=== PATIENT | female | born 1950 | race Caucasian/White ===

== ENCOUNTER → 2016-10-28 | Outpatient (CLI) | payer MEDICARE, OTHER ==
[2016-10-28 07:32] LABS: CH 28.3; CHCM 31.6; HCT 34.1 % (34.0-46.0); HDW 4.01; HGB 10.8 gm/dL (11.4-16.0); Hypochromasia Marked; MCH 28.2 pg (25.0-35.0); MCHC 31.6 g/dL (31.0-37.0); Mean Platelet Volume 6.7; Poikilocytosis Moderate; RBC 3.83 m/uL (3.80-5.40); RDW 15.9 % (11.5-15.5); WBC 11.6 k/uL (3.8-10.6)
[2016-10-28 07:54] LABS: Anion Gap 9 mmol/L; Blood Urea Nitrogen 21 mg/dL (7-17); Carbon Dioxide 39 mmol/L (22-30); Non-African American GFR(MDRD) >60 (>60 ml/min/1.73 sqM); Sodium 127 mmol/L (137-145)
[2016-10-28 08:45] LABS: Chloride 79 mmol/L (98-107)
== END | disposition home or self-care (01) ==
LOC: LABPAT 06:34
PROVIDERS: ATTEND Internal Medicine Interventional Cardiology
DX: Z01.812 Encounter for preprocedural laboratory examination (principal); I73.9 Peripheral vascular disease, unspecified
CPT/HCPCS: 80051; 82565; 84520; 85027

== ENCOUNTER → 2016-11-03 | Day surgery (SDC) | payer MEDICARE, OTHER ==
[2016-10-28 09:43] VITALS: BMI 15.4
[~2016-11-03] MED LIST: ALPRAZolam 0.25 MG TAB PO PRN; ASPIRIN 325 MG TAB PO STA; SODIUM CHLORIDE 0.9% 1,000 ML in EMPTY BAG 1 BAG IV ONE; ZOLPIDEM 5 MG TAB PO PRN
[2016-11-03 06:51] VITALS: TEMP 97.8
[2016-11-03 06:58] VITALS: BP 119/64; PULSE 90; RESP 20
[2016-11-03 07:28] LABS: Anion Gap 7 mmol/L; Blood Urea Nitrogen 14 mg/dL (7-17); Calcium 8.8 mg/dL (8.4-10.2); Carbon Dioxide 35 mmol/L (22-30); Chloride 84 mmol/L (98-107); Glucose 84 mg/dL (74-99); Non-African American GFR(MDRD) >60 (>60 ml/min/1.73 sqM); Potassium 3.6 mmol/L (3.5-5.1); Sodium 126 mmol/L (137-145)
[2016-11-03 15:27] LABS: Basophils # (A) 0.1 k/uL (0-0.2); Basophils % (A) 1 %; CH 26.2; CHCM 29.7; Eosinophils # (A) 0.4 k/uL (0-0.7); Eosinophils % (A) 3 %; HCT 31.7 % (34.0-46.0); HDW 4.36; HGB 9.6 gm/dL (11.4-16.0); Hypochromasia Marked; Luc # (Auto) 0.38; Luc % (Auto) 3; Lymphocytes # (A) 1.6 k/uL (1.0-4.8); Lymphocytes % (A) 13 %; MCH 26.5 pg (25.0-35.0); MCHC 30.3 g/dL (31.0-37.0); MCV 87.5 fL (80.0-100.0); Mean Platelet Volume 7.7; Monocytes # (A) 1.1 k/uL (0-1.0); Monocytes % (A) 9 %; Neutrophils # (A) 9.3 k/uL (1.3-7.7); Neutrophils % (A) 72 %; Poikilocytosis Moderate; RBC 3.62 m/uL (3.80-5.40); RDW 15.8 % (11.5-15.5); WBC 12.8 k/uL (3.8-10.6); WBC (Perox) 12.83
== END ==
LOC: CATHCVL 06:27
PROVIDERS: ATTEND Internal Medicine Interventional Cardiology
DX: I73.9 Peripheral vascular disease, unspecified (principal)
CPT/HCPCS: 80048; 85025

== ENCOUNTER 2016-11-04 08:59 | Day surgery (SDC) | payer MEDICARE, OTHER ==
[~2016-11-04 08:59] MED LIST changes: -ALPRAZolam 0.25 MG TAB PO PRN; -ASPIRIN 325 MG TAB PO STA; -ZOLPIDEM 5 MG TAB PO PRN
[2016-11-04 09:53] VITALS: PULSE 89; RESP 20; TEMP 98
[2016-11-04] MEDS ORDERED: MIDAZOLAM 2 MG/2 ML VIAL IVP ONE (10:39)
[2016-11-04] MEDS ORDERED: LIDOCAINE 2% INJ 20 MG/ML SQ ONE (10:41)
[2016-11-04] MEDS ORDERED: IODIXANOL 320 MG/ML 100 ML INTRAARTER ONE (10:56)
--- NOTE | 2016-11-04 11:28 | IR ---
EXAMINATION TYPE: IR angio abdominal w runoff DATE OF EXAM: 11/04/2016 COMPARISON: NONE HISTORY: Peripheral vascular occlusive disease. Fluoroscopy was provided to the referring clinician. See dictated report from cardiology.
[2016-11-04] MEDS ORDERED: SODIUM CHLORIDE 0.9% 1,000 ML IV SCH (11:30)
[2016-11-04 17:55] VITALS: BP 105/72
--- NOTE | 2016-11-05 10:39 | PCN ---
DATE OF SERVICE: 11/04/2016 PERFORMING PHYSICIAN: London Martinez MD, Local Delivery Driver PROCEDURE PERFORMED: 1. Abdominal aortogram. 2. Bilateral lower extremity runoff. 3. Selective right common iliac artery angiogram. 4. Selective right external iliac artery angiogram. INDICATIONS: This is a pleasant 66-year-old female patient who is known to have PAD and prior stenting of the right and left iliac arteries. She was experience discomfort in the right leg. She underwent an arterial duplex study and that showed high velocity in the right common iliac arteries. She was brought today to undergo angiogram. APPROACH: Right common femoral artery. COMPLICATIONS: None. LEVEL OF SEDATION: Moderate with sedation length of 25 minutes. PROCEDURE DESCRIPTION: After obtaining informed consent the patient was brought to the Cardiac Counter Hop. The right common femoral vein was cannulated using micropuncture technique, the micropuncture wire passed easily. Then I placed 5- [place] sheath in the right common femoral artery. After that I did abdominal aortogram and bilateral lower extremity runoff using 5-St Lucian pigtail catheter which was initially placed at the level of the renal arteries and it was pulled into above the bifurcation of the aorta. After that I did selective right and left common iliac artery angiogram using the 5-St Lucian sheath in the right groin. The procedure was completed without any complications. SELECTIVE PERIPHERAL ANGIOGRAM: 1. The aorta is calcified with mild to moderate diffuse disease. 2. Common iliac arteries: The right and left common iliac arteries are stented and the stents are patent, but the proximal edge of the stent in the right common iliac artery appeared to have pseudoaneurysm. 3. The external iliac arteries: The right external iliac artery is stented and the stent is patent. The left external iliac artery appeared to have mild disease only. 4. Internal iliac arteries: The right and left internal iliac arteries are patent. 5. The common femoral arteries: The right and left common femoral arteries are angiographically normal. 6. Profunda: The right and left profunda are patent. 7. The SFA: The right and left SFA appear to have mild disease only. 8. The popliteal: The right and left popliteal appear to be angiographically normal. 9. Below the knee: There are three vessels runoff below the knee bilaterally. CONCLUSION: 1. Patent stents in the right and left common iliac arteries. 2. Patent stents in the right external iliac artery. 3. Pseudoaneurysm involving the proximal edge of the stent in the right common iliac artery and seems to be a good size pseudoaneurysm. 4. Mild fem-pop disease. 5. Patent three vessels below the knee bilaterally. POSTPROCEDURE MANAGEMENT: The patient will be scheduled to undergo a SHIM PLUG CUTTER of the right common iliac artery using a covered stent to exclude pseudoaneurysm. OLIVA
== END 2016-11-04 17:30 | disposition home or self-care (01) ==
LOC: CATHCVL 08:59
PROVIDERS: ATTEND Internal Medicine Interventional Cardiology
DX: I70.8 Atherosclerosis of other arteries (principal); I70.0 Atherosclerosis of aorta; I77.9 Disorder of arteries and arterioles, unspecified; I73.9 Peripheral vascular disease, unspecified; Z95.820 Peripheral vascular angioplasty status with implants and grafts; E78.5 Hyperlipidemia, unspecified; F17.210 Nicotine dependence, cigarettes, uncomplicated; Z79.02 Long term (current) use of antithrombotics/antiplatelets; Z79.82 Long term (current) use of aspirin; Z79.51 Long term (current) use of inhaled steroids; Z79.899 Other long term (current) drug therapy
CPT/HCPCS: 36200; 75625; 75716; 99152; C1769 ×5; C1894; J2001; J2250; Q9967

== ENCOUNTER 2016-11-10 10:59 | Day surgery (SDC) | payer MEDICARE, OTHER ==
[2016-11-08 15:18] VITALS: BMI 15.4
[~2016-11-10 10:59] MED LIST changes: +ASPIRIN 325 MG TAB PO STA; -SODIUM CHLORIDE 0.9% 1,000 ML in EMPTY BAG 1 BAG IV ONE
[2016-11-10] MEDS ORDERED: ASPIRIN 81 MG ONE (11:11)
[2016-11-10 11:57] LABS: Anisocytosis Slight; Basophils # (A) 0.1 k/uL (0-0.2); Basophils % (A) 1 %; CH 25.2; CHCM 30.1; Eosinophils # (A) 0.3 k/uL (0-0.7); Eosinophils % (A) 3 %; HCT 31.4 % (34.0-46.0); HDW 4.39; HGB 9.7 gm/dL (11.4-16.0); Hypochromasia Marked; Luc # (Auto) 0.33; Luc % (Auto) 3; Lymphocytes # (A) 1.6 k/uL (1.0-4.8); Lymphocytes % (A) 14 %; MCH 25.6 pg (25.0-35.0); MCHC 30.9 g/dL (31.0-37.0); Monocytes # (A) 0.7 k/uL (0-1.0); Monocytes % (A) 7 %; Neutrophils % (A) 73 %; Poikilocytosis Moderate; RBC 3.78 m/uL (3.80-5.40); RDW 16.9 % (11.5-15.5)
[2016-11-10 12:06] LABS: Anion Gap 9 mmol/L; Blood Urea Nitrogen 19 mg/dL (7-17); Calcium 9.1 mg/dL (8.4-10.2); Carbon Dioxide 29 mmol/L (22-30); Chloride 91 mmol/L (98-107); Glucose 84 mg/dL (74-99); Non-African American GFR(MDRD) >60 (>60 ml/min/1.73 sqM); Potassium 3.9 mmol/L (3.5-5.1); Sodium 129 mmol/L (137-145)
[2016-11-10] MEDS ORDERED: SODIUM CHLORIDE 0.9% 1,000 ML IV ONE (12:28)
[2016-11-10] MEDS: MIDAZOLAM 2 MG/2 ML VIAL IV ONE ×2 (12:54→12:57)
[2016-11-10] MEDS ORDERED: LIDOCAINE 2% INJ 20 MG/ML SQ ONE (12:58)
[2016-11-10] MEDS ORDERED: IODIXANOL 320 MG/ML 100 ML INTRAARTER ONE (13:26)
[2016-11-10] MEDS ORDERED: ALBUTEROL NEBULIZED 2.5 MG/3 ML INHALATION PRN (13:27)
[2016-11-10] MEDS ORDERED: IPRATROPIUM-ALBUTEROL 3 ML NEB INHALATION PRN (13:27)
--- NOTE | 2016-11-10 13:57 | IR ---
EXAMINATION TYPE: IR stent intravas non coronary DATE OF EXAM: 11/10/2016 COMPARISON: NONE HISTORY: Peripheral vascular occlusive disease. Fluoroscopy was provided to the referring clinician. See dictated report from cardiology.
[2016-11-10] MEDS ORDERED: ATROPINE SULFATE 0.1 MG/ML 10ML SYRINGE ONE (14:54)
[2016-11-10 16:20] VITALS: RESP 18
[2016-11-10] MEDS: FUROSEMIDE 20 MG TAB PO SCH (17:07)
[2016-11-10] MEDS: SYMBICORT 80-4.5 MCG INHALER INHALATION SCH (20:22)
[2016-11-10] MEDS ORDERED: ATORVASTATIN 10 MG TAB PO SCH (21:00)
[2016-11-11 04:20] VITALS: BP 145/70; PULSE 74; TEMP 98.8
[2016-11-11 06:42] LABS: Anisocytosis Slight; Basophils # (A) 0.1 k/uL (0-0.2); Basophils % (A) 1 %; CH 25.8; CHCM 30.2; Eosinophils # (A) 0.4 k/uL (0-0.7); Eosinophils % (A) 5 %; HCT 29.5 % (34.0-46.0); HDW 4.16; HGB 8.7 gm/dL (11.4-16.0); Hypochromasia Marked; Luc # (Auto) 0.26; Luc % (Auto) 4; Lymphocytes # (A) 1.6 k/uL (1.0-4.8); Lymphocytes % (A) 21 %; MCH 25.1 pg (25.0-35.0); MCHC 29.6 g/dL (31.0-37.0); MCV 84.7 fL (80.0-100.0); Mean Platelet Volume 6.5; Monocytes # (A) 0.7 k/uL (0-1.0); Monocytes % (A) 9 %; Neutrophils # (A) 4.5 k/uL (1.3-7.7); Neutrophils % (A) 60 %; Poikilocytosis Moderate; RBC 3.48 m/uL (3.80-5.40); RDW 17.7 % (11.5-15.5); WBC 7.5 k/uL (3.8-10.6); WBC (Perox) 7.69
[2016-11-11 06:54] LABS: Anion Gap 7 mmol/L; Blood Urea Nitrogen 15 mg/dL (7-17); Calcium 8.9 mg/dL (8.4-10.2); Carbon Dioxide 28 mmol/L (22-30); Chloride 96 mmol/L (98-107); Glucose 83 mg/dL (74-99); Non-African American GFR(MDRD) >60 (>60 ml/min/1.73 sqM); Potassium 4.2 mmol/L (3.5-5.1); Sodium 131 mmol/L (137-145)
[2016-11-11] MEDS: FUROSEMIDE 20 MG TAB PO SCH (08:39)
[2016-11-11] MEDS: SYMBICORT 80-4.5 MCG INHALER INHALATION SCH (08:55)
[2016-11-11] MEDS ORDERED: CLOPIDOGREL 75 MG TAB PO SCH (09:00)
[2016-11-11] MEDS ORDERED: ASPIRIN 81 MG PO SCH (09:00)
[2016-11-11] MEDS ORDERED: CHOLECALCIFEROL 1,000 UNIT TAB PO SCH (12:00)
[2016-11-11] MEDS ORDERED: VIT A,C & E-LUTEIN-MINERALS 1 EACH TAB PO SCH (12:00)
--- NOTE | 2016-11-11 14:19 | AS ---
ARTERIAL STUDY DATE OF SERVICE: 11/10/2016 PERFORMING PHYSICIAN: London Martinez MD, Nail Galvanizer. PROCEDURE PERFORMED: 1. Selective right common iliac artery angiogram. 2. Successful stenting of the right common iliac artery using a 7.0 x 22 mm iCAST covered stent with good angiographic results. 3. Selective right common femoral artery angiogram. INDICATION: This is a pleasant 66-year-old, female patient who underwent stenting of the right common iliac artery in the past. She was experiencing bilateral lower extremity discomfort and she underwent a duplex study which showed elevated peak systolic velocity in the right iliac stent. She underwent a peripheral angiogram subsequently and that showed pseudoaneurysm involving the right common iliac artery. She was brought today for intervention. APPROACH: Right common femoral artery. COMPLICATION: None. LEVEL OF SEDATION: Moderate, sedation length of 28 minutes. PROCEDURE DESCRIPTION: After obtaining an informed consent, the patient was brought to Cardiac Sql Server Developer. The right common femoral artery was cannulated using micropuncture technique. The micropuncture wire passed easily and I placed a 23 cm Brite Tip 7-Icelandic sheath in the right common femoral artery. Subsequently, I did selective right common iliac artery angiogram before I did direct stenting of the lesion using a 7.0 x 22 mm iCAST covered stent where the stent was positioned under fluoroscopic guidance and deployed under 12 atmospheres for 1 minute. The following angiogram showed no leaking and the closure of the pseudoaneurysm. The procedure was completed without any complication. Subsequently, I did exchange my 23 cm Brite Tip sheath into 11 cm sheath over the 0.35 Advantage wire. POSTPROCEDURE MANAGEMENT: 1. Dual antiplatelet therapy to be continued. 2. Risk factor modifications and follow up with the patient .. MMODL / IJN: [id number] /
--- NOTE | 2016-11-12 17:26 | DS ---
DISCHARGE SUMMARY BRIEF HISTORY: This is a pleasant 66-year-old, female patient who was admitted to the hospital and underwent successful stenting of the right common iliac artery with a good angiographic result and without any complication where the procedure was performed from the right groin. On follow up with the patient today she is doing good and she denies having any chest pain or discomfort or difficulty breathing. The right groin is soft and nontender and without any bruises. The patient is going to be discharged home on dual antiplatelet therapy and statin and I will follow up with the patient next week in the office. MMJIMBOL / OZZY: [id number] /
== END 2016-11-11 10:08 | disposition home or self-care (01) ==
LOC: CATHCVL 10:59 → 6SEL 13:23 → CATHCVL 11-11 10:08
PROVIDERS: ATTEND Internal Medicine Interventional Cardiology
DX: I70.291 Other atherosclerosis of native arteries of extremities, right leg (principal); Z95.820 Peripheral vascular angioplasty status with implants and grafts; E78.5 Hyperlipidemia, unspecified; F17.210 Nicotine dependence, cigarettes, uncomplicated; Z79.02 Long term (current) use of antithrombotics/antiplatelets; Z79.82 Long term (current) use of aspirin; Z79.51 Long term (current) use of inhaled steroids; Z79.899 Other long term (current) drug therapy
CPT/HCPCS: 94640; 37221; 85347; 80048 ×2; 85025 ×2; C1894 ×2; C1874; C1769 ×4; J2001; J2250; Q9967; J1644

== ENCOUNTER → 2017-05-11 | Outpatient (CLI) | payer MEDICARE, OTHER ==
[2017-05-11 19:04] LABS: Anisocytosis Slight; Basophils # (A) 0.1 k/uL (0-0.2); Basophils % (A) 1 %; Eosinophils # (A) 0.4 k/uL (0-0.7); Eosinophils % (A) 4 %; HCT 43.7 % (34.0-46.0); HGB 13.5 gm/dL (11.4-16.0); Hypochromasia Slight; Lymphocytes # (A) 1.8 k/uL (1.0-4.8); Lymphocytes % (A) 17 %; MCH 28.3 pg (25.0-35.0); MCHC 30.9 g/dL (31.0-37.0); MCV 91.6 fL (80.0-100.0); Mean Platelet Volume 10.1; Monocytes # (A) 0.9 k/uL (0-1.0); Monocytes % (A) 8 %; Neutrophils # (A) 7.5 k/uL (1.3-7.7); Neutrophils % (A) 69 %; Platelet Count 293 k/uL (150-450); RBC 4.77 m/uL (3.80-5.40); WBC 10.9 k/uL (3.8-10.6)
[2017-05-12 01:10] LABS: Iron Saturation 12.89 (12.00-45.00)
== END | disposition home or self-care (01) ==
LOC: MMGSC 11:09
PROVIDERS: ATTEND Family Medicine
DX: D64.9 Anemia, unspecified (principal)
CPT/HCPCS: 36415; 82728; 83540; 83550; 85025

== ENCOUNTER 2018-04-23 19:29 | Inpatient (IN) | payer MEDICARE, OTHER ==
[2018-04-23] MEDS ORDERED: IPRATROPIUM-ALBUTEROL 3 ML NEB INHALATION STA (19:33)
[2018-04-23] MEDS ORDERED: MAGNESIUM SULFATE-D5W PMX 1 GM in DEXTROSE/WATER 1 100ML.BAG IVPB STA (19:33)
[2018-04-23] MEDS ORDERED: SODIUM CHLORIDE 0.9% 1,000 ML IV STA (19:33)
--- NOTE | 2018-04-23 19:57 | XR ---
EXAMINATION TYPE: XR chest 1V portable DATE OF EXAM: 04/23/2018 COMPARISON: NONE HISTORY: Difficulty in breathing. TECHNIQUE: Single AP portable frontal upright view of the chest is obtained. FINDINGS: There is chronic parenchymal change without suspicious focal air space opacity, pleural ef fusion, or pneumothorax seen. The cardiac silhouette size is upper limits of normal with atheroscler otic thoracic aorta. The osseous structures are demineralized. Scoliosis centered in the lumbar spi ne is partially imaged. IMPRESSION: Chronic parenchymal change without acute pulmonary process.
[2018-04-23 20:07] LABS: Basophils % (A) 0 %; Eosinophils # (A) 0.3 k/uL (0-0.7); Eosinophils % (A) 2 %; HCT 44.3 % (34.0-46.0); Lymphocytes # (A) 1.2 k/uL (1.0-4.8); Lymphocytes % (A) 7 %; MCHC 33.8 g/dL (31.0-37.0); MCV 97.6 fL (80.0-100.0); Mean Platelet Volume 7.9; Monocytes # (A) 1.2 k/uL (0-1.0); Monocytes % (A) 7 %; Neutrophils # (A) 14.2 k/uL (1.3-7.7); Neutrophils % (A) 83 %; Platelet Count 300 k/uL (150-450); RBC 4.54 m/uL (3.80-5.40); RDW 13.7 % (11.5-15.5); WBC 17.1 k/uL (3.8-10.6)
[2018-04-23] MEDS ORDERED: ALBUTEROL NEBULIZED 2.5 MG/3 ML INHALATION STA (20:16)
[2018-04-23 21:01] LABS: ALT 33 U/L (9-52); AST 35 U/L (14-36); Albumin 3.9 g/dL (3.5-5.0); Alkaline Phosphatase 91 U/L (38-126); Anion Gap 8 mmol/L; Blood Urea Nitrogen 26 mg/dL (7-17); Calcium 8.7 mg/dL (8.4-10.2); Carbon Dioxide 28 mmol/L (22-30); Chloride 93 mmol/L (98-107); Glucose 142 mg/dL (74-99); Magnesium 2.3 mg/dL (1.6-2.3); Potassium 4.8 mmol/L (3.5-5.1); Sodium 129 mmol/L (137-145); Total Bilirubin 0.6 mg/dL (0.2-1.3); Total Protein 6.7 g/dL (6.3-8.2)
[2018-04-23] MEDS ORDERED: LABETALOL SYRINGE 5 MG/ML IVP STA (21:04)
--- NOTE | 2018-04-23 21:04 | ED ---
SOB HPI - General Source: patient, EMS Mode of arrival: EMS Limitations: no limitations <Roland De La O - Last Filed: 04/23/18 20:56> <Samantha Cesar - Last Filed: 04/23/18 23:12> - General Chief Complaint: Shortness of Breath Stated Complaint: Difficulty Breathing Time Seen by Provider: 04/23/18 19:33 - History of Present Illness Initial Comments: This 67-year-old white female presents with a complaint of some shortness of breath. This apparently came on yesterday. It is fairly sudden in onset. It occurred while she was bowling. She complains of some wheezing. She has a long history of COPD and still does actively abuse tobacco. She denies any fevers or chills. She probably did have some bronchitis this past month and was on some antibiotics. She does not utilize home oxygen. She does see Dr. Mike from pulmonology. She will take her breathing treatments at times. She denies any chest pain. There is no leg pain or swelling or history of DVT or PE. No other complaints or modifying factors. (Roland De La O) - Related Data Home Medications Medication Instructions Recorded Confirmed Fluticasone/Salmeterol [Advair 1 puff INHALATION RT-BID 06/01/15 04/23/18 250-50 Diskus] Ipratropium/Albuterol Sulfate 1 puff INHALATION RT-QID PRN 06/01/15 04/23/18 [Combivent Respimat Inhaler] Simvastatin [Zocor] 20 mg PO DAILY 06/01/15 04/23/18 Vit A/Vit C/Vit E/Zinc/Copper 1 tab PO DAILY 06/01/15 04/23/18 [ICAPS SOFTGEL] Aspirin [Adult Low Dose Aspirin EC] 81 mg PO DAILY 10/28/16 04/23/18 Cholecalciferol [Vitamin D3] 1,000 unit PO DAILY 10/28/16 04/23/18 Furosemide [Lasix] 20 mg PO BID PRN 10/28/16 04/23/18 Albuterol Inhaler [Ventolin Hfa 1 - 2 puff INHALATION RT-Q6H PRN 04/23/18 Inhaler] Cephalexin [Keflex] 500 mg PO TID 04/23/18 04/23/18 amLODIPine [Norvasc] 5 mg PO DAILY 04/23/18 04/23/18 methylPREDNISolone Dose Pack See Taper PO DIRECTED 04/23/18 04/23/18 [Medrol Dose Pack] Allergies Allergy/AdvReac Type Severity Reaction Status Date / Time estrogens, conjugated Allergy Rash/Hives Verified 04/23/18 20:11 [From Premarin] lisinopril Allergy Swelling Verified 04/23/18 20:11 Review of Systems ROS Other: All systems not noted in ROS Statement are negative. <Roland De La O - Last Filed: 04/23/18 20:56> ROS Other: All systems not noted in ROS Statement are negative. <Samantha Cesar - Last Filed: 04/23/18 23:12> ROS Statement: Those systems with pertinent positive or pertinent negative responses have been documented in the HPI. Past Medical History Past Medical History: Asthma, COPD, Hyperlipidemia, Osteoarthritis (OA), Pneumonia, Vascular Disorder Additional Past Medical History / Comment(s): HX OF ANEMIA, STATES HAS HAD UNSUCCSESSFUL COLONOSCOPIES IN PAST R/T "TWISTED BOWEL" PAD with lower extremity discomfort bilaterally. History of Any Multi-Drug Resistant Organisms: None Reported Past Surgical History: Adenoidectomy, Breast Surgery, Tonsillectomy Additional Past Surgical History / Comment(s): 06/03/15 Arch study, PTBA & Stenting Right Ext Iliac artery. ABDOULAYE OOPHERECTOMY. LASIK EYE SURGERY Abdoulaye. Benign Breast bx bilat. Rt Carotid Angiogram, & Endarterectomy. Rt Carotid Artery Stent 07/14/15. Stent to LT Leg 07/30/15. ABD AORTOGRAM, ANGIOGRAM 11/04. RT LEG STENT 11/10/16 Past Anesthesia/Blood Transfusion Reactions: No Reported Reaction Past Psychological History: No Psychological Hx Reported Smoking Status: Light tobacco smoker Past Alcohol Use History: Occasional Past Drug Use History: None Reported - Past Family History Father Family Medical History: Myocardial Infarction (ME) Additional Family Medical History / Comment(s): Father of a ME at age 61 yrs. Brother(s) Family Medical History: Myocardial Infarction (ME) Mother Family Medical History: No Reported History Additional Family Medical History / Comment(s): Mother had kidney failure and was on dialysis. She at age 73 yrs. <Roland De La O - Last Filed: 04/23/18 20:56> General Exam Limitations: no limitations <Roland De La O - Last Filed: 04/23/18 20:56> <Samantha Cesar - Last Filed: 04/23/18 23:12> - General Exam Comments Initial Comments: GENERAL: The patient is well nourished and well hydrated. VITAL SIGNS: Heart rate, blood pressure, respiratory rate reviewed as recorded in nurse's notes. EYES: Pupils are round and reactive. Extraocular movements are intact. No conjunctival / lid redness or swelling. ENT: No external evidence of injury, swelling, or ecchymosis. Airway is patent. Throat is clear. NECK: Nontender. No swelling or evidence of injury. No subcutaneous emphysema. Trachea is midline. No thyroid mass. HEART: Regular rate and rhythm. Good peripheral pulses. LUNGS/CHEST: Breath sounds are diminished bilaterally with slight wheezing. No ecchymosis, subcutaneous emphysema, or tenderness. ABDOMEN: Abdomen soft without tenderness. No palpable masses or organomegaly. No peritoneal signs. No abdominal wall swelling or ecchymosis. EXTREMITIES: No extremity tenderness. Normal muscle tone and function. No thoracolumbar tenderness. NEUROLOGIC: Sensation is grossly intact. Cranial nerve exam reveals face is symmetrical, tongue is midline, speech is clear. SKIN: No abrasions or ecchymosis is noted. No induration or masses noted. PSYCHIATRIC: Alert and oriented. Appropriate behavior and judgment. (Roland De La O) Vital Signs 04/23/18 04/23/18 04/23/18 19:33 19:39 19:40 Temperature 98.2 F Pulse Rate 116 H 110 H 105 H Respiratory 22 17 28 H Rate Blood Pressure 212/153 212/123 206/119 O2 Sat by Pulse 96 100 100 Oximetry 04/23/18 04/23/18 04/23/18 19:43 19:50 19:53 Temperature Pulse Rate 105 H 101 H 102 H Respiratory 24 Rate Blood Pressure 200/111 O2 Sat by Pulse 100 Oximetry 04/23/18 04/23/18 04/23/18 20:00 20:04 20:10 Temperature Pulse Rate 108 H 102 H 103 H Respiratory 26 H 32 H Rate Blood Pressure 200/111 170/106 O2 Sat by Pulse 99 100 Oximetry 04/23/18 04/23/1819 20:20 20:30 20:40 Temperature Pulse Rate 105 H 95 93 Respiratory 37 H 25 H 21 Rate Blood Pressure 176/97 176/97 187/104 O2 Sat by Pulse 99 100 100 Oximetry 04/23/18 04/23/18 04/23/18 20:43 20:50 21:00 Temperature Pulse Rate 94 92 106 H Respiratory 23 Rate Blood Pressure 187/100 O2 Sat by Pulse 98 Oximetry 04/23/18 04/23/18 04/23/18 21:10 21:20 21:24 Temperature Pulse Rate 90 100 95 Respiratory 20 23 Rate Blood Pressure 189/97 187/93 O2 Sat by Pulse 98 97 Oximetry 04/23/18 04/23/18 21:30 21:40 Temperature Pulse Rate 95 102 H Respiratory 16 20 Rate Blood Pressure 185/99 186/90 O2 Sat by Pulse 95 Oximetry Medical Decision Making - Lab Data Result diagrams: 04/23/18 19:38 <Roland De La O - Last Filed: 04/23/18 20:56> - Lab Data Result diagrams: 04/23/18 19:38 04/23/18 20:38 <Samantha Cesar - Last Filed: 04/23/18 23:12> - Medical Decision Making The patient is seen and examined. All diagnostics are reviewed. She was placed on BiPAP per EMS and was received as a priority 1 difficulty in breathing. The BiPAP was continued in the ER. She seems to tolerate this quite well and it seems to be helping. The patient received a breathing treatment and route as well as Solu-Medrol 125 mg IV. She receives a double DuoNeb breathing treatment and then later a double albuterol breathing treatment. She is in no respiratory distress on recheck with a pulse ox of 99% on the BiPAP on recheck. The chest x-ray does not show any acute processes. The EKG shows a sinus tachycardia at a rate of 113. There is no acute ST-T wave changes noted. There is some artifact noted identified. There is some left ventricular hypertrophy. The KY intervals 152, QRS duration is 78, and the QTC intervals 449. So far, CBC is back on her labs and this does show a leukocytosis. Further care will be passed off to oncoming physician. (Roland De La O) Patient care was signed out to me by Dr. De La O patient presented in respiratory distress with profound hypertension. patient was treated with triple duoneb therapy and solumedrol by EMS. Labetalol for HTN. Patient was noted to have elevated d-dimer, CTA was ordered. Patient was weaned from CPAP and transported to CT. Patient tolerated being off CPAP. Upon my re- evaluation Asians blood pressure had improved she was still mildly hypertensive with a systolic of 175, respiratory rate was improved her oxygen saturation was 95-96% on 2 L nasal cannula. Patient care was discussed with Dr Gamboa from [facility] who accepts the admission. EKG was obtained at 20-22, rate is 74 rhythm is sinus there is left atrial enlargement, left axis, normal intervals, KY 166, QRS 80, QTC is 468, there are no acute ST elevations or depressions evaluation of evidence of acute ischemia or infarction. (Samantha Cesar) - Lab Data Lab Results 04/23/18 04/23/18 04/23/18 Range/Units 19:38 19:38 20:38 WBC 17.1 H (3.8-10.6) k/uL RBC 4.54 (3.80-5.40) m/uL Hgb 15.0 (11.4-16.0) gm/dL Hct 44.3 (34.0-46.0) % MCV 97.6 (80.0-100.0) fL MCH 33.0 (25.0-35.0) pg MCHC 33.8 (31.0-37.0) g/dL RDW 13.7 (11.5-15.5) % Plt Count 300 (150-450) k/uL Neutrophils % 83 % Lymphocytes % 7 % Monocytes % 7 % Eosinophils % 2 % Basophils % 0 % Neutrophils # 14.2 H (1.3-7.7) k/uL Lymphocytes # 1.2 (1.0-4.8) k/uL Monocytes # 1.2 H (0-1.0) k/uL Eosinophils # 0.3 (0-0.7) k/uL Basophils # 0.0 (0-0.2) k/uL PT (9.0-12.0) sec INR (<1.2) APTT (22.0-30.0) sec D-Dimer (<0.60) mg/L FEU Sodium 129 L (137-145) mmol/L Potassium 4.8 (3.5-5.1) mmol/L Chloride 93 L (98-107) mmol/L Carbon Dioxide 28 (22-30) mmol/L Anion Gap 8 mmol/L BUN 26 H (7-17) mg/dL Creatinine 0.76 (0.52-1.04) mg/dL Est GFR (CKD-EPI)AfAm >90 (>60 ml/min/1.73 sqM) Est GFR (CKD-EPI)NonAf 81 (>60 ml/min/1.73 sqM) Glucose 142 H (74-99) mg/dL Calcium 8.7 (8.4-10.2) mg/dL Magnesium 2.3 (1.6-2.3) mg/dL Total Bilirubin 0.6 (0.2-1.3) mg/dL AST 35 (14-36) U/L ALT 33 (9-52) U/L Alkaline Phosphatase 91 (38-126) U/L Total Creatine Kinase (30-135) U/L CK-MB (CK-2) (0.0-2.4) ng/mL CK-MB (CK-2) Rel Index Troponin I (0.000-0.034) ng/mL NT-Pro-B Natriuret Pep 1070 pg/mL Total Protein 6.7 (6.3-8.2) g/dL Albumin 3.9 (3.5-5.0) g/dL 04/23/18 04/23/18 Range/Units 20:38 20:38 WBC (3.8-10.6) k/uL RBC (3.80-5.40) m/uL Hgb (11.4-16.0) gm/dL Hct (34.0-46.0) % MCV (80.0-100.0) fL MCH (25.0-35.0) pg MCHC (31.0-37.0) g/dL RDW (11.5-15.5) % Plt Count (150-450) k/uL Neutrophils % % Lymphocytes % % Monocytes % % Eosinophils % % Basophils % % Neutrophils # (1.3-7.7) k/uL Lymphocytes # (1.0-4.8) k/uL Monocytes # (0-1.0) k/uL Eosinophils # (0-0.7) k/uL Basophils # (0-0.2) k/uL PT 9.5 (9.0-12.0) sec INR 0.9 (<1.2) APTT 22.7 (22.0-30.0) sec D-Dimer 1.50 H (<0.60) mg/L FEU Sodium (137-145) mmol/L Potassium (3.5-5.1) mmol/L Chloride (98-107) mmol/L Carbon Dioxide (22-30) mmol/L Anion Gap mmol/L BUN (7-17) mg/dL Creatinine (0.52-1.04) mg/dL Est GFR (CKD-EPI)AfAm (>60 ml/min/1.73 sqM) Est GFR (CKD-EPI)NonAf (>60 ml/min/1.73 sqM) Glucose (74-99) mg/dL Calcium (8.4-10.2) mg/dL Magnesium (1.6-2.3) mg/dL Total Bilirubin (0.2-1.3) mg/dL AST (14-36) U/L ALT (9-52) U/L Alkaline Phosphatase (38-126) U/L Total Creatine Kinase 90 (30-135) U/L CK-MB (CK-2) 4.8 H (0.0-2.4) ng/mL CK-MB (CK-2) Rel Index 5.3 Troponin I <0.012 (0.000-0.034) ng/mL NT-Pro-B Natriuret Pep pg/mL Total Protein (6.3-8.2) g/dL Albumin (3.5-5.0) g/dL Disposition <Roland De La O - Last Filed: 04/23/18 20:56> Is patient prescribed a controlled substance at d/c from ED?: No <Samantha Cesar - Last Filed: 04/23/18 23:12> Clinical Impression: COPD with exacerbation, Dyspnea, Hypertensive crisis, Tobacco abuse Disposition: ADMITTED IP TO THIS HOSP Condition: Serious Referrals: Darline Chaudhari MD [Primary Care Provider] - 1-2 days
[2018-04-23 21:08] LABS: Creatine Kinase 90 U/L (30-135)
[2018-04-23 21:13] LABS: INR 0.9 (<1.2); Partial Thromboplastin Time 22.7 sec (22.0-30.0); Prothrombin Time 9.5 sec (9.0-12.0)
[2018-04-23 21:17] LABS: D-Dimer 1.5 mg/L FEU (<0.60)
[2018-04-23 21:19] LABS: Creatine Kinase MB 4.8 ng/mL (0.0-2.4); Troponin I <0.012 ng/mL (0.000-0.034)
--- NOTE | 2018-04-23 22:06 | CT ---
EXAMINATION TYPE: CT chest angio for PE DATE OF EXAM: 04/23/2018 COMPARISON: NONE HISTORY: GERARDO, hx copd CT DLP: 156 mGycm. Automated Exposure Control for Dose Reduction was Utilized. CONTRAST: CTA scan of the thorax is performed with IV Contrast, patient injected with 80 mL of Isovue 370, pulm onary embolism protocol. MIP Images are created on CT scanner and reviewed. FINDINGS: LUNGS: Mild to moderate underlying emphysematous changes present. There is moderate biapical pleural/ parenchymal scarring. There is additional [id number] anterior medial right midlung linear scarr ing and/or atelectasis. There is focal scarlike opacity measuring 8 x 5 mm medial aspect lingula axia l image 84 favor post inflammatory, cannot exclude spiculated nodule. There is additional patchy or l inear scarring or atelectasis inferiorly in the lingula. No pleural effusion or pneumothorax is evide nt bilaterally. MEDIASTINUM: There is satisfactory enhancement of the pulmonary artery and its branches, there is no CT evidence for pulmonary embolism. There are no greater than 1 cm hilar or mediastinal lymph nodes. No cardiomegaly or pericardial effusion is seen. Ascending aorta is dilated up to 3.7 cm axial rae ge 65. Pectus excavatum deformity has mass effect anterior aspect right ventricle. OTHER: Underlying scoliotic curvature is present. IMPRESSION: 1. No CT evidence for acute pulmonary embolism. 2. Mild to moderate underlying emphysematous change with scattered parenchymal scarring. No suspiciou s acute pulmonary process. Advise CT follow-up in 6 months time to rule out spiculated nodule, favor postinflammatory scar.
[2018-04-23] MEDS ORDERED: IPRATROPIUM-ALBUTEROL 3 ML NEB INHALATION PRN (22:51)
[2018-04-24] MEDS: NICOTINE 14MG/24HR PATCH TRANSDERM SCH (07:14)
--- NOTE | 2018-04-24 07:33 | P.HPIM ---
History of Present Illness H&P Date: 04/24/18 Patient is a 67-year-old female with a PMH of COPD, active tobacco abuse, hyperlipidemia, and osteoarthritis who presented to the ED for sudden onset of shortness of breath, along with nonproductive cough, and wheezing. Patient states that her symptoms started suddenly yesterday while evening while she was bowling, and she used her inhalers multiple times with little relief. She denied associated chest pain, fever, chills, lower extremity pain, lower extremity swelling, recent travel, or sick contacts. The patient follows with pulmonary medicine Dr. Bartlett. She is not on home oxygen. In the ED, the patient underwent a comprehensive workup, with WBC 17.1 and D- Dimer Elevated to 1.50. Subsequent CTA chest was negative for PE. BUN 26, creatinine 0.76. Patient was admitted to medicine service for acute COPD exacerbation. Review of Systems Pertinent positives and negatives as discussed in HPI, a complete review of systems was performed and all other systems are negative. Past Medical History Past Medical History: Asthma, COPD, Hyperlipidemia, Osteoarthritis (OA), Pneumonia, Vascular Disorder Additional Past Medical History / Comment(s): HX OF ANEMIA, STATES HAS HAD UNSUCCSESSFUL COLONOSCOPIES IN PAST R/T "TWISTED BOWEL" PAD with lower extremity discomfort bilaterally. History of Any Multi-Drug Resistant Organisms: None Reported Past Surgical History: Adenoidectomy, Breast Surgery, Tonsillectomy Additional Past Surgical History / Comment(s): 06/03/15 Arch study, PTBA & Stenting Right Ext Iliac artery. EARL OOPHERECTOMY. LASIK EYE SURGERY [facility]. Benign Breast bx bilat. Rt Carotid Angiogram, & Endarterectomy. Rt Carotid Artery Stent 07/14/15. Stent to LT Leg 07/30/15. ABD AORTOGRAM, ANGIOGRAM 11/04. RT LEG STENT 11/10/16 Past Anesthesia/Blood Transfusion Reactions: No Reported Reaction Past Psychological History: No Psychological Hx Reported Smoking Status: Light tobacco smoker Past Alcohol Use History: Occasional Additional Past Alcohol Use History / Comment(s): SMOKER FOR 50 YRS, LESS THAN 1 /2 PPD. CURRENTLY 2-4 CIGARETTES PER DAY. Past Drug Use History: None Reported - Past Family History Father Family Medical History: Myocardial Infarction ([place]) Additional Family Medical History / Comment(s): Father of a [place] at age 61 yrs. Brother(s) Family Medical History: Myocardial Infarction ([place]) Mother Family Medical History: No Reported History Additional Family Medical History / Comment(s): Mother had kidney failure and was on dialysis. She at age 73 yrs. Medications and Allergies Home Medications Medication Instructions Recorded Confirmed Type Fluticasone/Salmeterol [Advair 1 puff INHALATION RT-BID 06/01/15 04/23/18 History 250-50 Diskus] Ipratropium/Albuterol Sulfate 1 puff INHALATION RT-QID PRN 06/01/15 04/23/18 History [Combivent Respimat Inhaler] Simvastatin [Zocor] 20 mg PO DAILY 06/01/15 04/23/18 History Vit A/Vit C/Vit E/Zinc/Copper 1 tab PO DAILY 06/01/15 04/23/18 History [ICAPS SOFTGEL] Aspirin [Adult Low Dose Aspirin EC] 81 mg PO DAILY 10/28/16 04/23/18 History Cholecalciferol [Vitamin D3] 1,000 unit PO DAILY 10/28/16 04/23/18 History Furosemide [Lasix] 20 mg PO BID PRN 10/28/16 04/23/18 History Albuterol Inhaler [Ventolin Hfa 1 - 2 puff INHALATION RT-Q6H PRN 04/23/18 History Inhaler] Cephalexin [Keflex] 500 mg PO TID 04/23/18 04/23/18 History amLODIPine [Norvasc] 5 mg PO DAILY 04/23/18 04/23/18 History methylPREDNISolone Dose Pack See Taper PO DIRECTED 04/23/18 04/23/18 History [Medrol Dose Pack] Allergies Allergy/AdvReac Type Severity Reaction Status Date / Time estrogens, conjugated Allergy Rash/Hives Verified 04/23/18 20:11 [From Premarin] lisinopril Allergy Swelling Verified 04/23/18 20:11 Physical Exam Vitals: Vital Signs Temp Pulse Resp BP BP Pulse Ox 04/24/18 01:20 174/87 100 04/23/18 23:00 69 17 175/92 96 04/23/18 22:30 70 18 172/86 94 L 04/23/18 21:40 102 H 20 186/90 95 02/11/19 21:30 95 16 185/99 02/11/19 21:24 95 04/23/18 21:20 100 23 187/93 97 04/23/18 21:10 90 20 189/97 98 04/23/18 21:00 106 H 04/23/18 20:50 92 23 187/100 98 04/23/18 20:43 94 04/23/18 20:40 93 21 187/104 100 04/23/18 20:30 95 25 H 176/97 100 04/23/18 20:20 105 H 37 H 176/97 99 04/23/18 20:10 103 H 32 H 170/106 100 04/23/18 20:04 102 H 04/23/18 20:00 108 H 26 H 200/111 99 04/23/18 19:53 102 H 04/23/18 19:50 101 H 24 200/111 100 04/23/18 19:43 105 H 04/23/18 19:40 105 H 28 H 206/119 100 04/23/18 19:39 110 H 17 212/123 100 04/23/18 19:33 98.2 F 116 H 22 212/153 96 Intake and Output 04/23/18 04/24/18 04/24/18 22:59 06:59 14:59 Intake Total 600 Balance 600 Intake: Intake, IV Titration 600 Amount Sodium Chloride 0.9% 1, 600 000 ml @ 100 mls/hr IV . Q10H STA Rx#:[id number] Other: # Voids 1 Weight 37.195 kg General: non toxic, no distress, appears at stated age, underweight Derm: no unusual rashes/lesions no unusual ecchymoses, warm, dry Head: atraumatic, normocephalic, symmetric Eyes: EOMI, no lid lag, anicteric sclera, pupils equal round reactive to light ENT: Nose and ears atraumatic, no thrush, no pharyngeal erythema Neck: No thyromegaly, no cervical lymphadenopathy, trachea midline, supple Mouth: no lip lesion, mucus membranes moist Cardiovascular: S1S2 reg, no murmur, positive posterior tibial pulse bilateral, no edema, capillary refill less than 2 seconds Lungs: Wheezing bilaterally with some coarse breath sounds, no rales appreciated Abdominal: soft, nontender to palpation, no guarding, no appreciable organomegaly, normal bowel sounds Ext: no gross muscle atrophy, muscle strength 5 out of 5 in all 4 extremities grossly, no contractures, Neuro: CN II-XI grossly intact, light touch intact all 4 extremities, finger to nose within normal limits, Psych: Alert, oriented, appropriate affect Results CBC & Chem 7: 04/23/18 19:38 04/23/18 20:38 Labs: Abnormal Lab Results - Last 24 Hours (Table) 04/23/18 04/23/18 04/23/18 Range/Units 19:38 20:38 20:38 WBC 17.1 H (3.8-10.6) k/uL Neutrophils # 14.2 H (1.3-7.7) k/uL Monocytes # 1.2 H (0-1.0) k/uL D-Dimer (<0.60) mg/L FEU Sodium 129 L (137-145) mmol/L Chloride 93 L (98-107) mmol/L BUN 26 H (7-17) mg/dL Glucose 142 H (74-99) mg/dL CK-MB (CK-2) 4.8 H (0.0-2.4) ng/mL 04/23/18 Range/Units 20:38 WBC (3.8-10.6) k/uL Neutrophils # (1.3-7.7) k/uL Monocytes # (0-1.0) k/uL D-Dimer 1.50 H (<0.60) mg/L FEU Sodium (137-145) mmol/L Chloride (98-107) mmol/L BUN (7-17) mg/dL Glucose (74-99) mg/dL CK-MB (CK-2) (0.0-2.4) ng/mL Thrombosis Risk Factor Assmnt - Choose All That Apply Any of the Below Risk Factors Present?: Yes Each Factor Represents 1 point: Abnormal pulmonary function (COPD) Other Risk Factors: Yes Each Risk Factor Represents 2 Points: Age 61-74 years Thrombosis Risk Factor Assessment Total Risk Factor Score: 3 Thrombosis Risk Factor Assessment Level: Moderate Risk Assessment and Plan Plan: Acute COPD exacerbation -Continue with DuoNeb's -Solu-Medrol 60 mg every 6 hourly -Consult Dr Mike Hyponatremia -Likely due to poor oral intake -Dietitian consult Leukocytosis -Likely reactive -Monitor CBC Active tobacco abuse -Advised on the importance of cessation DVT//GI prophylaxis -Heparin -Protonix The patient is admitted with an anticipated greater than than 2 midnight stay for evaluation of acute COPD exacerbation. CODE STATUS: Full code Discussed with: Patient Anticipated discharge date: 04/26/[address]: Home A total of 60 minutes was spent on the care of this complex patient more than 50 % of the time was spent in counseling and care coordination.
[2018-04-24] MEDS ORDERED: FUROSEMIDE 20 MG TAB PO PRN (07:58)
[2018-04-24] MEDS ORDERED: SYMBICORT 80-4.5 MCG INHALER INHALATION SCH (08:00)
[2018-04-24 08:17] LABS: ALT 36 U/L (9-52); AST 27 U/L (14-36); Albumin 3.7 g/dL (3.5-5.0); Alkaline Phosphatase 71 U/L (38-126); Anion Gap 4 mmol/L; Blood Urea Nitrogen 22 mg/dL (7-17); Calcium 8.7 mg/dL (8.4-10.2); Carbon Dioxide 32 mmol/L (22-30); Chloride 98 mmol/L (98-107); Glucose 134 mg/dL (74-99); Sodium 134 mmol/L (137-145); Total Bilirubin 0.5 mg/dL (0.2-1.3); Total Protein 6.3 g/dL (6.3-8.2)
[2018-04-24] MEDS ORDERED: predniSONE 20 MG TAB PO SCH (09:00)
[2018-04-24] MEDS: ASPIRIN 81 MG PO SCH (09:02)
[2018-04-24] MEDS: ATORVASTATIN 10 MG TAB PO SCH (09:02)
[2018-04-24] MEDS: methylPREDNISolone SOD SUCCI 125 MG/2 ML VIAL IV SCH ×4 (09:02→23:10)
[2018-04-24] MEDS: HEPARIN SODIUM,PORCINE 5,000 UNIT/ML 1 ML VIAL SQ SCH ×3 (09:02→23:10)
[2018-04-24] MEDS: amLODIPine 5 MG TAB PO SCH (09:02)
[2018-04-24 09:24] LABS: HGB 14.5 gm/dL (11.4-16.0); MCH 31.6 pg (25.0-35.0); MCHC 31.5 g/dL (31.0-37.0); MCV 100.5 fL (80.0-100.0); Mean Platelet Volume 6.9; Platelet Count 300 k/uL (150-450); RBC 4.57 m/uL (3.80-5.40); RDW 13.6 % (11.5-15.5); WBC 6.7 k/uL (3.8-10.6)
[2018-04-24] MEDS: AZITHROMYCIN 500 MG TAB PO SCH (10:28)
[2018-04-24] MEDS: SODIUM CHLORIDE 0.9% 1,000 ML IV SCH (10:28)
[2018-04-24] MEDS: guaiFENesin 600 MG TABLET.ER PO SCH ×2 (10:28→20:19)
[2018-04-24] MEDS: IPRATROPIUM-ALBUTEROL 3 ML NEB INHALATION SCH ×3 (11:57→19:52)
[2018-04-24 12:04] LABS: Glucose,Whole Blood 116 mg/dL (75-99)
[2018-04-24] MEDS: INSULIN ASPART (NovoLOG) 100 UNIT/ML VIAL SQ SCH ×3 (12:10→20:20)
[2018-04-24 13:19] VITALS: BMI 16.5
--- NOTE | 2018-04-24 13:24 | P.CNPUL ---
History of Present Illness Consult date: 04/24/18 Requesting physician: Inna Corral Reason for consult: dyspnea, cough, COPD Chief complaint: Shortness of breath, cough, chest congestion History of present illness: This is a 67-year-old white female patient of Dr. Chaudhari, with history of COPD, and underlying FEV1 of 48% of predicted, not oxygen or prednisone dependent at baseline. Other medical history includes osteoarthritis, hyperlipidemia, previous episodes of pneumonia, peripheral vascular disease with history of right iliac artery stenting, chronic anemia, right carotid artery stenosis, with previous history of carotid endarterectomy and stent placements. Patient presented to the emergency department on 04/23/2018 with complaints of increasing shortness of breath since Monday, cough, chest congestion, chest tightness, intermittent chills. But no fevers. Patient was recently on some antibiotics, the names of which she does not recall, and she states it was for skin infection in her right antecubital fossa area. Patient was recently started on the blood pressure medication, not recall the name, but lisinopril is listed on her list of ALLERGIES, and she started developing a rash , swelling in her right arm, in the antecubital fossa area. Rash was quite itchy, localized. She was given a round of Medrol Dosepak, and the cultures the wound she was told revealed bacterial growth, and she was put on some oral antibiotics. On Monday she started becoming more short of breath, on Monday her symptoms became worse, she felt very congested, tight and wheezy. She is a current smoker. Chest x-ray showed chronic right, unchanged without acute pulmonary process. D-dimer was elevated at 1.5, and CT angios chest was obtained which showed no evidence of pulmonary embolism, and mild to moderate underlying emphysematous changes with scattered parenchymal scarring. She'll blood work showed white blood cell count of 17.1, hemoglobin of 15.0, sodium was 129, potassium is 4.8, chloride is 93, B1 is 26 creatinine was 0.76. Bone and was negative 1, proBNP was mildly elevated at 1070. Patient was in quite severe respiratory distress on admission, requiring BiPAP support, she was also quite hypertensive, did receive labetalol IV push is in the emergency department. EKG showed sinus rhythm with possible left atrial enlargement, and anterior infarct of undetermined age. She was started on nebulized bronchodilators, IV steroids, she is currently off the BiPAP support, doing better, and easier, on 3 L per nasal cannula pulse ox is 97%, blood pressures 170/75, she is afebrile. Review of Systems All systems: negative Constitutional: Denies chills, Denies fever Eyes: denies blurred vision, denies pain Ears, nose, mouth and throat: Denies headache, Denies sore throat Cardiovascular: Denies chest pain, Denies shortness of breath Respiratory: Reports congestion, Reports dyspnea, Reports wheezing, Denies cough Gastrointestinal: Denies abdominal pain, Denies diarrhea, Denies nausea, Denies vomiting Genitourinary: Denies dysuria, Denies hematuria Musculoskeletal: Denies myalgias Integumentary: Denies pruritus, Denies rash Neurological: Denies numbness, Denies weakness Psychiatric: Denies anxiety, Denies depression Endocrine: Denies fatigue, Denies weight change Past Medical History Past Medical History: Asthma, COPD, Hyperlipidemia, Osteoarthritis (OA), Pneumonia, Vascular Disorder Additional Past Medical History / Comment(s): HX OF ANEMIA, STATES HAS HAD UNSUCCSESSFUL COLONOSCOPIES IN PAST R/T "TWISTED BOWEL" PAD with lower extremity discomfort bilaterally. History of Any Multi-Drug Resistant Organisms: None Reported Past Surgical History: Adenoidectomy, Breast Surgery, Tonsillectomy Additional Past Surgical History / Comment(s): 06/03/15 Arch study, PTBA & Stenting Right Ext Iliac artery. EARL OOPHERECTOMY. LASIK EYE SURGERY [facility]. Benign Breast bx bilat. Rt Carotid Angiogram, & Endarterectomy. Rt Carotid Artery Stent 07/14/15. Stent to LT Leg 07/30/15. ABD AORTOGRAM, ANGIOGRAM 11/04. RT LEG STENT 11/10/16 Past Anesthesia/Blood Transfusion Reactions: No Reported Reaction Past Psychological History: No Psychological Hx Reported Smoking Status: Light tobacco smoker Past Alcohol Use History: Occasional Additional Past Alcohol Use History / Comment(s): SMOKER FOR 50 YRS, LESS THAN 1 /2 PPD. CURRENTLY 2-4 CIGARETTES PER DAY. Past Drug Use History: None Reported - Past Family History Father Family Medical History: Myocardial Infarction ([place]) Additional Family Medical History / Comment(s): Father of a [place] at age 61 yrs. Brother(s) Family Medical History: Myocardial Infarction ([place]) Mother Family Medical History: No Reported History Additional Family Medical History / Comment(s): Mother had kidney failure and was on dialysis. She at age 73 yrs. Medications and Allergies Home Medications Medication Instructions Recorded Confirmed Type Fluticasone/Salmeterol [Advair 1 puff INHALATION RT-BID 06/01/15 04/23/18 History 250-50 Diskus] Ipratropium/Albuterol Sulfate 1 puff INHALATION RT-QID PRN 06/01/15 04/23/18 History [Combivent Respimat Inhaler] Simvastatin [Zocor] 20 mg PO DAILY 06/01/15 04/23/18 History Vit A/Vit C/Vit E/Zinc/Copper 1 tab PO DAILY 06/01/15 04/23/18 History [ICAPS SOFTGEL] Aspirin [Adult Low Dose Aspirin EC] 81 mg PO DAILY 10/28/16 04/23/18 History Cholecalciferol [Vitamin D3] 1,000 unit PO DAILY 10/28/16 04/23/18 History Furosemide [Lasix] 20 mg PO BID PRN 10/28/16 04/23/18 History Albuterol Inhaler [Ventolin Hfa 1 - 2 puff INHALATION RT-Q6H PRN 04/23/18 History Inhaler] Cephalexin [Keflex] 500 mg PO TID 04/23/18 04/23/18 History amLODIPine [Norvasc] 5 mg PO DAILY 04/23/18 04/23/18 History methylPREDNISolone Dose Pack See Taper PO DIRECTED 04/23/18 04/23/18 History [Medrol Dose Pack] Allergies Allergy/AdvReac Type Severity Reaction Status Date / Time estrogens, conjugated Allergy Rash/Hives Verified 04/23/18 20:11 [From Premarin] lisinopril Allergy Swelling Verified 04/23/18 20:11 Physical Exam Vitals: Vital Signs Temp Pulse Pulse Resp BP BP Pulse Ox 04/24/18 12:11 95 04/24/18 11:58 94 92 L 04/24/18 10:24 79 170/75 97 04/24/18 08:20 104 H 04/24/18 08:09 104 H 04/24/18 07:59 98.1 F 81 20 204/99 90 L 04/24/18 01:20 174/87 100 04/23/18 23:00 69 17 175/92 96 04/23/18 22:30 70 18 172/86 94 L 04/23/18 21:40 102 H 20 186/90 95 04/23/18 21:30 95 16 185/99 04/23/18 21:24 95 04/23/18 21:20 100 23 187/93 97 04/23/18 21:10 90 20 189/97 98 04/23/18 21:00 106 H 04/23/18 20:50 92 23 187/100 98 04/23/18 20:43 94 04/23/18 20:40 93 21 187/104 100 04/23/18 20:30 95 25 H 176/97 100 04/23/18 20:20 105 H 37 H 176/97 99 04/23/18 20:10 103 H 32 H 170/106 100 04/23/18 20:04 102 H 04/23/18 20:00 108 H 26 H 200/111 99 04/23/18 19:53 102 H 04/23/18 19:50 101 H 24 200/111 100 04/23/18 19:43 105 H 04/23/18 19:40 105 H 28 H 206/119 100 04/23/18 19:39 110 H 17 212/123 100 04/23/18 19:33 98.2 F 116 H 22 212/153 96 Intake and Output 04/23/18 04/24/18 04/24/18 22:59 06:59 14:59 Intake Total 600 Balance 600 Intake: Intake, IV Titration 600 Amount Sodium Chloride 0.9% 1, 600 000 ml @ 100 mls/hr IV . Q10H STA Rx#:[id number] Other: Voiding Method Toilet # Voids 1 Weight 37.195 kg GENERAL EXAM: Alert, pleasant, 67-year-old white female, on 3 L per nasal cannula comfortable in no apparent distress. HEAD: Normocephalic/atraumatic. EYES: Normal reaction of pupils, equal size. Conjunctiva pink, sclera white. NOSE: Clear with pink turbinates. THROAT: No erythema or exudates. NECK: No masses, no JVD, no thyroid enlargement, no adenopathy. CHEST: No chest wall deformity. Symmetrical expansion. LUNGS: Equal air entry with diminished breath sounds, expiratory wheezing, congested cough CVS: Regular rate and rhythm, normal S1 and S2, no gallops, no murmurs, no rubs ABDOMEN: Soft, nontender. No hepatosplenomegaly, normal bowel sounds, no guarding or rigidity. EXTREMITIES: No clubbing, no edema, no cyanosis, 2+ pulses and upper and lower extremities. MUSCULOSKELETAL: Muscle strength and tone normal. SPINE: No scoliosis or deformity SKIN: No rashes CENTRAL NERVOUS SYSTEM: Alert and oriented -3. No focal deficits, tone is normal in all 4 extremities. PSYCHIATRIC: Alert and oriented -3. Appropriate affect. Intact judgment and insight. Results - Laboratory Findings CBC and BMP: 04/24/18 07:36 04/24/18 07:36 PT/INR, D-dimer PT 9.5 sec (9.0-12.0) 04/23/18 20:38 INR 0.9 (<1.2) 04/23/18 20:38 D-Dimer 1.50 mg/L FEU (<0.60) H 04/23/18 20:38 Abnormal lab findings: Abnormal Labs 04/23/18 04/23/18 04/23/18 19:38 20:38 20:38 WBC 17.1 H MCV Neutrophils # 14.2 H Monocytes # 1.2 H D-Dimer Sodium 129 L Chloride 93 L Carbon Dioxide BUN 26 H Glucose 142 H POC Glucose (mg/dL) CK-MB (CK-2) 4.8 H 04/23/18 04/24/18 04/24/18 20:38 07:36 07:36 WBC MCV 100.5 H Neutrophils # Monocytes # D-Dimer 1.50 H Sodium 134 L Chloride Carbon Dioxide 32 H BUN 22 H Glucose 134 H POC Glucose (mg/dL) CK-MB (CK-2) 04/24/18 12:03 WBC MCV Neutrophils # Monocytes # D-Dimer Sodium Chloride Carbon Dioxide BUN Glucose POC Glucose (mg/dL) 116 H CK-MB (CK-2) - Diagnostic Findings Chest x-ray: report reviewed, image reviewed Additional studies: EKG reviewed Assessment and Plan Plan: Assessment: #1. Acute exacerbation of chronic obstructive pulmonary disease, complicated by purulent tracheobronchitis, chest x-ray and CT angios chest did not show any acute pulmonary process #2. Leukocytosis #3. Elevated D-dimer, CT angios chest did not show any evidence of pulmonary embolism #4. Hyponatremia, improved with IV hydration #5. Hypertensive urgency #6. Advanced COPD, with underlying FEV1 of 40% of predicted, consistent with stage III COPD, oxygen or prednisone dependent at baseline #7. Hyperlipidemia #8. Peripheral arterial occlusive disease, status post right iliac artery stenting #9. Carotid artery stenosis, history of right carotid endarterectomy #10. Neck and ongoing nicotine dependence #11. Osteoarthritis #12. He is episodes of pneumonia Plan: Continue nebulized bronchodilators, IV steroids, will add Pulmicort and Perforomist, empiric antibiotic since form of Zithromax, Mucinex. CT angios chest, and chest x-ray were both reviewed by Dr. Bartlett, acute pulmonary process , no evidence of pulmonary embolism. Continue with BiPAP support on the as- needed basis, is quite dyspneic, bronchospastic. Serum sodium is improving with IV hydration. No fever or chills, hemodynamically stable. Smoking cessation counseling was done I performed a history & physical examination of the patient and discussed their management with my nurse practitioner, Jane Campo. I reviewed the nurse practitioner's note and agree with the documented findings and plan of care. Lung sounds are positive for diffuse wheezes throughout the lung tafoya. The findings and the impression was discussed with the patient. I attest to the documentation by the nurse practitioner. Time with Patient: Greater than 30
[2018-04-24 17:01] LABS: Hemoglobin A1C 5.4 % (4.0-6.0)
[2018-04-24 17:09] LABS: Glucose,Whole Blood 138 mg/dL (75-99)
--- NOTE | 2018-04-24 18:31 | P.PN ---
Progress Note - Text Progress Note Date: 04/24/18 Please refer to the H&P for full note. Patient was seen and examined. No acute events overnight. Patient reports great improvement in her breathing but continues to complain of shortness of breath and wheezing. Patient reports no cough, but feels that there is some mucus that is coming up. Patient is unsure what her trigger was. She does not have oxygen at home. Patient is in no acute distress Chest has diffuse wheezing bilaterally with poor air entry She is saturating 92% on 2 L nasal cannula Normal S1-S2, tachycardia COPD exacerbation Hyponatremia Continue DuoNeb [id number]. Continue IV steroids. Treatment for community-acquired pneumonia or chronic bronchitis. Resume home medications. She is pending clinical improvement. Will follow pulmonology recommendations. Sodium improving with IV fluid. Likely from dehydration. Continue normal saline at 70 mL per hour. Daily BMP.
[2018-04-24 19:33] LABS: Glucose,Whole Blood 113 mg/dL (75-99)
[2018-04-24] MEDS: BUDESONIDE 1 MG/2 ML NEBU INHALATION SCH (19:52)
[2018-04-24] MEDS: FORMOTEROL FUMARATE 20 MCG/2 ML NEBU INHALATION SCH (20:03)
[2018-04-25] MEDS: NICOTINE 14MG/24HR PATCH TRANSDERM SCH (03:26)
[2018-04-25] MEDS ORDERED: ACETAMINOPHEN TAB 325 MG TAB PO PRN (03:57)
[2018-04-25] MEDS: methylPREDNISolone SOD SUCCI 125 MG/2 ML VIAL IV SCH ×3 (05:02→18:29)
[2018-04-25] MEDS: SODIUM CHLORIDE 0.9% 1,000 ML IV SCH (05:02)
[2018-04-25 06:51] LABS: HCT 40.9 % (34.0-46.0); HGB 13.2 gm/dL (11.4-16.0); MCH 31.9 pg (25.0-35.0); MCHC 32.2 g/dL (31.0-37.0); Mean Platelet Volume 7.1; Platelet Count 317 k/uL (150-450); RBC 4.13 m/uL (3.80-5.40); RDW 13.6 % (11.5-15.5); WBC 10.7 k/uL (3.8-10.6)
[2018-04-25 06:55] LABS: Albumin 3.1 g/dL (3.5-5.0); Calcium 8.5 mg/dL (8.4-10.2); Potassium 4.3 mmol/L (3.5-5.1); Total Bilirubin 0.5 mg/dL (0.2-1.3); Total Protein 5.4 g/dL (6.3-8.2)
[2018-04-25 07:05] LABS: Glucose,Whole Blood 124 mg/dL (75-99)
[2018-04-25] MEDS: BUDESONIDE 1 MG/2 ML NEBU INHALATION SCH ×2 (07:06→20:15)
[2018-04-25] MEDS: FORMOTEROL FUMARATE 20 MCG/2 ML NEBU INHALATION SCH ×2 (07:06→20:29)
[2018-04-25] MEDS: IPRATROPIUM-ALBUTEROL 3 ML NEB INHALATION SCH ×4 (07:06→20:15)
[2018-04-25] MEDS: INSULIN ASPART (NovoLOG) 100 UNIT/ML VIAL SQ SCH ×4 (07:30→20:55)
[2018-04-25] MEDS: ATORVASTATIN 10 MG TAB PO SCH (08:41)
[2018-04-25] MEDS: AZITHROMYCIN 500 MG TAB PO SCH (08:41)
[2018-04-25] MEDS: ASPIRIN 81 MG PO SCH (08:41)
[2018-04-25] MEDS: amLODIPine 5 MG TAB PO SCH (08:41)
[2018-04-25] MEDS: HEPARIN SODIUM,PORCINE 5,000 UNIT/ML 1 ML VIAL SQ SCH ×2 (08:46→17:23)
[2018-04-25] MEDS: PANTOPRAZOLE 40 MG TABLET PO SCH (08:46)
[2018-04-25] MEDS: guaiFENesin 600 MG TABLET.ER PO SCH ×2 (08:46→20:55)
--- NOTE | 2018-04-25 11:29 | P.PN ---
Subjective Progress Note Date: 04/25/18 Principal diagnosis: Shortness of breath, cough, chest congestion This is a 67-year-old white female patient of Dr. Chaudhari, with history of COPD, and underlying FEV1 of 48% of predicted, not oxygen or prednisone dependent at baseline. Other medical history includes osteoarthritis, hyperlipidemia, previous episodes of pneumonia, peripheral vascular disease with history of right iliac artery stenting, chronic anemia, right carotid artery stenosis, with previous history of carotid endarterectomy and stent placements. Patient presented to the emergency department on 04/23/2018 with complaints of increasing shortness of breath since Monday, cough, chest congestion, chest tightness, intermittent chills. But no fevers. Patient was recently on some antibiotics, the names of which she does not recall, and she states it was for skin infection in her right antecubital fossa area. Patient was recently started on the blood pressure medication, not recall the name, but lisinopril is listed on her list of ALLERGIES, and she started developing a rash , swelling in her right arm, in the antecubital fossa area. Rash was quite itchy, localized. She was given a round of Medrol Dosepak, and the cultures the wound she was told revealed bacterial growth, and she was put on some oral antibiotics. On Monday she started becoming more short of breath, on Monday her symptoms became worse, she felt very congested, tight and wheezy. She is a current smoker. Chest x-ray showed chronic right, unchanged without acute pulmonary process. D-dimer was elevated at 1.5, and CT angios chest was obtained which showed no evidence of pulmonary embolism, and mild to moderate underlying emphysematous changes with scattered parenchymal scarring. She'll blood work showed white blood cell count of 17.1, hemoglobin of 15.0, sodium was 129, potassium is 4.8, chloride is 93, B1 is 26 creatinine was 0.76. Bone and was negative 1, proBNP was mildly elevated at 1070. Patient was in quite severe respiratory distress on admission, requiring BiPAP support, she was also quite hypertensive, did receive labetalol IV push is in the emergency department. EKG showed sinus rhythm with possible left atrial enlargement, and anterior infarct of undetermined age. She was started on nebulized bronchodilators, IV steroids, she is currently off the BiPAP support, doing better, and easier, on 3 L per nasal cannula pulse ox is 97%, blood pressures 170/75, she is afebrile. On 04/25/2018 patient seen in follow-up on medical surgical floor. Still remains quite dyspneic, bronchospastic and congested, she started to bring up some sputum. No fever or chills. Patient still dyspneic even at rest, we'll place on BiPAP intermittently through the day. Today's labs have been reviewed , white blood cell count is 10.7, hemoglobin is 13.2, serum sodium is 134, patient remains on IV 0.9 normal saline at a rate of 50 ML per hour, potassium is 4.3, chloride is 99, CO2 is 32, BUN is 29, creatinine 0.8. She is tolerating oral intake, patient continues on antibiotics in the form of Zithromax and Rocephin, Pulmicort and Perforomist, nebulized bronchodilators and IV Solu-Medrol. Blood pressure is better controlled, today is 165 with 76. No complaints of chest pain. No altered mentation. Objective - Vital Signs Vital signs: Vital Signs Temp 98.1 F 04/25/18 06:59 Pulse 86 04/25/18 11:15 Resp 14 04/25/18 06:59 BP 165/76 04/25/18 06:59 Pulse Ox 95 04/25/18 07:13 Intake & Output 04/24/18 04/25/18 04/25/18 18:59 06:59 18:59 Intake Total 236 435 440 Balance 236 435 440 Weight 37.195 kg Intake: Intake, IV Titration 175 Amount cefTRIAXone 1 gm In 175 Sodium Chloride 0.9% 50 ml @ 100 mls/hr IVPB Q24H [facility] Rx#:[id number] Oral 236 260 440 Other: Voiding Method Toilet Toilet Toilet # Voids 3 2 - Exam GENERAL EXAM: Alert, pleasant, 67-year-old white female, on 3 L per nasal cannula, conversational dyspnea is noted HEAD: Normocephalic/atraumatic. EYES: Normal reaction of pupils, equal size. Conjunctiva pink, sclera white. NOSE: Clear with pink turbinates. THROAT: No erythema or exudates. NECK: No masses, no JVD, no thyroid enlargement, no adenopathy. CHEST: No chest wall deformity. Symmetrical expansion. LUNGS: Equal air entry with diminished breath sounds, expiratory wheezing, congested cough CVS: Regular rate and rhythm, normal S1 and S2, no gallops, no murmurs, no rubs ABDOMEN: Soft, nontender. No hepatosplenomegaly, normal bowel sounds, no guarding or rigidity. EXTREMITIES: No clubbing, no edema, no cyanosis, 2+ pulses and upper and lower extremities. MUSCULOSKELETAL: Muscle strength and tone normal. SPINE: No scoliosis or deformity SKIN: No rashes CENTRAL NERVOUS SYSTEM: Alert and oriented -3. No focal deficits, tone is normal in all 4 extremities. PSYCHIATRIC: Alert and oriented -3. Appropriate affect. Intact judgment and insight. - Labs CBC & Chem 7: 04/25/18 06:01 04/25/18 06:01 Labs: Abnormal Lab Results - Last 24 Hours (Table) 04/24/18 04/24/18 04/24/18 Range/Units 12:03 17:08 19:22 WBC (3.8-10.6) k/uL Sodium (137-145) mmol/L Carbon Dioxide (22-30) mmol/L BUN (7-17) mg/dL Glucose (74-99) mg/dL POC Glucose (mg/dL) 116 H 138 H 113 H (75-99) mg/dL Total Protein (6.3-8.2) g/dL Albumin (3.5-5.0) g/dL 04/25/18 04/25/18 04/25/18 Range/Units 06:01 06:01 07:03 WBC 10.7 H (3.8-10.6) k/uL Sodium 134 L (137-145) mmol/L Carbon Dioxide 32 H (22-30) mmol/L BUN 29 H (7-17) mg/dL Glucose 123 H (74-99) mg/dL POC Glucose (mg/dL) 124 H (75-99) mg/dL Total Protein 5.4 L (6.3-8.2) g/dL Albumin 3.1 L (3.5-5.0) g/dL Microbiology - Last 24 Hours (Table) 04/23/18 19:50 Blood Culture - Preliminary Blood No Growth after 24 hours Assessment and Plan Plan: Assessment: #1. Acute exacerbation of chronic obstructive pulmonary disease, complicated by purulent tracheobronchitis, chest x-ray and CT angios chest did not show any acute pulmonary process #2. Leukocytosis, improving #3. Elevated D-dimer, CT angios chest did not show any evidence of pulmonary embolism #4. Hyponatremia, improved with IV hydration #5. Hypertensive urgency #6. Advanced COPD, with underlying FEV1 of 40% of predicted, consistent with stage III COPD, oxygen or prednisone dependent at baseline #7. Hyperlipidemia #8. Peripheral arterial occlusive disease, status post right iliac artery stenting #9. Carotid artery stenosis, history of right carotid endarterectomy #10. Neck and ongoing nicotine dependence #11. Osteoarthritis #12. He is episodes of pneumonia Plan: Continue current medical treatment, IV steroids, yesterday we added Rocephin to patient's antibiotic coverage, continue with oral Zithromax, nebulized bronchodilators. Patient was encouraged to use BiPAP intermittently through the day to improve dyspnea, and avoid fatigue. We'll continue to follow I performed a history & physical examination of the patient and discussed their management with my nurse practitioner, Jane Campo. I reviewed the nurse practitioner's note and agree with the documented findings and plan of care. Lung sounds are positive for diffuse wheezes throughout the lung tafoya. The findings and the impression was discussed with the patient. I attest to the documentation by the nurse practitioner. Time with Patient: Less than 30
[2018-04-25 11:38] LABS: Glucose,Whole Blood 102 mg/dL (75-99)
--- NOTE | 2018-04-25 13:07 | P.PN ---
Subjective Progress Note Date: 04/25/18 Principal diagnosis: COPD exacerbation Patient seen and examined. No acute events overnight. Patient continues to complain of shortness of breath and wheezing. She denies any chest pain or cough. No fever or chills. Reports that she is not back to baseline. Saturating 94% on 2 L nasal cannula. Objective - Vital Signs Vital signs: Vital Signs Temp 98.1 F 04/25/18 06:59 Pulse 86 04/25/18 11:15 Resp 14 04/25/18 06:59 BP 165/76 04/25/18 06:59 Pulse Ox 95 04/25/18 07:13 Intake & Output 04/24/18 04/25/18 04/25/18 18:59 06:59 18:59 Intake Total 236 435 440 Balance 236 435 440 Weight 37.195 kg Intake: Intake, IV Titration 175 Amount cefTRIAXone 1 gm In 175 Sodium Chloride 0.9% 50 ml @ 100 mls/hr IVPB Q24H [facility] Rx#:[id number] Oral 236 260 440 Other: Voiding Method Toilet Toilet Toilet # Voids 3 2 - Exam General: [non toxic], [no distress], [appears at stated age] Derm: [warm], [dry] Head: [atraumatic], [normocephalic], [symmetric] Eyes: [EOMI], [no lid lag], [anicteric sclera] Mouth: [no lip lesion], [mucus membranes moist] Cardiovascular: [S1S2 reg], [no murmur], [positive posterior tibial pulse bilateral], Lungs: [Diffuse wheezing bilateral], [no rhonchi, no rales] , [no accessory muscle use] Abdominal: [soft], [ nontender to palpation], [no guarding], [no appreciable organomegaly] Ext: [no gross muscle atrophy], [no edema], [no contractures] Neuro: [no focal neuro deficits] Psych: [Alert], [oriented], [appropriate affect] - Labs CBC & Chem 7: 04/25/18 06:01 04/25/18 06:01 Labs: Abnormal Lab Results - Last 24 Hours (Table) 04/24/18 04/24/18 04/25/18 Range/Units 17:08 19:22 06:01 WBC 10.7 H (3.8-10.6) k/uL Sodium (137-145) mmol/L Carbon Dioxide (22-30) mmol/L BUN (7-17) mg/dL Glucose (74-99) mg/dL POC Glucose (mg/dL) 138 H 113 H (75-99) mg/dL Total Protein (6.3-8.2) g/dL Albumin (3.5-5.0) g/dL 04/25/18 04/25/18 04/25/18 Range/Units 06:01 07:03 11:36 WBC (3.8-10.6) k/uL Sodium 134 L (137-145) mmol/L Carbon Dioxide 32 H (22-30) mmol/L BUN 29 H (7-17) mg/dL Glucose 123 H (74-99) mg/dL POC Glucose (mg/dL) 124 H 102 H (75-99) mg/dL Total Protein 5.4 L (6.3-8.2) g/dL Albumin 3.1 L (3.5-5.0) g/dL Microbiology - Last 24 Hours (Table) 04/23/18 19:50 Blood Culture - Preliminary Blood No Growth after 24 hours Assessment and Plan Assessment: Assessment and Plan 1. COPD exacerbation 2. Hyponatremia 3. Elevated bicarbonate 4. Prerenal azotemia 5. Leukocytosis 6. DVT and GI prophylaxis 1. Likely triggered from viral illness. Continue DuoNeb 4 times a day scheduled and as needed for shortness of breath and wheezing. Continue Pulmicort inhaler, formoterol inhaler. Continue Solu-Medrol 60 mg IV every 6 hours. Continue Robitussin scheduled. Oxygen per nasal cannula to maintain oxygen saturation greater than 92%. Will follow pulmonology recommendations. 2. Sodium is improved from 129-134. This is likely secondary to dehydration. Continue normal saline at 50 mL per hour. Encourage by mouth hydration. Daily BMP. 3. HCO3 32. Likely compensation for respiratory depression due to COPD. Encourage BiPAP use as needed. Daily BMP. 4. BUN is 29, creatinine is within normal limits. Continue normal saline at 50 mL per hour. Daily BMP. 5. Leukocytosis of 10.7. Unlikely infectious. Most likely due to steroid use. Daily CBC. 6. Heparin 5000 units 3 times a day. Protonix 40 mg by mouth daily. Patient treated for COPD exacerbation. She is pending clinical improvement. We 'll follow pulmonology recommendations.
[2018-04-25 17:06] LABS: Glucose,Whole Blood 134 mg/dL (75-99)
[2018-04-25 20:28] LABS: Glucose,Whole Blood 173 mg/dL (75-99)
[2018-04-26] MEDS: methylPREDNISolone SOD SUCCI 125 MG/2 ML VIAL IV SCH ×5 (00:47→23:54)
[2018-04-26] MEDS: HEPARIN SODIUM,PORCINE 5,000 UNIT/ML 1 ML VIAL SQ SCH ×3 (00:47→15:31)
[2018-04-26] MEDS: NICOTINE 14MG/24HR PATCH TRANSDERM SCH ×2 (00:47→23:54)
[2018-04-26] MEDS: SODIUM CHLORIDE 0.9% 1,000 ML IV SCH (06:45)
[2018-04-26 07:27] LABS: Glucose,Whole Blood 252 mg/dL (75-99)
[2018-04-26] MEDS: INSULIN ASPART (NovoLOG) 100 UNIT/ML VIAL SQ SCH ×4 (07:39→21:28)
[2018-04-26] MEDS: IPRATROPIUM-ALBUTEROL 3 ML NEB INHALATION SCH ×4 (07:59→20:15)
[2018-04-26] MEDS: BUDESONIDE 1 MG/2 ML NEBU INHALATION SCH ×2 (07:59→20:15)
[2018-04-26] MEDS: FORMOTEROL FUMARATE 20 MCG/2 ML NEBU INHALATION SCH ×2 (07:59→20:15)
[2018-04-26] MEDS: ASPIRIN 81 MG PO SCH (08:53)
[2018-04-26] MEDS: ATORVASTATIN 10 MG TAB PO SCH (08:53)
[2018-04-26] MEDS: PANTOPRAZOLE 40 MG TABLET PO SCH (08:54)
[2018-04-26] MEDS: amLODIPine 5 MG TAB PO SCH (08:54)
[2018-04-26] MEDS: AZITHROMYCIN 500 MG TAB PO SCH (08:54)
[2018-04-26] MEDS: guaiFENesin 600 MG TABLET.ER PO SCH ×2 (08:54→20:53)
--- NOTE | 2018-04-26 11:32 | P.PN ---
Subjective Progress Note Date: 04/26/18 Principal diagnosis: Shortness of breath, cough, chest congestion This is a 67-year-old white female patient of Dr. Chaudhari, with history of COPD, and underlying FEV1 of 48% of predicted, not oxygen or prednisone dependent at baseline. Other medical history includes osteoarthritis, hyperlipidemia, previous episodes of pneumonia, peripheral vascular disease with history of right iliac artery stenting, chronic anemia, right carotid artery stenosis, with previous history of carotid endarterectomy and stent placements. Patient presented to the emergency department on 04/23/2018 with complaints of increasing shortness of breath since Monday, cough, chest congestion, chest tightness, intermittent chills. But no fevers. Patient was recently on some antibiotics, the names of which she does not recall, and she states it was for skin infection in her right antecubital fossa area. Patient was recently started on the blood pressure medication, not recall the name, but lisinopril is listed on her list of ALLERGIES, and she started developing a rash , swelling in her right arm, in the antecubital fossa area. Rash was quite itchy, localized. She was given a round of Medrol Dosepak, and the cultures the wound she was told revealed bacterial growth, and she was put on some oral antibiotics. On Monday she started becoming more short of breath, on Monday her symptoms became worse, she felt very congested, tight and wheezy. She is a current smoker. Chest x-ray showed chronic right, unchanged without acute pulmonary process. D-dimer was elevated at 1.5, and CT angios chest was obtained which showed no evidence of pulmonary embolism, and mild to moderate underlying emphysematous changes with scattered parenchymal scarring. She'll blood work showed white blood cell count of 17.1, hemoglobin of 15.0, sodium was 129, potassium is 4.8, chloride is 93, B1 is 26 creatinine was 0.76. Bone and was negative 1, proBNP was mildly elevated at 1070. Patient was in quite severe respiratory distress on admission, requiring BiPAP support, she was also quite hypertensive, did receive labetalol IV push is in the emergency department. EKG showed sinus rhythm with possible left atrial enlargement, and anterior infarct of undetermined age. She was started on nebulized bronchodilators, IV steroids, she is currently off the BiPAP support, doing better, and easier, on 3 L per nasal cannula pulse ox is 97%, blood pressures 170/75, she is afebrile. On 04/25/2018 patient seen in follow-up on medical surgical floor. Still remains quite dyspneic, bronchospastic and congested, she started to bring up some sputum. No fever or chills. Patient still dyspneic even at rest, we'll place on BiPAP intermittently through the day. Today's labs have been reviewed , white blood cell count is 10.7, hemoglobin is 13.2, serum sodium is 134, patient remains on IV 0.9 normal saline at a rate of 50 ML per hour, potassium is 4.3, chloride is 99, CO2 is 32, BUN is 29, creatinine 0.8. She is tolerating oral intake, patient continues on antibiotics in the form of Zithromax and Rocephin, Pulmicort and Perforomist, nebulized bronchodilators and IV Solu-Medrol. Blood pressure is better controlled, today is 165 with 76. No complaints of chest pain. No altered mentation. On 04/26/2018 patient seen in follow-up. She is sleeping comfortably in bed, in no acute distress, still has some congested coughin. Did not require BiPAP support last night, currently on 3 L per nasal cannula pulse ox is 95%, afebrile. Patient's is at the bedside, and he states the patient on sounds are improvement with her breathing, lung sounds reveal better air entry bilaterally, with diffuse rhonchi and wheezing. Overall less bronchospastic. Objective - Vital Signs Vital signs: Vital Signs Temp 98.2 F 04/26/18 07:31 Pulse 96 04/26/18 08:27 Resp 18 04/26/18 07:31 BP 164/76 04/26/18 07:31 Pulse Ox 95 04/26/18 07:31 Intake & Output 04/25/18 04/26/18 04/26/18 18:59 06:59 18:59 Intake Total 1939 1679 Balance 1939 1679 Intake: Intake, IV Titration 300 800 Amount Sodium Chloride 0.9% 1, 300 800 000 ml @ 50 mls/hr IV . Q20H [facility] Rx#:[id number] Oral 1640 880 Other: Voiding Method Toilet Toilet Toilet # Voids 3 - Exam GENERAL EXAM: Alert, pleasant, 67-year-old white female, on 3 L per nasal cannula, conversational dyspnea is noted HEAD: Normocephalic/atraumatic. EYES: Normal reaction of pupils, equal size. Conjunctiva pink, sclera white. NOSE: Clear with pink turbinates. THROAT: No erythema or exudates. NECK: No masses, no JVD, no thyroid enlargement, no adenopathy. CHEST: No chest wall deformity. Symmetrical expansion. LUNGS: Equal air entry with diminished breath sounds, expiratory wheezing, congested cough CVS: Regular rate and rhythm, normal S1 and S2, no gallops, no murmurs, no rubs ABDOMEN: Soft, nontender. No hepatosplenomegaly, normal bowel sounds, no guarding or rigidity. EXTREMITIES: No clubbing, no edema, no cyanosis, 2+ pulses and upper and lower extremities. MUSCULOSKELETAL: Muscle strength and tone normal. SPINE: No scoliosis or deformity SKIN: No rashes CENTRAL NERVOUS SYSTEM: Alert and oriented -3. No focal deficits, tone is normal in all 4 extremities. PSYCHIATRIC: Alert and oriented -3. Appropriate affect. Intact judgment and insight. - Labs CBC & Chem 7: 04/25/18 06:01 04/25/18 06:01 Labs: Abnormal Lab Results - Last 24 Hours (Table) 04/25/18 04/25/18 04/25/18 Range/Units 11:36 16:54 20:27 POC Glucose (mg/dL) 102 H 134 H 173 H (75-99) mg/dL 04/26/18 Range/Units 07:24 POC Glucose (mg/dL) 252 H (75-99) mg/dL Microbiology - Last 24 Hours (Table) 04/23/18 19:50 Blood Culture - Preliminary Blood No Growth after 48 hours Assessment and Plan Plan: Assessment: #1. Acute exacerbation of chronic obstructive pulmonary disease, complicated by purulent tracheobronchitis, chest x-ray and CT angios chest did not show any acute pulmonary process #2. Leukocytosis, improving #3. Elevated D-dimer, CT angios chest did not show any evidence of pulmonary embolism #4. Hyponatremia, improved with IV hydration #5. Hypertensive urgency #6. Advanced COPD, with underlying FEV1 of 40% of predicted, consistent with stage III COPD, oxygen or prednisone dependent at baseline #7. Hyperlipidemia #8. Peripheral arterial occlusive disease, status post right iliac artery stenting #9. Carotid artery stenosis, history of right carotid endarterectomy #10. Neck and ongoing nicotine dependence #11. Osteoarthritis #12. He is episodes of pneumonia Plan: Continue current medical treatment, continue Rocephin and Zithromax, better air entry noted bilaterally on today's exam, however patient still wheezy and congested. Still dyspneic, but overall improving. No fever or chills, blood culture showed no growth. We'll continue current medical treatment. I performed a history & physical examination of the patient and discussed their management with my nurse practitioner, Jane Campo. I reviewed the nurse practitioner's note and agree with the documented findings and plan of care. Lung sounds are positive for scattered rhonchi and wheezes. The findings and the impression was discussed with the patient. I attest to the documentation by the nurse practitioner. Time with Patient: Less than 30
[2018-04-26 11:46] LABS: Glucose,Whole Blood 88 mg/dL (75-99)
[2018-04-26 16:44] LABS: Glucose,Whole Blood 145 mg/dL (75-99)
--- NOTE | 2018-04-26 17:07 | P.PN ---
Subjective Progress Note Date: 04/26/18 Principal diagnosis: COPD exacerbation Patient seen and examined. No acute events overnight. Patient reports improvement in her breathing continues to complain of shortness of breath and wheezing. She denies chest pain, palpitations. No nausea or vomiting. No fever or chills. Objective - Vital Signs Vital signs: Vital Signs Temp 98.6 F 04/26/18 15:00 Pulse 92 04/26/18 16:44 Resp 20 04/26/18 15:00 BP 150/66 04/26/18 15:00 Pulse Ox 94 L 04/26/18 16:30 Intake & Output 04/25/18 04/26/18 04/26/18 18:59 06:59 18:59 Intake Total 1939 1680 240 Balance 194 1680 240 Intake: Intake, IV Titration 300 800 Amount Sodium Chloride 0.9% 1, 300 800 000 ml @ 50 mls/hr IV . Q20H [facility] Rx#:[id number] Oral 1640 880 240 Other: Voiding Method Toilet Toilet Toilet # Voids 3 3 - Exam General: [non toxic], [no distress], [appears at stated age] Derm: [warm], [dry] Head: [atraumatic], [normocephalic], [symmetric] Eyes: [EOMI], [no lid lag], [anicteric sclera] Mouth: [no lip lesion], [mucus membranes moist] Cardiovascular: [S1S2 reg], [no murmur], [positive DP pulse bilateral] Lungs: [Diffuse wheezing bilateral], [no rhonchi, no rales] , [no accessory muscle use] Abdominal: [soft], [ nontender to palpation], [no guarding], [no appreciable organomegaly] Ext: [no gross muscle atrophy], [no edema], [no contractures] Neuro: [no focal neuro deficits] Psych: [Alert], [oriented], [appropriate affect] - Labs CBC & Chem 7: 04/25/18 06:01 04/25/18 06:01 Labs: Abnormal Lab Results - Last 24 Hours (Table) 04/25/18 04/25/18 04/26/18 Range/Units 16:54 20:27 07:24 POC Glucose (mg/dL) 134 H 173 H 252 H (75-99) mg/dL 04/26/18 Range/Units 16:43 POC Glucose (mg/dL) 145 H (75-99) mg/dL Microbiology - Last 24 Hours (Table) 04/23/18 19:50 Blood Culture - Preliminary Blood No Growth after 48 hours Assessment and Plan Assessment: Assessment and Plan 1. COPD exacerbation 2. Hyponatremia 3. Elevated bicarbonate 4. Prerenal azotemia 5. Leukocytosis 6. DVT and GI prophylaxis 1. Likely triggered from viral illness. Continue DuoNeb 4 times a day scheduled and as needed for shortness of breath and wheezing. Continue Pulmicort inhaler, formoterol inhaler. Continue Solu-Medrol 60 mg IV every 6 hours. Continue Robitussin scheduled. Oxygen per nasal cannula to maintain oxygen saturation greater than 92%. Will follow pulmonology recommendations. 2. Sodium is improved from 129-134. This is likely secondary to dehydration. Continue normal saline at 50 mL per hour. Encourage by mouth hydration. Daily BMP. 3. HCO3 32. Likely compensation for respiratory depression due to COPD. Encourage BiPAP use as needed. Daily BMP. 4. BUN is 29, creatinine is within normal limits. Continue normal saline at 50 mL per hour. Daily BMP. 5. Leukocytosis of 10.7. Unlikely infectious. Most likely due to steroid use. Daily CBC. 6. Heparin 5000 units 3 times a day. Protonix 40 mg by mouth daily. Patient treated for COPD exacerbation. She is pending clinical improvement. We 'll follow pulmonology recommendations.
[2018-04-26 21:17] LABS: Glucose,Whole Blood 168 mg/dL (75-99)
[2018-04-27] MEDS: HEPARIN SODIUM,PORCINE 5,000 UNIT/ML 1 ML VIAL SQ SCH ×2 (03:38→09:39)
[2018-04-27] MEDS: methylPREDNISolone SOD SUCCI 125 MG/2 ML VIAL IV SCH ×4 (05:44→23:41)
[2018-04-27 07:26] LABS: Glucose,Whole Blood 124 mg/dL (75-99)
[2018-04-27] MEDS: SODIUM CHLORIDE 0.9% 1,000 ML IV SCH ×2 (07:37→17:40)
[2018-04-27] MEDS: INSULIN ASPART (NovoLOG) 100 UNIT/ML VIAL SQ SCH ×4 (07:37→21:05)
[2018-04-27] MEDS: FORMOTEROL FUMARATE 20 MCG/2 ML NEBU INHALATION SCH ×2 (08:43→20:38)
[2018-04-27] MEDS: BUDESONIDE 1 MG/2 ML NEBU INHALATION SCH ×2 (08:43→20:38)
[2018-04-27] MEDS: IPRATROPIUM-ALBUTEROL 3 ML NEB INHALATION SCH ×4 (08:43→20:38)
[2018-04-27] MEDS: amLODIPine 5 MG TAB PO SCH (09:39)
[2018-04-27] MEDS: ASPIRIN 81 MG PO SCH (09:39)
[2018-04-27] MEDS: PANTOPRAZOLE 40 MG TABLET PO SCH (09:39)
[2018-04-27] MEDS: guaiFENesin 600 MG TABLET.ER PO SCH ×2 (09:39→21:04)
[2018-04-27] MEDS: AZITHROMYCIN 500 MG TAB PO SCH (09:39)
[2018-04-27] MEDS: ATORVASTATIN 10 MG TAB PO SCH (09:44)
[2018-04-27 11:58] LABS: Glucose,Whole Blood 147 mg/dL (75-99)
--- NOTE | 2018-04-27 13:01 | P.PN ---
Subjective Progress Note Date: 04/27/18 Principal diagnosis: Shortness of breath, cough, chest congestion This is a 67-year-old white female patient of Dr. Chaudhari, with history of COPD, and underlying FEV1 of 48% of predicted, not oxygen or prednisone dependent at baseline. Other medical history includes osteoarthritis, hyperlipidemia, previous episodes of pneumonia, peripheral vascular disease with history of right iliac artery stenting, chronic anemia, right carotid artery stenosis, with previous history of carotid endarterectomy and stent placements. Patient presented to the emergency department on 04/23/2018 with complaints of increasing shortness of breath since Monday, cough, chest congestion, chest tightness, intermittent chills. But no fevers. Patient was recently on some antibiotics, the names of which she does not recall, and she states it was for skin infection in her right antecubital fossa area. Patient was recently started on the blood pressure medication, not recall the name, but lisinopril is listed on her list of ALLERGIES, and she started developing a rash , swelling in her right arm, in the antecubital fossa area. Rash was quite itchy, localized. She was given a round of Medrol Dosepak, and the cultures the wound she was told revealed bacterial growth, and she was put on some oral antibiotics. On Monday she started becoming more short of breath, on Monday her symptoms became worse, she felt very congested, tight and wheezy. She is a current smoker. Chest x-ray showed chronic right, unchanged without acute pulmonary process. D-dimer was elevated at 1.5, and CT angios chest was obtained which showed no evidence of pulmonary embolism, and mild to moderate underlying emphysematous changes with scattered parenchymal scarring. She'll blood work showed white blood cell count of 17.1, hemoglobin of 15.0, sodium was 129, potassium is 4.8, chloride is 93, B1 is 26 creatinine was 0.76. Bone and was negative 1, proBNP was mildly elevated at 1070. Patient was in quite severe respiratory distress on admission, requiring BiPAP support, she was also quite hypertensive, did receive labetalol IV push is in the emergency department. EKG showed sinus rhythm with possible left atrial enlargement, and anterior infarct of undetermined age. She was started on nebulized bronchodilators, IV steroids, she is currently off the BiPAP support, doing better, and easier, on 3 L per nasal cannula pulse ox is 97%, blood pressures 170/75, she is afebrile. On 04/25/2018 patient seen in follow-up on medical surgical floor. Still remains quite dyspneic, bronchospastic and congested, she started to bring up some sputum. No fever or chills. Patient still dyspneic even at rest, we'll place on BiPAP intermittently through the day. Today's labs have been reviewed , white blood cell count is 10.7, hemoglobin is 13.2, serum sodium is 134, patient remains on IV 0.9 normal saline at a rate of 50 ML per hour, potassium is 4.3, chloride is 99, CO2 is 32, BUN is 29, creatinine 0.8. She is tolerating oral intake, patient continues on antibiotics in the form of Zithromax and Rocephin, Pulmicort and Perforomist, nebulized bronchodilators and IV Solu-Medrol. Blood pressure is better controlled, today is 165 with 76. No complaints of chest pain. No altered mentation. On 04/26/2018 patient seen in follow-up. She is sleeping comfortably in bed, in no acute distress, still has some congested coughin. Did not require BiPAP support last night, currently on 3 L per nasal cannula pulse ox is 95%, afebrile. Patient's is at the bedside, and he states the patient on sounds are improvement with her breathing, lung sounds reveal better air entry bilaterally, with diffuse rhonchi and wheezing. Overall less bronchospastic. On 04/27/2018 patient seen in follow-up. She states she is starting to improve , still wheezy, and congested. No fever or chills, still quite dyspneic with any exertion, remains on supplemental oxygen, currently at 3 L per nasal cannula with a pulse ox of 95%. Vitals signs are stable. Remains on Zithromax and Rocephin, nebulized bronchodilators, and high-dose IV steroids. Making slow improvement. Objective - Vital Signs Vital signs: Vital Signs Temp 98.3 F 04/27/18 07:00 Pulse 90 04/27/18 12:09 Resp 20 04/27/18 11:58 BP 161/81 04/27/18 07:00 Pulse Ox 95 04/27/18 08:43 Intake & Output 04/26/18 04/27/18 04/27/18 18:59 06:59 18:59 Intake Total 360 2069 Balance 360 2069 Intake: Intake, IV Titration 400 Amount Sodium Chloride 0.9% 1, 400 000 ml @ 50 mls/hr IV . Q20H [facility] Rx#:[id number] Oral 360 1670 Other: Voiding Method Toilet Toilet Toilet # Voids 3 4 - Exam GENERAL EXAM: Alert, pleasant, 67-year-old white female, on 3 L per nasal cannula, conversational dyspnea is noted HEAD: Normocephalic/atraumatic. EYES: Normal reaction of pupils, equal size. Conjunctiva pink, sclera white. NOSE: Clear with pink turbinates. THROAT: No erythema or exudates. NECK: No masses, no JVD, no thyroid enlargement, no adenopathy. CHEST: No chest wall deformity. Symmetrical expansion. LUNGS: Equal air entry with diminished breath sounds, expiratory wheezing, congested cough CVS: Regular rate and rhythm, normal S1 and S2, no gallops, no murmurs, no rubs ABDOMEN: Soft, nontender. No hepatosplenomegaly, normal bowel sounds, no guarding or rigidity. EXTREMITIES: No clubbing, no edema, no cyanosis, 2+ pulses and upper and lower extremities. MUSCULOSKELETAL: Muscle strength and tone normal. SPINE: No scoliosis or deformity SKIN: No rashes CENTRAL NERVOUS SYSTEM: Alert and oriented -3. No focal deficits, tone is normal in all 4 extremities. PSYCHIATRIC: Alert and oriented -3. Appropriate affect. Intact judgment and insight. - Labs CBC & Chem 7: 04/25/18 06:01 04/25/18 06:01 Labs: Abnormal Lab Results - Last 24 Hours (Table) 04/26/18 04/26/18 04/27/18 Range/Units 16:43 21:17 07:10 POC Glucose (mg/dL) 145 H 168 H 124 H (75-99) mg/dL 04/27/18 Range/Units 11:44 POC Glucose (mg/dL) 147 H (75-99) mg/dL Microbiology - Last 24 Hours (Table) 04/23/18 19:50 Blood Culture - Preliminary Blood No Growth after 72 hours Assessment and Plan Plan: Assessment: #1. Acute exacerbation of chronic obstructive pulmonary disease, complicated by purulent tracheobronchitis, chest x-ray and CT angios chest did not show any acute pulmonary process #2. Leukocytosis, improving #3. Elevated D-dimer, CT angios chest did not show any evidence of pulmonary embolism #4. Hyponatremia, improved with IV hydration #5. Hypertensive urgency #6. Advanced COPD, with underlying FEV1 of 40% of predicted, consistent with stage III COPD, oxygen or prednisone dependent at baseline #7. Hyperlipidemia #8. Peripheral arterial occlusive disease, status post right iliac artery stenting #9. Carotid artery stenosis, history of right carotid endarterectomy #10. Neck and ongoing nicotine dependence #11. Osteoarthritis #12. He is episodes of pneumonia Plan: Obtain current medical treatment, current antibiotic coverage, current dose of IV steroids and nebulized bronchodilators, patient is making slow improvement, still has a bronchospastic that he, and congestion, and dyspnea. Blood cultures are negative, fever or chills. Patient is dyspneic with minimal exertion. Not ready for discharge, and will likely remain hospitalized through the weekend. I performed a history & physical examination of the patient and discussed their management with my nurse practitioner, Jane Campo. I reviewed the nurse practitioner's note and agree with the documented findings and plan of care. Lung sounds are positive for scattered rhonchi and wheezes. The findings and the impression was discussed with the patient. I attest to the documentation by the nurse practitioner. Time with Patient: Less than 30
--- NOTE | 2018-04-27 13:03 | P.PN ---
Subjective Progress Note Date: 04/27/18 Principal diagnosis: COPD exacerbation Patient seen and examined. No acute events overnight. Patient reports slight improvement in her breathing today but continues to complain of cough and wheezing. She denies any chest pain or palpitations. Saturating 95% on 3 L nasal cannula. Objective - Vital Signs Vital signs: Vital Signs Temp 98.3 F 04/27/18 07:00 Pulse 90 04/27/18 12:09 Resp 20 04/27/18 11:58 BP 161/81 04/27/18 07:00 Pulse Ox 95 04/27/18 08:43 Intake & Output 04/26/18 04/27/18 04/27/18 18:59 06:59 18:59 Intake Total 360 2070 Balance 360 2070 Intake: Intake, IV Titration 400 Amount Sodium Chloride 0.9% 1, 400 000 ml @ 50 mls/hr IV . Q20H [facility] Rx#:[id number] Oral 360 1670 Other: Voiding Method Toilet Toilet Toilet # Voids 3 4 - Exam General: [non toxic], [no distress], [appears at stated age] Derm: [warm], [dry] Head: [atraumatic], [normocephalic], [symmetric] Eyes: [EOMI], [no lid lag], [anicteric sclera] Mouth: [no lip lesion], [mucus membranes moist] Cardiovascular: [S1S2 reg], [no murmur], [positive DP pulse bilateral] Lungs: [Diffuse wheezing bilateral, improved from yesterday, and expiratory], [ no rhonchi, no rales] , [no accessory muscle use] Abdominal: [soft], [ nontender to palpation], [no guarding], [no appreciable organomegaly] Ext: [no gross muscle atrophy], [no edema], [no contractures] Neuro: [no focal neuro deficits] Psych: [Alert], [oriented], [appropriate affect] - Labs CBC & Chem 7: 04/25/18 06:01 04/25/18 06:01 Labs: Abnormal Lab Results - Last 24 Hours (Table) 04/26/18 04/26/18 04/27/18 Range/Units 16:43 21:17 07:10 POC Glucose (mg/dL) 145 H 168 H 124 H (75-99) mg/dL 02/15/19 Range/Units 11:44 POC Glucose (mg/dL) 147 H (75-99) mg/dL Microbiology - Last 24 Hours (Table) 04/23/18 19:50 Blood Culture - Preliminary Blood No Growth after 72 hours Assessment and Plan Assessment: Assessment and Plan 1. COPD exacerbation 2. Hyponatremia 3. Elevated bicarbonate 4. Prerenal azotemia 5. Leukocytosis 6. DVT and GI prophylaxis 1. Likely triggered from viral illness. Continue DuoNeb 4 times a day scheduled and as needed for shortness of breath and wheezing. Continue Pulmicort inhaler, formoterol inhaler. Continue Solu-Medrol 60 mg IV every 6 hours. Continue Robitussin scheduled. Oxygen per nasal cannula to maintain oxygen saturation greater than 92%. Will follow pulmonology recommendations. 2. Sodium is improved from 129-134. This is likely secondary to dehydration. Continue normal saline at 50 mL per hour. Encourage by mouth hydration. Daily BMP. 3. HCO3 32. Likely compensation for respiratory depression due to COPD. Encourage BiPAP use as needed. Daily BMP. 4. BUN is 29, creatinine is within normal limits. Continue normal saline at 50 mL per hour. Daily BMP. 5. Leukocytosis of 10.7. Unlikely infectious. Most likely due to steroid use. Daily CBC. 6. Heparin 5000 units 3 times a day. Protonix 40 mg by mouth daily. Patient treated for COPD exacerbation. She is pending clinical improvement. We 'll follow pulmonology recommendations.
[2018-04-27 13:35] LABS: HCT 39.6 % (34.0-46.0); HGB 13.2 gm/dL (11.4-16.0); MCH 33.1 pg (25.0-35.0); MCHC 33.4 g/dL (31.0-37.0); MCV 99.3 fL (80.0-100.0); Mean Platelet Volume 7.1; Platelet Count 252 k/uL (150-450); RBC 3.99 m/uL (3.80-5.40); RDW 13.5 % (11.5-15.5); WBC 11.4 k/uL (3.8-10.6)
[2018-04-27 13:42] LABS: Anion Gap 2 mmol/L; Blood Urea Nitrogen 36 mg/dL (7-17); Calcium 8.7 mg/dL (8.4-10.2); Carbon Dioxide 37 mmol/L (22-30); Chloride 97 mmol/L (98-107); Glucose 93 mg/dL (74-99); Potassium 3.9 mmol/L (3.5-5.1); Sodium 136 mmol/L (137-145)
[2018-04-27 17:00] LABS: Glucose,Whole Blood 168 mg/dL (75-99)
[2018-04-27 20:44] LABS: Glucose,Whole Blood 165 mg/dL (75-99)
[2018-04-27] MEDS: NICOTINE 14MG/24HR PATCH TRANSDERM SCH (21:05)
[2018-04-28] MEDS: methylPREDNISolone SOD SUCCI 125 MG/2 ML VIAL IV SCH ×4 (05:16→23:11)
[2018-04-28 06:51] LABS: Glucose,Whole Blood 125 mg/dL (75-99)
[2018-04-28] MEDS: INSULIN ASPART (NovoLOG) 100 UNIT/ML VIAL SQ SCH ×4 (06:52→20:44)
[2018-04-28] MEDS: ATORVASTATIN 10 MG TAB PO SCH (08:13)
[2018-04-28] MEDS: amLODIPine 5 MG TAB PO SCH (08:13)
[2018-04-28] MEDS: ENOXAPARIN 40 MG/0.4 ML SYRINGE SQ SCH (08:13)
[2018-04-28] MEDS: guaiFENesin 600 MG TABLET.ER PO SCH ×2 (08:13→20:44)
[2018-04-28] MEDS: PANTOPRAZOLE 40 MG TABLET PO SCH (08:13)
[2018-04-28] MEDS: ASPIRIN 81 MG PO SCH (08:13)
[2018-04-28] MEDS: AZITHROMYCIN 500 MG TAB PO SCH (08:13)
[2018-04-28] MEDS: BUDESONIDE 1 MG/2 ML NEBU INHALATION SCH ×2 (08:28→21:07)
[2018-04-28] MEDS: FORMOTEROL FUMARATE 20 MCG/2 ML NEBU INHALATION SCH ×2 (08:28→21:08)
[2018-04-28] MEDS: IPRATROPIUM-ALBUTEROL 3 ML NEB INHALATION SCH ×4 (08:28→21:07)
[2018-04-28 10:56] LABS: Glucose,Whole Blood 214 mg/dL (75-99)
--- NOTE | 2018-04-28 12:20 | P.PN ---
Subjective Progress Note Date: 04/28/18 Principal diagnosis: COPD exacerbation patient was seen and examined. No acute events overnight. Patient reports a mild improvement in her breathing, but continues to complain of shortness of breath and wheezing. Saw pulmonology today, told she could possibly go home tomorrow Monday. She denies any chest pain, palpitations. No nausea or vomiting. No fever or chills. Objective - Vital Signs Vital signs: Vital Signs Temp 98.2 F 04/28/18 07:00 Pulse 86 04/28/18 12:10 Resp 16 04/28/18 08:09 BP 170/87 04/28/18 07:00 Pulse Ox 100 04/28/18 08:28 Intake & Output 04/27/18 04/28/18 04/28/18 18:59 06:59 18:59 Intake Total 750 175 237 Balance 750 175 237 Weight 37.195 kg Intake: Intake, IV Titration 350 175 Amount Sodium Chloride 0.9% 1, 350 175 000 ml @ 50 mls/hr IV . Q20H [facility] Rx#:[id number] Oral 400 237 Other: Voiding Method Toilet Toilet Toilet # Voids 3 - Exam General: [non toxic], [no distress], [appears at stated age] Derm: [warm], [dry] Head: [atraumatic], [normocephalic], [symmetric] Eyes: [EOMI], [no lid lag], [anicteric sclera] Mouth: [no lip lesion], [mucus membranes moist] Cardiovascular: [S1S2 reg], [no murmur], [positive DP pulse bilateral] Lungs: [Diffuse wheezing bilateral, worsen yesterday], [no rhonchi, no rales] , [no accessory muscle use] Abdominal: [soft], [ nontender to palpation], [no guarding], [no appreciable organomegaly] Ext: [no gross muscle atrophy], [no edema], [no contractures] Neuro: [no focal neuro deficits] Psych: [Alert], [oriented], [appropriate affect] - Labs CBC & Chem 7: 04/27/18 13:14 04/27/18 13:14 Labs: Abnormal Lab Results - Last 24 Hours (Table) 04/27/18 04/27/18 04/27/18 Range/Units 13:14 13:14 16:58 WBC 11.4 H (3.8-10.6) k/uL Sodium 136 L (137-145) mmol/L Chloride 97 L (98-107) mmol/L Carbon Dioxide 37 H (22-30) mmol/L BUN 36 H (7-17) mg/dL POC Glucose (mg/dL) 168 H (75-99) mg/dL 04/27/18 04/28/18 04/28/18 Range/Units 20:42 06:49 10:55 WBC (3.8-10.6) k/uL Sodium (137-145) mmol/L Chloride (98-107) mmol/L Carbon Dioxide (22-30) mmol/L BUN (7-17) mg/dL POC Glucose (mg/dL) 165 H 125 H 214 H (75-99) mg/dL Microbiology - Last 24 Hours (Table) 04/23/18 19:50 Blood Culture - Preliminary Blood No Growth after 96 hours Assessment and Plan Assessment: Assessment and Plan 1. COPD exacerbation 2. Hyponatremia 3. Elevated bicarbonate 4. Prerenal azotemia 5. Leukocytosis 6. DVT and GI prophylaxis 1. Likely triggered from viral illness. Continue DuoNeb 4 times a day scheduled and as needed for shortness of breath and wheezing. Continue Pulmicort inhaler, formoterol inhaler. Continue Solu-Medrol 60 mg IV every 6 hours. Continue Robitussin scheduled. Oxygen per nasal cannula to maintain oxygen saturation greater than 92%. Will follow pulmonology recommendations. 2. Sodium is improved from 129-136. This is likely secondary to dehydration. Continue normal saline at 50 mL per hour. Encourage by mouth hydration. Daily BMP. 3. HCO3 32 to 37. Likely compensation for respiratory depression due to COPD. Encourage BiPAP use as needed. Daily BMP. 4. BUN is 29 to 36, creatinine is within normal limits. Continue normal saline at 50 mL per hour. Daily BMP. 5. Leukocytosis of 10.7. Unlikely infectious. Most likely due to steroid use. Daily CBC. 6. Heparin 5000 units 3 times a day. Protonix 40 mg by mouth daily. Patient treated for COPD exacerbation. She is pending clinical improvement. We 'll follow pulmonology recommendations.
--- NOTE | 2018-04-28 13:51 | P.PN ---
Subjective Progress Note Date: 04/28/18 Principal diagnosis: Shortness of breath, cough, congestion This is a 67-year-old white female patient of Dr. Chaudhari, with history of COPD, and underlying FEV1 of 48% of predicted, not oxygen or prednisone dependent at baseline. Other medical history includes osteoarthritis, hyperlipidemia, previous episodes of pneumonia, peripheral vascular disease with history of right iliac artery stenting, chronic anemia, right carotid artery stenosis, with previous history of carotid endarterectomy and stent placements. Patient presented to the emergency department on 04/23/2018 with complaints of increasing shortness of breath since Monday, cough, chest congestion, chest tightness, intermittent chills. But no fevers. Patient was recently on some antibiotics, the names of which she does not recall, and she states it was for skin infection in her right antecubital fossa area. Patient was recently started on the blood pressure medication, not recall the name, but lisinopril is listed on her list of ALLERGIES, and she started developing a rash , swelling in her right arm, in the antecubital fossa area. Rash was quite itchy, localized. She was given a round of Medrol Dosepak, and the cultures the wound she was told revealed bacterial growth, and she was put on some oral antibiotics. On Monday she started becoming more short of breath, on Monday her symptoms became worse, she felt very congested, tight and wheezy. She is a current smoker. Chest x-ray showed chronic right, unchanged without acute pulmonary process. D-dimer was elevated at 1.5, and CT angios chest was obtained which showed no evidence of pulmonary embolism, and mild to moderate underlying emphysematous changes with scattered parenchymal scarring. She'll blood work showed white blood cell count of 17.1, hemoglobin of 15.0, sodium was 129, potassium is 4.8, chloride is 93, B1 is 26 creatinine was 0.76. Bone and was negative 1, proBNP was mildly elevated at 1070. Patient was in quite severe respiratory distress on admission, requiring BiPAP support, she was also quite hypertensive, did receive labetalol IV push is in the emergency department. EKG showed sinus rhythm with possible left atrial enlargement, and anterior infarct of undetermined age. She was started on nebulized bronchodilators, IV steroids, she is currently off the BiPAP support, doing better, and easier, on 3 L per nasal cannula pulse ox is 97%, blood pressures 170/75, she is afebrile. On 04/25/2018 patient seen in follow-up on medical surgical floor. Still remains quite dyspneic, bronchospastic and congested, she started to bring up some sputum. No fever or chills. Patient still dyspneic even at rest, we'll place on BiPAP intermittently through the day. Today's labs have been reviewed , white blood cell count is 10.7, hemoglobin is 13.2, serum sodium is 134, patient remains on IV 0.9 normal saline at a rate of 50 ML per hour, potassium is 4.3, chloride is 99, CO2 is 32, BUN is 29, creatinine 0.8. She is tolerating oral intake, patient continues on antibiotics in the form of Zithromax and Rocephin, Pulmicort and Perforomist, nebulized bronchodilators and IV Solu-Medrol. Blood pressure is better controlled, today is 165 with 76. No complaints of chest pain. No altered mentation. On 04/26/2018 patient seen in follow-up. She is sleeping comfortably in bed, in no acute distress, still has some congested coughin. Did not require BiPAP support last night, currently on 3 L per nasal cannula pulse ox is 95%, afebrile. Patient's is at the bedside, and he states the patient on sounds are improvement with her breathing, lung sounds reveal better air entry bilaterally, with diffuse rhonchi and wheezing. Overall less bronchospastic. On 04/27/2018 patient seen in follow-up. She states she is starting to improve , still wheezy, and congested. No fever or chills, still quite dyspneic with any exertion, remains on supplemental oxygen, currently at 3 L per nasal cannula with a pulse ox of 95%. Vitals signs are stable. Remains on Zithromax and Rocephin, nebulized bronchodilators, and high-dose IV steroids. Making slow improvement. The patient is seen today for very 2017 in follow-up on the regular medical floor. She is awake and alert in no acute distress. She is breathing easier today as compared to yesterday. No BiPAP last night. Maintaining good O2 saturations up to 100% on 3 L/m per nasal cannula. She's afebrile. Hemodynamically stable. Blood culture reveals no growth. He is continued on DuoNeb inhalations, Pulmicort and perform a inhalations, IV Solu-Medrol. NicoDerm patch is in place. Ceftriaxone and azithromycin. Objective - Vital Signs Vital signs: Vital Signs Temp 98.2 F 04/28/18 07:00 Pulse 86 04/28/18 12:10 Resp 16 04/28/18 08:09 BP 170/87 04/28/18 07:00 Pulse Ox 100 04/28/18 08:28 Intake & Output 04/27/18 04/28/18 04/28/18 18:59 06:59 18:59 Intake Total 750 175 473 Balance 750 175 473 Weight 37.195 kg Intake: Intake, IV Titration 350 175 Amount Sodium Chloride 0.9% 1, 350 175 000 ml @ 50 mls/hr IV . Q20H [facility] Rx#:[id number] Oral 400 473 Other: Voiding Method Toilet Toilet Toilet # Voids 3 - Exam GENERAL EXAM: Alert, pleasant, 67-year-old white female in no acute distress, on 3 L per nasal cannula HEAD: Normocephalic/atraumatic. EYES: Normal reaction of pupils, equal size. Conjunctiva pink, sclera white. NOSE: Clear with pink turbinates. THROAT: No erythema or exudates. NECK: No masses, no JVD, no thyroid enlargement, no adenopathy. CHEST: No chest wall deformity. Symmetrical expansion. LUNGS: Equal air entry with diminished breath sounds, expiratory wheezing, congested cough CVS: Regular rate and rhythm, normal S1 and S2, no gallops, no murmurs, no rubs ABDOMEN: Soft, nontender. No hepatosplenomegaly, normal bowel sounds, no guarding or rigidity. EXTREMITIES: No clubbing, no edema, no cyanosis, 2+ pulses and upper and lower extremities. MUSCULOSKELETAL: Muscle strength and tone normal. SPINE: No scoliosis or deformity SKIN: No rashes CENTRAL NERVOUS SYSTEM: Alert and oriented -3. No focal deficits, tone is normal in all 4 extremities. PSYCHIATRIC: Alert and oriented -3. Appropriate affect. Intact judgment and insight. - Labs CBC & Chem 7: 04/27/18 13:14 04/27/18 13:14 Labs: Abnormal Lab Results - Last 24 Hours (Table) 04/27/18 04/27/18 04/28/18 Range/Units 16:58 20:42 06:49 POC Glucose (mg/dL) 168 H 165 H 125 H (75-99) mg/dL 04/28/18 Range/Units 10:55 POC Glucose (mg/dL) 214 H (75-99) mg/dL Microbiology - Last 24 Hours (Table) 04/23/18 19:50 Blood Culture - Preliminary Blood No Growth after 96 hours Assessment and Plan Assessment: Assessment: #1. Acute exacerbation of chronic obstructive pulmonary disease, complicated by purulent tracheobronchitis, no acute pulmonary process #2. Leukocytosis, improving #3. Elevated D-dimer, CT angios chest did not show any evidence of pulmonary embolism #4. Hyponatremia, improved with IV hydration #5. Hypertensive urgency #6. Advanced COPD, with underlying FEV1 of 40% of predicted, consistent with stage III COPD, oxygen or prednisone dependent at baseline #7. Hyperlipidemia #8. Peripheral arterial occlusive disease, status post right iliac artery stenting #9. Carotid artery stenosis, history of right carotid endarterectomy #10. Neck and ongoing nicotine dependence #11. Osteoarthritis #12. He is episodes of pneumonia Plan: Lesion was seen and evaluated by Dr. Mike. She has been slow to progress. Better today as compared to yesterday. Continue to titrate down the FiO2 L maintain O2 saturations greater than 90%. Continue current treatment plan. Increase her activity as tolerated. We'll continue to follow. I, the cosigning physician, performed a history & physical examination of the patient. Lungs sounds with bilateral end expiratory wheeze. Maintaining good O2 saturations in the 90s on 3 L/m per nasal cannula. I discussed the assessment and plan of care with my nurse practitioner, Chelsi Gates. I attest to the above note as dictated by her.
[2018-04-28] MEDS: SODIUM CHLORIDE 0.9% 1,000 ML IV SCH (15:01)
[2018-04-28 16:37] LABS: Glucose,Whole Blood 204 mg/dL (75-99)
[2018-04-28 20:39] LABS: Glucose,Whole Blood 152 mg/dL (75-99)
[2018-04-28] MEDS: NICOTINE 14MG/24HR PATCH TRANSDERM SCH (23:11)
[2018-04-29] MEDS: methylPREDNISolone SOD SUCCI 125 MG/2 ML VIAL IV SCH ×3 (05:14→18:01)
[2018-04-29 07:31] LABS: Glucose,Whole Blood 143 mg/dL (75-99)
[2018-04-29] MEDS: INSULIN ASPART (NovoLOG) 100 UNIT/ML VIAL SQ SCH ×4 (08:01→21:00)
[2018-04-29] MEDS: ASPIRIN 81 MG PO SCH (08:02)
[2018-04-29] MEDS: ATORVASTATIN 10 MG TAB PO SCH (08:02)
[2018-04-29] MEDS: guaiFENesin 600 MG TABLET.ER PO SCH ×2 (08:02→21:00)
[2018-04-29] MEDS: amLODIPine 5 MG TAB PO SCH (08:02)
[2018-04-29] MEDS: AZITHROMYCIN 500 MG TAB PO SCH (08:02)
[2018-04-29] MEDS: ENOXAPARIN 40 MG/0.4 ML SYRINGE SQ SCH (08:02)
[2018-04-29] MEDS: PANTOPRAZOLE 40 MG TABLET PO SCH (08:02)
[2018-04-29] MEDS: BUDESONIDE 1 MG/2 ML NEBU INHALATION SCH ×2 (08:33→21:04)
[2018-04-29] MEDS: FORMOTEROL FUMARATE 20 MCG/2 ML NEBU INHALATION SCH ×2 (08:33→21:04)
[2018-04-29] MEDS: IPRATROPIUM-ALBUTEROL 3 ML NEB INHALATION SCH ×4 (08:33→21:04)
--- NOTE | 2018-04-29 10:34 | P.PN ---
Subjective Progress Note Date: 04/29/18 Principal diagnosis: COPD exacerbation Patient seen and examined. No acute events overnight. Patient reports mild improvement in her breathing. She continues to complain of cough, shortness breath and wheezing. Seen by Dr. Bartlett earlier, continue present management. She denies any chest pain or palpitations. No nausea or vomiting. No fever or chills. Objective - Vital Signs Vital signs: Vital Signs Temp 98.8 F 04/29/18 07:00 Pulse 70 04/29/18 08:52 Resp 20 04/29/18 07:00 BP 180/77 04/29/18 07:00 Pulse Ox 99 04/29/18 07:00 Intake & Output 04/28/18 04/29/18 04/29/18 18:59 06:59 18:59 Intake Total 713 980 Balance 713 980 Intake: Intake, IV Titration 500 Amount Sodium Chloride 0.9% 1, 500 000 ml @ 50 mls/hr IV . Q20H [facility] Rx#:[id number] Oral 713 480 Other: Voiding Method Toilet Toilet # Voids 2 - Exam General: [non toxic], [no distress], [appears at stated age] Derm: [warm], [dry] Head: [atraumatic], [normocephalic], [symmetric] Eyes: [EOMI], [no lid lag], [anicteric sclera] Mouth: [no lip lesion], [mucus membranes moist] Cardiovascular: [S1S2 reg], [no murmur], [positive DP pulse bilateral] Lungs: [Diffuse wheezing bilateral, unchanged from yesterday], [no rhonchi, no rales] , [no accessory muscle use] Abdominal: [soft], [ nontender to palpation], [no guarding], [no appreciable organomegaly] Ext: [no gross muscle atrophy], [no edema], [no contractures] Neuro: [no focal neuro deficits] Psych: [Alert], [oriented], [appropriate affect] - Labs CBC & Chem 7: 04/27/18 13:14 04/27/18 13:14 Labs: Abnormal Lab Results - Last 24 Hours (Table) 04/28/18 04/28/18 04/28/18 Range/Units 10:55 16:35 20:38 POC Glucose (mg/dL) 214 H 204 H 152 H (75-99) mg/dL 04/29/18 Range/Units 07:07 POC Glucose (mg/dL) 143 H (75-99) mg/dL Microbiology - Last 24 Hours (Table) 04/23/18 19:50 Blood Culture - Preliminary Blood No Growth after 120 hours Assessment and Plan Assessment: Assessment and Plan 1. COPD exacerbation 2. Hyponatremia 3. Elevated bicarbonate 4. Prerenal azotemia 5. Leukocytosis 6. DVT and GI prophylaxis 1. Likely triggered from viral illness. Continue DuoNeb 4 times a day scheduled and as needed for shortness of breath and wheezing. Continue Pulmicort inhaler, formoterol inhaler. Continue Solu-Medrol 60 mg IV every 6 hours. Continue Robitussin scheduled. Oxygen per nasal cannula to maintain oxygen saturation greater than 92%. Will follow pulmonology recommendations. 2. Sodium is improved from 129-136. This is likely secondary to dehydration. Continue normal saline at 50 mL per hour. Encourage by mouth hydration. Daily BMP. 3. HCO3 32 to 37. Likely compensation for respiratory depression due to COPD. Encourage BiPAP use as needed. Daily BMP. 4. BUN is 29 to 36, creatinine is within normal limits. Continue normal saline at 50 mL per hour. Daily BMP. 5. Leukocytosis of 11.4. Unlikely infectious. Most likely due to steroid use. Daily CBC. 6. Heparin 5000 units 3 times a day. Protonix 40 mg by mouth daily. Patient treated for COPD exacerbation. She is pending clinical improvement. We 'll follow pulmonology recommendations.
[2018-04-29 10:58] LABS: Basophils % (A) 0 %; Eosinophils # (A) 0.1 k/uL (0-0.7); Eosinophils % (A) 1 %; HCT 41.6 % (34.0-46.0); HGB 13.3 gm/dL (11.4-16.0); Lymphocytes # (A) 0.1 k/uL (1.0-4.8); Lymphocytes % (A) 1 %; MCH 31.9 pg (25.0-35.0); MCV 99.6 fL (80.0-100.0); Mean Platelet Volume 6.8; Monocytes % (A) 8 %; Neutrophils % (A) 89 %; Platelet Count 253 k/uL (150-450); RBC 4.18 m/uL (3.80-5.40); RDW 13.6 % (11.5-15.5); WBC 12.4 k/uL (3.8-10.6)
[2018-04-29 11:08] LABS: Anion Gap 2 mmol/L; Blood Urea Nitrogen 38 mg/dL (7-17); Calcium 8.2 mg/dL (8.4-10.2); Carbon Dioxide 36 mmol/L (22-30); Chloride 97 mmol/L (98-107); Glucose 128 mg/dL (74-99); Potassium 3.5 mmol/L (3.5-5.1); Sodium 135 mmol/L (137-145)
[2018-04-29] MEDS: SODIUM CHLORIDE 0.9% 1,000 ML IV SCH (11:21)
[2018-04-29 11:44] LABS: Glucose,Whole Blood 112 mg/dL (75-99)
--- NOTE | 2018-04-29 14:59 | P.PN ---
Subjective Progress Note Date: 04/29/18 Principal diagnosis: Acute exacerbation of COPD and purulent tracheobronchitis. This is a 67-year-old white female patient of Dr. Chaudhari, with history of COPD, and underlying FEV1 of 48% of predicted, not oxygen or prednisone dependent at baseline. Other medical history includes osteoarthritis, hyperlipidemia, previous episodes of pneumonia, peripheral vascular disease with history of right iliac artery stenting, chronic anemia, right carotid artery stenosis, with previous history of carotid endarterectomy and stent placements. Patient presented to the emergency department on 04/23/2018 with complaints of increasing shortness of breath since Monday, cough, chest congestion, chest tightness, intermittent chills. But no fevers. Patient was recently on some antibiotics, the names of which she does not recall, and she states it was for skin infection in her right antecubital fossa area. Patient was recently started on the blood pressure medication, not recall the name, but lisinopril is listed on her list of ALLERGIES, and she started developing a rash , swelling in her right arm, in the antecubital fossa area. Rash was quite itchy, localized. She was given a round of Medrol Dosepak, and the cultures the wound she was told revealed bacterial growth, and she was put on some oral antibiotics. On Monday she started becoming more short of breath, on Monday her symptoms became worse, she felt very congested, tight and wheezy. She is a current smoker. Chest x-ray showed chronic right, unchanged without acute pulmonary process. D-dimer was elevated at 1.5, and CT angios chest was obtained which showed no evidence of pulmonary embolism, and mild to moderate underlying emphysematous changes with scattered parenchymal scarring. She'll blood work showed white blood cell count of 17.1, hemoglobin of 15.0, sodium was 129, potassium is 4.8, chloride is 93, B1 is 26 creatinine was 0.76. Bone and was negative 1, proBNP was mildly elevated at 1070. Patient was in quite severe respiratory distress on admission, requiring BiPAP support, she was also quite hypertensive, did receive labetalol IV push is in the emergency department. EKG showed sinus rhythm with possible left atrial enlargement, and anterior infarct of undetermined age. She was started on nebulized bronchodilators, IV steroids, she is currently off the BiPAP support, doing better, and easier, on 3 L per nasal cannula pulse ox is 97%, blood pressures 170/75, she is afebrile. Reevaluated today on 04/29/2018, patient is still coughing and wheezing and shortness of breath. Intermittently has been on BiPAP, did not use it last night. She is maintaining excellent saturations, but for some reason the patient does not seem to be making a turn around the corner yet. She is maximized on bronchodilators, remains on DuoNeb, Pulmicort, Perforomist, and she is also on IV Solu-Medrol, on Rocephin and Zithromax . CBC is relatively normal and basic metabolic profile is normal. Renal profile is normal Objective - Vital Signs Vital signs: Vital Signs Temp 98.4 F 04/29/18 14:18 Pulse 93 04/29/18 14:18 Resp 20 04/29/18 14:18 BP 151/73 04/29/18 14:18 Pulse Ox 92 L 04/29/18 14:18 Intake & Output 04/28/18 04/29/18 04/29/18 18:59 06:59 18:59 Intake Total 713 980 200 Balance 713 980 200 Intake: Intake, IV Titration 500 Amount Sodium Chloride 0.9% 1, 500 000 ml @ 50 mls/hr IV . Q20H [facility] Rx#:[id number] Oral 713 480 200 Other: Voiding Method Toilet Toilet # Voids 2 3 - Exam Physical Exam: Revealed a 67-year-old female on 3 L nasal cannula, in no distress, frail looking. Head: Atraumatic, normocephalic. HEENT:[Neck is supple.] [No neck masses.] [No thyromegaly.] [No JVD.] Chest: [Expiratory rhonchi and wheezes noted bilaterally more so on forced expiratory maneuver. Cardiac Exam: [Normal S1 and S2, no S3 gallop, no murmur.] Abdomen: [Soft, nontender, no megaly, no rebound, no guarding, normal bowel sounds.] Extremities: [No clubbing, no edema, no cyanosis.] Neurological Exam: [No focal neurologic deficit.] Skin: No rashes. Psychiatric: Normal mood affect and mental status examination. Lymphatics: No lymphadenopathy. - Labs CBC & Chem 7: 04/29/18 10:38 04/29/18 10:38 Labs: Abnormal Lab Results - Last 24 Hours (Table) 04/28/18 04/28/18 04/29/18 Range/Units 16:35 20:38 07:07 WBC (3.8-10.6) k/uL Neutrophils # (1.3-7.7) k/uL Lymphocytes # (1.0-4.8) k/uL Sodium (137-145) mmol/L Chloride (98-107) mmol/L Carbon Dioxide (22-30) mmol/L BUN (7-17) mg/dL Glucose (74-99) mg/dL POC Glucose (mg/dL) 204 H 152 H 143 H (75-99) mg/dL Calcium (8.4-10.2) mg/dL 04/29/18 04/29/18 04/29/18 Range/Units 10:38 10:38 11:30 WBC 12.4 H (3.8-10.6) k/uL Neutrophils # 11.0 H (1.3-7.7) k/uL Lymphocytes # 0.1 L (1.0-4.8) k/uL Sodium 135 L (137-145) mmol/L Chloride 97 L (98-107) mmol/L Carbon Dioxide 36 H (22-30) mmol/L BUN 38 H (7-17) mg/dL Glucose 128 H (74-99) mg/dL POC Glucose (mg/dL) 112 H (75-99) mg/dL Calcium 8.2 L (8.4-10.2) mg/dL Microbiology - Last 24 Hours (Table) 04/23/18 19:50 Blood Culture - Preliminary Blood No Growth after 120 hours Assessment and Plan Assessment: Impression: 1 Acute exacerbation of COPD, improving, but not quite ready to be discharged home. 2Acute Purulent Tracheobronchitis, remains on Rocephin and Zithromax. 3 advanced COPD, FEV1 is in the range of 40%, stage III emphysema. 4 history of multiple comorbidities including degenerative joint disease, nicotine dependence syndrome, peripheral vessel occlusive disease involving the right iliac and right carotid, hyperlipidemia, and hypertension. Recommendation: Discussed and reviewed with the patient her treatment plan, her medications, and I am a bit surprised that she is not making significant improvement over the last few days. If no significant improvement noted in the next couple of days, the patient may benefit from bronchoscopy however that will be decided upon by Dr. espinosa who will be rounding on the patient tomorrow. Time with Patient: Less than 30
[2018-04-29 16:36] LABS: Glucose,Whole Blood 141 mg/dL (75-99)
[2018-04-29 20:57] LABS: Glucose,Whole Blood 170 mg/dL (75-99)
[2018-04-30] MEDS: methylPREDNISolone SOD SUCCI 125 MG/2 ML VIAL IV SCH ×3 (01:23→12:27)
[2018-04-30] MEDS: NICOTINE 14MG/24HR PATCH TRANSDERM SCH (01:23)
[2018-04-30 02:35] VITALS: RESP 18
[2018-04-30 07:29] LABS: Glucose,Whole Blood 119 mg/dL (75-99)
[2018-04-30 08:12] VITALS: BP 175/82; TEMP 98.6
[2018-04-30] MEDS: FORMOTEROL FUMARATE 20 MCG/2 ML NEBU INHALATION SCH (08:16)
[2018-04-30] MEDS: BUDESONIDE 1 MG/2 ML NEBU INHALATION SCH (08:16)
[2018-04-30] MEDS: IPRATROPIUM-ALBUTEROL 3 ML NEB INHALATION SCH ×3 (08:16→15:30)
[2018-04-30] MEDS: INSULIN ASPART (NovoLOG) 100 UNIT/ML VIAL SQ SCH ×2 (08:26→12:28)
[2018-04-30] MEDS: amLODIPine 5 MG TAB PO SCH (08:28)
[2018-04-30] MEDS: guaiFENesin 600 MG TABLET.ER PO SCH (08:28)
[2018-04-30] MEDS: ASPIRIN 81 MG PO SCH (08:28)
[2018-04-30] MEDS: PANTOPRAZOLE 40 MG TABLET PO SCH (08:28)
[2018-04-30] MEDS: ENOXAPARIN 40 MG/0.4 ML SYRINGE SQ SCH (08:29)
[2018-04-30] MEDS: ATORVASTATIN 10 MG TAB PO SCH (08:29)
[2018-04-30] MEDS: AZITHROMYCIN 500 MG TAB PO SCH (08:32)
[2018-04-30] MEDS: SODIUM CHLORIDE 0.9% 1,000 ML IV SCH (08:32)
[2018-04-30 11:26] LABS: Glucose,Whole Blood 138 mg/dL (75-99)
--- NOTE | 2018-04-30 12:04 | P.DS ---
Providers Date of admission: 04/23/18 22:51 Expected date of discharge: 04/30/18 Attending physician: Inna Corral MD Consults: 04/24/18 07:28 Consult Physician Urgent Consulting Provider: Velvet Mike Consult Reason/Comments: COPD Do you want consulting provider notified?: Yes Primary care physician: [facility] Course: 67-year-old female with a PMH of COPD, active tobacco abuse, hyperlipidemia, and osteoarthritis who presented to the ED for sudden onset of shortness of breath, along with nonproductive cough, and wheezing. Patient states that her symptoms started suddenly yesterday while evening while she was bowling, and she used her inhalers multiple times with little relief. She denied associated chest pain, fever, chills, lower extremity pain, lower extremity swelling, recent travel, or sick contacts. The patient follows with pulmonary medicine Dr. Bartlett. She is not on home oxygen. In the ED, the patient underwent a comprehensive workup, with WBC 17.1 and D- Dimer Elevated to 1.50. Subsequent CTA chest was negative for PE. BUN 26, creatinine 0.76. Patient was admitted to medicine service for acute COPD exacerbation. First her COPD exacerbation was likely secondary to viral illness. She was started on DuoNeb 4 times a day scheduled and as stated for shortness of breath and wheezing. She is continued on Pulmicort inhaler and formoterol inhaler. Patient was started on Solu-Medrol 60 mg IV every 6 hours. She was also continued on Robitussin scheduled. She was given oxygen per nasal cannula to maintain an oxygen saturation greater than 92%. Pulmonology was consulted and followed the patient throughout her hospitalization. Patient was also noted to have a low sodium at 129 on admission. This was likely secondary to dehydration. She was started on normal saline at 50 mL per hour. Patient was encouraged to hydrate herself. Her sodium improved to 135 on discharge. Patient was noted to have an elevated bicarbonate level from 32-37. This was likely compensation for respiratory depression due to COPD. She is encouraged to use BiPAP as needed. Patient was noted to have an elevated BUN as well with a normal creatinine. BUN was 29-36. She was continued on normal saline at 50 mL per hour. Patient was noted to have a leukocytosis of 11.4. This is unlikely to be infectious, possibly from steroid use. Patient was seen and examined prior to discharge. No acute events overnight. Patient reports great improvement in her breathing, quite not back to baseline as of now. She is requesting to go home. She denies any chest pain or palpitations. No nausea or vomiting. No fever or chills. General: [non toxic], [no distress], [appears at stated age] Derm: [warm], [dry] Head: [atraumatic], [normocephalic], [symmetric] Eyes: [EOMI], [no lid lag], [anicteric sclera] Mouth: [no lip lesion], [mucus membranes moist] Cardiovascular: [S1S2 reg], [no murmur], [positive DP pulse bilateral] Lungs: [End expiratory wheezing bilaterally, greatly improved from yesterday], [ no rhonchi, no rales] , [no accessory muscle use] Abdominal: [soft], [ nontender to palpation], [no guarding], [no appreciable organomegaly] Ext: [no gross muscle atrophy], [no edema], [no contractures] Neuro: [no focal neuro deficits] Psych: [Alert], [oriented], [appropriate affect] Assessment and Plan 1. COPD exacerbation 2. Hyponatremia 3. Elevated bicarbonate 4. Prerenal azotemia 5. Leukocytosis 6. DVT and GI prophylaxis 1. Likely triggered from viral illness. Continue DuoNeb 4 times a day scheduled and as needed for shortness of breath and wheezing. Continue Pulmicort inhaler, formoterol inhaler. Continue Solu-Medrol 60 mg IV every 6 hours. Continue Robitussin scheduled. Oxygen per nasal cannula to maintain oxygen saturation greater than 92%. Will follow pulmonology recommendations. 2. Sodium is improved from 129-136 to 135. This is likely secondary to dehydration. Continue normal saline at 50 mL per hour. Encourage by mouth hydration. Daily BMP. 3. HCO3 32 to 37 to 36. Likely compensation for respiratory depression due to COPD. Encourage BiPAP use as needed. Daily BMP. 4. BUN is 29 to 36 to 38, creatinine is within normal limits. Likely secondary to the use of Solu-Medrol. Continue normal saline at 50 mL per hour. Daily BMP. 5. Leukocytosis of 11.4 to 12.4. Unlikely infectious. Most likely due to steroid use. Daily CBC. 6. Heparin 5000 units 3 times a day. Protonix 40 mg by mouth daily. Patient treated for COPD exacerbation. 6 minute walk test pending. Social work to get patient a nebulizer machine. Possible discharge today pending pulmonology recommendations. Pertinent Studies: Chest CTA chest x-ray Patient Condition at Discharge: Stable Plan - Discharge Summary New Discharge Prescriptions: No Action Fluticasone/Salmeterol [Advair 250-50 Diskus] 1 puff INHALATION RT-BID Ipratropium/Albuterol Sulfate [Combivent Respimat Inhaler] 1 puff INHALATION RT-QID PRN PRN Reason: Shortness Of Breath Simvastatin [Zocor] 20 mg PO DAILY Vit A/Vit C/Vit E/Zinc/Copper [ICAPS SOFTGEL] 1 tab PO DAILY Furosemide [Lasix] 20 mg PO BID PRN PRN Reason: Edema Aspirin [Adult Low Dose Aspirin EC] 81 mg PO DAILY Cholecalciferol [Vitamin D3] 1,000 unit PO DAILY Albuterol Inhaler [Ventolin Hfa Inhaler] 1 - 2 puff INHALATION RT-Q6H PRN PRN Reason: Shortness Of Breath amLODIPine [Norvasc] 5 mg PO DAILY Cephalexin [Keflex] 500 mg PO TID methylPREDNISolone Dose Pack [Medrol Dose Pack] See Taper PO DIRECTED Discharge Medication List Fluticasone/Salmeterol [Advair 250-50 Diskus] 1 puff INHALATION RT-BID 06/01/15 [History] Ipratropium/Albuterol Sulfate [Combivent Respimat Inhaler] 1 puff INHALATION RT- QID PRN 06/01/15 [History] Simvastatin [Zocor] 20 mg PO DAILY 06/01/15 [History] Vit A/Vit C/Vit E/Zinc/Copper [ICAPS SOFTGEL] 1 tab PO DAILY 06/01/15 [History] Aspirin [Adult Low Dose Aspirin EC] 81 mg PO DAILY 10/28/16 [History] Cholecalciferol [Vitamin D3] 1,000 unit PO DAILY 10/28/16 [History] Furosemide [Lasix] 20 mg PO BID PRN 10/28/16 [History] Albuterol Inhaler [Ventolin Hfa Inhaler] 1 - 2 puff INHALATION RT-Q6H PRN [History] Cephalexin [Keflex] 500 mg PO TID 04/23/18 [History] amLODIPine [Norvasc] 5 mg PO DAILY 04/23/18 [History] methylPREDNISolone Dose Pack [Medrol Dose Pack] See Taper PO DIRECTED [History] Follow up Appointment(s)/Referral(s): Darline Chaudhari MD [Primary Care Provider] - 1-2 days
[2018-04-30 15:31] VITALS: PULSE 86
--- NOTE | 2018-04-30 17:48 | PN ---
PROGRESS NOTE This is a 67-year-old female who sees my partner Dr. Mike for her COPD. She came in with COPD exacerbation. The patient is doing much better, feeling much better, and would like to be discharged home. The patient has a history of COPD exacerbation, purulent tracheobronchitis and stage III COPD with an FEV1 in the range of 40%. In addition, she suffers from chronic nicotine dependence, degenerative joint disease, peripheral vascular occlusive disease, carotid artery disease, hyperlipidemia and hypertension. When we went to the room to see the patient, the patient was sitting up at the bedside. She was getting a breathing treatment. The first thing of her mouth is whether or not we were going to allow her to go home. I told her that we would let her go home. She would have to take it easy for the next couple of days. She would have to follow up with my partner, Dr. Mike, in the next couple days or so. She agrees. Current vital signs are reviewed. Her temperature is 98.6, heart rate 82, respiratory rate 18, blood pressure 175/82 with mean of 113. Three-liter saturation 99%. Appears in no acute distress. Sitting at the bedside. She is currently getting a breathing treatment. No use of accessory muscles. No conversational dyspnea. No audible wheezing. HEENT examination is grossly unremarkable. Nasal oxygen in place. Neck is supple. Full range of motion. No adenopathy, thyromegaly or neck vein distention. Cardiovascular examination reveals a heart rate in the mid 70s. S1, S2 normal. Heart sounds are distant. No clear-cut murmur. Lungs reveal some expiratory wheezes and rhonchi. Breath sounds are diminished. There is prolongation. Breath sounds are equal bilaterally but diminished throughout. Abdomen is soft. Bowel sounds are heard. Extremities are intact. No cyanosis, clubbing or edema. Skin without rash. Neurologic examination is brief but nonfocal. Labs are reviewed. Nothing new from today except a glucose of 138. Labs from April 29 are reviewed. The patient had a chest x-ray back on April 23 when she came into the hospital. It showed some chronic parenchymal changes without acute process. Likewise, she had a CT angiogram on the same day which again showed no evidence of pulmonary embolism. There were some emphysematous changes noted. Microbiologic studies are all negative. Medications are reviewed. ASSESSMENT: 1. Acute hypoxemic respiratory failure secondary to chronic obstructive pulmonary disease exacerbation in a patient with stage III/severe chronic obstructive pulmonary disease. 2. Advanced chronic obstructive pulmonary disease with an FEV1 that is 40% of predicted. 3. Purulent tracheobronchitis without therese pneumonia. 4. History of degenerative joint disease. 5. History of chronic nicotine dependence. 6. History of peripheral vascular occlusive disease. 7. Carotid artery disease. 8. Hyperlipidemia. 9. Hypertension. PLAN: The patient will be discharged. She will follow up with Dr. Mike in the office. No additional recommendations are made. She wants to go home. She feels like she needs to go home. No additional recommendations are made. We will agree to discharge the patient as long as the patient takes it easy. She should go home on some oral antibiotics and some steroids with a burst and taper along with her usual medications. [id number] / JANEN: [id number] /
== END 2018-04-30 15:00 | disposition home or self-care (01) | DRG 191 ==
LOC: EC 19:29 → 4SSUR 22:51
PROVIDERS: ADMIT Family Medicine; ATTEND Family Medicine
DX: J43.9 Emphysema, unspecified (principal); E87.1 Hypo-osmolality and hyponatremia; B34.9 Viral infection, unspecified; E78.5 Hyperlipidemia, unspecified; E86.0 Dehydration; F17.210 Nicotine dependence, cigarettes, uncomplicated; I11.9 Hypertensive heart disease without heart failure; I16.0 Hypertensive urgency; I73.9 Peripheral vascular disease, unspecified; M19.90 Unspecified osteoarthritis, unspecified site; R79.1 Abnormal coagulation profile; T38.0X5A Adverse effect of glucocorticoids and synthetic analogues, initial encounter; R06.03 Acute respiratory distress; D72.829 Elevated white blood cell count, unspecified; R79.89 Other specified abnormal findings of blood chemistry; J20.9 Acute bronchitis, unspecified; Z79.82 Long term (current) use of aspirin; Z79.899 Other long term (current) drug therapy; Z88.8 Allergy status to other drugs, medicaments and biological substances; Z87.01 Personal history of pneumonia (recurrent); Z82.49 Family history of ischemic heart disease and other diseases of the circulatory system
CPT/HCPCS: 36415; 71045; 71275; 80048; 80053; 82550; 82553; 83036; 83735; 83880; 84484; 85025; 85027; 85379; 85610; 85730; 87040; 93005; 94640; 94660; 94760; 96361; 96365; 96375; 99285

== ENCOUNTER → 2018-08-10 | Outpatient (CLI) | payer MEDICARE, OTHER ==
[2018-08-10 08:39] LABS: HCT 43.7 % (34.0-46.0); HGB 13.6 gm/dL (11.4-16.0); MCH 30.2 pg (25.0-35.0); MCHC 31.2 g/dL (31.0-37.0); Mean Platelet Volume 6.5; Platelet Count 318 k/uL (150-450); RBC 4.51 m/uL (3.80-5.40); RDW 13.7 % (11.5-15.5); WBC 6.2 k/uL (3.8-10.6)
[2018-08-10 09:12] LABS: Albumin 3.8 g/dL (3.5-5.0); Potassium 3.8 mmol/L (3.5-5.1); Total Bilirubin 0.5 mg/dL (0.2-1.3); Total Protein 6.3 g/dL (6.3-8.2)
--- NOTE | 2018-08-14 09:41 | MM ---
Reason for exam: screening (asymptomatic). Last mammogram was performed 2 years and 7 months ago. History: Patient is postmenopausal. Family history of breast cancer in 2 maternal aunts at age 60. Benign cyst aspiration of the left breast. Benign excisional biopsy of the left breast. 2 benign excisional biopsies of the right breast. Physical Findings: A clinical breast exam by your physician is recommended on an annual basis and results should be correlated with mammographic findings. MG 3D Screening Mammo W/Cad Bilateral CC and MLO view(s) were taken. XCCL view(s) were taken of the right breast. Prior study comparison: January 20, 2016, bilateral MG 3d screening mammo w/cad. January 25, 2011, right diagnostic mammogram w/CAD. The breast tissue is heterogeneously dense. This may lower the sensitivity of mammography. Finding #1: There is a 12 mm equal density (isodense) mass in the posterior position of the right breast. Finding #2: There are typically benign calcifications in both breasts. ASSESSMENT: Incomplete: need additional imaging evaluation, BI-RAD 0 RECOMMENDATION: Special view mammogram of the left breast. If lesion persists on supplemental views, image directed ultrasound is recommended. [facility] will attempt to contact patient to return for supplemental views and ultrasound if indicated.
== END | disposition home or self-care (01) ==
LOC: RADMAMWWP 07:47
PROVIDERS: ATTEND Family Medicine
DX: Z12.31 Encounter for screening mammogram for malignant neoplasm of breast (principal); I10 Essential (primary) hypertension; I73.9 Peripheral vascular disease, unspecified; Z86.2 Personal history of diseases of the blood and blood-forming organs and certain disorders involving the immune mechanism
CPT/HCPCS: 77063; 77067; 80053; 80061; 84443; 85027

== ENCOUNTER → 2018-08-20 | Outpatient (CLI) | payer MEDICARE, OTHER ==
--- NOTE | 2018-08-23 11:15 | MM ---
Reason for exam: additional evaluation requested from abnormal screening. Last mammogram was performed less than 1 month ago. History: Patient is postmenopausal. Family history of breast cancer in 2 maternal aunts at age 60. Benign cyst aspiration of the left breast. Benign excisional biopsy of the left breast. 2 benign excisional biopsies of the right breast. Physical Findings: Nurse did not find any significant physical abnormalities on exam. MG 3D Work Up W/Cad RT Spot compression CC, spot compression MLO, and ML view(s) were taken of the right breast. Prior study comparison: August 10, 2018, bilateral MG 3d screening mammo w/cad. January 20, 2016, bilateral MG 3d screening mammo w/cad. The breast tissue is heterogeneously dense. This may lower the sensitivity of mammography. Benign appearing calcifications in the right breast. No suspicious abnormality. Persistent far posterior depth lateral right asymmetry is unchanged from 2008. These results were verbally communicated with the patient and result sheet given to the patient on 08/20/18. ASSESSMENT: Benign, BI-RAD 2 RECOMMENDATION: Return to routine screening mammogram schedule for both breasts.
== END | disposition home or self-care (01) ==
LOC: RADMAMWWP 08:52
PROVIDERS: ATTEND Family Medicine
DX: R92.8 Other abnormal and inconclusive findings on diagnostic imaging of breast (principal)
CPT/HCPCS: 77065; G0279; 77061

== ENCOUNTER 2019-01-04 03:39 | Observation (INO) | payer MEDICARE, OTHER ==
--- NOTE | 2019-01-04 04:10 | ED ---
General Adult HPI - General Chief complaint: Upper Respiratory Infection Stated complaint: Chest pain, sore throat, cough Time Seen by Provider: 01/04/19 03:47 Source: patient, family Mode of arrival: wheelchair Limitations: no limitations - History of Present Illness Initial comments: This patient is a 68-year-old woman who presents with complaint of cough, shortness of breath, chest pain. Patient states she was in her usual state of health until approximately 3 days ago. She states that she then developed some cold-like symptoms, including nasal congestion, scratchy throat, and bit of cough. He states that starting about 24 hours ago she was feeling some chest congestion. Tonight she was having bilateral rib pains with cough and was feeli ng more short of breath such that she didn't think she was going to be able to sleep. Patient does have underlying history of COPD and intermittently uses oxygen at home. She does see Dr. Mike. Patient denies fever or chills. The chest pain is only present when she coughs and is located in bilateral ribs. No leg pain or swelling. No change in urination or bowel movements. Onset/Timin -: days(s) Location: chest Radiation: non-radiation Quality: burning, aching Consistency: constant Improves with: none Worsens with: other (Cough) Associated Symptoms: chest pain, cough, shortness of breath - Related Data Home Medications Medication Instructions Recorded Confirmed Fluticasone/Salmeterol [Advair 1 puff INHALATION RT-BID 06/01/15 01/04/19 250-50 Diskus] Ipratropium/Albuterol Sulfate 1 puff INHALATION RT-QID PRN 06/01/15 01/04/19 [Combivent Respimat Inhaler] Simvastatin [Zocor] 20 mg PO DAILY 06/01/15 01/04/19 Aspirin [Adult Low Dose Aspirin EC] 81 mg PO DAILY 10/28/16 01/04/19 Furosemide [Lasix] 20 mg PO BID PRN 10/28/16 01/04/19 Clear Nails Plus 1 tab PO DAILY 01/04/19 01/04/19 Herbal Lung Tonic 1 tab PO DAILY 01/04/19 01/04/19 hydrALAZINE HCL [Apresoline] 100 mg PO TID 01/04/19 01/04/19 Previous Rx's Medication Instructions Recorded Ipratropium-Albuterol Nebulize 3 ml INHALATION RT-Q4H PRN #90 04/30/18 [Duoneb 0.5 mg-3 mg/3 ml Soln] ampul.neb Amoxic-Pot Clav 875-125Mg 1 each PO Q12HR #10 tab 01/05/19 [Augmentin 875-125] Benzonatate [Tessalon Perles] 100 mg PO TID PRN #90 cap 01/05/19 guaiFENesin [Mucinex] 600 mg PO Q12HR #30 tablet.er 01/05/19 predniSONE 0 mg PO DIRECTED #20 tab 01/05/19 Allergies Allergy/AdvReac Type Severity Reaction Status Date / Time estrogens, conjugated Allergy Rash/Hives Verified 01/04/19 07:36 [From Premarin] lisinopril Allergy Swelling Verified 01/04/19 07:36 Review of Systems ROS Statement: Those systems with pertinent positive or pertinent negative responses have been documented in the HPI. ROS Other: All systems not noted in ROS Statement are negative. Constitutional: Denies: fever, chills ENT: Reports: throat pain, congestion Respiratory: Reports: as per HPI, cough, dyspnea, wheezes Cardiovascular: Reports: as per HPI, chest pain. Denies: palpitations, edema, syncope Gastrointestinal: Denies: abdominal pain, vomiting, diarrhea Genitourinary: Denies: dysuria, hematuria Musculoskeletal: Denies: back pain Skin: Denies: rash Neurological: Denies: headache, weakness, numbness Past Medical History Past Medical History: Asthma, COPD, Hyperlipidemia, Osteoarthritis (OA), Pneumonia, Vascular Disorder Additional Past Medical History / Comment(s): HX OF ANEMIA, STATES HAS HAD UNSUCCSESSFUL COLONOSCOPIES IN PAST R/T "TWISTED BOWEL" PAD with lower extremity discomfort bilaterally. History of Any Multi-Drug Resistant Organisms: None Reported Past Surgical History: Adenoidectomy, Breast Surgery, Tonsillectomy Additional Past Surgical History / Comment(s): 06/03/15 Arch study, PTBA & Stenting Right Ext Iliac artery. EARL OOPHERECTOMY. LASIK EYE SURGERY [place]. Benign Breast bx bilat. Rt Carotid Angiogram, & Endarterectomy. Rt Carotid Artery Stent 07/14/15. Stent to LT Leg 07/30/15. ABD AORTOGRAM, ANGIOGRAM 11/04/16. RT LEG STENT 11/10/16 Past Anesthesia/Blood Transfusion Reactions: No Reported Reaction Past Psychological History: No Psychological Hx Reported Smoking Status: Light tobacco smoker Past Alcohol Use History: Occasional Past Drug Use History: None Reported - Past Family History Father Family Medical History: Myocardial Infarction (PA) Additional Family Medical History / Comment(s): Father of a PA at age 61 yrs. Brother(s) Family Medical History: Myocardial Infarction (PA) Mother Family Medical History: No Reported History Additional Family Medical History / Comment(s): Mother had kidney failure and was on dialysis. She at age 73 yrs. General Exam Limitations: no limitations General appearance: alert, in no apparent distress Head exam: Present: atraumatic, normocephalic ENT exam: Present: mucous membranes dry Respiratory exam: Present: wheezes. Absent: respiratory distress, rales, rhonchi, stridor, accessory muscle use, decreased breath sounds, prolonged expiratory Cardiovascular Exam: Present: regular rate, normal rhythm, normal heart sounds. Absent: systolic murmur, diastolic murmur, rubs, gallop GI/Abdominal exam: Present: soft. Absent: distended, tenderness, guarding, rebound, rigid, mass Extremities exam: Present: normal inspection, normal capillary refill. Absent: pedal edema, calf tenderness Back exam: Present: normal inspection. Absent: CVA tenderness (R), CVA tenderness (L) Neurological exam: Present: alert Skin exam: Present: warm, dry, intact, normal color. Absent: rash Course Vital Signs 01/04/19 01/04/19 01/04/19 03:56 04:40 04:52 Temperature 99.1 F Pulse Rate 100 93 96 Pulse Rate [ Pulse Oximetery ] Respiratory 18 Rate Blood Pressure 175/93 Blood Pressure [Left Arm] O2 Sat by Pulse 90 L Oximetry 01/04/19 01/04/19 01/04/19 05:00 05:30 06:00 Temperature 100 F H Pulse Rate 90 91 85 Pulse Rate [ Pulse Oximetery ] Respiratory 25 H 23 25 H Rate Blood Pressure 163/96 170/85 166/86 Blood Pressure [Left Arm] O2 Sat by Pulse 96 98 97 Oximetry 01/04/19 01/04/19 01/04/19 06:30 07:00 07:01 Temperature Pulse Rate 88 84 60 Pulse Rate [ Pulse Oximetery ] Respiratory 20 21 18 Rate Blood Pressure 155/81 144/73 142/89 Blood Pressure [Left Arm] O2 Sat by Pulse 96 94 L 96 Oximetry 01/04/19 07:45 Temperature 98.3 F Pulse Rate Pulse Rate [ 83 Pulse Oximetery ] Respiratory 18 Rate Blood Pressure Blood Pressure 159/73 [Left Arm] O2 Sat by Pulse 91 L Oximetry EKG Findings - EKG Results: EKG: interpreted by ERMD, sinus rhythm (Rate 96 bpm), normal axis, normal QRS, normal ST/T, no acute changes Medical Decision Making - Lab Data Result diagrams: 01/05/19 06:34 01/05/19 06:34 Lab Results 01/04/19 01/04/19 01/04/19 Range/Units 04:10 04:10 04:10 WBC 12.1 H (3.8-10.6) k/uL RBC 4.12 (3.80-5.40) m/uL Hgb 12.7 (11.4-16.0) gm/dL Hct 38.0 (34.0-46.0) % MCV 92.2 (80.0-100.0) fL MCH 30.9 (25.0-35.0) pg MCHC 33.6 (31.0-37.0) g/dL RDW 13.1 (11.5-15.5) % Plt Count 356 (150-450) k/uL Neutrophils % 74 % Lymphocytes % 7 % Monocytes % 11 % Eosinophils % 5 % Basophils % 1 % Neutrophils # 8.9 H (1.3-7.7) k/uL Lymphocytes # 0.8 L (1.0-4.8) k/uL Monocytes # 1.3 H (0-1.0) k/uL Eosinophils # 0.5 (0-0.7) k/uL Basophils # 0.1 (0-0.2) k/uL PT 9.3 (9.0-12.0) sec INR 0.8 (<1.2) APTT 27.1 (22.0-30.0) sec Sodium 131 L (137-145) mmol/L Potassium 4.1 (3.5-5.1) mmol/L Chloride 97 L (98-107) mmol/L Carbon Dioxide 27 (22-30) mmol/L Anion Gap 7 mmol/L BUN 15 (7-17) mg/dL Creatinine 1.03 (0.52-1.04) mg/dL Est GFR (CKD-EPI)AfAm 64 (>60 ml/min/1.73 sqM) Est GFR (CKD-EPI)NonAf 55 (>60 ml/min/1.73 sqM) Glucose 107 H (74-99) mg/dL Calcium 8.8 (8.4-10.2) mg/dL Magnesium 1.7 (1.6-2.3) mg/dL Total Bilirubin 0.5 (0.2-1.3) mg/dL AST 19 (14-36) U/L ALT 16 (9-52) U/L Alkaline Phosphatase 94 (38-126) U/L Troponin I (0.000-0.034) ng/mL NT-Pro-B Natriuret Pep pg/mL Total Protein 6.2 L (6.3-8.2) g/dL Albumin 3.5 (3.5-5.0) g/dL Amylase 73 (30-110) U/L Lipase 45 (23-300) U/L 01/04/19 01/04/19 Range/Units 04:10 04:10 WBC (3.8-10.6) k/uL RBC (3.80-5.40) m/uL Hgb (11.4-16.0) gm/dL Hct (34.0-46.0) % MCV (80.0-100.0) fL MCH (25.0-35.0) pg MCHC (31.0-37.0) g/dL RDW (11.5-15.5) % Plt Count (150-450) k/uL Neutrophils % % Lymphocytes % % Monocytes % % Eosinophils % % Basophils % % Neutrophils # (1.3-7.7) k/uL Lymphocytes # (1.0-4.8) k/uL Monocytes # (0-1.0) k/uL Eosinophils # (0-0.7) k/uL Basophils # (0-0.2) k/uL PT (9.0-12.0) sec INR (<1.2) APTT (22.0-30.0) sec Sodium (137-145) mmol/L Potassium (3.5-5.1) mmol/L Chloride (98-107) mmol/L Carbon Dioxide (22-30) mmol/L Anion Gap mmol/L BUN (7-17) mg/dL Creatinine (0.52-1.04) mg/dL Est GFR (CKD-EPI)AfAm (>60 ml/min/1.73 sqM) Est GFR (CKD-EPI)NonAf (>60 ml/min/1.73 sqM) Glucose (74-99) mg/dL Calcium (8.4-10.2) mg/dL Magnesium (1.6-2.3) mg/dL Total Bilirubin (0.2-1.3) mg/dL AST (14-36) U/L ALT (9-52) U/L Alkaline Phosphatase (38-126) U/L Troponin I 0.013 (0.000-0.034) ng/mL NT-Pro-B Natriuret Pep 1630 pg/mL Total Protein (6.3-8.2) g/dL Albumin (3.5-5.0) g/dL Amylase (30-110) U/L Lipase (23-300) U/L Disposition Clinical Impression: COPD with exacerbation, Dyspnea Disposition: ADMITTED IP TO THIS HOSP Condition: Stable
[2019-01-04] MEDS ORDERED: IPRATROPIUM-ALBUTEROL 3 ML NEB INHALATION STA (04:17)
[2019-01-04] MEDS ORDERED: predniSONE 20 MG TAB PO STA ×2 (04:18→07:01)
[2019-01-04 04:29] LABS: Basophils # (A) 0.1 k/uL (0-0.2); Basophils % (A) 1 %; Eosinophils # (A) 0.5 k/uL (0-0.7); Eosinophils % (A) 5 %; HGB 12.7 gm/dL (11.4-16.0); Lymphocytes # (A) 0.8 k/uL (1.0-4.8); Lymphocytes % (A) 7 %; MCH 30.9 pg (25.0-35.0); MCHC 33.6 g/dL (31.0-37.0); MCV 92.2 fL (80.0-100.0); Mean Platelet Volume 6.1; Monocytes # (A) 1.3 k/uL (0-1.0); Monocytes % (A) 11 %; Neutrophils # (A) 8.9 k/uL (1.3-7.7); Neutrophils % (A) 74 %; Platelet Count 356 k/uL (150-450); RBC 4.12 m/uL (3.80-5.40); RDW 13.1 % (11.5-15.5); WBC 12.1 k/uL (3.8-10.6)
--- NOTE | 2019-01-04 04:30 | XR ---
EXAMINATION TYPE: XR chest 2V DATE OF EXAM: 01/04/2019 COMPARISON: 09/10/2018 HISTORY: Chest pain TECHNIQUE: Frontal and lateral views of the chest are obtained. FINDINGS: There is pulmonary interstitial edema. There is slight blunting of costophrenic angles. Th oracic aorta is atheromatous. There are chest leads. IMPRESSION: There is new pulmonary edema compared to last exam with small pleural effusions and cons istent with heart failure. There is underlying COPD. Heart increased slightly in size compared to las t exam.
[2019-01-04 04:37] LABS: INR 0.8 (<1.2); Partial Thromboplastin Time 27.1 sec (22.0-30.0); Prothrombin Time 9.3 sec (9.0-12.0)
[2019-01-04 04:41] LABS: Albumin 3.5 g/dL (3.5-5.0); Calcium 8.8 mg/dL (8.4-10.2); Magnesium 1.7 mg/dL (1.6-2.3); Potassium 4.1 mmol/L (3.5-5.1); Total Bilirubin 0.5 mg/dL (0.2-1.3); Total Protein 6.2 g/dL (6.3-8.2)
[2019-01-04] MEDS ORDERED: NITROGLYCERIN OINT 1 INCH/GM PACKET TOPICAL STA (05:44)
[2019-01-04] MEDS ORDERED: MORPHINE SULFATE 4 MG/ML SYRINGE IV STA (05:44)
[2019-01-04] MEDS ORDERED: FUROSEMIDE 10 MG/ML 2 ML VIAL IV ONE (06:16)
[2019-01-04] MEDS ORDERED: IPRATROPIUM-ALBUTEROL 3 ML NEB INHALATION PRN (07:00)
[2019-01-04] MEDS ORDERED: NON FORMULARY DRUG (Ipratropium/Albuterol Sulfate [Combivent Respimat Inhaler] 1 PUFF) INHALATION PRN (07:00)
[2019-01-04] MEDS ORDERED: FUROSEMIDE 10 MG/ML 4 ML VIAL IV SCH (07:00)
[2019-01-04] MEDS ORDERED: ALBUTEROL NEBULIZED 2.5 MG/3 ML INHALATION PRN (07:01)
[2019-01-04] MEDS: SYMBICORT 80-4.5 MCG INHALER INHALATION SCH ×2 (08:07→19:31)
[2019-01-04] MEDS: IPRATROPIUM-ALBUTEROL 3 ML NEB INHALATION SCH ×4 (08:07→19:32)
[2019-01-04] MEDS: ASPIRIN 81 MG PO SCH (10:12)
[2019-01-04] MEDS: amLODIPine 5 MG TAB PO SCH ×2 (10:12→12:27)
[2019-01-04] MEDS: ATORVASTATIN 10 MG TAB PO SCH (10:12)
[2019-01-04] MEDS: CHOLECALCIFEROL 1,000 UNIT TAB PO SCH (10:16)
[2019-01-04] MEDS ORDERED: FUROSEMIDE 20 MG TAB PO PRN (10:28)
--- NOTE | 2019-01-04 12:56 | P.CNPUL ---
History of Present Illness Consult date: 01/04/19 Requesting physician: Rodri Gamboa Reason for consult: dyspnea, cough (cough congestion), COPD, abnormal CXR/CT Chief complaint: Dyspnea, cough, congestion History of present illness: This is a 68-year-old white female patient who follows with Dr. Bartlett in the pulmonary clinic for history of severe COPD with chronic hypoxic respiratory failure, on home oxygen, chronic dyspnea on exertion, hypercholesterolemia, peripheral vessel occlusive disease with history of right iliac artery stenting, hypertension, chronic anemia, right carotid artery stenosis with previous history of carotid endarterectomy and stent placement. Patient presented to the emergency department on 01/04/2019 at 3:47 in the morning with complaints of severe shortness of breath, cough, chest discomfort, that felt like tightness and pressure from posterior chest. She states she woke up early in the morning hours being unable to breathe. She also reports are sore throat, especially on the right side, and physical exam revealed some white patches on her tonsils. Does report some chills, no hemoptysis. No lower extremity edema. Chest x-ray shows new pulmonary edema with small pleural effusions. Today's labs have been reviewed, showing white blood cell count of 12.1, hemoglobin of 12.7, platelets are profile was within normal limits, sodium was 131, potassium is 4.1, CO2 was 27, renal profile was within normal limits, proBNP was 1630, and troponin was negative. EKG showed normal sinus rhythm with possibility of left atrial enlargement and T-wave inversion in the V2, no acute ST elevation or depression. She had a low-grade fever on presentation, with a T-max of 100F. She was started on IV Lasix, and this morning she seen on selective care unit, she is feeling better, however still complaining of sore throat, and mild shortness of breath has improved since admission. She states she sees Dr. Goodson in the office and she denies history of congestive heart failure Review of Systems All systems: negative Constitutional: Denies chills, Denies fever Eyes: denies blurred vision, denies pain Ears, nose, mouth and throat: Denies headache, Denies sore throat Cardiovascular: Reports dyspnea on exertion, Reports orthopnea, Reports paroxysmal nocturnal dyspnea, Denies chest pain, Denies shortness of breath Respiratory: Reports dyspnea, Reports home oxygen, Denies cough Gastrointestinal: Denies abdominal pain, Denies diarrhea, Denies nausea, Denies vomiting Genitourinary: Denies dysuria, Denies hematuria Musculoskeletal: Denies myalgias Integumentary: Denies pruritus, Denies rash Neurological: Denies numbness, Denies weakness Psychiatric: Denies anxiety, Denies depression Endocrine: Denies fatigue, Denies weight change Past Medical History Past Medical History: Asthma, COPD, Hyperlipidemia, Osteoarthritis (OA), Pneumonia, Vascular Disorder Additional Past Medical History / Comment(s): Home oxygen at 2L/NC prn, bronchitis, PAD, bilateral lower extremitiy pain at times, small hiatal hernia, gastritis, arthritis in fingers R hand. History of Any Multi-Drug Resistant Organisms: None Reported Past Surgical History: Adenoidectomy, Breast Surgery, Tonsillectomy Additional Past Surgical History / Comment(s): 2015 PTBA/stent L leg, 2017 PTBA/stent R leg, R caratid endartectomy/stent, angiograms, pt states she has 1/10th of one ovary left-rest removed d/t cysts, EGD with unsuccessful flexible sigmoidoscopy d/t tortuous bowel, lasik eye surgery bilaterally. Past Anesthesia/Blood Transfusion Reactions: No Reported Reaction Smoking Status: Light tobacco smoker - Past Family History Father Family Medical History: Myocardial Infarction (MA) Additional Family Medical History / Comment(s): Father of a MA at age 60 yrs. Brother(s) Family Medical History: Myocardial Infarction (MA) Additional Family Medical History / Comment(s): Brother of a MA at the age of 29 yrs. Mother Family Medical History: Renal Disease Additional Family Medical History / Comment(s): Mother had kidney failure and was on dialysis. She at age 73 yrs. Medications and Allergies Home Medications Medication Instructions Recorded Confirmed Type Fluticasone/Salmeterol [Advair 1 puff INHALATION RT-BID 06/01/15 01/04/19 History 250-50 Diskus] Ipratropium/Albuterol Sulfate 1 puff INHALATION RT-QID PRN 06/01/15 01/04/19 History [Combivent Respimat Inhaler] Simvastatin [Zocor] 20 mg PO DAILY 06/01/15 01/04/19 History Aspirin [Adult Low Dose Aspirin EC] 81 mg PO DAILY 10/28/16 01/04/19 History Furosemide [Lasix] 20 mg PO BID PRN 10/28/16 01/04/19 History Ipratropium-Albuterol Nebulize 3 ml INHALATION RT-Q4H PRN #90 04/30/18 01/04/19 Rx [Duoneb 0.5 mg-3 mg/3 ml Soln] ampul.neb Clear Nails Plus 1 tab PO DAILY 01/04/19 01/04/19 History Herbal Lung Tonic 1 tab PO DAILY 01/04/19 01/04/19 History hydrALAZINE HCL [Apresoline] 100 mg PO TID 01/04/19 01/04/19 History Allergies Allergy/AdvReac Type Severity Reaction Status Date / Time estrogens, conjugated Allergy Rash/Hives Verified 01/04/19 07:36 [From Premarin] lisinopril Allergy Swelling Verified 01/04/19 07:36 Physical Exam Vitals: Vital Signs Temp Pulse Pulse Resp BP BP Pulse Ox 01/04/19 12:15 84 01/04/19 12:03 88 01/04/19 12:00 97.8 F 78 18 154/84 98 01/04/19 08:26 88 01/04/19 08:08 84 01/04/19 07:45 98.3 F 83 18 159/73 91 L 01/04/19 07:01 60 18 142/89 96 01/04/19 07:00 84 21 144/73 94 L 01/04/19 06:30 88 20 155/81 96 01/04/19 06:00 100 F H 85 25 H 166/86 97 01/04/19 05:30 91 23 170/85 98 01/04/19 05:00 90 25 H 163/96 96 01/04/19 04:52 96 01/04/19 04:40 93 01/04/19 03:56 99.1 F 100 18 175/93 90 L Intake and Output 01/03/19 01/04/19 01/04/19 22:59 06:59 14:59 Other: Weight 38.102 kg GENERAL EXAM: Alert, pleasant, 67-year-old white female, on 2 L per nasal cannula, conversational dyspnea is noted HEAD: Normocephalic/atraumatic. EYES: Normal reaction of pupils, equal size. Conjunctiva pink, sclera white. NOSE: Clear with pink turbinates. THROAT: No erythema or exudates. NECK: No masses, no JVD, no thyroid enlargement, no adenopathy. CHEST: No chest wall deformity. Symmetrical expansion. LUNGS: Equal air entry with diminished breath sounds, congested cough CVS: Regular rate and rhythm, normal S1 and S2, no gallops, no murmurs, no rubs ABDOMEN: Soft, nontender. No hepatosplenomegaly, normal bowel sounds, no guarding or rigidity. EXTREMITIES: No clubbing, no edema, no cyanosis, 2+ pulses and upper and lower extremities. MUSCULOSKELETAL: Muscle strength and tone normal. SPINE: No scoliosis or deformity SKIN: No rashes CENTRAL NERVOUS SYSTEM: Alert and oriented -3. No focal deficits, tone is normal in all 4 extremities. PSYCHIATRIC: Alert and oriented -3. Appropriate affect. Intact judgment and insight. Results - Laboratory Findings CBC and BMP: 01/04/19 04:10 01/04/19 04:10 PT/INR, D-dimer PT 9.3 sec (9.0-12.0) 01/04/19 04:10 INR 0.8 (<1.2) 01/04/19 04:10 Abnormal lab findings: Abnormal Labs 01/04/19 01/04/19 04:10 04:10 WBC 12.1 H Neutrophils # 8.9 H Lymphocytes # 0.8 L Monocytes # 1.3 H Sodium 131 L Chloride 97 L Glucose 107 H Total Protein 6.2 L - Diagnostic Findings Chest x-ray: report reviewed, image reviewed Additional studies: EKG reviewed Assessment and Plan Plan: Assessment: #1. Acute exacerbation of congestive heart failure with unknown EF. Chest x- ray revealed pulmonary edema, proBNP was 1630 #2. Sore throat, and group A strep was negative, negative influenza screen #4. Mild hyponatremia #5. Hypertension #6. Advanced COPD, with underlying FEV1 of 40% of predicted, consistent with stage III COPD, oxygen or prednisone dependent at baseline #7. Hyperlipidemia #8. Peripheral arterial occlusive disease, status post right iliac artery stenting #9. Carotid artery stenosis, history of right carotid endarterectomy #10. Chronic and ongoing nicotine dependence #11. Osteoarthritis #12. Previous episodes of pneumonia #13. Possibility of a spiculated nodule in the right lung, under surveillance on an outpatient basis Plan: Continue IV diuretics, continue oral steroids, will add empiric antibiotics for COPD exacerbation, influenza screen was negative, group A strep rapid test was negative, will await for final culture, will obtain echocardiogram. Continue with nebulized bronchodilators I performed a history & physical examination of the patient and discussed their management with my nurse practitioner, Jane Campo. I reviewed the nurse practitioner's note and agree with the documented findings and plan of care. Lung sounds are positive for diminished breath sounds and ingested cough. The findings and the impression was discussed with the patient. I attest to the documentation by the nurse practitioner. Time with Patient: Greater than 30
[2019-01-04 13:18] VITALS: BMI 16.9
[2019-01-04] MEDS: AMOXIC-POT CLAV 875-125MG 1 EACH TAB PO SCH ×2 (14:17→20:30)
[2019-01-04] MEDS ORDERED: HYDROcodone/APAP 7.5-325MG 1 EACH TAB PO PRN (14:32)
[2019-01-04] MEDS ORDERED: MORPHINE SULFATE 2 MG/ML SYRINGE IVP PRN (14:32)
[2019-01-04] MEDS: hydrALAZINE HCL 50 MG TAB PO SCH ×2 (15:08→20:26)
[2019-01-04] MEDS ORDERED: ALPRAZolam 0.25 MG TAB PO PRN (17:09)
[2019-01-04] MEDS ORDERED: NICOTINE POLACRILEX 2 MG GUM BUCCAL PRN (17:09)
[2019-01-04] MEDS ORDERED: NALOXONE 0.4 MG/ML 1 ML VIAL IV PRN (17:09)
--- NOTE | 2019-01-04 17:15 | P.HPIM ---
History of Present Illness H&P Date: 01/04/19 (delayed charting seen at 1330) Chief Complaint: cough and rib pain Patient is a 68-year-old female with a past medical history of severe COPD, arthritis, dyslipidemia, gastritis, and hiatal hernia who presented to the emergency department with complaints of severe cough and rib pain. In the ER she underwent an extensive evaluation. Her blood pressure was elevated on arrival at 175/93, and she was slightly tachypnic. Initial laboratory analysis showed a sodium of 131. Chest x-ray showed pulmonary edema with small pleural effusion. She was started on breathing treatments, Lasix, and steroids. She is admitted for further monitoring. She is seen by pulmonary who added strep and influenza which both came back negative. Patient seen and examined at bedside. She denies any current chest discomfort. She states that last night she was having severe bilateral rib pain on her back that was not getting better with changes in movements. She had a cough and was feeling very congested. It was productive of whitish sputum. She was not having any increased wheezing or shortness of breath. She reports that she has been having intermittent chills for the last 3 days. She also reports a sore throat for the last 3 days. She denies any postnasal drip, rhinorrhea. She denies any overt chest pain. She has otherwise been in her normal state of health. She typically only wears her oxygen as needed. Her oxygen levels typically stay around 90%. She does also follow with Dr. Martinez and she saw him last in September. Review of Systems Pertinent positives and negatives as discussed in HPI, a complete review of systems was performed and all other systems are negative. Past Medical History Past Medical History: Asthma, COPD, Hyperlipidemia, Osteoarthritis (OA), Pneu monia, Vascular Disorder Additional Past Medical History / Comment(s): Home oxygen at 2L/NC prn, bronchitis, PAD, small hiatal hernia, gastritis, arthritis in fingers R hand. History of Any Multi-Drug Resistant Organisms: None Reported Past Surgical History: Adenoidectomy, Breast Surgery, Tonsillectomy Additional Past Surgical History / Comment(s): 2015 PTBA/stent L leg, 2017 PTBA/stent R leg, R caratid endartectomy/stent, angiograms, pt states she has 1/10th of one ovary left-rest removed d/t cysts, EGD with unsuccessful flexible sigmoidoscopy d/t tortuous bowel, lasik eye surgery bilaterally. Past Anesthesia/Blood Transfusion Reactions: No Reported Reaction Smoking Status: Current every day smoker Additional History: Lives with her , has a nebulizer and home oxygen and as needed, no Barrientos or walker. - Past Family History Father Family Medical History: Myocardial Infarction ([place]) Additional Family Medical History / Comment(s): Father of a [place] at age 60 yrs. Brother(s) Family Medical History: Myocardial Infarction ([place]) Additional Family Medical History / Comment(s): Brother of a [place] at the age of 29 yrs. Mother Family Medical History: Renal Disease Additional Family Medical History / Comment(s): Mother had kidney failure and was on dialysis. She at age 73 yrs. Medications and Allergies Home Medications Medication Instructions Recorded Confirmed Type Fluticasone/Salmeterol [Advair 1 puff INHALATION RT-BID 06/01/15 01/04/19 History 250-50 Diskus] Ipratropium/Albuterol Sulfate 1 puff INHALATION RT-QID PRN 06/01/15 01/04/19 History [Combivent Respimat Inhaler] Simvastatin [Zocor] 20 mg PO DAILY 06/01/15 01/04/19 History Aspirin [Adult Low Dose Aspirin EC] 81 mg PO DAILY 10/28/16 01/04/19 History Furosemide [Lasix] 20 mg PO BID PRN 10/28/16 01/04/19 History Ipratropium-Albuterol Nebulize 3 ml INHALATION RT-Q4H PRN #90 04/30/18 01/04/19 Rx [Duoneb 0.5 mg-3 mg/3 ml Soln] ampul.neb Clear Nails Plus 1 tab PO DAILY 01/04/19 01/04/19 History Herbal Lung Tonic 1 tab PO DAILY 01/04/19 01/04/19 History hydrALAZINE HCL [Apresoline] 100 mg PO TID 01/04/19 01/04/19 History Allergies Allergy/AdvReac Type Severity Reaction Status Date / Time estrogens, conjugated Allergy Rash/Hives Verified 01/04/19 07:36 [From Premarin] lisinopril Allergy Swelling Verified 01/04/19 07:36 Physical Exam Osteopathic Statement: *. No significant issues noted on an osteopathic structural exam other than those noted in the History and Physical/Consult. Vitals: Vital Signs Temp Pulse Pulse Resp BP BP Pulse Ox 01/04/19 15:45 85 01/04/19 15:37 83 96 01/04/19 15:10 98.4 F 82 16 131/70 96 01/04/19 12:15 84 01/04/19 12:03 88 01/04/19 12:00 97.8 F 78 18 154/84 98 01/04/19 08:26 88 01/04/19 08:08 84 01/04/19 07:45 98.3 F 83 18 159/73 91 L 01/04/19 07:01 60 18 142/89 96 01/04/19 07:00 84 21 144/73 94 L 01/04/19 06:30 88 20 155/81 96 01/04/19 06:00 100 F H 85 25 H 166/86 97 01/04/19 05:30 91 23 170/85 98 01/04/19 05:00 90 25 H 163/96 96 01/04/19 04:52 96 01/04/19 04:40 93 01/04/19 03:56 99.1 F 100 18 175/93 90 L Intake and Output 01/04/19 01/04/19 01/04/19 06:59 14:59 22:59 Intake Total 120 Balance 120 Intake: Oral 120 Other: # Voids 1 # Bowel Movements 0 Weight 38.102 kg 38.102 kg General: non toxic, no distress, appears older than stated age, cachectic, temporal wasting, normal weight Derm: no unusual rashes/lesions no unusual ecchymoses, warm, dry Head: atraumatic, normocephalic, symmetric Eyes: EOMI, no lid lag, anicteric sclera, pupils equal round reactive to light ENT: Nose and ears atraumatic, no thrush, no pharyngeal erythema Neck: No thyromegaly, no cervical lymphadenopathy, trachea midline, supple Mouth: no lip lesion, mucus membranes moist Cardiovascular: S1S2 reg, no murmur, positive posterior tibial pulse bilateral, no edema, capillary refill less than 2 seconds Lungs: Coarse breath sounds bilateral, no rhonchi, no rales , no accessory muscle use Abdominal: soft, nontender to palpation, no guarding, no appreciable or ganomegaly, normal bowel sounds Ext: no gross muscle atrophy, muscle strength 5 out of 5 in all 4 extremities grossly, no contractures, Neuro: CN II-XI grossly intact, light touch intact all 4 extremities, finger to nose within normal limits, Psych: Alert, oriented, appropriate affect Results CBC & Chem 7: 01/04/19 04:10 01/04/19 04:10 Labs: Abnormal Lab Results - Last 24 Hours (Table) 01/04/19 01/04/19 Range/Units 04:10 04:10 WBC 12.1 H (3.8-10.6) k/uL Neutrophils # 8.9 H (1.3-7.7) k/uL Lymphocytes # 0.8 L (1.0-4.8) k/uL Monocytes # 1.3 H (0-1.0) k/uL Sodium 131 L (137-145) mmol/L Chloride 97 L (98-107) mmol/L Glucose 107 H (74-99) mg/dL Total Protein 6.2 L (6.3-8.2) g/dL Chest x-ray: report reviewed Thrombosis Risk Factor Assmnt - DVT/VTE Prophylaxis DVT/VTE Prophylaxis: Low risk, early ambulation encouraged - Choose All That Apply Any of the Below Risk Factors Present?: Yes Each Factor Represents 1 point: Abnormal pulmonary function (COPD), Heart failure (<1month) Other Risk Factors: Yes Each Risk Factor Represents 2 Points: Age 61-74 years Other congenital or acquired thrombophilia - If yes, enter type in comment: No Thrombosis Risk Factor Assessment Total Risk Factor Score: 4 Thrombosis Risk Factor Assessment Level: Moderate Risk Assessment and Plan Assessment: Acute exacerbation of COPD -Continue with Symbicort, DuoNeb, oral steroids, and Augmentin -Pulmonary hygiene -Add Mucinex, Tessalon Perles -Pulmonary recommendations appreciated Elevated BNP - suspect pulm HTN -Does not clinically appear to have congestive heart failure -Await echocardiogram -Further recommendations to follow - s/p IV lasix X 1 Dyslipidemia -Statin Peripheral arterial disease -Aspirin Hypertension -Resume home hydralazine -Follow blood pressures The patient is admitted with an anticipated greater than 2 midnight stay for evaluation of COPD. Surrogate decision-maker: - Wilder CODE STATUS: Full, no prolonged mechanical ventilation- states family and aware DVT prophylaxis: SCDs Discussed with: patient, nursing Anticipated discharge date: in AM Anticipated discharge place: home A total of 65 minutes was spent on the care of this complex patient more than 50% of the time was spent in counseling and care coordination.
--- NOTE | 2019-01-04 19:01 | ECHOF ---
Referral Reason:pulmonary edema MEASUREMENTS -------- HEIGHT: 149.9 cm WEIGHT: 38.1 kg BP: 159/73 RVIDd: 3.2 cm (< 3.3) IVSd: 1.4 cm (0.6 - 1.1) LVIDd: 3.1 cm (3.9 - 5.3) LVPWd: 1.4 cm (0.6 - 1.1) IVSs: 1.7 cm LVIDs: 2.2 cm LVPWs: 1.8 cm LAESV Index (A-L): 29.15 ml/m Ao Diam: 2.4 cm (2.0 - 3.7) AV Cusp: 1.7 cm (1.5 - 2.6) LA Diam: 4.1 cm (2.7 - 3.8) MV E Antwan: 0.73 m/s MV DecT: 229 ms MV A Antwan: 1.04 m/s MV E/A Ratio: 0.70 RAP: 5.00 mmHg RVSP: 23.05 mmHg FINDINGS -------- Sinus rhythm. This was a technically good study. The left ventricular size is normal. There is moderate concentric left ventricular hypertrophy. O verall left ventricular systolic function is normal with, an EF between 55 - 60 %. The diastolic fi lling pattern is normal for the age of the patient 12.39. The right ventricle is normal in size. LA is midly dilated 29-33ml/m2. RA appears enlarged. Interatrial and interventricular septum intact. There is mild aortic valve sclerosis. There is no evidence of aortic regurgitation. Mild mitral annular calcification present. No mitral regurgitation. Mild tricuspid regurgitation present. There is no evidence of pulmonary hypertension. The right v entricular systolic pressure, as measured by Doppler, is 23.05mmHg. There is no pulmonic regurgitation present. Non complex (< 4mm), atherosclerotic plaque(s) located in the ascending aorta. Normal inferior vena cava with normal inspiratory collapse consistent with estimated right atrial pre ssure of 5 mmHg. There is no pericardial effusion. CONCLUSIONS -------- 1. Sinus rhythm. 2. This was a technically good study. 3. The left ventricular size is normal. 4. There is moderate concentric left ventricular hypertrophy. 5. Overall left ventricular systolic function is normal with, an EF between 55 - 60 %. 6. The diastolic filling pattern is normal for the age of the patient 12.39 7. The right ventricle is normal in size. 8. LA is midly dilated 29-33ml/m2. 9. RA appears enlarged. 10. Interatrial and interventricular septum intact. 11. There is mild aortic valve sclerosis. 12. There is no evidence of aortic regurgitation. 13. Mild mitral annular calcification present. 14. No mitral regurgitation. 15. Mild tricuspid regurgitation present. 16. There is no evidence of pulmonary hypertension. 17. The right ventricular systolic pressure, as measured by Doppler, is 23.05mmHg. 18. There is no pulmonic regurgitation present. 19. Non complex (< 4mm), atherosclerotic plaque(s) located in the ascending aorta. 20. Normal inferior vena cava with normal inspiratory collapse consistent with estimated right atrial pressure of 5 mmHg. 21. There is no pericardial effusion. MANAGER WEB: Shama Judge RDCS
[2019-01-04] MEDS: guaiFENesin 600 MG TABLET.ER PO SCH (20:26)
[2019-01-04] MEDS: BENZONATATE 100 MG CAP PO SCH (20:26)
[2019-01-04 23:52] VITALS: TEMP 98.2
[2019-01-05 06:52] LABS: HCT 34.8 % (34.0-46.0); HGB 11.3 gm/dL (11.4-16.0); MCH 30.4 pg (25.0-35.0); MCHC 32.5 g/dL (31.0-37.0); MCV 93.3 fL (80.0-100.0); Mean Platelet Volume 5.9; Platelet Count 352 k/uL (150-450); RBC 3.72 m/uL (3.80-5.40); WBC 10.6 k/uL (3.8-10.6)
[2019-01-05] MEDS ORDERED: ASPIRIN 325 MG TAB PO SCH (06:59)
[2019-01-05 07:04] LABS: Calcium 8.7 mg/dL (8.4-10.2); Potassium 4.3 mmol/L (3.5-5.1)
[2019-01-05] MEDS: IPRATROPIUM-ALBUTEROL 3 ML NEB INHALATION SCH ×2 (08:41→11:55)
[2019-01-05] MEDS: SYMBICORT 80-4.5 MCG INHALER INHALATION SCH (08:41)
[2019-01-05] MEDS ORDERED: [UNRECOGNIZED DRUG - OTHER] PO SCH (09:00)
[2019-01-05] MEDS ORDERED: predniSONE 20 MG TAB PO SCH (09:00)
[2019-01-05] MEDS ORDERED: [UNRECOGNIZED DRUG - OTHER] PO SCH (09:00)
[2019-01-05 09:49] VITALS: BP 124/59; RESP 16
[2019-01-05] MEDS: ASPIRIN 81 MG PO SCH (09:49)
[2019-01-05] MEDS: AMOXIC-POT CLAV 875-125MG 1 EACH TAB PO SCH (09:49)
[2019-01-05] MEDS: guaiFENesin 600 MG TABLET.ER PO SCH (09:49)
[2019-01-05] MEDS: CHOLECALCIFEROL 1,000 UNIT TAB PO SCH (09:49)
[2019-01-05] MEDS: hydrALAZINE HCL 50 MG TAB PO SCH (09:49)
[2019-01-05] MEDS: ATORVASTATIN 10 MG TAB PO SCH (09:49)
[2019-01-05] MEDS: BENZONATATE 100 MG CAP PO SCH (09:49)
--- NOTE | 2019-01-05 11:16 | P.DS ---
Providers Date of admission: 01/04/19 07:20 Expected date of discharge: 01/05/19 Attending physician: Rodri Gamboa MD Consults: 01/04/19 06:56 Consult Physician Routine Consulting Provider: Velvet Mike Consult Reason/Comments: Your patient. Multi-factorial dyspnea Do you want consulting provider notified?: Yes Primary care physician: Darline Chaudhari Hospital Course: Discharge Diagnosis: acute exacerbation of COPD Acute bronchitis Acute hypoxic respiratory failure Costochondritis Elevated BNP, no evidence of CHF HLD PAD HTN Cachexia without evidence of protein calorie malnutrition Hospital Course: Patient is a 68-year-old female with a past medical history of severe COPD, arthritis, dyslipidemia, gastritis, and hiatal hernia who presented to the emergency department with complaints of severe cough and rib pain. In the ER she underwent an extensive evaluation. Her blood pressure was elevated on arrival at 175/93, and she was slightly tachypnic. Initial laboratory analysis showed a sodium of 131. Chest x-ray showed pulmonary edema with small pleural effusion. She was started on breathing treatments, Lasix, and steroids. She is admitted for further monitoring. She is seen by pulmonary who added strep and influenza which both came back negative. She was maintained on oral steroids and oral antibiotics added. She underwent an echocardiogram with an ejection fraction of 55-60% and moderate concentric LVH. Resume 01/05 she felt that her breathing was back to baseline. She does have some wheezing which she states is normal for her. 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 She was subsequently discharged in stable condition 1. Will complete steroid taper 2 given a course of Augmentin 3. Has an appointment with Dr. Bartlett in [address] Chaudhari on 01/08. Patient seen and examined at bedside. The pain is resolved. Breathing is much better, cough is improving and is now productive, wheezing is much improved. Feels well and wants to be discharged home. Vital signs reviewed and stable. General: non toxic, no distress, appears older than stated age, cachectic Derm: warm, dry Head: atraumatic, normocephalic, symmetric Eyes: EOMI, no lid lag, anicteric sclera Mouth: no lip lesion, mucus membranes moist Cardiovascular: S1S2 reg, no murmur, positive posterior tibial pulse bilateral, Lungs: Coarse breath sounds bilaterally with rhonchi bilateral bases , no accessory muscle use Abdominal: soft, nontender to palpation, no guarding, no appreciable organomegaly Ext: no gross muscle atrophy, no edema, no contractures Neuro: CN II-XI grossly intact, no focal neuro deficits Psych: Alert, oriented, appropriate affect A total of 25 minutes of time were spent preparing this complex discharge summary . Patient Condition at Discharge: Stable Plan - Discharge Summary Discharge Rx Participant: No New Discharge Prescriptions: New Amoxic-Pot Clav 875-125Mg [Augmentin 875-125] 1 each PO Q12HR #10 tab guaiFENesin [Mucinex] 600 mg PO Q12HR #30 tablet.er predniSONE 0 mg PO DIRECTED #20 tab Benzonatate [Tessalon Perles] 100 mg PO TID PRN #90 cap PRN Reason: Cough Continue Fluticasone/Salmeterol [Advair 250-50 Diskus] 1 puff INHALATION RT-BID Ipratropium/Albuterol Sulfate [Combivent Respimat Inhaler] 1 puff INHALATION RT-QID PRN PRN Reason: Shortness Of Breath Simvastatin [Zocor] 20 mg PO DAILY Furosemide [Lasix] 20 mg PO BID PRN PRN Reason: Edema Aspirin [Adult Low Dose Aspirin EC] 81 mg PO DAILY Ipratropium-Albuterol Nebulize [Duoneb 0.5 mg-3 mg/3 ml Soln] 3 ml INHALATION RT-Q4H PRN #90 ampul.neb PRN Reason: Shortness Of Breath Or Wheezing Clear Nails Plus 1 tab PO DAILY Herbal Lung Tonic 1 tab PO DAILY hydrALAZINE HCL [Apresoline] 100 mg PO TID Discharge Medication List Fluticasone/Salmeterol [Advair 250-50 Diskus] 1 puff INHALATION RT-BID 06/01/15 [History] Ipratropium/Albuterol Sulfate [Combivent Respimat Inhaler] 1 puff INHALATION RT- QID PRN 06/01/15 [History] Simvastatin [Zocor] 20 mg PO DAILY 06/01/15 [History] Aspirin [Adult Low Dose Aspirin EC] 81 mg PO DAILY 10/28/16 [History] Furosemide [Lasix] 20 mg PO BID PRN 10/28/16 [History] Ipratropium-Albuterol Nebulize [Duoneb 0.5 mg-3 mg/3 ml Soln] 3 ml INHALATION RT-Q4H PRN #90 ampul.neb 04/30/18 [Rx] Clear Nails Plus 1 tab PO DAILY 01/04/19 [History] Herbal Lung Tonic 1 tab PO DAILY 01/04/19 [History] hydrALAZINE HCL [Apresoline] 100 mg PO TID 01/04/19 [History] Amoxic-Pot Clav 875-125Mg [Augmentin 875-125] 1 each PO Q12HR #10 tab 01/05/19 [Rx] Benzonatate [Tessalon Perles] 100 mg PO TID PRN #90 cap 01/05/19 [Rx] guaiFENesin [Mucinex] 600 mg PO Q12HR #30 tablet.er 01/05/19 [Rx] predniSONE 0 mg PO DIRECTED #20 tab 01/05/19 [Rx] Follow up Appointment(s)/Referral(s): Velvet Mike MD [STAFF PHYSICIAN] - 1 Week Darline Chaudhari MD [Primary Care Provider] - 1-2 days Patient Instructions/Handouts: How to Stop Smoking (DC), COPD (Chronic Obstructive Pulmonary Disease) (DC) Activity/Diet/Wound Care/Special Instructions: Activity: as tolerated Diet: heart healthy Special Instructions: stop smoking
[2019-01-05 12:08] VITALS: PULSE 80
--- NOTE | 2019-01-05 13:39 | P.PN ---
Subjective Progress Note Date: 01/05/19 Principal diagnosis: COPD exacerbation This is a 68-year-old white female patient who follows with Dr. Bartlett in the pulmonary clinic for history of severe COPD with chronic hypoxic respiratory failure, on home oxygen, chronic dyspnea on exertion, hypercholesterolemia, peripheral vessel occlusive disease with history of right iliac artery stenting, hypertension, chronic anemia, right carotid artery stenosis with previous history of carotid endarterectomy and stent placement. Patient presented to the emergency department on 01/04/2019 at 3:47 in the morning with complaints of severe shortness of breath, cough, chest discomfort, that felt like tightness and pressure from posterior chest. She states she woke up early in the morning hours being unable to breathe. She also reports are sore throat, especially on the right side, and physical exam revealed some white patches on her tonsils. Does report some chills, no hemoptysis. No lower extremity edema. Chest x-ray shows new pulmonary edema with small pleural effusions. Today's labs have been reviewed, showing white blood cell count of 12.1, hemoglobin of 12.7, platelets are profile was within normal limits, sodium was 131, potassium is 4.1, CO2 was 27, renal profile was within normal limits, proBNP was 1630, and troponin was negative. EKG showed normal sinus rhythm with possibility of left atrial enlarg ement and T-wave inversion in the V2, no acute ST elevation or depression. She had a low-grade fever on presentation, with a T-max of 100F. She was started on IV Lasix, and this morning she seen on selective care unit, she is feeling better, however still complaining of sore throat, and mild shortness of breath has improved since admission. She states she sees Dr. Goodson in the office and she denies history of congestive heart failure The patient is seen today 01/05/2019 in follow-up in the selective care unit. She is currently sitting up in a chair at the bedside. Awake and alert in no acute distress. Feeling quite a bit better today. No worsening shortness of breath, cough or congestion. No fever, chills or night sweats. She's been afebrile. Maintaining good O2 saturations in the upper 90s on 2 L/m per nasal cannula. Hemodynamically stable. White count 10.6. Hemoglobin 11.3. Creatinine 1.09. Influenza screen negative. Rapid group A strep negative. Objective - Vital Signs Vital signs: Vital Signs Temp 98.2 F 01/05/19 08:30 Pulse 80 01/05/19 12:06 Resp 16 01/05/19 08:30 BP 124/59 01/05/19 08:30 Pulse Ox 98 01/05/19 08:30 Intake & Output 01/04/19 01/05/19 01/05/19 18:59 06:59 18:59 Intake Total 480 358 Balance 480 358 Weight 38.102 kg 38.2 kg Intake: Oral 480 358 Other: # Voids 1 1 1 # Bowel Movements 0 - Exam GENERAL EXAM: Alert, pleasant, 68-year-old female patient, on 2 L per nasal cannula, in no acute distress HEAD: Normocephalic/atraumatic. EYES: Normal reaction of pupils, equal size. Conjunctiva pink, sclera white. NOSE: Clear with pink turbinates. THROAT: No erythema or exudates. NECK: No masses, no JVD, no thyroid enlargement, no adenopathy. CHEST: No chest wall deformity. Symmetrical expansion. LUNGS: Equal air entry with diminished breath sounds CVS: Regular rate and rhythm, normal S1 and S2, no gallops, no murmurs, no rubs ABDOMEN: Soft, nontender. No hepatosplenomegaly, normal bowel sounds, no guarding or rigidity. EXTREMITIES: No clubbing, no edema, no cyanosis, 2+ pulses and upper and lower extremities. MUSCULOSKELETAL: Muscle strength and tone normal. SPINE: No scoliosis or deformity SKIN: No rashes CENTRAL NERVOUS SYSTEM: No focal deficits, tone is normal in all 4 extremities. PSYCHIATRIC: Alert and oriented -3. Appropriate affect. Intact judgment and insight. - Labs CBC & Chem 7: 01/05/19 06:34 01/05/19 06:34 Labs: Abnormal Lab Results - Last 24 Hours (Table) 01/05/19 01/05/19 Range/Units 06:34 06:34 RBC 3.72 L (3.80-5.40) m/uL Hgb 11.3 L (11.4-16.0) gm/dL Sodium 135 L (137-145) mmol/L BUN 27 H (7-17) mg/dL Creatinine 1.09 H (0.52-1.04) mg/dL Glucose 100 H (74-99) mg/dL Microbiology - Last 24 Hours (Table) 01/04/19 12:10 Group A Strep Throat Culture - Preliminary Throat Assessment and Plan Assessment: Assessment: #1. Acute exacerbation of congestive heart failure with unknown EF. Chest x- ray revealed pulmonary edema, proBNP was 1630 #2. Sore throat, and group A strep was negative, negative influenza screen #4. Mild hyponatremia #5. Hypertension #6. Advanced COPD, with underlying FEV1 of 40% of predicted, consistent with stage III COPD, oxygen or prednisone dependent at baseline #7. Hyperlipidemia #8. Peripheral arterial occlusive disease, status post right iliac artery stenting #9. Carotid artery stenosis, history of right carotid endarterectomy #10. Chronic and ongoing nicotine dependence #11. Osteoarthritis #12. Previous episodes of pneumonia #13. Possibility of a spiculated nodule in the right lung, under surveillance on an outpatient basis Plan: The patient was seen and evaluated by Dr. Mike. She is cleared for discharge from the pulmonary standpoint. Continue prednisone burst and taper. Complete course of antibiotics. Continue her home pulmonary medications. Keep her scheduled appointment. Call sooner with any recurrence of symptoms or other questions or concerns. I, the cosigning physician, performed a history & physical examination of the patient. Lungs sounds are clear, diminished. Maintaining good O2 saturations in the 90s on 2 L/m per nasal cannula. I discussed the assessment and plan of care with my nurse practitioner, Chelsi Gates. I attest to the above note as dictated by her.
== END 2019-01-05 13:14 | disposition home or self-care (01) ==
LOC: EC 03:39 → 3SCARD 07:20
PROVIDERS: ADMIT Internal Medicine; ATTEND Internal Medicine
DX: J44.1 Chronic obstructive pulmonary disease with (acute) exacerbation (principal); J44.0 Chronic obstructive pulmonary disease with (acute) lower respiratory infection; J20.9 Acute bronchitis, unspecified; J96.21 Acute and chronic respiratory failure with hypoxia; K44.9 Diaphragmatic hernia without obstruction or gangrene; E87.1 Hypo-osmolality and hyponatremia; M94.0 Chondrocostal junction syndrome [Tietze]; I73.9 Peripheral vascular disease, unspecified; I10 Essential (primary) hypertension; E78.5 Hyperlipidemia, unspecified; D64.9 Anemia, unspecified; J81.1 Chronic pulmonary edema; R79.89 Other specified abnormal findings of blood chemistry; J90 Pleural effusion, not elsewhere classified; R64 Cachexia; Z68.1 Body mass index [BMI] 19.9 or less, adult; F17.200 Nicotine dependence, unspecified, uncomplicated; E78.00 Pure hypercholesterolemia, unspecified; M19.041 Primary osteoarthritis, right hand; Z99.81 Dependence on supplemental oxygen; Z79.52 Long term (current) use of systemic steroids; Z79.82 Long term (current) use of aspirin; Z79.51 Long term (current) use of inhaled steroids; Z79.899 Other long term (current) drug therapy; Z88.8 Allergy status to other drugs, medicaments and biological substances; Z87.01 Personal history of pneumonia (recurrent); Z87.19 Personal history of other diseases of the digestive system; Z95.820 Peripheral vascular angioplasty status with implants and grafts; Z82.49 Family history of ischemic heart disease and other diseases of the circulatory system; Z84.1 Family history of disorders of kidney and ureter
CPT/HCPCS: 96374; 96375; 99284; 36415; 94640 ×4; 94760; 93005; 93306; 83880; 80053; 80048; 82150; 83690; 83735; 84484; 85025; 85027; 85610; 85730; 87081; 87430; 87502; 71046; G0378 ×2; J2270; J1940; J7512 ×2

== ENCOUNTER → 2019-01-30 | Outpatient (CLI) | payer MEDICARE, OTHER ==
[2019-01-30 15:02] LABS: HCT 35.2 % (34.0-46.0); HGB 11.6 gm/dL (11.4-16.0); Hypochromasia Slight; MCH 30.1 pg (25.0-35.0); MCHC 32.9 g/dL (31.0-37.0); MCV 91.4 fL (80.0-100.0); Mean Platelet Volume 6.1; Platelet Count 480 k/uL (150-450); RBC 3.85 m/uL (3.80-5.40); RDW 14.1 % (11.5-15.5); WBC 11.6 k/uL (3.8-10.6)
[2019-01-30 20:24] LABS: African American GFR (CKD) 75.1 (60.0-200.0); Albumin 3.6 g/dL (3.80-4.90); Albumin/Globulin Ratio 1.8 (1.60-3.17); Anion Gap 8.6 mmol/L (4.00-12.00); BUN/Creat Ratio 18.89 Ratio (12.00-20.00); Calcium 8.5 mg/dL (8.7-10.3); Carbon Dioxide 30.4 mmol/L (21.6-31.8); Non-African American GFR(CKD) 64.8 (60.0-200.0); Potassium 4.4 mmol/L (3.5-5.5); Total Bilirubin 0.3 mg/dL (0.2-1.2); Total Protein 5.6 g/dL (6.2-8.2)
[2019-01-30 20:31] LABS: T4, Free (Free Thyroxine) 1.5 ng/dL (0.80-1.80)
== END | disposition home or self-care (01) ==
LOC: LABWHC1 14:21
PROVIDERS: ATTEND Family Medicine
DX: R53.83 Other fatigue (principal)
CPT/HCPCS: 36415; 80053; 84439; 84443; 85027

== ENCOUNTER 2019-04-12 14:53 | Emergency (ER) | payer MEDICARE, OTHER ==
[2019-04-12] MEDS ORDERED: SODIUM CHLORIDE 0.9% 500 ML 500 ML IV STA (16:05)
[2019-04-12] MEDS ORDERED: methylPREDNISolone SOD SUCCI 125 MG/2 ML VIAL IV STA (16:05)
[2019-04-12] MEDS ORDERED: FAMOTIDINE 20 MG TAB PO STA (16:21)
[2019-04-12] MEDS ORDERED: predniSONE 50 MG TAB PO STA (16:21)
--- NOTE | 2019-04-12 17:09 | ED ---
General Adult HPI - General Chief complaint: Allergic Reaction Stated complaint: Allergic reaction Time Seen by Provider: 04/12/19 15:45 Source: patient, RN notes reviewed, old records reviewed Mode of arrival: ambulatory Limitations: no limitations - History of Present Illness Initial comments: 68-year-old female patient presents fever chief complaint of rash. Patient reports that she was started on metoprolol approximately 3 weeks ago. Patient reports that she began develop rash on her face and her neck. Reports it got progressively worse. Patient reports that she discontinued the metoprolol 1 week ago. Has been taking to have redness, dry skin on her face and her neck. Her breathing reports a baseline. Denies any facial swelling. Patient has been attempting to use Benadryl, topical steroid creams which have not improved. Denies any other complaints. Systemic: Pt denies fatigue, fever/chills. Pt denies weakness, night sweats, weight loss. Neuro: Pt denies headache, visual disturbances, syncope or pre-syncope. HEENT: Pt denies ocular discharge or irritation, otalgia, rhinorrhea, pharyngitis or notable lymphadenopathy. Cardiopulmonary: Pt denies chest pain, SOB, heart palpitations, dyspnea on exertion. Abdominal/GI: Pt denies abdominal pain, n/v/d. : Pt denies dysuria, burning w/ urination, frequency/urgency. Denies new onset urinary or bowel incontinence. MSK: Pt denies myalgia, loss of strength or function in extremities. Neuro: Pt denies new onset weakness, paresthesias. - Related Data Home Medications Medication Instructions Recorded Confirmed Fluticasone/Salmeterol [Advair 1 puff INHALATION RT-BID 06/01/15 01/04/19 250-50 Diskus] Ipratropium/Albuterol Sulfate 1 puff INHALATION RT-QID PRN 06/01/15 01/04/19 [Combivent Respimat Inhaler] Simvastatin [Zocor] 20 mg PO DAILY 06/01/15 01/04/19 Aspirin [Adult Low Dose Aspirin EC] 81 mg PO DAILY 10/28/16 01/04/19 Furosemide [Lasix] 20 mg PO BID PRN 10/28/16 01/04/19 Clear Nails Plus 1 tab PO DAILY 01/04/19 01/04/19 Herbal Lung Tonic 1 tab PO DAILY 01/04/19 01/04/19 hydrALAZINE HCL [Apresoline] 100 mg PO TID 01/04/19 01/04/19 Previous Rx's Medication Instructions Recorded Ipratropium-Albuterol Nebulize 3 ml INHALATION RT-Q4H PRN #90 04/30/18 [Duoneb 0.5 mg-3 mg/3 ml Soln] ampul.neb Amoxic-Pot Clav 875-125Mg 1 each PO Q12HR #10 tab 01/05/19 [Augmentin 875-125] Benzonatate [Tessalon Perles] 100 mg PO TID PRN #90 cap 01/05/19 guaiFENesin [Mucinex] 600 mg PO Q12HR #30 tablet.er 01/05/19 predniSONE [Deltasone] 0 mg PO DIRECTED #20 tab 01/05/19 EPINEPHrine (Auto Inject) [Epipen] 0.3 mg IM ONCE PRN #2 pen 04/12/19 Famotidine [Pepcid] 20 mg PO BID 7 Days #14 tablet 04/12/19 diphenhydrAMINE [Benadryl] 50 mg PO Q6HR PRN 10 Days #30 04/12/19 capsule predniSONE 50 mg PO DAILY 4 Days #4 tab 04/12/19 Allergies Allergy/AdvReac Type Severity Reaction Status Date / Time estrogens, conjugated Allergy Rash/Hives Verified 04/12/19 15:10 [From Premarin] lisinopril Allergy Swelling Verified 04/12/19 15:10 metoprolol Allergy Rash/Hives Verified 04/12/19 15:12 nystatin Allergy Rash/Hives Verified 04/12/19 15:12 Review of Systems ROS Statement: Those systems with pertinent positive or pertinent negative responses have been documented in the HPI. ROS Other: All systems not noted in ROS Statement are negative. Past Medical History Past Medical History: Asthma, COPD, Hyperlipidemia, Hypertension, Osteoarthritis (OA), Pneumonia, Vascular Disorder Additional Past Medical History / Comment(s): HX OF ANEMIA, STATES HAS HAD UNSUCCSESSFUL COLONOSCOPIES IN PAST R/T "TWISTED BOWEL" PAD with lower extremity discomfort bilaterally. History of Any Multi-Drug Resistant Organisms: None Reported Past Surgical History: Adenoidectomy, Breast Surgery, Tonsillectomy Additional Past Surgical History / Comment(s): 06/03/15 Arch study, PTBA & Stenting Right Ext Iliac artery. ABDOULAYE OOPHERECTOMY. LASIK EYE SURGERY [facility]. Benign Breast bx bilat. Rt Carotid Angiogram, & Endarterectomy. Rt Carotid Artery Stent 07/14/15. Stent to LT Leg 07/30/15. ABD AORTOGRAM, ANGIOGRAM 11/04/16. RT LEG STENT 11/10/16 Past Anesthesia/Blood Transfusion Reactions: No Reported Reaction Past Psychological History: No Psychological Hx Reported Smoking Status: Light tobacco smoker Past Alcohol Use History: Occasional Past Drug Use History: None Reported - Past Family History Father Family Medical History: Myocardial Infarction (SC) Additional Family Medical History / Comment(s): Father of a SC at age 61 yrs. Brother(s) Family Medical History: Myocardial Infarction (SC) Additional Family Medical History / Comment(s): Brother of a SC at the age of 29 yrs. Mother Family Medical History: No Reported History Additional Family Medical History / Comment(s): Mother had kidney failure and was on dialysis. She at age 73 yrs. General Exam - General Exam Comments Initial Comments: Constitutional: NAD, AOX3, Pt has pleasant affect. HEENT: NC/AT, trachea midline, neck supple, no lymphadenopathy. Posterior pharynx non erythematous, without exudates. External ears appear normal, without discharge. Mucous membranes moist. Eyes PERRLA, EOM intact. There is no scleral icterus. No pallor noted. Cardiopulmonary: RRR, no murmurs, rubs or gallops, no JVD noted. Lungs CTAB in anterior and posterior tafoya. No peripheral edema. Abdominal exam: Abdomen soft and non-distended. Abdomen non-tender to palpation in all 4 quadrants. Bowel sounds active in LLQ. No hepatosplenomegaly. No ecchymosis Neuro: CN II-XII grossly intact. No nuchal rigidity. No raccon eyes, no meneses sign, no hemotympanum. No cervical spinal tenderness. MSK: No posterior calf tenderness bilaterally, homans sign negative bilaterally. Posterior tibialis and radial pulse +2 bilaterally. Sensation intact in upper and lower extremities. Full active ROM in upper and lower extremities, 5/5 stregnth. Derm: Erythematous rash face, back of neck, behind ears. Small amount of involvement behind knees. Dry. Spares palms and soles. No mucosal involvement. Limitations: no limitations Course Vital Signs 04/12/19 15:05 Temperature 98.2 F Pulse Rate 105 H Respiratory 20 Rate Blood Pressure 162/85 O2 Sat by Pulse 99 Oximetry Medical Decision Making - Medical Decision Making 68-year-old female patient presents fever chief complaint of rash. Patient reports that she was started on metoprolol approximately 3 weeks ago. Patient reports that she began develop rash on her face and her neck. Reports it got progressively worse. Patient reports that she discontinued the metoprolol 1 week ago. Has been taking to have redness, dry skin on her face and her neck. Her breathing reports a baseline. Denies any facial swelling. Patient has been attempting to use Benadryl, topical steroid creams which have not improved. Denies any other complaints. Pt VSS, afebrile. Physical exam displayed: Erythematous rash face, back of neck, behind ears. Small amount of involvement behind knees. Dry. Spares palms and soles. No mucosal involvement. The complications reviewed with patient. Patient is not taking any herbal supplements currently. Advised patient to discontinue the topical creams. Advised patient to continue with Benadryl Pepcid steroids. Patient with close outpatient follow-up with primary care provider. Also be given a dermatology referral if symptoms do not improve. Strict return precautions were discussed. Case discussed with Dr. Lang. Disposition Clinical Impression: Rash and nonspecific skin eruption Disposition: HOME SELF-CARE Condition: Stable Instructions (If sedation given, give patient instructions): Acute Rash (ED) Additional Instructions: Take medications as directed. Follow-up with primary care provider tomorrow. Follow-up with dermatology if symptoms do not improve. Use EpiPen only for emergency anaphylaxis. Symptoms of this are facial swelling, sensation of throat closing, difficulty breathing diffuse rash nausea and vomiting. Prescriptions: diphenhydrAMINE [Benadryl] 50 mg PO Q6HR PRN 10 Days #30 capsule PRN Reason: rash EPINEPHrine (Auto Inject) [Epipen] 0.3 mg IM ONCE PRN #2 pen PRN Reason: Anaphylaxis Famotidine [Pepcid] 20 mg PO BID 7 Days #14 tablet predniSONE 50 mg PO DAILY 4 Days #4 tab Is patient prescribed a controlled substance at d/c from ED?: No Referrals: Darline Chaudhari MD [Primary Care Provider] - 1-2 days Raquel Raphael MD [REFERRING] - 1-2 days Cuco Eng MD [REFERRING] - 1-2 days Nisha Ayon MD [STAFF PHYSICIAN] - 1-2 days
[2019-04-12 17:33] VITALS: BP 158/84; PULSE 98; RESP 18; TEMP 98
== END 2019-04-12 17:33 | disposition home or self-care (01) ==
LOC: EC 14:53
DX: R21 Rash and other nonspecific skin eruption (principal); J44.9 Chronic obstructive pulmonary disease, unspecified; E78.5 Hyperlipidemia, unspecified; I10 Essential (primary) hypertension; M19.90 Unspecified osteoarthritis, unspecified site; F17.200 Nicotine dependence, unspecified, uncomplicated; Z88.8 Allergy status to other drugs, medicaments and biological substances; Z79.51 Long term (current) use of inhaled steroids; Z79.82 Long term (current) use of aspirin; Z79.899 Other long term (current) drug therapy; Z53.8 Procedure and treatment not carried out for other reasons
CPT/HCPCS: 99283; J7512

== ENCOUNTER 2019-06-02 22:35 | Inpatient (IN) | payer MEDICARE, OTHER ==
--- NOTE | 2019-06-02 22:47 | ED ---
General Adult HPI - General Chief complaint: Shortness of Breath Stated complaint: GERARDO Time Seen by Provider: 06/02/19 22:44 Source: patient Mode of arrival: ambulatory Limitations: no limitations - History of Present Illness Initial comments: Patient presents the ED complaining of having dyspnea and diffuse chest and upper back pain since this afternoon. Patient also admits to having a dry cough, and she states that her pain is worse when coughing. She states that she has a history of COPD, and she states that she is on 2 L of home O2. Patient d enies trauma or injury, fever or chills, headache, focal neuro deficit, sore throat, neck/arm/jaw pain, hemoptysis, palpitations, dizziness, nausea/vomiting/diaphoresis, abdominal pain, dysuria or urinary symptoms, decreased urine output, leg or calf swelling or pain, or any other symptoms or complaints. She states that she has been using her home nebulizer machine without much relief. - Related Data Home Medications Medication Instructions Recorded Confirmed Fluticasone/Salmeterol [Advair 1 puff INHALATION RT-BID 06/01/15 01/04/19 250-50 Diskus] Ipratropium/Albuterol Sulfate 1 puff INHALATION RT-QID PRN 06/01/15 01/04/19 [Combivent Respimat Inhaler] Simvastatin [Zocor] 20 mg PO DAILY 06/01/15 01/04/19 Aspirin [Adult Low Dose Aspirin EC] 81 mg PO DAILY 10/28/16 01/04/19 Furosemide [Lasix] 20 mg PO BID PRN 10/28/16 01/04/19 Clear Nails Plus 1 tab PO DAILY 01/04/19 01/04/19 Herbal Lung Tonic 1 tab PO DAILY 01/04/19 01/04/19 hydrALAZINE HCL [Apresoline] 100 mg PO TID 01/04/19 01/04/19 Previous Rx's Medication Instructions Recorded Ipratropium-Albuterol Nebulize 3 ml INHALATION RT-Q4H PRN #90 04/30/18 [Duoneb 0.5 mg-3 mg/3 ml Soln] ampul.neb Amoxic-Pot Clav 875-125Mg 1 each PO Q12HR #10 tab 01/05/19 [Augmentin 875-125] Benzonatate [Tessalon Perles] 100 mg PO TID PRN #90 cap 01/05/19 guaiFENesin [Mucinex] 600 mg PO Q12HR #30 tablet.er 01/05/19 predniSONE [Deltasone] 0 mg PO DIRECTED #20 tab 01/05/19 EPINEPHrine (Auto Inject) [Epipen] 0.3 mg IM ONCE PRN #2 pen 04/12/19 Famotidine [Pepcid] 20 mg PO BID 7 Days #14 tablet 04/12/19 diphenhydrAMINE [Benadryl] 50 mg PO Q6HR PRN 10 Days #30 04/12/19 capsule predniSONE 50 mg PO DAILY 4 Days #4 tab 04/12/19 Allergies Allergy/AdvReac Type Severity Reaction Status Date / Time estrogens, conjugated Allergy Rash/Hives Verified 04/12/19 15:10 [From Premarin] lisinopril Allergy Swelling Verified 04/12/19 15:10 metoprolol Allergy Rash/Hives Verified 04/12/19 15:12 nystatin Allergy Rash/Hives Verified 04/12/19 15:12 Review of Systems ROS Statement: Those systems with pertinent positive or pertinent negative responses have been documented in the HPI. ROS Other: All systems not noted in ROS Statement are negative. Past Medical History Past Medical History: Asthma, COPD, Hyperlipidemia, Hypertension, Osteoarthritis (OA), Pneumonia, Vascular Disorder Additional Past Medical History / Comment(s): HX OF ANEMIA, STATES HAS HAD UN SUCCSESSFUL COLONOSCOPIES IN PAST R/T "TWISTED BOWEL" PAD with lower extremity discomfort bilaterally. History of Any Multi-Drug Resistant Organisms: None Reported Past Surgical History: Adenoidectomy, Breast Surgery, Tonsillectomy Additional Past Surgical History / Comment(s): 06/03/15 Arch study, PTBA & Stenting Right Ext Iliac artery. EARL OOPHERECTOMY. LASIK EYE SURGERY [place]. Benign Breast bx bilat. Rt Carotid Angiogram, & Endarterectomy. Rt Carotid Artery Stent 07/14/15. Stent to LT Leg 07/30/15. ABD AORTOGRAM, ANGIOGRAM 11/04/16. RT LEG STENT 11/10/16 Past Anesthesia/Blood Transfusion Reactions: No Reported Reaction Past Psychological History: No Psychological Hx Reported Smoking Status: Light tobacco smoker Past Alcohol Use History: Occasional Past Drug Use History: None Reported - Past Family History Father Family Medical History: Myocardial Infarction ([place]) Additional Family Medical History / Comment(s): Father of a DE at age 61 yrs. Brother(s) Family Medical History: Myocardial Infarction ([place]) Additional Family Medical History / Comment(s): Brother of a DE at the age of 29 yrs. Mother Family Medical History: No Reported History Additional Family Medical History / Comment(s): Mother had kidney failure and was on dialysis. She at age 73 yrs. General Exam Limitations: no limitations General appearance: alert Head exam: Present: atraumatic, normocephalic Eye exam: Present: normal appearance, EOMI ENT exam: Present: normal oropharynx, mucous membranes moist Neck exam: Present: other (Trachea is in midline). Absent: tenderness Respiratory exam: Present: normal lung sounds bilaterally, decreased breath sounds, prolonged expiratory, other (Mild respiratory distress). Absent: wheezes, rales, rhonchi, stridor Cardiovascular Exam: Present: regular rate, normal rhythm, normal heart sounds, other (Normal radial pulses bilaterally) GI/Abdominal exam: Present: soft. Absent: distended, tenderness, guarding Extremities exam: Present: other (Negative Homans sign bilaterally). Absent: tenderness, pedal edema, calf tenderness Back exam: Present: normal inspection. Absent: tenderness Neurological exam: Present: alert, oriented X3. Absent: motor sensory deficit Psychiatric exam: Present: normal affect, normal mood Skin exam: Present: warm, dry, intact, normal color Course Vital Signs 06/02/19 06/02/19 06/02/19 22:36 23:20 23:27 Temperature 98.3 F Pulse Rate 88 87 88 Respiratory 20 Rate Blood Pressure 164/86 O2 Sat by Pulse 94 L Oximetry - Reevaluation(s) Reevaluation #1: 06/03/19 00:31 Case, H&P, test results and ED management were discussed with Dr. Gamboa ([facility] list). He accepts hospital admission. He has no further recommendations at this time. 06/03/19 00:40 Patient states her dyspnea has improved with the DuoNeb treatment that she was given in the ED. Patient denies development of any new symptoms while in the ED. Patient is aware of her test results, and she agrees with hospital admission at this time. EKG Findings - EKG Comments: EKG Findings:: Normal sinus rhythm, ventricular rate of 89 bpm, no ectopy, normal [place] and QRS intervals, normal QT interval, normal axis, LVH, lateral limb lead T-wave abnormality, no significant change from 01/04/2019 EKG Medical Decision Making - Medical Decision Making I suspect that the patient's symptoms are likely secondary to pneumonia and COPD exacerbation. Given the patient's symptoms, imaging findings and lymphopenia, and given the current Covid19 pandemic, Covid19 testing was done. Patient was treated with IV fluids, IV steroids and IV antibiotics in the ED. Dr. Gamboa has accepted hospital admission. Patient agrees with this plan. - Lab Data Result diagrams: 06/02/19 22:57 06/02/19 22:57 Lab Results 06/02/19 06/02/19 06/02/19 Range/Units 22:57 22:57 22:57 WBC 15.6 H (3.8-10.6) k/uL RBC 4.49 (3.80-5.40) m/uL Hgb 13.1 (11.4-16.0) gm/dL Hct 41.2 (34.0-46.0) % MCV 91.9 (80.0-100.0) fL MCH 29.1 (25.0-35.0) pg MCHC 31.7 (31.0-37.0) g/dL RDW 14.0 (11.5-15.5) % Plt Count 284 (150-450) k/uL Neutrophils % 83 % Lymphocytes % 6 % Monocytes % 6 % Eosinophils % 2 % Basophils % 0 % Neutrophils # 12.9 H (1.3-7.7) k/uL Lymphocytes # 0.9 L (1.0-4.8) k/uL Monocytes # 1.0 (0-1.0) k/uL Eosinophils # 0.3 (0-0.7) k/uL Basophils # 0.1 (0-0.2) k/uL PT 9.3 (9.0-12.0) sec INR 0.9 (<1.2) APTT 24.7 (22.0-30.0) sec D-Dimer 1.39 H (<0.60) mg/L FEU Sodium 130 L (137-145) mmol/L Potassium 3.5 (3.5-5.1) mmol/L Chloride 89 L (98-107) mmol/L Carbon Dioxide 37 H (22-30) mmol/L Anion Gap 4 mmol/L BUN 30 H (7-17) mg/dL Creatinine 1.09 H (0.52-1.04) mg/dL Est GFR (CKD-EPI)AfAm 60 (>60 ml/min/1.73 sqM) Est GFR (CKD-EPI)NonAf 52 (>60 ml/min/1.73 sqM) Glucose 105 H (74-99) mg/dL Plasma Lactic Acid Zac (0.7-2.0) mmol/L Calcium 8.5 (8.4-10.2) mg/dL Magnesium 1.8 (1.6-2.3) mg/dL Total Bilirubin 0.4 (0.2-1.3) mg/dL AST 32 (14-36) U/L ALT 20 (4-34) U/L Alkaline Phosphatase 114 (38-126) U/L Troponin I (0.000-0.034) ng/mL NT-Pro-B Natriuret Pep pg/mL Total Protein 6.1 L (6.3-8.2) g/dL Albumin 3.6 (3.5-5.0) g/dL Influenza Type A RNA (Not Detectd) Influenza Type B (PCR) (Not Detectd) 06/02/19 06/02/19 06/02/19 Range/Units 22:57 22:57 22:57 WBC (3.8-10.6) k/uL RBC (3.80-5.40) m/uL Hgb (11.4-16.0) gm/dL Hct (34.0-46.0) % MCV (80.0-100.0) fL MCH (25.0-35.0) pg MCHC (31.0-37.0) g/dL RDW (11.5-15.5) % Plt Count (150-450) k/uL Neutrophils % % Lymphocytes % % Monocytes % % Eosinophils % % Basophils % % Neutrophils # (1.3-7.7) k/uL Lymphocytes # (1.0-4.8) k/uL Monocytes # (0-1.0) k/uL Eosinophils # (0-0.7) k/uL Basophils # (0-0.2) k/uL PT (9.0-12.0) sec INR (<1.2) APTT (22.0-30.0) sec D-Dimer (<0.60) mg/L FEU Sodium (137-145) mmol/L Potassium (3.5-5.1) mmol/L Chloride (98-107) mmol/L Carbon Dioxide (22-30) mmol/L Anion Gap mmol/L BUN (7-17) mg/dL Creatinine (0.52-1.04) mg/dL Est GFR (CKD-EPI)AfAm (>60 ml/min/1.73 sqM) Est GFR (CKD-EPI)NonAf (>60 ml/min/1.73 sqM) Glucose (74-99) mg/dL Plasma Lactic Acid Zac 1.0 (0.7-2.0) mmol/L Calcium (8.4-10.2) mg/dL Magnesium (1.6-2.3) mg/dL Total Bilirubin (0.2-1.3) mg/dL AST (14-36) U/L ALT (4-34) U/L Alkaline Phosphatase (38-126) U/L Troponin I 0.013 (0.000-0.034) ng/mL NT-Pro-B Natriuret Pep 655 pg/mL Total Protein (6.3-8.2) g/dL Albumin (3.5-5.0) g/dL Influenza Type A RNA (Not Detectd) Influenza Type B (PCR) (Not Detectd) 06/02/19 Range/Units 23:59 WBC (3.8-10.6) k/uL RBC (3.80-5.40) m/uL Hgb (11.4-16.0) gm/dL Hct (34.0-46.0) % MCV (80.0-100.0) fL MCH (25.0-35.0) pg MCHC (31.0-37.0) g/dL RDW (11.5-15.5) % Plt Count (150-450) k/uL Neutrophils % % Lymphocytes % % Monocytes % % Eosinophils % % Basophils % % Neutrophils # (1.3-7.7) k/uL Lymphocytes # (1.0-4.8) k/uL Monocytes # (0-1.0) k/uL Eosinophils # (0-0.7) k/uL Basophils # (0-0.2) k/uL PT (9.0-12.0) sec INR (<1.2) APTT (22.0-30.0) sec D-Dimer (<0.60) mg/L FEU Sodium (137-145) mmol/L Potassium (3.5-5.1) mmol/L Chloride (98-107) mmol/L Carbon Dioxide (22-30) mmol/L Anion Gap mmol/L BUN (7-17) mg/dL Creatinine (0.52-1.04) mg/dL Est GFR (CKD-EPI)AfAm (>60 ml/min/1.73 sqM) Est GFR (CKD-EPI)NonAf (>60 ml/min/1.73 sqM) Glucose (74-99) mg/dL Plasma Lactic Acid Zac (0.7-2.0) mmol/L Calcium (8.4-10.2) mg/dL Magnesium (1.6-2.3) mg/dL Total Bilirubin (0.2-1.3) mg/dL AST (14-36) U/L ALT (4-34) U/L Alkaline Phosphatase (38-126) U/L Troponin I (0.000-0.034) ng/mL NT-Pro-B Natriuret Pep pg/mL Total Protein (6.3-8.2) g/dL Albumin (3.5-5.0) g/dL Influenza Type A RNA Not Detected (Not Detectd) Influenza Type B (PCR) Not Detected (Not Detectd) - Radiology Data Radiology results: report reviewed (CT angiogram chest with IV contrast shows left-sided interstitial infiltrates and left lower lobe atelectasis; mass or adenopathy in left pulmonary hilum; masslike rounded density in the lingula left upper lobe; no pulmonary embolus; patchy pleural and pulmonary scarring in the right lung ), image reviewed (Chest x-ray shows a left interstitial infiltrate) Disposition Clinical Impression: COPD exacerbation, Community acquired pneumonia Disposition: ADMITTED IP TO THIS HOSP Condition: Stable Is patient prescribed a controlled substance at d/c from ED?: No Time of Disposition: 00:32
[2019-06-02] MEDS ORDERED: IPRATROPIUM-ALBUTEROL 3 ML NEB INHALATION STA (22:58)
[2019-06-02] MEDS ORDERED: methylPREDNISolone SOD SUCCI 125 MG/2 ML VIAL IV STA (22:58)
[2019-06-02] MEDS ORDERED: HYDROmorphone 0.5 MG/0.5 ML SYRINGE IVP STA (22:59)
[2019-06-02 23:17] LABS: Basophils # (A) 0.1 k/uL (0-0.2); Basophils % (A) 0 %; Eosinophils # (A) 0.3 k/uL (0-0.7); Eosinophils % (A) 2 %; HCT 41.2 % (34.0-46.0); HGB 13.1 gm/dL (11.4-16.0); Lymphocytes # (A) 0.9 k/uL (1.0-4.8); Lymphocytes % (A) 6 %; MCH 29.1 pg (25.0-35.0); MCHC 31.7 g/dL (31.0-37.0); MCV 91.9 fL (80.0-100.0); Mean Platelet Volume 8.3; Monocytes % (A) 6 %; Neutrophils # (A) 12.9 k/uL (1.3-7.7); Neutrophils % (A) 83 %; Platelet Count 284 k/uL (150-450); RBC 4.49 m/uL (3.80-5.40); WBC 15.6 k/uL (3.8-10.6)
--- NOTE | 2019-06-02 23:29 | XR ---
EXAMINATION TYPE: XR chest 2V DATE OF EXAM: 06/02/2019 COMPARISON: 05/16/2019 HISTORY: Difficulty breathing TECHNIQUE: FINDINGS: There is heart and mediastinum shifted to the left side. There is interstitial extensive in filtrate in the left lung with atelectasis. Right lung is clear. Thoracic aorta is atheromatous. Ther e are chest leads. There is mild thoracolumbar dextroscoliosis. There is osteopenia. IMPRESSION: Interstitial infiltrate and atelectasis and volume loss in the left hemithorax is a romero e compared to recent exam. This could relate to endobronchial obstruction. Follow-up recommended. No heart failure seen.
[2019-06-02 23:30] LABS: INR 0.9 (<1.2); Partial Thromboplastin Time 24.7 sec (22.0-30.0); Prothrombin Time 9.3 sec (9.0-12.0)
[2019-06-02 23:35] LABS: Albumin 3.6 g/dL (3.5-5.0); Calcium 8.5 mg/dL (8.4-10.2); Magnesium 1.8 mg/dL (1.6-2.3); Potassium 3.5 mmol/L (3.5-5.1); Total Bilirubin 0.4 mg/dL (0.2-1.3); Total Protein 6.1 g/dL (6.3-8.2)
[2019-06-02 23:41] LABS: D-Dimer 1.39 mg/L FEU (<0.60)
[2019-06-02] MEDS ORDERED: SODIUM CHLORIDE 0.9% 500 ML 500 ML IV ONE (23:43)
[2019-06-02] MEDS ORDERED: AZITHROMYCIN 500 MG in SODIUM CHLORIDE 0.9% 250 ML IVPB ONE (23:45)
--- NOTE | 2019-06-03 00:25 | CT ---
EXAMINATION TYPE: CT chest angio for PE DATE OF EXAM: 06/03/2019 COMPARISON: HISTORY: R/O PE, Pneumonia CT DLP: 171.50 mGycm Automated exposure control for dose reduction was used. CONTRAST: Performed with IV Contrast, patient injected with 50 mL of Isovue 370. Multiple axial sections were obtained from the thoracic inlet to the diaphragm with intravenous contr ast. There are 3-D post processed images. There is mild pulmonary emphysema. There is no pneumothorax. There is coarse interstitial infiltrate and atelectasis in the lingula left upper lobe and left lower lobe. There is small left pleural effus ion. Heart is shifted to the left side. There is no pericardial effusion. Heart is slightly enlarged. There is some enlarged left bronchial lymph nodes. There is occlusion of the left lower lobe bronchus at the hilum. This is at the site of mass or enlarged bronchial lymph nodes. There is 2.2 cm rounded noncalcified mass at the left cardiophrenic angle in the lingula left upper l obe. I see no filling defects in the pulmonary arteries. There is no mediastinal adenopathy. Thoracic aort a is atheromatous. Ascending aorta measures 3.8 cm. There is no evidence of dissection. Thoracic vertebra show fairly normal alignment. There is no compression fracture in the thoracic spin e. There is 20% depression of the superior endplate of L1 vertebra. There is relatively small right kidney with no hydronephrosis. There is some apparent compensatory hy pertrophy of the left kidney. IMPRESSION: Volume loss in the left hemithorax with some interstitial infiltrates and atelectasis left lower lobe . There is essentially complete occlusion left lower lobe bronchus. There is mass or adenopathy at th e left pulmonary hilum. Tumor is possible. Follow-up recommended. Masslike rounded density in the lingula left upper lobe at the cardiophrenic angle. There is mild narrowing of the left upper lobe bronchus. No evidence of pulmonary embolism. There is small left upper lobe bronchus. Patchy pleural and pulmonary scarring in the right lung.
[2019-06-03] MEDS ORDERED: PNEUMONIA PROTOCOL UTILIZED 1 EACH MISC PO PRN (00:32)
[2019-06-03] MEDS: SODIUM CHLORIDE 0.9% 1,000 ML IV SCH ×2 (01:21→16:40)
--- NOTE | 2019-06-03 05:36 | P.HPIM ---
History of Present Illness H&P Date: 06/03/19 Patient is a 68-year-old female with a PMH of COPD, chronic hypoxic respiratory failure (on 2 L home oxygen continuously), hyperlipidemia, and GERD who presented to the ED with complaints of shortness of breath along with a nonproductive cough. The patient notes that her symptoms started yesterday, though worsened today, with associated chest and back pain brought on with coughing. The patient notes that she has a long-standing history of chronic cough due to her COPD and her excessive smoking history. Patient denied any chest or back discomfort at rest. She further denied fever, chills, nausea, or vomiting. She also denied weight loss, recent travel, sick contacts, leg swelling, sore throat, headaches, or visual disturbances. The patient reports using her nebulizer machine at home with multiple treatments with little relief. The patient underwent an extensive evaluation in the emergency room with chest x-ray showing interstitial infiltrate and volume loss in the left hemithorax with suspected endobronchial obstruction. Chest CTA revealed an essentially complete occlusion of the left lower lobe bronchus with a mass or adenopathy at the left pulmonary hilum, with possibility of tumor. Also a masslike rounded density in the lingula in the left upper lobe at the cardiophrenic angle with mild narrowing of the left upper lobe bronchus. No PE was noted. EKG revealed normal sinus rhythm at [address]/T-wave ischemic changes noted. Laboratory evaluation revealed influenza negative, WBC count of 15.6 with lymphopenia, sodium 130, potassium 3.5, BUN 30, creatinine 1.09, and glucose 105. The patient was given azithromycin and ceftriaxone along with Solu-Medrol for suspected COPD exacerbation along with community acquired pneumonia. Covid- 19 testing was also performed and sent. Review of Systems Pertinent positives and negatives as discussed in HPI, a complete review of systems was performed and all other systems are negative. Past Medical History Past Medical History: Asthma, COPD, Hyperlipidemia, Hypertension, Osteoarthritis (OA), Pneumonia, Vascular Disorder Additional Past Medical History / Comment(s): HX OF ANEMIA, STATES HAS HAD UNSUCCSESSFUL COLONOSCOPIES IN PAST R/T "TWISTED BOWEL" PAD with lower extremity discomfort bilaterally. History of Any Multi-Drug Resistant Organisms: None Reported Past Surgical History: Adenoidectomy, Breast Surgery, Tonsillectomy Additional Past Surgical History / Comment(s): 06/03/15 Arch study, PTBA & Stenting Right Ext Iliac artery. EARL OOPHERECTOMY. LASIK EYE SURGERY [place]. Benign Breast bx bilat. Rt Carotid Angiogram, & Endarterectomy. Rt Carotid Artery Stent 07/14/15. Stent to LT Leg 07/30/15. ABD AORTOGRAM, ANGIOGRAM 11/04/16. RT LEG STENT 11/10/16 Past Anesthesia/Blood Transfusion Reactions: No Reported Reaction Past Psychological History: No Psychological Hx Reported Additional Psychological History / Comment(s): Pt resides with her spouse. She has a nebulizer and oxygen which she uses prn. She uses no assistive device. She drives. Smoking Status: Light tobacco smoker Past Alcohol Use History: Occasional Additional Past Alcohol Use History / Comment(s): Pt started smoking approximately 1968 and states she smokes about 10 cigarettes a day. Past Drug Use History: None Reported - Past Family History Father Family Medical History: Myocardial Infarction ([place]) Additional Family Medical History / Comment(s): Father of a [place] at age 61 yrs. Brother(s) Family Medical History: Myocardial Infarction ([place]) Additional Family Medical History / Comment(s): Brother of a [place] at the age of 29 yrs. Mother Family Medical History: No Reported History Additional Family Medical History / Comment(s): Mother had kidney failure and was on dialysis. She at age 73 yrs. Medications and Allergies Home Medications Medication Instructions Recorded Confirmed Type Fluticasone/Salmeterol [Advair 1 puff INHALATION RT-BID 06/01/15 01/04/19 History 250-50 Diskus] Ipratropium/Albuterol Sulfate 1 puff INHALATION RT-QID PRN 06/01/15 01/04/19 History [Combivent Respimat Inhaler] Simvastatin [Zocor] 20 mg PO DAILY 06/01/15 01/04/19 History Aspirin [Adult Low Dose Aspirin EC] 81 mg PO DAILY 10/28/16 01/04/19 History Furosemide [Lasix] 20 mg PO BID PRN 10/28/16 01/04/19 History Ipratropium-Albuterol Nebulize 3 ml INHALATION RT-Q4H PRN #90 04/30/18 01/04/19 Rx [Duoneb 0.5 mg-3 mg/3 ml Soln] ampul.neb Clear Nails Plus 1 tab PO DAILY 01/04/19 01/04/19 History Herbal Lung Tonic 1 tab PO DAILY 01/04/19 01/04/19 History hydrALAZINE HCL [Apresoline] 100 mg PO TID 01/04/19 01/04/19 History Amoxic-Pot Clav 875-125Mg 1 each PO Q12HR #10 tab 01/05/19 Rx [Augmentin 875-125] Benzonatate [Tessalon Perles] 100 mg PO TID PRN #90 cap 01/05/19 Rx guaiFENesin [Mucinex] 600 mg PO Q12HR #30 tablet.er 01/05/19 Rx predniSONE [Deltasone] 0 mg PO DIRECTED #20 tab 01/05/19 Rx EPINEPHrine (Auto Inject) [Epipen] 0.3 mg IM ONCE PRN #2 pen 04/12/19 Rx Famotidine [Pepcid] 20 mg PO BID 7 Days #14 tablet 04/12/19 Rx diphenhydrAMINE [Benadryl] 50 mg PO Q6HR PRN 10 Days #30 04/12/19 Rx capsule predniSONE 50 mg PO DAILY 4 Days #4 tab 04/12/19 Rx Allergies Allergy/AdvReac Type Severity Reaction Status Date / Time estrogens, conjugated Allergy Rash/Hives Verified 04/12/19 15:10 [From Premarin] lisinopril Allergy Swelling Verified 04/12/19 15:10 metoprolol Allergy Rash/Hives Verified 04/12/19 15:12 nystatin Allergy Rash/Hives Verified 04/12/19 15:12 Physical Exam Vitals: Vital Signs Temp Pulse Pulse Resp BP BP Pulse Ox 06/03/19 01:47 97.9 F 94 20 178/80 95 06/03/19 01:00 97.6 F 82 18 132/60 95 06/02/19 23:27 88 06/02/19 23:20 87 06/02/19 22:36 98.3 F 88 20 164/86 94 L Intake and Output 06/02/19 06/02/19 06/03/19 14:59 22:59 06:59 Other: Voiding Method Toilet Weight 39.009 kg 39.009 kg General: Frail elderly female, non toxic, no distress, appears at stated age, Derm: no unusual rashes/lesions no unusual ecchymoses, warm, dry Head: atraumatic, normocephalic, symmetric Eyes: EOMI, no lid lag, anicteric sclera, pupils equal round reactive to light ENT: Nose and ears atraumatic, no thrush, no pharyngeal erythema Neck: No thyromegaly, no cervical lymphadenopathy, trachea midline, supple Mouth: no lip lesion, mucus membranes moist Cardiovascular: S1S2 reg, no murmur, positive posterior tibial pulse bilateral, no edema, capillary refill less than 2 seconds Lungs: CTA bilateral, no rhonchi, no rales , no accessory muscle use Abdominal: soft, nontender to palpation, no guarding, no appreciable organomegaly, normal bowel sounds Ext: no gross muscle atrophy, muscle strength 4 out of 5 in all 4 extremities grossly, no contractures, Neuro: CN II-XI grossly intact, light touch intact all 4 extremities, finger to nose within normal limits, Psych: Alert, oriented, appropriate affect Results CBC & Chem 7: 06/02/19 22:57 06/02/19 22:57 Labs: Abnormal Lab Results - Last 24 Hours (Table) 06/02/19 06/02/19 06/02/19 Range/Units 22:57 22:57 22:57 WBC 15.6 H (3.8-10.6) k/uL Neutrophils # 12.9 H (1.3-7.7) k/uL Lymphocytes # 0.9 L (1.0-4.8) k/uL D-Dimer 1.39 H (<0.60) mg/L FEU Sodium 130 L (137-145) mmol/L Chloride 89 L (98-107) mmol/L Carbon Dioxide 37 H (22-30) mmol/L BUN 30 H (7-17) mg/dL Creatinine 1.09 H (0.52-1.04) mg/dL Glucose 105 H (74-99) mg/dL Total Protein 6.1 L (6.3-8.2) g/dL Thrombosis Risk Factor Assmnt - Choose All That Apply Any of the Below Risk Factors Present?: Yes Each Factor Represents 1 point: Abnormal pulmonary function (COPD), Serious lung disease incl. pneumonia (< 1month) Other Risk Factors: Yes Each Risk Factor Represents 2 Points: Age 61-74 years Other congenital or acquired thrombophilia - If yes, enter type in comment: No Thrombosis Risk Factor Assessment Total Risk Factor Score: 4 Thrombosis Risk Factor Assessment Level: Moderate Risk Assessment and Plan Plan: Shortness of breath with pleuritic chest and back discomfort -Likely combination of postobstructive pneumonia with acute COPD exacerbation with r/o Covid-19 -Continue azithromycin and ceftriaxone for now -Consult pulmonary for possible endobronchial biopsy -Continue with supplemental oxygen -Continue with IV fluids -Continue with DuoNeb's and start patient on 40 mg daily prednisone Prerenal TAMEKA -Likely due to dehydration -Continue with IV fluids -Monitor BMP Chronic conditions: Hypertension, hyperlipidemia -Continue with home meds DVT prophylaxis -Heparin The patient is admitted with an anticipated more than 2 midnight stay for evaluation of shortness of breath CODE STATUS: Full Code Discussed with: Patient Anticipated discharge date: 3-[address]: Home A total of 40 minutes was spent on the care of this complex patient more than 50% of the time was spent in counseling and care coordination.
[2019-06-03] MEDS ORDERED: IPRATROPIUM-ALBUTEROL 3 ML NEB INHALATION PRN (06:00)
[2019-06-03] MEDS: ASPIRIN 81 MG PO SCH (07:53)
[2019-06-03] MEDS: ATORVASTATIN 10 MG TAB PO SCH (07:53)
[2019-06-03] MEDS: predniSONE 20 MG TAB PO SCH (07:53)
[2019-06-03] MEDS: AZITHROMYCIN 250 MG TAB PO SCH (07:53)
[2019-06-03] MEDS: hydrALAZINE HCL 50 MG TAB PO SCH ×3 (07:53→21:02)
[2019-06-03] MEDS: HEPARIN SODIUM,PORCINE 5,000 UNIT/ML 1 ML VIAL SQ SCH ×2 (07:53→16:39)
[2019-06-03] MEDS: IPRATROPIUM-ALBUTEROL 3 ML NEB INHALATION SCH ×2 (08:03→11:35)
[2019-06-03] MEDS ORDERED: ALBUTEROL NEBULIZED 2.5 MG/3 ML INHALATION PRN (11:42)
[2019-06-03] MEDS: ALBUTEROL NEBULIZED 2.5 MG/3 ML INHALATION SCH ×3 (11:54→20:35)
--- NOTE | 2019-06-03 12:43 | CONS ---
CONSULTATION PULMONARY/CRITICAL CARE CONSULTATION: DATE OF CONSULTATION: June 03, 2019. REASON FOR CONSULTATION: Shortness of breath. This is a 68-year-old female who presents to the emergency department with complaints of shortness of breath. She also has diffuse chest and upper back pain since the day prior to admission. She also admits to a dry nonproductive cough. Her pain is worse when she does cough. She does have a history of underlying COPD for which she sees my partner, Dr. Mike. She just recently saw him in the office in early May. Apparently at that time she had a chest x-ray which showed changes only of COPD. She does have chronic hypoxemic respiratory failure and does use oxygen at 2 L/minute 03/10. She denies any trauma or injury. She denies any fever or chills. She denies any headache. She denies any nausea, vomiting, diarrhea. She denies abdominal pain or any genitourinary complaints. She states that she is feeling much better today than she did yesterday when she was admitted to the hospital with presumed COPD exacerbation. Currently, she is resting comfortably. MEDICATIONS: Her current home medications include Advair, Combivent, Zocor, aspirin, Lasix, Clear Nails Plus, herbal lung tonic, Apresoline, DuoNeb, Augmentin, Tessalon Perles, guaifenesin, prednisone, EpiPen, Pepcid, and Benadryl. ALLERGIES: Allergies include ESTROGEN in the form of PREMARIN, LISINOPRIL, METOPROLOL and NYSTATIN. MEDICAL HISTORY: Positive for COPD, hyperlipidemia, hypertension, DJD, pneumonia, and peripheral artery disease. She apparently also has an issue with various of bowel problems preventing her from having a colonoscopy. SURGICAL HISTORY: Surgical history includes adenoidectomy, breast surgery, tonsillectomy, arch study, PTBA and stenting of the right external iliac artery, bilateral oophorectomy, LASIK eye surgery, right carotid angiogram and endarterectomy, right carotid artery stent, stent to the left leg, as well as other minor procedures. SOCIAL HISTORY: Positive for ongoing tobacco use. She has cut back. She does admit to occasional alcohol use, but denies any illicit drug use. FAMILY HISTORY: Positive for a father with myocardial infarction, a brother with [place], and a mother with a history of kidney failure who required dialysis. REVIEW OF SYSTEMS: CONSTITUTIONAL: Negative. NEUROLOGIC: Negative. HEENT: Negative. CARDIOVASCULAR: Chest pain, particularly when the patient coughs. PULMONARY: Shortness of breath, nonproductive cough, wheezing. GI: Negative. : Negative. RHEUMATOLOGIC: Negative. IMMUNOLOGIC: Negative. ENDOCRINOLOGIC: Negative. DERMATOLOGIC: Negative. PHYSICAL EXAMINATION: VITAL SIGNS: Current vital signs are reviewed. Temperature is 98.9, heart rate 80, respiratory rate 20, blood pressure 124/67, mean 86, 2 L saturations 95%. GENERAL: Appears in no acute distress. No respiratory distress. No audible wheezing. No use of accessory muscles, no conversational dyspnea. HEENT: Examination is grossly unremarkable. Mucous membranes are moist. No oral lesions. NECK: Supple. Full range of motion. No adenopathy. CARDIOVASCULAR: Examination reveals regular rhythm rate. S1, S2 normal. No S3, S4, or murmur. LUNGS: Reveal diminished breath sounds throughout. There are a few scattered rhonchi. No wheezes. There is prolongation on forced maneuver. No crackles. All-in-all she does not sound too badly. ABDOMEN: Soft. Bowel sounds are heard. EXTREMITIES: Are intact. No cyanosis, clubbing, or edema. SKIN: Without rash. NEUROLOGIC: Examination is brief but nonfocal. LABS: Labs are reviewed. White count 15.6, hemoglobin 13.1, hematocrit 41.2, platelet count 284,000. PT/INR normal. PTT normal. D-dimer is 1.39. Sodium 130, potassium 3.5, chloride 89, CO2 of 37. Anion gap is 4. BUN and creatinine were 30 and 1.09. Glucose 105. N terminal proBNP 655. Influenza studies were negative. Microbiologic studies were negative. MEDICATIONS: Medications are reviewed. Chest x-ray shows volume loss to the left hemithorax as well as mediastinal shift to the left side. In addition, the CT scan of the chest suggests a volume loss in the left hemithorax with some interstitial infiltrates and atelectasis to the left lower lobe as well as complete occlusion of the left lower lobe bronchus. Mass is suspected. ASSESSMENT: 1. Rule out malignancy, left chest. 2. Chronic obstructive pulmonary disease exacerbation. 3. Ongoing tobacco use with nicotine addiction. 4. History of hyperlipidemia. 5. History of hypertension. 6. Degenerative joint disease. 7. History of peripheral vascular occlusive disease/PAD with multiple previous lower extremity procedures. PLAN: The patient will be treated for COPD exacerbation. She will eventually need a PET scan and bronchoscopy. Given the current pandemic, it would not be pillai to do any procedure at this time. We will continue to follow. Prognosis is guarded. Additional recommendations and suggestions are forthcoming. MMJIMBOL / IJN: [id number] /
--- NOTE | 2019-06-03 16:47 | P.PN ---
Progress Note - Text Progress Note Date: 06/03/19 Patient is a 68-year-old female with a PMH of COPD, chronic hypoxic respiratory failure (on 2 L home oxygen continuously), hyperlipidemia, and GERD who presented to the ED with complaints of shortness of breath along with a nonproductive cough. The patient underwent an extensive evaluation in the emergency room with chest x-ray showing interstitial infiltrate and volume loss in the left hemithorax with suspected endobronchial obstruction. Chest CTA revealed an essentially complete occlusion of the left lower lobe bronchus with a mass or adenopathy at the left pulmonary hilum, with possibility of tumor. Also a masslike rounded density in the lingula in the left upper lobe at the cardiophrenic angle with mild narrowing of the left upper lobe bronchus. No PE was noted. EKG revealed normal sinus rhythm at [address]/T-wave ischemic changes noted. Laboratory evaluation revealed influenza negative, WBC count of 15.6 with lymphopenia, sodium 130, potassium 3.5, BUN 30, creatinine 1.09, and glucose 105. The patient was given azithromycin and ceftriaxone along with Solu-Medrol for suspected COPD exacerbation along with community acquired pneumonia. Covid-19 testing was also performed and sent. Patient was seen. Patient reports improvement in her breathing since admission. Still not back to baseline. Continues to complain a cough that is dry, unable to bring up sputum. She is in no acute distress speaking in full sentences on the phone. She was seen by pulmonology and recommended continuation of treatment for COPD and community acquired pneumonia. She will require endobronchial biopsy but will likely be deferred for later date. She is pending clinical improvement. Likely DC in 2-3 days.
[2019-06-03] MEDS ORDERED: ACETAMINOPHEN TAB 325 MG TAB PO PRN (18:08)
[2019-06-03] MEDS: SYMBICORT 160-4.5 MCG INHALER INHALATION SCH (20:35)
[2019-06-03] MEDS: cloNIDine HCL 0.1 MG TAB PO SCH (21:02)
[2019-06-04] MEDS: HEPARIN SODIUM,PORCINE 5,000 UNIT/ML 1 ML VIAL SQ SCH ×3 (00:15→16:47)
[2019-06-04] MEDS: SODIUM CHLORIDE 0.9% 1,000 ML IV SCH ×2 (01:49→16:49)
[2019-06-04] MEDS: ALBUTEROL NEBULIZED 2.5 MG/3 ML INHALATION SCH ×4 (07:46→19:45)
[2019-06-04] MEDS: SYMBICORT 160-4.5 MCG INHALER INHALATION SCH ×2 (07:46→19:45)
[2019-06-04] MEDS: ATORVASTATIN 10 MG TAB PO SCH (08:01)
[2019-06-04] MEDS: cloNIDine HCL 0.1 MG TAB PO SCH ×3 (08:02→21:13)
[2019-06-04] MEDS: ASPIRIN 81 MG PO SCH (08:02)
[2019-06-04] MEDS: hydrALAZINE HCL 50 MG TAB PO SCH ×3 (08:02→21:12)
[2019-06-04] MEDS: AZITHROMYCIN 250 MG TAB PO SCH (08:02)
[2019-06-04] MEDS: predniSONE 20 MG TAB PO SCH (08:02)
[2019-06-04 09:44] LABS: Basophils % (A) 0 %; Eosinophils % (A) 0 %; HCT 36.5 % (34.0-46.0); HGB 11.4 gm/dL (11.4-16.0); Lymphocytes # (A) 0.5 k/uL (1.0-4.8); Lymphocytes % (A) 3 %; MCH 29.4 pg (25.0-35.0); MCHC 31.3 g/dL (31.0-37.0); Mean Platelet Volume 8.1; Monocytes % (A) 5 %; Neutrophils # (A) 17.7 k/uL (1.3-7.7); Neutrophils % (A) 91 %; Platelet Count 233 k/uL (150-450); RBC 3.89 m/uL (3.80-5.40); RDW 14.2 % (11.5-15.5); WBC 19.5 k/uL (3.8-10.6)
[2019-06-04 09:52] LABS: Calcium 8.2 mg/dL (8.4-10.2); Magnesium 1.8 mg/dL (1.6-2.3); Potassium 3.8 mmol/L (3.5-5.1)
--- NOTE | 2019-06-04 09:54 | P.PN ---
Subjective Progress Note Date: 06/04/19 Principal diagnosis: Acute exacerbation of chronic obstructive pulmonary disease This is a very pleasant 68-year-old female patient who presented to the emergency room with complaints of increasing shortness of breath and diffuse chest and upper back pain, dry nonproductive cough. She follows with Dr. Mike in our office for underlying chronic obstructive pulmonary disease. She is oxygen dependent. The chest x-ray showed changes of COPD with volume loss in the left hemithorax as well as a mediastinal shift to the left. Computed tomography scan revealed interstitial infiltrates and atelectasis of the left lower lobe as well as a complete occlusion of left lower lobe bronchus. Mass is suspected. She is seen again today in follow-up. She is awake and alert in no acute distress. She is maintaining O2 saturations in the mid 90s on 2 L/m per nasal cannula. She's been afebrile. Hemodynamically stable. Blood culture reveals no growth. COVID 19 test results are still pending. White count 19.5. Hemoglobin 11.4. Lymphocytes 0.5. She is continued on Symbicort, albuterol, prednisone. Antibiotics in the form of ceftriaxone and azithromycin. Objective - Vital Signs Vital signs: Vital Signs Temp 98.3 F 06/04/19 05:00 Pulse 84 06/04/19 07:58 Resp 20 06/04/19 08:00 BP 156/69 06/04/19 05:00 Pulse Ox 95 06/04/19 05:00 Intake & Output 06/03/19 06/04/19 06/04/19 18:59 06:59 18:59 Intake Total 1380 650 Balance 1380 650 Weight 39.009 kg Intake: Oral 1380 650 Other: Voiding Method Toilet Toilet Toilet # Voids 1 2 # Bowel Movements 1 - Exam GENERAL EXAM: Alert, pleasant 68-year-old female patient, on 2 L nasal cannula, comfortable in no apparent distress. HEAD: Normocephalic. EYES: Normal reaction of pupils, equal size. NOSE: Clear with pink turbinates. THROAT: No erythema or exudates. NECK: No masses, no JVD. CHEST: No chest wall deformity. LUNGS: Equal air entry with crackles in the left base, end expiratory wheeze, diminished. CVS: S1 and S2 normal with no audible murmur, regular rhythm. ABDOMEN: No hepatosplenomegaly, normal bowel sounds, no guarding or rigidity. SPINE: No scoliosis or deformity SKIN: No rashes CENTRAL NERVOUS SYSTEM: No focal deficits, tone is normal in all 4 extremities. EXTREMITIES: There is no peripheral edema. No clubbing, no cyanosis. Peripheral pulses are intact. - Labs CBC & Chem 7: 06/02/19 22:57 03 22:57 Labs: Microbiology - Last 24 Hours (Table) 06/02/19 22:08 Blood Culture - Preliminary Blood No Growth after 24 hours Assessment and Plan Assessment: 1 Acute exacerbation of chronic obstructive pulmonary disease 2 Left lower lobe infiltrate, suspect postobstructive pneumonia with suspected left lower lobe lung mass 3 Chronic and ongoing tobacco dependence 4 Hyperlipidemia 5 Hypertension 6 Degenerative joint disease. 7 Peripheral vascular occlusive disease/PAD with multiple previous lower extremity procedures Plan: The patient was seen and evaluated by Dr. Arce She is aware of her CAT scan findings We'll plan for PET scan and bronchoscopy with biopsy in the outpatient setting Continue COPD treatment Await COVID 19 results Continue isolation precaution We'll continue to follow I, the cosigning physician, performed a history & physical examination of the patient. Lungs sounds with crackles in the left lung base, bilateral end expiratory wheeze, diminished. Maintaining good O2 saturations in the 90s on 2 L/m per nasal cannula. I discussed the assessment and plan of care with my nurse practitioner, Chelsi Gates. I attest to the above note as dictated by her.
--- NOTE | 2019-06-04 14:31 | P.PN ---
Subjective Progress Note Date: 06/04/19 (delayed charting seen at 1030) Principal diagnosis: Shortness of breath Patient is a 68-year-old female past medical history of COPD, chronic hypoxic respiratory failure (intermittent use of home oxygen started using 2 L approximately one week ago), dyslipidemia, and GERD who presented to the emergency department with complaints of shortness of breath and nonproductive cough. In the ER she was found have elevated blood pressure arrival 164/86. Initial laboratory analysis was consistent with dehydration with an elevated BUN and creatinine and low sodium. Chest x-ray showed interstitial infiltrate and atelectasis with volume loss in the left hemithorax. Influenza A and B were negative. COVID-19 testing was sent. D-dimer was elevated. CT of the chest was done which showed volume loss in the left hemithorax with some interstitial infiltrates with complete occlusion of the left lower lobe bronchus, adenopathy at the left pulmonary hilum with possible tumor. There was also a masslike rounded density in the left lingula at the costophrenic angle with mild narrowing of the left upper lobe bronchus. No pulmonary embolism noted. She was started on Zithromax, Rocephin, and Solu-Medrol for COPD and community- acquired pneumonia. She was admitted for further monitoring. Pulmonary was consulted. She was seen by pulmonary who recommended treating for pneumonia and then outpatient bronchoscopy and possible CT PET. Patient seen and examined at bedside. She reports that she is feeling extremely fatigued. Her breathing is somewhat better but she is still severely labored when up and moving. She has had no nausea or vomiting. She reports her rosa etite is still decreased. She reports one loose stool today but no overt diarrhea. All questions answered to the best of my ability. Objective - Vital Signs Vital signs: Vital Signs Temp 98.3 F 06/04/19 05:00 Pulse 88 06/04/19 12:01 Resp 20 06/04/19 08:00 BP 156/69 06/04/19 05:00 Pulse Ox 95 06/04/19 05:00 Intake & Output 06/03/19 06/04/19 06/04/19 18:59 06:59 18:59 Intake Total 1380 650 Balance 1380 650 Weight 39.009 kg Intake: Oral 1380 650 Other: Voiding Method Toilet Toilet Toilet # Voids 1 2 # Bowel Movements 1 1 - Exam General: ill appearing, no distress, appears older than stated age Derm: warm, dry Head: atraumatic, normocephalic, symmetric Eyes: EOMI, no lid lag, anicteric sclera Mouth: no lip lesion, mucus membranes moist Cardiovascular: S1S2 reg, no murmur, positive posterior tibial pulse bilateral, Lungs: Velcro crackled and ronchi bilateral , no accessory muscle use Abdominal: soft, nontender to palpation, no guarding, no appreciable organomegaly Ext: no gross muscle atrophy, no edema, no contractures Neuro: CN II-XI grossly intact, no focal neuro deficits Psych: Alert, oriented, appropriate affect - Labs CBC & Chem 7: 06/04/19 09:09 06/04/19 09:09 Labs: Abnormal Lab Results - Last 24 Hours (Table) 06/04/19 06/04/19 Range/Units 09:09 09:09 WBC 19.5 H (3.8-10.6) k/uL Neutrophils # 17.7 H (1.3-7.7) k/uL Lymphocytes # 0.5 L (1.0-4.8) k/uL Sodium 135 L (137-145) mmol/L BUN 26 H (7-17) mg/dL Glucose 119 H (74-99) mg/dL Calcium 8.2 L (8.4-10.2) mg/dL Microbiology - Last 24 Hours (Table) 06/02/19 22:08 Blood Culture - Preliminary Blood No Growth after 24 hours Assessment and Plan Assessment: Multilobar pneumonia with possible mass possible post obstructive , possible gram-negative no signs of sepsis on arrival -Continue with rocephin will not transition to orals with increasing white blood cell count, Zithromax -Sputum and blood cultures -Pulmonary hygiene -Pulmonary recommendations Acute exacerbation of COPD with acute on chronic hypoxic respiratory failure -Prednisone -Bronchodilators -Pulmonary recommendations Hyponatremia and dehydration -IV fluids will be decreased as this is improving -Follow BMP Hypertension, controlled - continue with catapres and hydralazine Dyslipidemia - statin - outpatient follow-up Tobacco abuse -Cessation -Nicotine replacement DVT prophylaxis: Heparin Discussed with: Patient, nursing Anticipated discharge: 2-[address]: home A total of 35 minutes was spent on the care of this complex patient more than 50% of the time was spent in counseling and care coordination.
[2019-06-04] MEDS ORDERED: methylPREDNISolone SOD SUCCI 125 MG/2 ML VIAL IV STA (17:59)
[2019-06-04 18:08] LABS: ABG Base Excess 4.3 mmol/L; ABG HCO3 30 mmol/L (21-25); ABG Oxygen Saturation 96.2 % (94-97); ABG PCO2 55 mmHg (35-45); ABG PH 7.35 (7.35-7.45); ABG PO2 85 mmHg (83-108); ABG TCO2 32 mmol/L (19-24); Allen Test Performed? Yes
[2019-06-04] MEDS ORDERED: ALPRAZolam 0.25 MG TAB PO PRN (18:13)
--- NOTE | 2019-06-04 18:30 | P.PN ---
Progress Note - Text Progress Note Date: 06/04/19 Hospitalist Interval Note Called to see patient: Increased work of breath Patient seen and examined at bedside. Feeling very short of breath, very fatigued, like she could pass out, feels like O2 is low. O2 sat decreased from 97% to 91% on 2L O2 Vital signs reviewed General: ill appearing, moderate distress, appears at stated age Derm: warm, + diaphoretic Head: atraumatic, normocephalic, symmetric Eyes: EOMI, no lid lag, anicteric sclera Mouth: no lip lesion, mucus membranes moist Cardiovascular: S1S2 reg, no murmur, positive posterior tibial pulse bilateral, Lungs: tight and wheezy bilateral, decrease bs bilateral , + accessory muscle use,+ 2 word coversational dyspnea, + resp rate Psych: Alert, oriented, appropriate affect Assessment/Plan: 1. Acute respiratory failure with increased work of breathing- ABG ordered: Ph 7.345/pCO2 55/ O2 85.1/ HCO3 30 on 28% FiO2 Additional albuterol X 1 Solumedrol X 1 now. 2. Possible mass with post obstructive pneumonia D/W ICU team will transfer to ICU
[2019-06-05] MEDS: HEPARIN SODIUM,PORCINE 5,000 UNIT/ML 1 ML VIAL SQ SCH ×3 (00:37→16:16)
[2019-06-05] MEDS: methylPREDNISolone SOD SUCCI 40 MG/ML 1 ML VIAL IV SCH ×3 (00:37→16:16)
[2019-06-05 04:37] LABS: HCT 37.1 % (34.0-46.0); HGB 11.5 gm/dL (11.4-16.0); Hypochromasia Slight; MCH 29.5 pg (25.0-35.0); MCV 95.1 fL (80.0-100.0); Mean Platelet Volume 8.4; Platelet Count 307 k/uL (150-450)
[2019-06-05] MEDS: ALBUTEROL NEBULIZED 2.5 MG/3 ML INHALATION SCH ×2 (04:43→08:20)
[2019-06-05 04:53] LABS: Calcium 8.6 mg/dL (8.4-10.2); Potassium 4.6 mmol/L (3.5-5.1)
[2019-06-05 06:15] LABS: Glucose,Whole Blood 139 mg/dL (75-99)
[2019-06-05] MEDS: INSULIN ASPART (NovoLOG) 100 UNIT/ML VIAL SQ SCH ×4 (06:29→22:05)
--- NOTE | 2019-06-05 08:09 | XR ---
EXAMINATION TYPE: XR chest 1V portable DATE OF EXAM: 06/05/2019 Comparison: 06/02/2019 Clinical History: 68-year-old female difficulty breathing, shortness of breath Findings: Heart borderline enlarged. Hyperinflation. Mild interstitial density. Improving aeration at the left base. Residual small left effusion and left basilar opacity. Impression: 1. COPD. 2. Improved aeration and volume within the left lung. Residual small left effusion with adjacent atel ectasis and/or consolidation. 3. Similar mild diffuse interstitial density.
[2019-06-05] MEDS: SYMBICORT 160-4.5 MCG INHALER INHALATION SCH ×2 (08:20→18:58)
[2019-06-05] MEDS ORDERED: CEFDINIR 300 MG CAP PO SCH (09:00)
[2019-06-05] MEDS: ASPIRIN 81 MG PO SCH (09:35)
[2019-06-05] MEDS: hydrALAZINE HCL 50 MG TAB PO SCH ×3 (09:36→22:07)
[2019-06-05] MEDS: cloNIDine HCL 0.1 MG TAB PO SCH ×3 (09:36→22:07)
[2019-06-05] MEDS: ATORVASTATIN 10 MG TAB PO SCH (09:36)
--- NOTE | 2019-06-05 10:33 | PN ---
PROGRESS NOTE PULMONARY/CRITICAL CARE PROGRESS NOTE: DATE OF SERVICE: 06/05/2019 A 68-year-old female who was admitted with a diagnosis of COPD exacerbation and left lower lobe infiltrates and possible post-obstructive pneumonia with left perihilar/hilar mass. The patient had ongoing and chronic tobacco use, hyperlipidemia, hypertension, DJD, and peripheral vascular occlusive disease with PAD and multiple previous lower extremity procedures. Anyway, the patient was doing reasonably well yesterday, but last night became much more short of breath. An A TEAM was called. She was transferred to the ICU. Today, she is still very short of breath. On a positive note, her chest x-ray is improved. She was tested for a COVID 19 virus but that those results are pending. Again, she is quite short of breath, quite tachypneic and complaining of significant conversational dyspnea. Current vital signs are reviewed. Temperature is 97.6, heart rate is 87, respiratory rate 18, blood pressure 168/87. mean 114, 2 L saturation 93%-94%. Appears in no acute distress. HEENT: Examination is grossly unremarkable. Mucous membranes are moist. Nasal O2 noted. NECK: Supple, full range of motion. No adenopathy, thyromegaly or neck vein distention. CARDIOVASCULAR: Examination reveals regular rhythm and rate. Heart rate 87 beats per minute. S1, S2 normal. No S3, S4, or murmur. LUNGS: Reveal coarse inspiratory and expiratory wheezes and rhonchi. Breath sounds are diminished throughout. There is prolongation on forced maneuver. ABDOMEN: Soft, bowel sounds are heard. EXTREMITIES: Intact. No cyanosis, clubbing, or edema. SKIN: Without rash. NEUROLOGIC: Examination is brief but nonfocal. LABS: Reviewed. White count 19, hemoglobin 11.5, hematocrit 37.1, platelet count 307,000. Blood gases last night on the floor showed a pO2 of 85, pCO2 of 55 and a pH of 7.35. This is acute on chronic hypercapnic respiratory failure. Sodium 135, potassium 4.6, chloride is 102, CO2 is 28, anion gap is 5. BUN and creatinine were 34 and 1.04. Influenza studies were negative. COVID 19 testing is pending. Her chest x-ray today does show improvement. There still is some volume loss and either infiltrate or effusion at the left lower lobe area. Microbiology is currently pending or negative. Medications were adjusted yesterday. ASSESSMENT: 1. Acute exacerbation of chronic obstructive pulmonary disease complicated by left lower lobe infiltrates. 2. Possible mass left hilum, left parahilar region with postobstructive pneumonic changes. 3. Chronic and ongoing tobacco dependence. 4. Chronic hypoxemic and hypercapnic respiratory failure. 5. Hyperlipidemia. 6. Hypertension. 7. Degenerative joint disease. 8. Peripheral vascular occlusive disease/PAD. PLAN: The patient will have outpatient workup for her left perihilar mass. In the meantime, she was moved to the ICU. We will review her medications. Additional recommendations and suggestions are forthcoming. Prognosis is guarded. I did speak to her today about code status. Currently, the patient is on O2 at 2 L and saline at 50 mL an hour. She would agree to short-term intubation, mechanical ventilation but would not want to be on life support machine for a long period of time. MMJIMBOL / JANEN: [id number] /
[2019-06-05] MEDS: AZITHROMYCIN 250 MG TAB PO SCH (10:57)
[2019-06-05] MEDS: NICOTINE 21MG/24HR PATCH TRANSDERM SCH (10:57)
[2019-06-05] MEDS: SODIUM CHLORIDE 0.9% 1,000 ML IV SCH (10:58)
--- NOTE | 2019-06-05 11:02 | P.PN ---
Subjective Progress Note Date: 06/05/19 (delayed charting seen at 0930) Principal diagnosis: Shortness of breath Patient is a 68-year-old female past medical history of COPD, chronic hypoxic respiratory failure (intermittent use of home oxygen started using 2 L approximately one week ago), dyslipidemia, and GERD who presented to the emergency department with complaints of shortness of breath and nonproductive cough. In the ER she was found have elevated blood pressure arrival 164/86. Initial laboratory analysis was consistent with dehydration with an elevated BUN and creatinine and low sodium. Chest x-ray showed interstitial infiltrate and atelectasis with volume loss in the left hemithorax. Influenza A and B were negative. COVID-19 testing was sent. D-dimer was elevated. CT of the chest was done which showed volume loss in the left hemithorax with some interstitial infiltrates with complete occlusion of the left lower lobe bronchus, adenopathy at the left pulmonary hilum with possible tumor. There was also a masslike rounded density in the left lingula at the costophrenic angle with mild narrowing of the left upper lobe bronchus. No pulmonary embolism noted. She was started on Zithromax, Rocephin, and Solu-Medrol for COPD and community- acquired pneumonia. She was admitted for further monitoring. Pulmonary was consulted. She was seen by pulmonary who recommended treating for pneumonia and then outpatient bronchoscopy and possible CT PET. On the afternoon of 06/03 she developed some respiratory distress. Her O2 sats had been dropping from 97% on 2 L to 91% on 2 L. She had increased work of breathing with sternal retractions and a respiratory rate of 40. She was subsequently transferred to the ICU for closer monitoring. She was started on IV steroids and bronchodilators were increased. Her chest x-ray improved by the morning of 06/04. Patient seen and examined at bedside. She reports feeling extremely fatigued. She does report some loose stools that are becoming more frequent. She denies any nausea or vomiting. Still has a good appetite. She is feeling very short of breath worse with movement and better with rest she states it is slightly better than yesterday evening but still nowhere near baseline. She is feeling very tired. She is having some body aches. Objective - Vital Signs Vital signs: Vital Signs Temp 98.0 F 06/05/19 08:00 Pulse 101 H 06/05/19 10:30 Resp 20 06/05/19 10:30 BP 187/95 06/05/19 10:30 Pulse Ox 94 L 06/05/19 10:00 Intake & Output 06/04/19 06/05/19 06/05/19 18:59 06:59 18:59 Intake Total 540 650 50 Output Total 550 200 Balance 540 100 -150 Weight 45.1 kg Intake: IV 450 50 Sodium Chloride 0.9% 1, 450 50 000 ml @ 50 mls/hr IV . Q20H [facility] Rx#:[id number] Oral 540 200 Output: Urine 550 200 Other: Voiding Method Toilet Bedpan # Voids 3 1 # Bowel Movements 1 1 - Exam General: ill appearing, no distress, appears older than stated age Derm: warm, dry Head: atraumatic, normocephalic, symmetric Eyes: EOMI, no lid lag, anicteric sclera Mouth: no lip lesion, mucus membranes dry Cardiovascular: S1S2 reg, no murmur, positive posterior tibial pulse bilateral, Lungs: Velcro crackled and ronchi adn wheeze bilateral , no accessory muscle use Abdominal: soft, nontender to palpation, no guarding, no appreciable organomeg amarilis Ext: no gross muscle atrophy, no edema, no contractures Neuro: CN II-XI grossly intact, no focal neuro deficits Psych: Alert, oriented, appropriate affect - Labs CBC & Chem 7: 06/05/19 04:09 06/05/19 04:09 Labs: Abnormal Lab Results - Last 24 Hours (Table) 06/04/19 06/04/19 06/05/19 Range/Units 09:09 18:04 04:09 WBC 19.0 H (3.8-10.6) k/uL ABG pCO2 55 H (35-45) mmHg ABG HCO3 30 H (21-25) mmol/L ABG Total CO2 32 H (19-24) mmol/L Sodium (137-145) mmol/L BUN (7-17) mg/dL Glucose (74-99) mg/dL POC Glucose (mg/dL) (75-99) mg/dL Procalcitonin 0.10 H (0.02-0.09) ng/mL 06/05/19 06/05/19 Range/Units 04:09 06:12 WBC (3.8-10.6) k/uL ABG pCO2 (35-45) mmHg ABG HCO3 (21-25) mmol/L ABG Total CO2 (19-24) mmol/L Sodium 135 L (137-145) mmol/L BUN 34 H (7-17) mg/dL Glucose 143 H (74-99) mg/dL POC Glucose (mg/dL) 139 H (75-99) mg/dL Procalcitonin (0.02-0.09) ng/mL Microbiology - Last 24 Hours (Table) 06/02/19 22:08 Blood Culture - Preliminary Blood No Growth after 48 hours Assessment and Plan Assessment: Multilobar pneumonia with possible left lower lobe mass possible post obstructive , possible gram-negative no signs of sepsis on arrival -Continue with rocephin, Zithromax -Sputum unable to be collected -blood cultures negative to date -Pulmonary hygiene -Pulmonary recommendations Acute exacerbation of COPD with acute on chronic hypoxic respiratory failure -Solumedrol -Bronchodilators -Pulmonary recommendations Hypertension, accelerated - continue with catapres and hydralazine - norvasc added - follow BP Dyslipidemia - statin - outpatient follow-up Tobacco abuse -Cessation -Nicotine replacement PVD, PAD Hyponatremia and dehydration, resolved DVT prophylaxis: Heparin Discussed with: Patient, nursing Anticipated discharge: 3-[address]: home A total of 35 minutes was spent on the care of this complex patient more than 50% of the time was spent in counseling and care coordination.
[2019-06-05] MEDS ORDERED: amLODIPine 2.5 MG TAB PO SCH (11:15)
[2019-06-05 11:19] LABS: Glucose,Whole Blood 162 mg/dL (75-99)
[2019-06-05] MEDS: ALBUTEROL INHALER 60 PUFF/8 GM INHALER (BULK) INHALATION SCH ×3 (11:59→18:57)
[2019-06-05 16:37] LABS: Glucose,Whole Blood 168 mg/dL (75-99)
[2019-06-05 21:51] LABS: Glucose,Whole Blood 136 mg/dL (75-99)
[2019-06-05] MEDS: LACTOBACILLUS ACIDOPH & BULGAR 1 EACH PACKET PO SCH (22:22)
[2019-06-06] MEDS: methylPREDNISolone SOD SUCCI 40 MG/ML 1 ML VIAL IV SCH (00:25)
[2019-06-06] MEDS: HEPARIN SODIUM,PORCINE 5,000 UNIT/ML 1 ML VIAL SQ SCH ×4 (00:26→22:55)
[2019-06-06 06:08] LABS: Basophils % (A) 0 %; Eosinophils # (A) 0.1 k/uL (0-0.7); Eosinophils % (A) 1 %; HCT 37.7 % (34.0-46.0); HGB 11.4 gm/dL (11.4-16.0); Hypochromasia Slight; Lymphocytes # (A) 0.2 k/uL (1.0-4.8); Lymphocytes % (A) 1 %; MCH 28.9 pg (25.0-35.0); MCHC 30.4 g/dL (31.0-37.0); MCV 95.3 fL (80.0-100.0); Mean Platelet Volume 8.8; Monocytes # (A) 0.4 k/uL (0-1.0); Monocytes % (A) 4 %; Neutrophils # (A) 11.9 k/uL (1.3-7.7); Neutrophils % (A) 94 %; Platelet Count 242 k/uL (150-450); RBC 3.95 m/uL (3.80-5.40); RDW 14.1 % (11.5-15.5); WBC 12.7 k/uL (3.8-10.6)
[2019-06-06 06:18] LABS: Albumin 2.9 g/dL (3.5-5.0); Calcium 8.5 mg/dL (8.4-10.2); Potassium 4.2 mmol/L (3.5-5.1); Total Bilirubin 0.3 mg/dL (0.2-1.3); Total Protein 5.4 g/dL (6.3-8.2)
[2019-06-06 06:52] LABS: Glucose,Whole Blood 126 mg/dL (75-99)
[2019-06-06] MEDS: INSULIN ASPART (NovoLOG) 100 UNIT/ML VIAL SQ SCH ×4 (07:15→21:12)
[2019-06-06] MEDS: SODIUM CHLORIDE 0.9% 1,000 ML IV SCH ×2 (07:17→23:18)
[2019-06-06] MEDS ORDERED: IPRATROPIUM-ALBUTEROL 3 ML NEB INHALATION PRN (07:39)
--- NOTE | 2019-06-06 08:18 | XR ---
EXAMINATION TYPE: XR chest 1V portable DATE OF EXAM: 06/06/2019 COMPARISON: Prior chest x-ray 06/05/2019, chest CT 06/03/2019 HISTORY: COPD and shortness of breath TECHNIQUE: Single frontal view of the chest is obtained. FINDINGS: The heart is enlarged. Increased density left lung base obscures the hemidiaphragm, there is blunting of the left costophrenic angle. Interstitium is increased. No pneumothorax. Prominent leonora g volume may be indicative of underlying COPD, patient with underlying emphysema. Pulmonary vasculari ty and aron not significantly changed, prominence of the left hilar region again noted. Aorta is dens e and ectatic IMPRESSION: There may be increasing left pleural effusion and associated atelectasis versus edema, p neumonia not excluded. Follow-up recommended.
[2019-06-06] MEDS: IPRATROPIUM-ALBUTEROL 3 ML NEB INHALATION SCH ×4 (08:29→19:01)
[2019-06-06] MEDS: FORMOTEROL FUMARATE 20 MCG/2 ML NEBU INHALATION SCH ×2 (08:29→19:01)
[2019-06-06] MEDS: BUDESONIDE 1 MG/2 ML NEBU INHALATION SCH ×2 (08:29→19:01)
[2019-06-06] MEDS: methylPREDNISolone SOD SUCCI 125 MG/2 ML VIAL IV SCH ×4 (09:17→22:55)
[2019-06-06] MEDS: AZITHROMYCIN 250 MG TAB PO SCH (09:44)
[2019-06-06] MEDS: hydrALAZINE HCL 50 MG TAB PO SCH ×3 (09:44→22:55)
[2019-06-06] MEDS: ASPIRIN 81 MG PO SCH (09:44)
[2019-06-06] MEDS: ATORVASTATIN 10 MG TAB PO SCH (09:44)
[2019-06-06] MEDS: NICOTINE 21MG/24HR PATCH TRANSDERM SCH (09:44)
[2019-06-06] MEDS: cloNIDine HCL 0.1 MG TAB PO SCH ×3 (09:44→22:55)
[2019-06-06] MEDS: LACTOBACILLUS ACIDOPH & BULGAR 1 EACH PACKET PO SCH ×2 (09:49→22:51)
[2019-06-06 11:45] LABS: Glucose,Whole Blood 145 mg/dL (75-99)
[2019-06-06] MEDS ORDERED: methylPREDNISolone SOD SUCCI 40 MG/ML 1 ML VIAL IV SCH (12:00)
--- NOTE | 2019-06-06 12:55 | PN ---
PROGRESS NOTE PULMONARY/CRITICAL CARE PROGRESS NOTE: DATE OF SERVICE: 06/06/2019 A 68-year-old female who was admitted with a diagnosis of COPD exacerbation and left lower lobe infiltrates and possible post-obstructive pneumonia with left perihilar/hilar mass. The patient was transferred over to the ICU a couple days ago because of worsening respiratory issues. She is doing a bit better today. She has a history of chronic and ongoing tobacco use. Despite counseling, hyperlipidemia, hypertension, DJD, peripheral vascular disease with CAD, and previous multiple lower extremity procedures. Anyway, the patient is doing a bit better from the respiratory status. I did tell her about the left hilar mass and the fact that we would probably do an outpatient PET scan. Currently, she is on 4 L by nasal cannula. She is getting saline at 50 mL an hour. We switched her from Ventolin and Symbicort to DuoNeb q.i.d. and p.r.n. and Pulmicort 1 mg mixed with Perforomist 20 mcg twice a day once we found out that her COVID-19 serology was negative. Again, hopefully this along with the steroids will improve. Current vital signs are reviewed, her temperature is 97.7, heart rate 108, respiratory rate 17, blood pressure 154/74 mean 100. saturations on 4 L are 97%. Appears in no acute distress. HEENT: Examination is unremarkable. Mucous membranes are dry. Nasal O2 noted. NECK: Supple, full range of motion. No adenopathy or thyromegaly. Neck veins are flat. CARDIOVASCULAR: Examination reveals regular rhythm and rate. Mild tachycardia with a rate of 105. S1, S2 normal. Heart sounds are distant. LUNGS: Revel some inspiratory and expiratory wheezes and rhonchi. Breath sounds are improved from yesterday. No crackles. Breath sounds are diminished throughout. ABDOMEN: Soft, bowel sounds are heard. EXTREMITIES: Intact. No cyanosis, clubbing, or edema. SKIN: Without rash. NEUROLOGIC: Examination is brief but nonfocal. LAB DATA: Reviewed. White count 12.7, hemoglobin 10.4, hematocrit 37.7, platelet count 242,000, sodium 133, potassium 4.2, chloride is 102, CO2 is 29, anion gap is 2. BUN and creatinine were 33 and 0.8. The rest of the labs look pretty good. Microbiology is thus far negative. COVID-19 serology was negative. CHEST X-RAY: Today shows a left-sided pleural effusion with some left basilar atelectasis. MEDICATIONS: Reviewed. Everything seems to be appropriate. I did talk about the DuoNeb as well as a Pulmicort and formoterol. ASSESSMENT: 1. Acute exacerbation of chronic obstructive pulmonary disease, complicated by left lower lobe infiltrates. 2. Possible mass left hilum/left parahilar region, with postobstructive pneumonia. 3. Chronic and ongoing tobacco dependence, despite counseling. 4. Chronic hypoxemic and hypercapnic respiratory failure. 5. Hyperlipidemia. 6. Hypertension. 7. Degenerative joint disease. 8. Peripheral vascular occlusive disease/PAD. PLAN: The patient's COVID-19 serology is negative. The patient's Ventolin and Symbicort were discontinued in favor of DuoNeb q.i.d. and p.r.n. as well as Pulmicort 1 mg mixed with Perforomist 20 mcg twice a day. She remains off steroids. Clinically, she is doing better today. Will continue to follow. The left parahilar mass will be evaluated by outpatient PET scan. Additional recommendations and suggestions are forthcoming. Prognosis is very guarded. MMODL / IJN: [id number] /
--- NOTE | 2019-06-06 15:15 | P.PN ---
Subjective Progress Note Date: 06/06/19 Principal diagnosis: Shortness of breath Patient is a 68-year-old female past medical history of COPD, chronic hypoxic respiratory failure (intermittent use of home oxygen started using 2 L approximately one week ago), dyslipidemia, and GERD who presented to the emergency department with complaints of shortness of breath and nonproductive cough. In the ER she was found have elevated blood pressure arrival 164/86. Initial laboratory analysis was consistent with dehydration with an elevated BUN and creatinine and low sodium. Chest x-ray showed interstitial infiltrate and atelectasis with volume loss in the left hemithorax. Influenza A and B were negative. COVID-19 testing was sent. D-dimer was elevated. CT of the chest was done which showed volume loss in the left hemithorax with some interstitial infiltrates with complete occlusion of the left lower lobe bronchus, adenopathy at the left pulmonary hilum with possible tumor. There was also a masslike ro unded density in the left lingula at the costophrenic angle with mild narrowing of the left upper lobe bronchus. No pulmonary embolism noted. She was started on Zithromax, Rocephin, and Solu-Medrol for COPD and community-acquired pneumonia. She was admitted for further monitoring. Pulmonary was consulted. She was seen by pulmonary who recommended treating for pneumonia and then outpatient bronchoscopy and possible CT PET. On the afternoon of 06/03 she developed some respiratory distress. Her O2 sats had been dropping from 97% on 2 L to 91% on 2 L. She had increased work of breathing with sternal retractions and a respiratory rate of 40. She was subsequently transferred to the ICU for closer monitoring. She was started on IV steroids and bronchodilators were increased. Her chest x-ray improved by the morning of 06/04. 06/06/2019 feels better , still on 4 L of oxygen , no cp no abd pain , no dizziness Objective - Vital Signs Vital signs: Vital Signs Temp 98.0 F 06/06/19 12:00 Pulse 103 H 06/06/19 12:00 Resp 27 H 06/06/19 12:00 BP 155/80 06/06/19 12:00 Pulse Ox 91 L 06/06/19 12:00 Intake & Output 06/05/19 06/06/19 06/06/19 18:59 06:59 18:59 Intake Total 1440 600 300 Output Total 525 325 300 Balance 915 275 0 Weight 45.1 kg 44.5 kg Intake: IV 600 600 250 Sodium Chloride 0.9% 1, 500 600 250 000 ml @ 50 mls/hr IV . Q20H [facility] Rx#:[id number] cefTRIAXone 1 gm In 100 Sodium Chloride 0.9% 50 ml @ 100 mls/hr IVPB Q24H [facility] Rx#:[id number] Intake, IV Titration 50 Amount cefTRIAXone 1 gm In 50 Sodium Chloride 0.9% 50 ml @ 100 mls/hr IVPB Q24HR [facility] Rx#:[id number] Oral 840 Output: Urine 525 325 300 Other: Voiding Method Bedpan Bedpan Bedpan # Bowel Movements 1 1 1 - Exam General: no distress Derm: warm, dry Head: atraumatic, normocephalic, symmetric Eyes: EOMI Cardiovascular: S1S2 reg, no murmur, positive posterior tibial pulse bilateral, Lungs: decreased bs Abdominal: soft, nontender to palpation, no guarding, no appreciable Ext: no gross muscle atrophy, no edema, no contractures Neuro: CN II-XI grossly intact, no focal neuro deficits Psych: Alert, oriented, appropriate affect - Labs CBC & Chem 7: 06/06/19 05:23 06/06/19 05:23 Labs: Abnormal Lab Results - Last 24 Hours (Table) 06/05/19 06/05/19 06/06/19 Range/Units 16:35 21:49 05:23 WBC 12.7 H (3.8-10.6) k/uL MCHC 30.4 L (31.0-37.0) g/dL Neutrophils # 11.9 H (1.3-7.7) k/uL Lymphocytes # 0.2 L (1.0-4.8) k/uL Sodium (137-145) mmol/L BUN (7-17) mg/dL Glucose (74-99) mg/dL POC Glucose (mg/dL) 168 H 136 H (75-99) mg/dL Total Protein (6.3-8.2) g/dL Albumin (3.5-5.0) g/dL 06/06/19 06/06/19 06/06/19 Range/Units 05:23 06:51 11:43 WBC (3.8-10.6) k/uL MCHC (31.0-37.0) g/dL Neutrophils # (1.3-7.7) k/uL Lymphocytes # (1.0-4.8) k/uL Sodium 133 L (137-145) mmol/L BUN 33 H (7-17) mg/dL Glucose 130 H (74-99) mg/dL POC Glucose (mg/dL) 126 H 145 H (75-99) mg/dL Total Protein 5.4 L (6.3-8.2) g/dL Albumin 2.9 L (3.5-5.0) g/dL Microbiology - Last 24 Hours (Table) 06/02/19 22:08 Blood Culture - Preliminary Blood No Growth after 72 hours Assessment and Plan Plan: Multilobar pneumonia with possible left lower lobe mass possible post obs tructive , possible gram-negative no signs of sepsis on arrival -Continue with rocephin, Zithromax -blood cultures negative -Pulmonary hygiene -Pulmonary recommendations Acute exacerbation of COPD with acute on chronic hypoxic respiratory failure -Solumedrol -Bronchodilators -Pulmonary recommendations appreciated Hypertension, accelerated - continue with catapres and hydralazine - norvasc added , monitor - follow BP Dyslipidemia - statin - outpatient follow-up Tobacco abuse -Cessation -Nicotine replacement PVD, PAD Hyponatremia and dehydration, resolved DVT prophylaxis: Heparin Discussed with: Patient, nursing Anticipated discharge: 3-[address]: home once better
[2019-06-06 16:42] LABS: Glucose,Whole Blood 142 mg/dL (75-99)
[2019-06-06 21:00] LABS: Glucose,Whole Blood 193 mg/dL (75-99)
[2019-06-07 05:43] LABS: Albumin 2.7 g/dL (3.5-5.0); Calcium 8.4 mg/dL (8.4-10.2); Potassium 4.2 mmol/L (3.5-5.1); Total Bilirubin 0.2 mg/dL (0.2-1.3); Total Protein 5.1 g/dL (6.3-8.2)
[2019-06-07] MEDS: methylPREDNISolone SOD SUCCI 125 MG/2 ML VIAL IV SCH ×3 (05:57→17:26)
[2019-06-07] MEDS ORDERED: ACETAMINOPHEN TAB 325 MG TAB PO PRN (06:34)
[2019-06-07 06:51] LABS: Glucose,Whole Blood 159 mg/dL (75-99)
[2019-06-07] MEDS: INSULIN ASPART (NovoLOG) 100 UNIT/ML VIAL SQ SCH ×4 (07:13→21:42)
[2019-06-07] MEDS: FORMOTEROL FUMARATE 20 MCG/2 ML NEBU INHALATION SCH ×2 (07:33→19:56)
[2019-06-07] MEDS: IPRATROPIUM-ALBUTEROL 3 ML NEB INHALATION SCH ×4 (07:33→19:56)
[2019-06-07] MEDS: BUDESONIDE 1 MG/2 ML NEBU INHALATION SCH ×2 (07:33→19:56)
[2019-06-07] MEDS: LACTOBACILLUS ACIDOPH & BULGAR 1 EACH PACKET PO SCH ×2 (09:01→21:41)
[2019-06-07] MEDS: HEPARIN SODIUM,PORCINE 5,000 UNIT/ML 1 ML VIAL SQ SCH ×2 (09:06→16:44)
[2019-06-07] MEDS: cloNIDine HCL 0.1 MG TAB PO SCH ×3 (09:07→21:42)
[2019-06-07] MEDS: AZITHROMYCIN 250 MG TAB PO SCH (09:07)
[2019-06-07] MEDS: NICOTINE 21MG/24HR PATCH TRANSDERM SCH (09:07)
[2019-06-07] MEDS: ASPIRIN 81 MG PO SCH (09:08)
[2019-06-07] MEDS: hydrALAZINE HCL 50 MG TAB PO SCH ×3 (09:08→21:42)
[2019-06-07] MEDS: ATORVASTATIN 10 MG TAB PO SCH (09:08)
[2019-06-07 09:24] LABS: Basophils % (A) 0 %; Eosinophils % (A) 0 %; HCT 34.8 % (34.0-46.0); HGB 10.8 gm/dL (11.4-16.0); Hypochromasia Moderate; Lymphocytes # (A) 0.2 k/uL (1.0-4.8); Lymphocytes % (A) 2 %; MCH 29.5 pg (25.0-35.0); MCV 95.4 fL (80.0-100.0); Mean Platelet Volume 9.6; Monocytes # (A) 0.3 k/uL (0-1.0); Monocytes % (A) 3 %; Neutrophils # (A) 9.3 k/uL (1.3-7.7); Neutrophils % (A) 94 %; Platelet Count 259 k/uL (150-450); RBC 3.65 m/uL (3.80-5.40); WBC 9.9 k/uL (3.8-10.6)
--- NOTE | 2019-06-07 10:54 | P.PN ---
Subjective Progress Note Date: 06/07/19 Principal diagnosis: Shortness of Breath Patient is a 68-year-old female past medical history of COPD, chronic hypoxic respiratory failure (intermittent use of home oxygen started using 2 L approximately one week ago), dyslipidemia, and GERD who presented to the emerge ncy department with complaints of shortness of breath and nonproductive cough. CT of the chest was done which showed volume loss in the left hemithorax with some interstitial infiltrates with complete occlusion of the left lower lobe bronchus, adenopathy at the left pulmonary hilum with possible tumor. There was also a masslike rounded density in the left lingula at the costophrenic angle with mild narrowing of the left upper lobe bronchus. No pulmonary embolism noted. She was started on Zithromax, Rocephin, and Solu-Medrol for COPD and community-acquired pneumonia. She was seen by pulmonary who recommended treating for pneumonia and then outpatient bronchoscopy and possible CT PET. On the afternoon of 06/03 she developed some respiratory distress. Her O2 sats had been dropping from 97% on 2 L to 91% on 2 L. She had increased work of breathing with sternal retractions and a respiratory rate of 40. She was subsequently transferred to the ICU for closer monitoring. She was started on IV steroids and bronchodilators were increased. Her chest x-ray improved by the morning of 06/04. Today Patient is doing better. Patient states she is breathing better despite her expiratory wheezing. Patient denies chest pain, fever, chills, nausea, or vomiting. Patient states she just feels tired because she has been up since 3am. Objective - Vital Signs Vital signs: Vital Signs Temp 97.5 F L 06/07/19 08:00 Pulse 92 06/07/19 09:00 Resp 18 06/07/19 09:00 BP 161/82 06/07/19 09:00 Pulse Ox 96 06/07/19 09:00 Intake & Output 06/06/19 06/07/19 06/07/19 18:59 06:59 18:59 Intake Total 650 950 50 Output Total 500 350 Balance 150 600 50 Weight 48.353 kg Intake: IV 600 550 50 Sodium Chloride 0.9% 1, 600 550 50 000 ml @ 50 mls/hr IV . Q20H [facility] Rx#:[id number] Intake, IV Titration 50 Amount cefTRIAXone 1 gm In 50 Sodium Chloride 0.9% 50 ml @ 100 mls/hr IVPB Q24HR [facility] Rx#:[id number] Oral 400 Output: Urine 500 350 Other: Voiding Method Bedpan Bedpan # Voids 1 # Bowel Movements 1 - Exam General: [non toxic], [no distress], [appears at stated age] Derm: [warm], [dry] Head: [atraumatic], [normocephalic], [symmetric] Eyes: [EOMI], [no lid lag], [anicteric sclera] Mouth: [no lip lesion], [mucus membranes moist] Cardiovascular: [S1S2 reg], [no murmur], [positive posterior tibial pulse bilateral], Lungs: [B/L expiratory wheezing], [no accessory muscle use] Abdominal: [soft], [ nontender to palpation], [no guarding], [no appreciable organomegaly] Ext: [no gross muscle atrophy], [no edema], [no contractures] Neuro: [ CN II-XI grossly intact], [no focal neuro deficits] Psych: [Alert], [oriented], [appropriate affect] - Labs CBC & Chem 7: 06/07/19 04:58 06/07/19 04:58 Labs: Abnormal Lab Results - Last 24 Hours (Table) 06/06/19 06/06/19 06/06/19 Range/Units 11:43 16:41 20:58 RBC (3.80-5.40) m/uL Hgb (11.4-16.0) gm/dL Neutrophils # (1.3-7.7) k/uL Lymphocytes # (1.0-4.8) k/uL Sodium (137-145) mmol/L BUN (7-17) mg/dL Glucose (74-99) mg/dL POC Glucose (mg/dL) 145 H 142 H 193 H (75-99) mg/dL Total Protein (6.3-8.2) g/dL Albumin (3.5-5.0) g/dL 06/07/19 06/07/19 06/07/19 Range/Units 04:58 04:58 06:49 RBC 3.65 L (3.80-5.40) m/uL Hgb 10.8 L (11.4-16.0) gm/dL Neutrophils # 9.3 H (1.3-7.7) k/uL Lymphocytes # 0.2 L (1.0-4.8) k/uL Sodium 135 L (137-145) mmol/L BUN 40 H (7-17) mg/dL Glucose 137 H (74-99) mg/dL POC Glucose (mg/dL) 159 H (75-99) mg/dL Total Protein 5.1 L (6.3-8.2) g/dL Albumin 2.7 L (3.5-5.0) g/dL Microbiology - Last 24 Hours (Table) 06/02/19 22:08 Blood Culture - Preliminary Blood No Growth after 96 hours Assessment and Plan Assessment: Multilobar pneumonia with possible left lower lobe mass possible post obstructive , possible gram-negative no signs of sepsis on arrival -Continue with rocephin, Zithromax -blood cultures negative -Pulmonary hygiene -Pulmonary recommendations -Patient will be transferred to telemetry Acute exacerbation of COPD with acute on chronic hypoxic respiratory failure -Solumedrol -Bronchodilators -Pulmonary recommendations appreciated Hypertension, accelerated - continue with catapres and hydralazine - norvasc added , monitor - follow BP Normocytic anemia likely dilutional and inflammatory - Monitor CBC - check iron studies Dyslipidemia - statin - outpatient follow-up Tobacco abuse -Cessation -Nicotine replacement PVD, PAD Hyponatremia and dehydration, resolved DVT prophylaxis: Heparin Discussed with: Patient, nursing Anticipated discharge: 3-[address]: home once better
--- NOTE | 2019-06-07 11:29 | PN ---
PROGRESS NOTE PULMONARY/CRITICAL CARE PROGRESS NOTE: DATE OF SERVICE: June 07, 2019 This is a 68-year-old female who was admitted back on June 02. She came in with a COPD exacerbation and left lower lobe pneumonia. The pneumonia was possibly postobstructive because CT scan suggested a mass in the left hilum/left perihilar region. I told the patient that would be worked up as an outpatient with an outpatient PET scan and possible bronchoscopy. She did test negative for COVID-19 infection. She is feeling a bit better. She does have a history of underlying hyperlipidemia, hypertension, DJD, peripheral vascular disease, CAD, and ongoing tobacco use with nicotine addiction. She has been counseled about the importance of smoking cessation. Currently, she is doing better. She is currently on DuoNeb q.i.d. and p.r.n. as well as Pulmicort 1 mg mixed with Perforomist. Currently, she is on 4 L nasal cannula and saline at 50 mL an hour. PHYSICAL EXAMINATION: VITAL SIGNS: Current vital signs are reviewed. Temperature 97.5, heart rate 90, respiratory rate 18, blood pressure 161/82, mean 108 and 4 L saturations 98%. GENERAL: Appears in no acute distress. HEENT: Examination is grossly unremarkable. Mucous membranes are moist. No oral lesions. NECK: Supple. Full range of motion. No adenopathy. Neck veins are flat. CARDIOVASCULAR: Examination reveals regular rhythm and rate. Heart rate in the high 80s, low 90s. It is regular. S1, S2 normal. Heart sounds are somewhat distant. LUNGS: Still reveals some evidence of both inspiratory and expiratory wheezes. No rhonchi or crackles. Breath sounds are improved. There is prolongation on forced maneuver. Adventitious lung sounds are more prominent on forced maneuver. ABDOMEN: Soft bowel sounds are heard. EXTREMITIES: Are intact. No cyanosis, clubbing, or edema. SKIN: Without rash. NEUROLOGIC: Examination is brief but nonfocal. LABS: Labs are reviewed. White count 9.9, hemoglobin 10.8, hematocrit 34.8, and platelet count 259,000. Sodium 135, potassium 4.2, chloride 103, CO2 of 29. Anion gap is 3. BUN and creatinine were 40 and 0.96. Albumin 2.7. Microbiologic studies are thus far negative. COVID-19 testing was negative. Most recent chest x-ray was done on the 05 of June and shows left-sided pleural effusion and left basilar atelectasis or infiltrate. MEDICATIONS: Medications are reviewed. ASSESSMENT: 1. Acute exacerbation of chronic obstructive pulmonary disease complicated by left lower lobe pneumonia. 2. Possible mass, left hilum, with possible postobstructive pneumonia, to be worked up as an outpatient. 3. Chronic and ongoing tobacco dependence, despite counseling. 4. Chronic hypoxemic hypercapnic respiratory failure. 5. Hyperlipidemia. 6. Hypertension. 7. Degenerative joint disease. 8. Peripheral vascular occlusive disease/PAD. PLAN: The patient is counseled about smoking cessation. The patient will have her potential lung lesion worked up as an outpatient with possible bronchoscopy following a PET scan. Currently, we are focusing on her COPD which is much improved. Additional recommendations and suggestions are forthcoming. Medications are reviewed. She is on appropriate medications. The patient could be transferred out of the intensive care unit. HAILEY / OZZY: [id number] /
[2019-06-07 12:25] LABS: Glucose,Whole Blood 157 mg/dL (75-99)
[2019-06-07 17:19] LABS: Glucose,Whole Blood 139 mg/dL (75-99)
[2019-06-07 20:45] LABS: Glucose,Whole Blood 184 mg/dL (75-99)
[2019-06-08] MEDS: HEPARIN SODIUM,PORCINE 5,000 UNIT/ML 1 ML VIAL SQ SCH ×3 (00:30→17:03)
[2019-06-08] MEDS: methylPREDNISolone SOD SUCCI 125 MG/2 ML VIAL IV SCH ×4 (00:30→17:34)
[2019-06-08 07:00] LABS: Glucose,Whole Blood 132 mg/dL (75-99)
[2019-06-08 07:09] LABS: Basophils % (A) 0 %; Eosinophils # (A) 0.1 k/uL (0-0.7); Eosinophils % (A) 1 %; HCT 35.2 % (34.0-46.0); HGB 10.9 gm/dL (11.4-16.0); Hypochromasia Slight; Lymphocytes # (A) 0.2 k/uL (1.0-4.8); Lymphocytes % (A) 2 %; MCH 29.2 pg (25.0-35.0); MCHC 30.8 g/dL (31.0-37.0); MCV 94.8 fL (80.0-100.0); Mean Platelet Volume 7.8; Monocytes # (A) 0.4 k/uL (0-1.0); Monocytes % (A) 4 %; Neutrophils % (A) 94 %; Platelet Count 266 k/uL (150-450); RBC 3.72 m/uL (3.80-5.40); RDW 13.9 % (11.5-15.5); WBC 9.6 k/uL (3.8-10.6)
[2019-06-08 07:29] LABS: Albumin 2.6 g/dL (3.5-5.0); Calcium 8.3 mg/dL (8.4-10.2); Total Bilirubin 0.2 mg/dL (0.2-1.3); Total Protein 4.8 g/dL (6.3-8.2)
[2019-06-08] MEDS: ASPIRIN 81 MG PO SCH (08:01)
[2019-06-08] MEDS: NICOTINE 21MG/24HR PATCH TRANSDERM SCH (08:01)
[2019-06-08] MEDS: hydrALAZINE HCL 50 MG TAB PO SCH ×3 (08:01→22:33)
[2019-06-08] MEDS: ATORVASTATIN 10 MG TAB PO SCH (08:01)
[2019-06-08] MEDS: cloNIDine HCL 0.1 MG TAB PO SCH ×3 (08:02→22:33)
[2019-06-08] MEDS: INSULIN ASPART (NovoLOG) 100 UNIT/ML VIAL SQ SCH ×4 (08:02→22:33)
[2019-06-08] MEDS: AZITHROMYCIN 250 MG TAB PO SCH (08:02)
[2019-06-08] MEDS: LACTOBACILLUS ACIDOPH & BULGAR 1 EACH PACKET PO SCH ×2 (08:05→22:33)
[2019-06-08] MEDS: BUDESONIDE 1 MG/2 ML NEBU INHALATION SCH ×2 (08:53→19:05)
[2019-06-08] MEDS: IPRATROPIUM-ALBUTEROL 3 ML NEB INHALATION SCH ×4 (08:53→19:05)
[2019-06-08] MEDS: FORMOTEROL FUMARATE 20 MCG/2 ML NEBU INHALATION SCH ×2 (08:53→19:05)
[2019-06-08 10:28] LABS: % Iron Saturation 40.08 (12.00-45.00)
[2019-06-08 11:51] LABS: Glucose,Whole Blood 183 mg/dL (75-99)
--- NOTE | 2019-06-08 12:39 | P.PN ---
Subjective Progress Note Date: 06/08/19 Principal diagnosis: sob Patient states she is breathing 100% better and is asking to go home. Patient denies chest pain, fever, chills, nausea, or vomiting. Objective - Vital Signs Vital signs: Vital Signs Temp 97.9 F 06/08/19 05:02 Pulse 92 06/08/19 12:02 Resp 19 06/08/19 05:02 BP 161/70 06/08/19 05:02 Pulse Ox 96 06/08/19 05:02 Intake & Output 06/07/19 06/08/19 06/08/19 18:59 06:59 18:59 Intake Total 140 Output Total 0 Balance 140 Intake: IV 140 Sodium Chloride 0.9% 1, 140 000 ml @ 50 mls/hr IV . Q20H [facility] Rx#:[id number] Output: Urine 0 Other: Voiding Method Bedpan Bedpan - Exam Constitutional: No acute distress, conversant, pleasant Eyes:Anicteric sclerae, moist conjunctiva, no lid-lag, PERRLA, ENMT: Oropharynx clear, no erythema, exudates Neck: Supple, FROM, no masses, or JVD, No carotid bruits, No thyromegaly Lungs: Limited breath sounds bilaterally, diffuse wheezing, Clear to percussion, Normal respiratory effort, no accessory muscle use Cardiovascular: Heart regular in rate and rhythm, No murmurs, gallops, or rubs, No peripheral edema Abdominal: Soft, Nontender, no guarding, rebound or rigidity, Normoactive bowel sounds, No hepatomegaly, No splenomegaly, No palpable mass Skin: Normal temperature, tone, texture, turgor, no induration, No subcutaneous nodules, No rash, lesions, No ulcers Extremities: No digital cyanosis, No clubbing, Pedal pulses intact and symmetrical, Radial pulses intact and symmetrical, No calf tenderness Psychiatric: Alert and oriented to person, place and time, appropriate affect, intact judgement Neuro: Muscles Strength 5/5 in all 4 extremities, Sensation to light touch grossly present throughout, Cranial nerves II-XII grossly intact, no focal sensory deficits - Labs CBC & Chem 7: 06/08/19 06:46 06/08/19 06:46 Labs: Abnormal Lab Results - Last 24 Hours (Table) 06/07/19 06/07/19 06/08/19 Range/Units 17:18 20:44 06:46 RBC 3.72 L (3.80-5.40) m/uL Hgb 10.9 L (11.4-16.0) gm/dL MCHC 30.8 L (31.0-37.0) g/dL Neutrophils # 9.0 H (1.3-7.7) k/uL Lymphocytes # 0.2 L (1.0-4.8) k/uL BUN (7-17) mg/dL Glucose (74-99) mg/dL POC Glucose (mg/dL) 139 H 184 H (75-99) mg/dL Calcium (8.4-10.2) mg/dL Total Protein (6.3-8.2) g/dL Albumin (3.5-5.0) g/dL 06/08/19 06/08/19 06/08/19 Range/Units 06:46 06:58 11:50 RBC (3.80-5.40) m/uL Hgb (11.4-16.0) gm/dL MCHC (31.0-37.0) g/dL Neutrophils # (1.3-7.7) k/uL Lymphocytes # (1.0-4.8) k/uL BUN 41 H (7-17) mg/dL Glucose 130 H (74-99) mg/dL POC Glucose (mg/dL) 132 H 183 H (75-99) mg/dL Calcium 8.3 L (8.4-10.2) mg/dL Total Protein 4.8 L (6.3-8.2) g/dL Albumin 2.6 L (3.5-5.0) g/dL Microbiology - Last 24 Hours (Table) 06/02/19 22:08 Blood Culture - Preliminary Blood No Growth after 120 hours Assessment and Plan Plan: Multilobar pneumonia with possible left lower lobe mass possible post obstructive , possible gram-negative no signs of sepsis on arrival -Continue with rocephin, finished 6 day course of zithromax -Currently on 4L, baseline 2L -Pulmonary hygiene -Pulmonary service following Acute exacerbation of COPD with acute on chronic hypoxic respiratory failure -Solumedrol -Bronchodilators Hypertension, accelerated - Improved, - Continue with catapres and hydralazine - norvasc added , monitor - follow BP Normocytic anemia likely dilutional and inflammatory - Monitor CBC Dyslipidemia - statin - outpatient follow-up Tobacco abuse -Cessation -Nicotine replacement PVD, PAD Hyponatremia and dehydration, resolved DVT prophylaxis: Heparin Discussed with: Patient, nursing Anticipated discharge: [address]: home once better
--- NOTE | 2019-06-08 13:52 | P.PN ---
Subjective Progress Note Date: 06/08/19 Principal diagnosis: Acute exacerbation of chronic obstructive pulmonary disease This is a very pleasant 68-year-old female patient who presented to the emergency room with complaints of increasing shortness of breath and diffuse chest and upper back pain, dry nonproductive cough. She follows with Dr. Mike in our office for underlying chronic obstructive pulmonary disease. She is oxygen dependent. The chest x-ray showed changes of COPD with volume loss in the left hemithorax as well as a mediastinal shift to the left. Computed tomography scan revealed interstitial infiltrates and atelectasis of the left lower lobe as well as a complete occlusion of left lower lobe bronchus. Mass is suspected. She is seen again today in follow-up. She is awake and alert in no acute distress. She is maintaining O2 saturations in the mid 90s on 2 L/m per nasal cannula. She's been afebrile. Hemodynamically stable. Blood culture reveals no growth. COVID 19 test results are still pending. White count 19.5. Hemoglobin 11.4. Lymphocytes 0.5. She is continued on Symbicort, albuterol, prednisone. Antibiotics in the form of ceftriaxone and azithromycin. The patient is seen today 06/08/2019 in follow-up on the regular medical floor. She is awake and alert in no acute distress. She is sitting up in a chair at the bedside. Currently maintaining O2 saturation in the mid 90s on 4 L/m per nasal cannula. She's afebrile. Hemodynamically stable. Blood culture reveals no growth. White count 9.6. Hemoglobin 10.9. Creatinine 0.96. She is continued on bronchodilators, ceftriaxone, IV Solu-Medrol. NicoDerm patch in place. Objective - Vital Signs Vital signs: Vital Signs Temp 98.4 F 06/08/19 12:40 Pulse 108 H 06/08/19 12:40 Resp 21 06/08/19 12:40 BP 142/62 06/08/19 12:40 Pulse Ox 95 06/08/19 12:40 Intake & Output 06/07/19 06/08/19 06/08/19 18:59 06:59 18:59 Intake Total 140 Output Total 0 Balance 140 Intake: IV 140 Sodium Chloride 0.9% 1, 140 000 ml @ 50 mls/hr IV . Q20H [facility] Rx#:[id number] Output: Urine 0 Other: Voiding Method Bedpan Bedpan # Voids 3 - Exam GENERAL EXAM: Alert, pleasant 68-year-old female patient, on 4 L nasal cannula, comfortable in no apparent distress. HEAD: Normocephalic. EYES: Normal reaction of pupils, equal size. NOSE: Clear with pink turbinates. THROAT: No erythema or exudates. NECK: No masses, no JVD. CHEST: No chest wall deformity. LUNGS: Equal air entry with crackles in the left base, end expiratory wheeze, diminished. CVS: S1 and S2 normal with no audible murmur, regular rhythm. ABDOMEN: No hepatosplenomegaly, normal bowel sounds, no guarding or rigidity. SPINE: No scoliosis or deformity SKIN: No rashes CENTRAL NERVOUS SYSTEM: No focal deficits, tone is normal in all 4 extremities. EXTREMITIES: There is no peripheral edema. No clubbing, no cyanosis. Peripheral pulses are intact. - Labs CBC & Chem 7: 06/08/19 06:46 06/08/19 06:46 Labs: Abnormal Lab Results - Last 24 Hours (Table) 06/07/19 06/07/19 06/08/19 Range/Units 17:18 20:44 06:46 RBC 3.72 L (3.80-5.40) m/uL Hgb 10.9 L (11.4-16.0) gm/dL MCHC 30.8 L (31.0-37.0) g/dL Neutrophils # 9.0 H (1.3-7.7) k/uL Lymphocytes # 0.2 L (1.0-4.8) k/uL BUN (7-17) mg/dL Glucose (74-99) mg/dL POC Glucose (mg/dL) 139 H 184 H (75-99) mg/dL Calcium (8.4-10.2) mg/dL Total Protein (6.3-8.2) g/dL Albumin (3.5-5.0) g/dL 06/08/19 06/08/19 06/08/19 Range/Units 06:46 06:58 11:50 RBC (3.80-5.40) m/uL Hgb (11.4-16.0) gm/dL MCHC (31.0-37.0) g/dL Neutrophils # (1.3-7.7) k/uL Lymphocytes # (1.0-4.8) k/uL BUN 41 H (7-17) mg/dL Glucose 130 H (74-99) mg/dL POC Glucose (mg/dL) 132 H 183 H (75-99) mg/dL Calcium 8.3 L (8.4-10.2) mg/dL Total Protein 4.8 L (6.3-8.2) g/dL Albumin 2.6 L (3.5-5.0) g/dL Microbiology - Last 24 Hours (Table) 06/02/19 22:08 Blood Culture - Preliminary Blood No Growth after 120 hours Assessment and Plan Assessment: 1 Acute exacerbation of chronic obstructive pulmonary disease 2 Left lower lobe infiltrate, suspect postobstructive pneumonia with suspected left lower lobe lung mass 3 Chronic and ongoing tobacco dependence 4 Hyperlipidemia 5 Hypertension 6 Degenerative joint disease. 7 Peripheral vascular occlusive disease/PAD with multiple previous lower extremity procedures Plan: The patient was seen and evaluated by Dr. Arce She is aware of her CAT scan findings We'll plan for PET scan and bronchoscopy with biopsy in the outpatient setting Continue COPD treatment COVID 19 results negative We'll continue to follow I, the cosigning physician, performed a history & physical examination of the patient. Lungs sounds with crackles in the left lung base, bilateral end expiratory wheeze, diminished. Maintaining good O2 saturations in the 90s on 4 L/m per nasal cannula. I discussed the assessment and plan of care with my nurse practitioner, Chelsi Gates. I attest to the above note as dictated by her.
[2019-06-08 17:13] LABS: Glucose,Whole Blood 176 mg/dL (75-99)
[2019-06-08 20:59] LABS: Glucose,Whole Blood 153 mg/dL (75-99)
[2019-06-09] MEDS: HEPARIN SODIUM,PORCINE 5,000 UNIT/ML 1 ML VIAL SQ SCH ×3 (00:50→17:10)
[2019-06-09] MEDS: methylPREDNISolone SOD SUCCI 125 MG/2 ML VIAL IV SCH ×3 (00:50→13:05)
[2019-06-09 07:14] LABS: Glucose,Whole Blood 131 mg/dL (75-99)
[2019-06-09] MEDS: NICOTINE 21MG/24HR PATCH TRANSDERM SCH (08:22)
[2019-06-09] MEDS: INSULIN ASPART (NovoLOG) 100 UNIT/ML VIAL SQ SCH ×4 (08:23→22:16)
[2019-06-09] MEDS: hydrALAZINE HCL 50 MG TAB PO SCH ×3 (08:23→22:17)
[2019-06-09] MEDS: ASPIRIN 81 MG PO SCH (08:24)
[2019-06-09] MEDS: LACTOBACILLUS ACIDOPH & BULGAR 1 EACH PACKET PO SCH ×2 (08:25→20:30)
[2019-06-09] MEDS: ATORVASTATIN 10 MG TAB PO SCH (08:25)
[2019-06-09] MEDS: cloNIDine HCL 0.1 MG TAB PO SCH ×3 (08:25→22:17)
[2019-06-09] MEDS: IPRATROPIUM-ALBUTEROL 3 ML NEB INHALATION SCH ×4 (08:32→19:32)
[2019-06-09] MEDS: BUDESONIDE 1 MG/2 ML NEBU INHALATION SCH ×2 (08:32→19:32)
[2019-06-09] MEDS: FORMOTEROL FUMARATE 20 MCG/2 ML NEBU INHALATION SCH ×2 (08:32→19:32)
[2019-06-09 11:35] LABS: Glucose,Whole Blood 155 mg/dL (75-99)
--- NOTE | 2019-06-09 14:16 | P.PN ---
Subjective Progress Note Date: 06/09/19 Principal diagnosis: sob Patient reports feeling great, keeps asking to go home. However her O2 sats dropped into the 80s with minimal movements on 4L. Objective - Vital Signs Vital signs: Vital Signs Temp 97.8 F 06/09/19 05:08 Pulse 104 H 06/09/19 12:17 Resp 19 06/09/19 05:08 BP 143/68 06/09/19 05:08 Pulse Ox 98 06/09/19 05:08 Intake & Output 06/08/19 06/09/19 06/09/19 18:59 06:59 18:59 Other: Voiding Method Toilet Toilet # Voids 1 3 - Exam Constitutional: No acute distress, conversant, pleasant Eyes:Anicteric sclerae, moist conjunctiva, no lid-lag, PERRLA, ENMT: Oropharynx clear, no erythema, exudates Neck: Supple, FROM, no masses, or JVD, No carotid bruits, No thyromegaly Lungs: Limited breath sounds bilaterally, diffuse wheezing, Clear to percussion, Normal respiratory effort, no accessory muscle use Cardiovascular: Heart regular in rate and rhythm, No murmurs, gallops, or rubs, No peripheral edema Abdominal: Soft, Nontender, no guarding, rebound or rigidity, Normoactive bowel sounds, No hepatomegaly, No splenomegaly, No palpable mass Skin: Normal temperature, tone, texture, turgor, no induration, No subcutaneous nodules, No rash, lesions, No ulcers Extremities: No digital cyanosis, No clubbing, Pedal pulses intact and symmetrical, Radial pulses intact and symmetrical, No calf tenderness Psychiatric: Alert and oriented to person, place and time, appropriate affect, intact judgement Neuro: Muscles Strength 5/5 in all 4 extremities, Sensation to light touch grossly present throughout, Cranial nerves II-XII grossly intact, no focal sensory deficits - Labs CBC & Chem 7: 06/08/19 06:46 06/08/19 06:46 Labs: Abnormal Lab Results - Last 24 Hours (Table) 06/08/19 06/08/19 06/09/19 Range/Units 16:59 20:49 07:11 POC Glucose (mg/dL) 176 H 153 H 131 H (75-99) mg/dL 06/09/19 Range/Units 11:33 POC Glucose (mg/dL) 155 H (75-99) mg/dL Microbiology - Last 24 Hours (Table) 06/02/19 22:08 Blood Culture - Final Blood No Growth after 144 hours Assessment and Plan Plan: Multilobar pneumonia with possible left lower lobe mass possible post obstructive , possible gram-negative no signs of sepsis on arrival -Continue with rocephin, finished 6 day course of zithromax -Currently on 4L, baseline 2L -Pulmonary hygiene -Pulmonary service following Acute exacerbation of COPD with acute on chronic hypoxic respiratory failure -Wean down solumedrol to 40mg q6hrs. -Bronchodilators Hypertension, accelerated - Improved, - Continue with catapres and hydralazine - norvasc added , monitor - follow BP Normocytic anemia likely dilutional and inflammatory - Monitor CBC Dyslipidemia - statin - outpatient follow-up Tobacco abuse -Cessation -Nicotine replacement PVD, PAD Hyponatremia and dehydration, resolved DVT prophylaxis: Heparin Discussed with: Patient, nursing Anticipated discharge: [address]: home once better
--- NOTE | 2019-06-09 15:55 | P.PN ---
Subjective Progress Note Date: 06/09/19 Principal diagnosis: Acute exacerbation of chronic obstructive pulmonary disease This is a very pleasant 68-year-old female patient who presented to the emergency room with complaints of increasing shortness of breath and diffuse chest and upper back pain, dry nonproductive cough. She follows with Dr. Mike in our office for underlying chronic obstructive pulmonary disease. She is oxygen dependent. The chest x-ray showed changes of COPD with volume loss in the left hemithorax as well as a mediastinal shift to the left. Computed tomography scan revealed interstitial infiltrates and atelectasis of the left lower lobe as well as a complete occlusion of left lower lobe bronchus. Mass is suspected. She is seen again today in follow-up. She is awake and alert in no acute distress. She is maintaining O2 saturations in the mid 90s on 2 L/m per nasal cannula. She's been afebrile. Hemodynamically stable. Blood culture reveals no growth. COVID 19 test results are still pending. White count 19.5. Hemoglobin 11.4. Lymphocytes 0.5. She is continued on Symbicort, albuterol, prednisone. Antibiotics in the form of ceftriaxone and azithromycin. The patient is seen today 06/08/2019 in follow-up on the regular medical floor. She is awake and alert in no acute distress. She is sitting up in a chair at the bedside. Currently maintaining O2 saturation in the mid 90s on 4 L/m per nasal cannula. She's afebrile. Hemodynamically stable. Blood culture reveals no growth. White count 9.6. Hemoglobin 10.9. Creatinine 0.96. She is continued on bronchodilators, ceftriaxone, IV Solu-Medrol. NicoDerm patch in place. The patient is seen today 06/09/2019 in follow-up on the regular medical floor. She is currently resting comfortably in bed. Awake and alert in no acute distress. She denies any worsening shortness of breath, cough or congestion. She does have significant desaturations into the 80s and even 70s during activity. She is currently on 4 L/m per nasal cannula she's afebrile. She is continued on DuoNeb inhalations, Pulmicort and Perforomist inhalations, IV Solu- Medrol, antibiotics in the form of ceftriaxone. NicoDerm patch is in place. Objective - Vital Signs Vital signs: Vital Signs Temp 98.2 F 06/09/19 12:47 Pulse 99 06/09/19 13:15 Resp 20 06/09/19 12:47 BP 149/72 06/09/19 12:47 Pulse Ox 89 L 06/09/19 13:15 Intake & Output 06/08/19 06/09/19 06/09/19 18:59 06:59 18:59 Other: Voiding Method Toilet Toilet # Voids 1 3 - Exam GENERAL EXAM: Alert, pleasant 68-year-old female patient, on 4 L nasal cannula, comfortable in no apparent distress. HEAD: Normocephalic. EYES: Normal reaction of pupils, equal size. NOSE: Clear with pink turbinates. THROAT: No erythema or exudates. NECK: No masses, no JVD. CHEST: No chest wall deformity. LUNGS: Equal air entry with crackles in the left base, end expiratory wheeze, diminished. CVS: S1 and S2 normal with no audible murmur, regular rhythm. ABDOMEN: No hepatosplenomegaly, normal bowel sounds, no guarding or rigidity. SPINE: No scoliosis or deformity SKIN: No rashes CENTRAL NERVOUS SYSTEM: No focal deficits, tone is normal in all 4 extremities. EXTREMITIES: There is no peripheral edema. No clubbing, no cyanosis. Peripheral pulses are intact. - Labs CBC & Chem 7: 06/08/19 06:46 06/08/19 06:46 Labs: Abnormal Lab Results - Last 24 Hours (Table) 06/08/19 06/08/19 06/09/19 Range/Units 16:59 20:49 07:11 POC Glucose (mg/dL) 176 H 153 H 131 H (75-99) mg/dL 06/09/19 Range/Units 11:33 POC Glucose (mg/dL) 155 H (75-99) mg/dL Microbiology - Last 24 Hours (Table) 06/02/19 22:08 Blood Culture - Final Blood No Growth after 144 hours Assessment and Plan Assessment: 1 Acute exacerbation of chronic obstructive pulmonary disease 2 Left lower lobe infiltrate, suspect postobstructive pneumonia with suspected left lower lobe lung mass 3 Chronic and ongoing tobacco dependence 4 Hyperlipidemia 5 Hypertension 6 Degenerative joint disease. 7 Peripheral vascular occlusive disease/PAD with multiple previous lower extremity procedures Plan: The patient was seen and evaluated by Dr. Arce Will probably need home oxygen We'll plan for PET scan and bronchoscopy with biopsy in the outpatient setting Continue COPD treatment COVID 19 results negative We'll continue to follow I, the cosigning physician, performed a history & physical examination of the patient. Lungs sounds with crackles in the left lung base, bilateral end expiratory wheeze, diminished. Maintaining good O2 saturations in the 90s on 4 L/m per nasal cannula. I discussed the assessment and plan of care with my nurse practitioner, Chelsi Gates. I attest to the above note as dictated by her.
[2019-06-09 17:07] LABS: Glucose,Whole Blood 187 mg/dL (75-99)
[2019-06-09] MEDS: methylPREDNISolone SOD SUCCI 40 MG/ML 1 ML VIAL IV SCH (17:51)
[2019-06-09 21:06] LABS: Glucose,Whole Blood 158 mg/dL (75-99)
[2019-06-10] MEDS: HEPARIN SODIUM,PORCINE 5,000 UNIT/ML 1 ML VIAL SQ SCH ×2 (00:09→09:43)
[2019-06-10] MEDS: methylPREDNISolone SOD SUCCI 40 MG/ML 1 ML VIAL IV SCH ×2 (00:09→05:37)
[2019-06-10 06:06] VITALS: RESP 20
[2019-06-10] MEDS: IPRATROPIUM-ALBUTEROL 3 ML NEB INHALATION SCH ×2 (07:11→10:48)
[2019-06-10] MEDS: FORMOTEROL FUMARATE 20 MCG/2 ML NEBU INHALATION SCH (07:11)
[2019-06-10] MEDS: BUDESONIDE 1 MG/2 ML NEBU INHALATION SCH (07:11)
[2019-06-10 07:19] LABS: Glucose,Whole Blood 133 mg/dL (75-99)
[2019-06-10] MEDS: INSULIN ASPART (NovoLOG) 100 UNIT/ML VIAL SQ SCH (09:32)
[2019-06-10] MEDS: NICOTINE 21MG/24HR PATCH TRANSDERM SCH (09:42)
[2019-06-10] MEDS: ATORVASTATIN 10 MG TAB PO SCH (09:43)
[2019-06-10] MEDS: LACTOBACILLUS ACIDOPH & BULGAR 1 EACH PACKET PO SCH ×2 (09:43→09:55)
[2019-06-10] MEDS: cloNIDine HCL 0.1 MG TAB PO SCH (09:43)
[2019-06-10] MEDS: hydrALAZINE HCL 50 MG TAB PO SCH (09:43)
[2019-06-10] MEDS: ASPIRIN 81 MG PO SCH (09:43)
[2019-06-10 10:59] VITALS: BMI 20.8
--- NOTE | 2019-06-10 11:34 | P.DS ---
Providers Date of admission: 06/03/19 00:32 Expected date of discharge: 06/10/19 Attending physician: Rodri Gamboa MD Consults: 06/03/19 06:24 Consult Physician Urgent Consulting Provider: Alexa Cortes Consult Reason/Comments: COPD exacerbation, multiple bronchial lesions Do you want consulting provider notified?: Yes Primary care physician: [facility] Course: 68-year-old female with a PMH of COPD, chronic hypoxic respiratory failure (on 2 L home oxygen continuously), continues to smoke, hyperlipidemia, and GERD who presented to the ED with complaints of shortness of breath along with a nonproductive cough and chest and back pain brought on with coughing. She has a long-standing history of chronic cough due to her COPD and her excessive smoking history. She denied fever, chills, nausea, or vomiting. She also denied weight loss, recent travel, sick contacts, leg swelling, sore throat, headaches, or visual disturbances. The patient reported using her nebulizer machine at home with multiple treatments with little relief. Evaluation in the emergency room revealed significant wheezing and rhonchi throughout the lung tafoya on lung exam. Chest x-ray showed interstitial infiltrate and volume loss in the left hemithorax with suspected endobronchial obstruction. Chest CTA revealed an essentially complete occlusion of the left lower lobe bronchus with a mass or adenopathy at the left pulmonary hilum, with possibility of tumor. Also a masslike rounded density in the lingula in the left upper lobe at the cardiophrenic angle with mild narrowing of the left upper lobe bronchus. No PE was noted. EKG revealed normal sinus rhythm at [address]/T-wave ischemic changes noted. Laboratory evaluation revealed influenza negative, WBC count of 15.6 with lymphopenia, sodium 130, potassium 3.5, BUN 30, creatinine 1.09, and glucose 105. The patient was given azithromycin and ceftriaxone along with Solu-Medrol for suspected COPD exa cerbation along with community acquired pneumonia. Covid-19 testing was also performed and sent. Patient was admitted to the hospital for treatment of acute on chronic respiratory failure with hypoxemia. She was seen by pulmonary who recommended outpatient follow-up for that lung mass. She was treated with IV steroids, inhalers and antibiotics as well. Patient slowly improved but continues to have low oxygen saturations throughout the hospitalization. Towards the end of the hospitalization she was on 4 L of nasal cannula she was able to wean down to 2 L daily with activity. Patient is aware that she needs to follow-up with pulmonary to investigate that lung mass. She was also told to follow with her primary care physician as well. She was very encouraged to quit smoking. Time for discharge 35 min. Patient Condition at Discharge: Stable Plan - Discharge Summary Discharge Rx Participant: No New Discharge Prescriptions: New methylPREDNISolone Dose Pack [Medrol Dose Pack] 4 mg PO DIRECTED #21 package Continue Ipratropium/Albuterol Sulfate [Combivent Respimat Inhaler] 1 puff INHALATION RT-QID PRN PRN Reason: Shortness Of Breath Simvastatin [Zocor] 20 mg PO DAILY Furosemide [Lasix] 20 mg PO BID PRN PRN Reason: Edema Aspirin [Adult Low Dose Aspirin EC] 81 mg PO DAILY hydrALAZINE HCL [Apresoline] 100 mg PO TID Fluticasone Propion/Salmeterol [Wixela 250-50 Inhub] 1 puff INHALATION RT-BID cloNIDine HCL [Catapres] 0.1 mg PO TID Vit A/Vit C/Vit E/Zinc/Copper [ICAPS SOFTGEL] 1 cap PO DAILY Discharge Medication List Ipratropium/Albuterol Sulfate [Combivent Respimat Inhaler] 1 puff INHALATION RT-QID PRN 06/01/15 [History] Simvastatin [Zocor] 20 mg PO DAILY 06/01/15 [History] Aspirin [Adult Low Dose Aspirin EC] 81 mg PO DAILY 10/28/16 [History] Furosemide [Lasix] 20 mg PO BID PRN 10/28/16 [History] hydrALAZINE HCL [Apresoline] 100 mg PO TID 01/04/19 [History] Fluticasone Propion/Salmeterol [Wixela 250-50 Inhub] 1 puff INHALATION RT-BID 06/03/19 [History] Vit A/Vit C/Vit E/Zinc/Copper [ICAPS SOFTGEL] 1 cap PO DAILY 06/03/19 [History] cloNIDine HCL [Catapres] 0.1 mg PO TID 06/03/19 [History] methylPREDNISolone Dose Pack [Medrol Dose Pack] 4 mg PO DIRECTED #21 package 06/10/19 [Rx] Follow up Appointment(s)/Referral(s): Velvet Mike MD [STAFF PHYSICIAN] - 1 Week Darline Chaudhari MD [Primary Care Provider] - 1 Week Patient Instructions/Handouts: COPD (Chronic Obstructive Pulmonary Disease) (DC) Activity/Diet/Wound Care/Special Instructions: NO smoking, cessation information given. Cardiac diet Activity limited until follow up.
[2019-06-10 11:51] LABS: Glucose,Whole Blood 167 mg/dL (75-99)
[2019-06-10 12:14] VITALS: BP 165/76; PULSE 89; TEMP 98.3
--- NOTE | 2019-06-10 13:50 | P.PN ---
Subjective Progress Note Date: 06/10/19 Principal diagnosis: Acute exacerbation of chronic obstructive pulmonary disease This is a very pleasant 68-year-old female patient who presented to the emergency room with complaints of increasing shortness of breath and diffuse chest and upper back pain, dry nonproductive cough. She follows with Dr. Mike in our office for underlying chronic obstructive pulmonary disease. She is oxygen dependent. The chest x-ray showed changes of COPD with volume loss in the left hemithorax as well as a mediastinal shift to the left. Computed tomography scan revealed interstitial infiltrates and atelectasis of the left lower lobe as well as a complete occlusion of left lower lobe bronchus. Mass is suspected. She is seen again today in follow-up. She is awake and alert in no acute distress. She is maintaining O2 saturations in the mid 90s on 2 L/m per nasal cannula. She's been afebrile. Hemodynamically stable. Blood culture reveals no growth. COVID 19 test results are still pending. White count 19.5. Hemoglobin 11.4. Lymphocytes 0.5. She is continued on Symbicort, albuterol, prednisone. Antibiotics in the form of ceftriaxone and azithromycin. The patient is seen today 06/08/2019 in follow-up on the regular medical floor. She is awake and alert in no acute distress. She is sitting up in a chair at the bedside. Currently maintaining O2 saturation in the mid 90s on 4 L/m per nasal cannula. She's afebrile. Hemodynamically stable. Blood culture reveals no growth. White count 9.6. Hemoglobin 10.9. Creatinine 0.96. She is continued on bronchodilators, ceftriaxone, IV Solu-Medrol. NicoDerm patch in place. The patient is seen today 06/09/2019 in follow-up on the regular medical floor. She is currently resting comfortably in bed. Awake and alert in no acute distress. She denies any worsening shortness of breath, cough or congestion. She does have significant desaturations into the 80s and even 70s during activity. She is currently on 4 L/m per nasal cannula she's afebrile. She is continued on DuoNeb inhalations, Pulmicort and Perforomist inhalations, IV Solu- Medrol, antibiotics in the form of ceftriaxone. NicoDerm patch is in place. The patient is seen today 06/10/2019 in follow-up on the regular medical floor. She is awake and alert in no acute distress. She states her breathing is back to her baseline. No worsening shortness of breath cough or congestion. She is anxious to go home. She does have home oxygen in place. She has a nebulizer and her pulmonary medications available. She is again educated regarding the im portance of complete smoking cessation. NicoDerm patches in place. Objective - Vital Signs Vital signs: Vital Signs Temp 98.3 F 06/10/19 12:00 Pulse 89 06/10/19 12:00 Resp 20 06/10/19 12:00 BP 165/76 06/10/19 12:00 Pulse Ox 94 L 06/10/19 12:00 Intake & Output 06/09/19 06/10/19 06/10/19 18:59 06:59 18:59 Weight 48.353 kg Other: Voiding Method Toilet # Voids 1 2 - Exam GENERAL EXAM: Alert, pleasant 68-year-old female patient, on 4 L nasal cannula, comfortable in no apparent distress. HEAD: Normocephalic. EYES: Normal reaction of pupils, equal size. NOSE: Clear with pink turbinates. THROAT: No erythema or exudates. NECK: No masses, no JVD. CHEST: No chest wall deformity. LUNGS: Equal air entry with crackles in the left base, end expiratory wheeze, diminished. CVS: S1 and S2 normal with no audible murmur, regular rhythm. ABDOMEN: No hepatosplenomegaly, normal bowel sounds, no guarding or rigidity. SPINE: No scoliosis or deformity SKIN: No rashes CENTRAL NERVOUS SYSTEM: No focal deficits, tone is normal in all 4 extremities. EXTREMITIES: There is no peripheral edema. No clubbing, no cyanosis. Peripheral pulses are intact. - Labs CBC & Chem 7: 06/08/19 06:46 06/08/19 06:46 Labs: Abnormal Lab Results - Last 24 Hours (Table) 06/09/19 06/09/19 06/10/19 Range/Units 16:47 20:56 07:14 POC Glucose (mg/dL) 187 H 158 H 133 H (75-99) mg/dL 06/10/19 Range/Units 11:45 POC Glucose (mg/dL) 167 H (75-99) mg/dL Assessment and Plan Assessment: 1 Acute exacerbation of chronic obstructive pulmonary disease 2 Left lower lobe infiltrate, suspect postobstructive pneumonia with suspected left lower lobe lung mass 3 Chronic and ongoing tobacco dependence 4 Hyperlipidemia 5 Hypertension 6 Degenerative joint disease. 7 Peripheral vascular occlusive disease/PAD with multiple previous lower extre mity procedures Plan: The patient was seen and evaluated by Dr. Cortes Cleared for discharge from the pulmonary standpoint She has home oxygen and nebulizer medications at home. Follow up with Dr. Mike in our office We'll plan for PET scan and bronchoscopy with biopsy in the outpatient setting I, the cosigning physician, performed a history & physical examination of the pa tient. Lungs sounds with crackles in the left lung base, bilateral end expiratory wheeze, diminished. Maintaining good O2 saturations in the 90s on 4 L/m per nasal cannula. I discussed the assessment and plan of care with my nurse practitioner, Chelsi Gates. I attest to the above note as dictated by her.
== END 2019-06-10 13:20 | disposition home or self-care (01) | DRG 193 ==
LOC: EC 22:35 → 6NMEDSUR 06-03 00:32 → 2SICU 06-04 18:35 → 6NMEDSUR 06-07 12:02
PROVIDERS: ADMIT Internal Medicine; ATTEND Internal Medicine
DX: J18.1 Lobar pneumonia, unspecified organism (principal); J96.21 Acute and chronic respiratory failure with hypoxia; J96.22 Acute and chronic respiratory failure with hypercapnia; J44.0 Chronic obstructive pulmonary disease with (acute) lower respiratory infection; J44.1 Chronic obstructive pulmonary disease with (acute) exacerbation; E87.1 Hypo-osmolality and hyponatremia; J98.11 Atelectasis; N17.9 Acute kidney failure, unspecified; I73.9 Peripheral vascular disease, unspecified; D64.9 Anemia, unspecified; D72.810 Lymphocytopenia; E78.5 Hyperlipidemia, unspecified; E86.0 Dehydration; F17.210 Nicotine dependence, cigarettes, uncomplicated; I10 Essential (primary) hypertension; I25.10 Atherosclerotic heart disease of native coronary artery without angina pectoris; M19.90 Unspecified osteoarthritis, unspecified site; R93.89 Abnormal findings on diagnostic imaging of other specified body structures; Z03.89 Encounter for observation for other suspected diseases and conditions ruled out; Z99.81 Dependence on supplemental oxygen; Z79.82 Long term (current) use of aspirin; Z79.899 Other long term (current) drug therapy; Z82.49 Family history of ischemic heart disease and other diseases of the circulatory system; Z90.722 Acquired absence of ovaries, bilateral; Z71.6 Tobacco abuse counseling; Z87.01 Personal history of pneumonia (recurrent); J45.909 Unspecified asthma, uncomplicated; Z88.8 Allergy status to other drugs, medicaments and biological substances; Z95.828 Presence of other vascular implants and grafts; Z84.1 Family history of disorders of kidney and ureter
CPT/HCPCS: 36415; 71045; 71046; 71275; 80048; 80053; 82805; 83540; 83550; 83605; 83735; 83880; 84145; 84484; 85025; 85027; 85379; 85610; 85730; 87040; 87502; 93005; 94640; 94760; 96365; 96375; 99285

== ENCOUNTER → 2019-07-23 | Outpatient (CLI) | payer MEDICARE, OTHER ==
--- NOTE | 2019-07-23 13:13 | CT ---
EXAMINATION TYPE: CT chest w con DATE OF EXAM: 07/23/2019 COMPARISON: 05/31/2019 HISTORY: follow up abnormal lung field CT DLP: 104.2 mGycm Automated exposure control for dose reduction was used. CONTRAST: CT scan of the chest is performed with IV Contrast, patient injected with 80 mL of Isovue 300. FINDINGS: LUNGS: Findings suggest underlying COPD. There is persistent consolidation is somewhat masslike morph ology in the anterior segment of the left upper lobe measuring 1.9 cm. Biapical pleural thickening pe rsists and there is areas of scarring scattered groundglass opacification. Within the medial aspect o f the left upper lobe on image 15 there is a 6 mm pulmonary nodule. No pleural effusion or pneumothor ax. Appearance of the left lower lobe bronchus is improved relative to the prior exam. There is no ov ert failure. MEDIASTINUM: Heart is enlarged. There is enlargement of the ascending aorta measuring 3.8 cm compatib le with mild aneurysmal dilation. There is coronary artery calcification. There is a persistently enl arged pretracheal lymph node measuring short axis of 12 mm. OTHER: Hypertrophic and degenerative changes spine with a chronic appearing superior endplate endpla te compression deformity near the thoracolumbar junction. Atrophic changes of the right kidney with s uspected small cortical-based cyst. IMPRESSION: 1. Area of consolidation has a masslike morphology in the anterior segment of the left upper lobe trinity suring 1.9 cm. Neoplastic process in the differential diagnosis. Recommend PET scan. 2. COPD with scattered areas of groundglass opacification most likely in the basis of atelectasis rat her than pneumonitis correlate clinically. 3. There is an additional left upper lobe 6 mm pulmonary nodule on image 15. 4. there is improvement in aeration in the left lower lobe relative to the prior exam as well as the appearance of the bronchus which appears to be patent.
== END | disposition home or self-care (01) ==
LOC: RADCTMAIN 11:03
PROVIDERS: ATTEND Internal Medicine
DX: R91.1 Solitary pulmonary nodule (principal); J44.9 Chronic obstructive pulmonary disease, unspecified; J98.4 Other disorders of lung
CPT/HCPCS: 82565; 84520; 71260; 36415; Q9967

== ENCOUNTER → 2019-08-02 | Outpatient (CLI) | payer MEDICARE, OTHER ==
--- NOTE | 2019-08-06 07:57 | PE ---
Nuclear medicine PET/CT HISTORY: Solitary pulmonary nodule, initial Patient received 12.5 mCi F-18 FDG intravenously in delayed scanning was performed skull base to the mid thighs. Localization and attenuation correction CT scan was performed. Correlation to chest CT dated 07/23/2019 There is no evident cervical or supraclavicular adenopathy. Parenchymal bands within the right lung a re again noted. The abnormal density within the lingula medially is again noted, there is hypermetabo lic uptake associated with this soft tissue, SUV 2.3. No pleural or pericardial effusion. Coronary ar veronica calcifications are extensive. Prominence of pulmonary artery may be indicative of pulmonary pamela ry hypertension. No mediastinal, axillary, or hilar adenopathy. ABDOMEN: The right adrenal gland shows some mild prominence, there is associated hypermetabolic uptak e, SUV 2.4 There is no liver mass. No retroperitoneal adenopathy. The liver is enlarged. Right kidney somewhat atrophic, there are some associated calcifications. There is no hydronephrosis bilaterally. No suspicious hypermetabolic uptake. Extensive diverticular change associated with the sigmoid colon . Osseous structures are within normal limits, no suspicious uptake. Degenerative disc changes, facet a rthropathy noted in the lower lumbar spine. At the level of the proximal right lower extremity sewing pattern layout technician iorly within the subcutaneous fat there is a small focus of uptake just deep to the skin, SUV 1.8 IMPRESSION: Mild FDG avid focus noted corresponding to finding within the chest on patient's prior CT . There is some hypermetabolic uptake associated with the right adrenal gland, metastatic disease not excluded. Indeterminate possible skin lesion posterior aspect of the proximal right lower extremity, correlate clinically. Coronary artery disease, correlate for possible pulmonary artery hypertension.
== END | disposition home or self-care (01) ==
LOC: RADPETMAIN 10:16
PROVIDERS: ATTEND Internal Medicine
DX: R91.1 Solitary pulmonary nodule (principal)
CPT/HCPCS: 78815; A9552

== ENCOUNTER 2019-08-23 08:53 | Day surgery (SDC) | payer MEDICARE, OTHER ==
[2019-08-23] MEDS ORDERED: ALPRAZolam 0.25 MG TAB PO STA (09:25)
[2019-08-23 09:31] LABS: Mean Platelet Volume 7.1; Platelet Count 240 k/uL (150-450)
[2019-08-23 09:39] LABS: INR 0.9 (<1.2); Prothrombin Time 9.3 sec (9.0-12.0)
--- NOTE | 2019-08-23 10:57 | XR ---
EXAMINATION TYPE: XR chest 1V portable DATE OF EXAM: 08/23/2019 COMPARISON: Prior chest x-ray 06/06/2019 HISTORY: Status post lung biopsy TECHNIQUE: Single frontal view of the chest is obtained. FINDINGS: There is interval improved aeration at the left lung base. Cardiac mediastinal silhouette, pulmonary vascularity and aron are stable. There is no evident pneumothorax. Aorta is dense. There a re likely dense carotid artery calcifications. IMPRESSION: No evident complication status post left lung biopsy.
--- NOTE | 2019-08-23 11:33 | CT ---
EXAMINATION TYPE: CT biopsy lung LT DATE OF EXAM: 08/23/2019 HISTORY: Left lung mass, R 91.1 COMPARISON: CT chest 07/23/2019, 06/02/2019, PET/CT 08/02/2019 Maximal barrier technique was utilized, hand hygiene obtained with soap and water. The skin overlyin g a suitable path to the left lung mass was localized using CT and the overlying skin was prepped and draped. Lidocaine used for local anesthesia. A skin carole made with a scalpel. Using CT guidance, access was gained to the lesion with a 19-gauge guide, 20-gauge core needle. Core specimen submitted to cytology. 2 pass(es) performed in all. Following the procedure no immediate complications. Th e patient is discharged in stable condition. Hemostasis achieved. IMPRESSION: SUCCESSFUL CT GUIDED BIOPSY. PATHOLOGY PENDING. THIS PROCEDURE WAS PERFORMED BY THE UNDERSIGNED.
[2019-08-23 12:19] VITALS: RESP 16
--- NOTE | 2019-08-23 13:05 | XR ---
EXAMINATION TYPE: XR chest 1V portable DATE OF EXAM: 08/23/2019 COMPARISON: Prior chest x-ray same dated earlier time HISTORY: Post left lung biopsy TECHNIQUE: Single frontal view of the chest is obtained. FINDINGS: There is no interval change. IMPRESSION: No evident complication status post lung biopsy.
[2019-08-23 13:08] VITALS: BP 165/74; PULSE 65
== END 2019-08-23 13:30 | disposition home or self-care (01) ==
LOC: RADPROMAIN 08:53
PROVIDERS: ATTEND Internal Medicine
DX: R91.1 Solitary pulmonary nodule (principal)
CPT/HCPCS: 36415; 71045; 77012; 85049; 85610; 88305; 88313; 88341; 88342

== ENCOUNTER → 2019-09-04 | Outpatient (CLI) | payer MEDICARE, OTHER | END | disposition home or self-care (01) | LOC: CPPFTMAIN 10:26 | PROVIDERS: ATTEND Internal Medicine | DX: J44.9 Chronic obstructive pulmonary disease, unspecified (principal); R94.2 Abnormal results of pulmonary function studies | CPT/HCPCS: 94060; 94726; 94729 ==

== ENCOUNTER → 2019-09-06 | Outpatient (CLI) | payer MEDICARE, OTHER ==
--- NOTE | 2019-09-06 16:34 | MR ---
EXAMINATION TYPE: MR brain wo/w con DATE OF EXAM: 09/06/2019 COMPARISON: None HISTORY: Hx lung ca, evaluate for metastatic disease, no symptoms CONTRAST: Performed utilizing 4 mL intravenous Gadavist gadolinium contrast. TECHNIQUE: Multiplanar, multiecho imaging on a 3.0 Susanna magnet is performed through the brain. Stud y is performed within 24 hours of arrival to the hospital. The craniovertebral junction is normal. The pituitary is normal. Diffusion-weighted imaging is performed. No abnormal hyperintensity is present to suggest an acute i ntracranial infarct or acute ischemic change. There are multiple patchy periventricular white matter hyperintensities on T2 and inversion recovery weighted sequences compatible with chronic appearing white matter ischemic change. Some additional ch asher may be within the brainstem. Ventricles and sulci are mildly prominent for the patient age. Following contrast administration no suspicious enhancement is evident. No masses or mass effect is e vident. There is some somewhat prominent vascular structures in the left parietal-occipital region, s eries 602 image 11, series 601 image 39. Short-term follow-up is recommended. IMPRESSIONS: 1. Suspicious changes suggest metastatic disease is not evident. 2. Patchy periventricular chronic appearing white matter ischemic type changes. 3. Tortuous vascular structures in the left parietal-occipital region. Leptomeningeal metastasis is c onsidered less likely, however short-term follow-up MRI with contrast is recommended.
== END | disposition home or self-care (01) ==
LOC: RADMRIMAIN 10:34
PROVIDERS: ATTEND Internal Medicine Hematology & Oncology
DX: R90.82 White matter disease, unspecified (principal); I99.8 Other disorder of circulatory system; C34.12 Malignant neoplasm of upper lobe, left bronchus or lung
CPT/HCPCS: 70553; A9585

== ENCOUNTER → 2019-09-18 | Outpatient (CLI) | payer MEDICARE, OTHER | END | disposition home or self-care (01) | LOC: LABWHC1 08:57 | PROVIDERS: ATTEND Surgery Trauma Surgery | DX: Z01.818 Encounter for other preprocedural examination (principal) ==

== ENCOUNTER 2019-12-07 14:27 | Inpatient (IN) | payer MEDICARE, OTHER ==
[2019-12-07] MEDS ORDERED: methylPREDNISolone SOD SUCCI 125 MG/2 ML VIAL IV STA (14:44)
[2019-12-07] MEDS ORDERED: ALBUTEROL NEBULIZED 2.5 MG/3 ML INHALATION STA (14:44)
[2019-12-07] MEDS ORDERED: IPRATROPIUM 0.5 MG/2.5 ML NEBU INHALATION STA (14:44)
--- NOTE | 2019-12-07 14:47 | ED ---
SOB HPI - General Chief Complaint: Shortness of Breath Stated Complaint: GERARDO Time Seen by Provider: 12/07/19 14:44 Source: family, RN notes reviewed, old records reviewed Mode of arrival: ambulatory Limitations: no limitations - History of Present Illness Initial Comments: This is a 69-year-old female DF for evaluation patient is lung cancer coming in for severe shortness of breath. No history of severe COPD coming in with difficulty breathing tachypnea and inability to catch her breath, took her oxygen at home and was significantly low. No pain MD Complaint: shortness of breath, cough, "asthma attack", anxiety -: days(s) Severity: severe Severity scale (1-10): 10 Quality: aching Consistency: constant Improves With: nothing Worsens With: exertion, movement, coughing Known History Of: COPD Context: recent URI Associated Symptoms: chest pain, pain with inspiration, cough, sputum production Treatments Prior to Arrival: none - Related Data Home Medications Medication Instructions Recorded Confirmed Ipratropium/Albuterol Sulfate 1 puff INHALATION RT-QID PRN 06/01/15 08/23/19 [Combivent Respimat Inhaler] Simvastatin [Zocor] 20 mg PO DAILY 06/01/15 08/23/19 Aspirin [Adult Low Dose Aspirin EC] 81 mg PO DAILY 10/28/16 08/23/19 Furosemide [Lasix] 20 mg PO BID PRN 10/28/16 08/23/19 hydrALAZINE HCL [Apresoline] 100 mg PO TID 01/04/19 08/23/19 Fluticasone Propion/Salmeterol 1 puff INHALATION RT-BID 06/03/19 08/23/19 [Wixela 250-50 Inhub] Vit A/Vit C/Vit E/Zinc/Copper 1 cap PO DAILY 06/03/19 08/23/19 [ICAPS SOFTGEL] cloNIDine HCL [Catapres] 0.1 mg PO TID 06/03/19 08/23/19 Allergies Allergy/AdvReac Type Severity Reaction Status Date / Time amlodipine [From Norvasc] Allergy Rash/Hives Verified 12/07/19 17:15 estrogens, conjugated Allergy Rash/Hives Verified 12/07/19 17:15 [From Premarin] lisinopril Allergy Swelling Verified 12/07/19 17:15 metoprolol Allergy Rash/Hives Verified 12/07/19 17:15 nystatin Allergy Rash/Hives Verified 12/07/19 17:15 Review of Systems ROS Statement: Those systems with pertinent positive or pertinent negative responses have been documented in the HPI. ROS Other: All systems not noted in ROS Statement are negative. Past Medical History Past Medical History: Asthma, Cancer, COPD, Hyperlipidemia, Hypertension, Osteoarthritis (OA), Pneumonia, Vascular Disorder Additional Past Medical History / Comment(s): HX OF ANEMIA, STATES HAS HAD UNSUCCSESSFUL COLONOSCOPIES IN PAST R/T "TWISTED BOWEL" PAD with lower extremity discomfort bilaterally. lung nodule , chemotherapy for lungs ca History of Any Multi-Drug Resistant Organisms: None Reported Past Surgical History: Adenoidectomy, Breast Surgery, Tonsillectomy Additional Past Surgical History / Comment(s): 06/03/15 Arch study, PTBA & Stenting Right Ext Iliac artery. EARL OOPHERECTOMY. LASIK EYE SURGERY [place]. Benign Breast bx bilat. Rt Carotid Angiogram, & Endarterectomy. Rt Carotid Artery Stent 07/14/15. Stent to LT Leg 07/30/15. ABD AORTOGRAM, ANGIOGRAM 11/04/16. RT LEG STENT 11/10/16 Past Anesthesia/Blood Transfusion Reactions: No Reported Reaction Past Psychological History: No Psychological Hx Reported Smoking Status: Current every day smoker Past Alcohol Use History: Occasional Past Drug Use History: None Reported - Past Family History Father Family Medical History: Myocardial Infarction ([place]) Additional Family Medical History / Comment(s): Father of a NV at age 61 yrs. Brother(s) Family Medical History: Myocardial Infarction (NV) Additional Family Medical History / Comment(s): Brother of a NV at the age of 29 yrs. Mother Family Medical History: No Reported History Additional Family Medical History / Comment(s): Mother had kidney failure and was on dialysis. She at age 73 yrs. General Exam Limitations: no limitations General appearance: alert, anxious, in distress, cachectic Head exam: Present: atraumatic, normocephalic, normal inspection Eye exam: Present: normal appearance, PERRL, EOMI. Absent: scleral icterus, conjunctival injection, periorbital swelling ENT exam: Present: normal exam, mucous membranes moist Neck exam: Present: normal inspection. Absent: tenderness, meningismus, lymphadenopathy Respiratory exam: Present: respiratory distress, wheezes, accessory muscle use, decreased breath sounds, prolonged expiratory. Absent: rales, rhonchi, stridor Cardiovascular Exam: Present: normal rhythm, tachycardia, normal heart sounds. Absent: systolic murmur, diastolic murmur, rubs, gallop, clicks GI/Abdominal exam: Present: soft, normal bowel sounds. Absent: distended, tenderness, guarding, rebound, rigid Extremities exam: Present: normal inspection, full ROM, normal capillary refill. Absent: tenderness, pedal edema, joint swelling, calf tenderness Back exam: Present: normal inspection Neurological exam: Present: alert, oriented X3, CN II-XII intact Psychiatric exam: Present: normal affect, normal mood Skin exam: Present: warm, dry, intact, normal color. Absent: rash Course Vital Signs 12/07/19 12/07/19 12/07/19 14:30 15:26 15:37 Temperature 98.4 F Pulse Rate 105 H 90 91 Respiratory 18 18 18 Rate Blood Pressure 191/88 O2 Sat by Pulse 89 L Oximetry 12/07/19 16:06 Temperature Pulse Rate 94 Respiratory 17 Rate Blood Pressure 159/77 O2 Sat by Pulse 98 Oximetry - Reevaluation(s) Reevaluation #1: 12/07/19 17:22 Medical record is reviewed Reevaluation #2: 12/07/19 17:22 No real improvement in symptoms here in the ER Reevaluation #3: 12/07/19 17:22 Patient informed of results questions answered - Consultations Consultation #1: Spoke with sound agrees to admission Medical Decision Making - Medical Decision Making 69 female DF for evaluation cough and congestion severe COPD hypoxia will admit for symptom management - Lab Data Result diagrams: 12/07/19 15:16 12/07/19 15:16 Lab Results 12/07/19 12/07/19 12/07/19 Range/Units 15:16 15:16 15:16 WBC 3.6 L (3.8-10.6) k/uL RBC 3.22 L (3.80-5.40) m/uL Hgb 9.5 L (11.4-16.0) gm/dL Hct 29.9 L (34.0-46.0) % MCV 92.8 (80.0-100.0) fL MCH 29.4 (25.0-35.0) pg MCHC 31.7 (31.0-37.0) g/dL RDW 15.2 (11.5-15.5) % Plt Count 298 (150-450) k/uL Neutrophils % 61 % Lymphocytes % 25 % Monocytes % 7 % Eosinophils % 2 % Basophils % 1 % Neutrophils # 2.2 (1.3-7.7) k/uL Lymphocytes # 0.9 L (1.0-4.8) k/uL Monocytes # 0.3 (0-1.0) k/uL Eosinophils # 0.1 (0-0.7) k/uL Basophils # 0.0 (0-0.2) k/uL PT 9.3 (9.0-12.0) sec INR 0.9 (<1.2) APTT 25.0 (22.0-30.0) sec Sodium 133 L (137-145) mmol/L Potassium 4.6 (3.5-5.1) mmol/L Chloride 99 (98-107) mmol/L Carbon Dioxide 28 (22-30) mmol/L Anion Gap 6 mmol/L BUN 25 H (7-17) mg/dL Creatinine 0.96 (0.52-1.04) mg/dL Est GFR (CKD-EPI)AfAm 69 (>60 ml/min/1.73 sqM) Est GFR (CKD-EPI)NonAf 60 (>60 ml/min/1.73 sqM) Glucose 101 H (74-99) mg/dL Plasma Lactic Acid Zac (0.7-2.0) mmol/L Calcium 8.6 (8.4-10.2) mg/dL Magnesium 1.9 (1.6-2.3) mg/dL Total Bilirubin 0.4 (0.2-1.3) mg/dL AST 46 H (14-36) U/L ALT 31 (4-34) U/L Alkaline Phosphatase 106 (38-126) U/L Troponin I (0.000-0.034) ng/mL Total Protein 6.2 L (6.3-8.2) g/dL Albumin 3.6 (3.5-5.0) g/dL 12/07/19 12/07/19 Range/Units 15:16 15:16 WBC (3.8-10.6) k/uL RBC (3.80-5.40) m/uL Hgb (11.4-16.0) gm/dL Hct (34.0-46.0) % MCV (80.0-100.0) fL MCH (25.0-35.0) pg MCHC (31.0-37.0) g/dL RDW (11.5-15.5) % Plt Count (150-450) k/uL Neutrophils % % Lymphocytes % % Monocytes % % Eosinophils % % Basophils % % Neutrophils # (1.3-7.7) k/uL Lymphocytes # (1.0-4.8) k/uL Monocytes # (0-1.0) k/uL Eosinophils # (0-0.7) k/uL Basophils # (0-0.2) k/uL PT (9.0-12.0) sec INR (<1.2) APTT (22.0-30.0) sec Sodium (137-145) mmol/L Potassium (3.5-5.1) mmol/L Chloride (98-107) mmol/L Carbon Dioxide (22-30) mmol/L Anion Gap mmol/L BUN (7-17) mg/dL Creatinine (0.52-1.04) mg/dL Est GFR (CKD-EPI)AfAm (>60 ml/min/1.73 sqM) Est GFR (CKD-EPI)NonAf (>60 ml/min/1.73 sqM) Glucose (74-99) mg/dL Plasma Lactic Acid Zac 0.7 (0.7-2.0) mmol/L Calcium (8.4-10.2) mg/dL Magnesium (1.6-2.3) mg/dL Total Bilirubin (0.2-1.3) mg/dL AST (14-36) U/L ALT (4-34) U/L Alkaline Phosphatase (38-126) U/L Troponin I 0.032 (0.000-0.034) ng/mL Total Protein (6.3-8.2) g/dL Albumin (3.5-5.0) g/dL - EKG Data -: EKG Interpreted by Me (EKG shows sinus rhythm rate of 98. 164 QRS 80 QTC 457) - Radiology Data Radiology results: report reviewed (Chest x-rays worsening CHF worsening effusion worsening pneumonia), image reviewed Critical Care Time Critical Care Time: Yes Total Critical Care Time: 31 Disposition Clinical Impression: COPD with exacerbation, Dyspnea, Community acquired pneumonia, COPD exace rbation, Acute respiratory distress syndrome in adult Disposition: ADMITTED IP TO THIS HOSP Condition: Fair Is patient prescribed a controlled substance at d/c from ED?: No Referrals: None,Stated [REFERRING] - 1-2 days
[2019-12-07] MEDS: SODIUM CHLORIDE 0.9% 1,000 ML IV STA ×2 (15:25→22:19)
[2019-12-07 15:26] LABS: Basophils % (A) 1 %; Eosinophils # (A) 0.1 k/uL (0-0.7); Eosinophils % (A) 2 %; HCT 29.9 % (34.0-46.0); HGB 9.5 gm/dL (11.4-16.0); Lymphocytes # (A) 0.9 k/uL (1.0-4.8); Lymphocytes % (A) 25 %; MCH 29.4 pg (25.0-35.0); MCHC 31.7 g/dL (31.0-37.0); MCV 92.8 fL (80.0-100.0); Mean Platelet Volume 6.9; Monocytes # (A) 0.3 k/uL (0-1.0); Monocytes % (A) 7 %; Neutrophils # (A) 2.2 k/uL (1.3-7.7); Neutrophils % (A) 61 %; Platelet Count 298 k/uL (150-450); RBC 3.22 m/uL (3.80-5.40); RDW 15.2 % (11.5-15.5); WBC 3.6 k/uL (3.8-10.6)
[2019-12-07 15:44] LABS: INR 0.9 (<1.2); Prothrombin Time 9.3 sec (9.0-12.0)
[2019-12-07 15:54] LABS: Albumin 3.6 g/dL (3.5-5.0); Potassium 4.6 mmol/L (3.5-5.1); Total Protein 6.2 g/dL (6.3-8.2)
[2019-12-07 15:57] LABS: Calcium 8.6 mg/dL (8.4-10.2); Magnesium 1.9 mg/dL (1.6-2.3); Total Bilirubin 0.4 mg/dL (0.2-1.3)
--- NOTE | 2019-12-07 16:23 | XR ---
EXAMINATION TYPE: XR chest 1V portable DATE OF EXAM: 12/07/2019 COMPARISON: 08/23/2019 HISTORY: Short of breath TECHNIQUE: FINDINGS: There is blunting left costophrenic angle. There is some patchy infiltrate left lower lobe. Right lung is relatively clear. There is no gross heart failure. There are chest leads. Bony thorax is intact. IMPRESSION: Left lower lobe pneumonia and left pleural effusion is increased compared to old exam.
[2019-12-07] MEDS ORDERED: PNEUMONIA PROTOCOL UTILIZED 1 EACH MISC PO PRN (17:18)
[2019-12-07] MEDS ORDERED: IPRATROPIUM-ALBUTEROL 3 ML NEB INHALATION PRN (17:18)
[2019-12-07] MEDS ORDERED: IPRATROPIUM-ALBUTEROL 3 ML NEB INHALATION STA (17:18)
[2019-12-07] MEDS ORDERED: AZITHROMYCIN 500 MG in SODIUM CHLORIDE 0.9% 250 ML IVPB STA (17:18)
[2019-12-07] MEDS ORDERED: methylPREDNISolone SOD SUCCI 125 MG/2 ML VIAL IV SCH (18:00)
[2019-12-07] MEDS: SODIUM CHLORIDE 0.9% 1,000 ML IV SCH (18:34)
[2019-12-07] MEDS: ALBUTEROL NEBULIZED 2.5 MG/3 ML INHALATION SCH (18:34)
[2019-12-07] MEDS ORDERED: ALPRAZolam 0.25 MG TAB PO PRN (22:08)
[2019-12-07] MEDS ORDERED: HYDROcodone/APAP 5-325MG 1 EACH TAB PO PRN (22:08)
--- NOTE | 2019-12-07 22:08 | P.HPIM ---
History of Present Illness H&P Date: 12/07/19 The patient is a 69-year-old female with a PMH of lung CA (diagnosed July 2019) currently undergoing chemotherapy and immunotherapy with Dr. Benavidez with last session on November 07, COPD, chronic hypoxic respiratory failure on 2 L nasal cannula oxygen at home, hyperlipidemia, and GERD who presented to the ED with complaints of shortness of breath and hypoxia. Patient reports that she normally checks her SpO2 at home which is above 96%, though over the past 24 hours had been as low as 83%. She also reports feeling short of breath during this time along with some wheezing. She denied any changes in her chronic nonproductive cough. Denied chest discomfort, fever, or chills. Denied headaches, nausea, vomiting, abdominal pain, or diarrhea. In the emergency room, a chest x-ray revealed a left lower lobe pneumonia with a pleural effusion increased from prior. EKG revealed a sinus rhythm with PVCs at 98 bpm. Laboratory evaluation revealed a WBC count of 3.6, normal liver 9.5, sodium 133, BUN 25, creatinine 0.96, glucose 101, troponin 0.032, BNP 5610, AST 46. Review of Systems Pertinent positives and negatives as discussed in HPI, a complete review of syst ems was performed and all other systems are negative. Past Medical History Past Medical History: Asthma, Cancer, COPD, Hyperlipidemia, Hypertension, Osteoarthritis (OA), Pneumonia, Vascular Disorder Additional Past Medical History / Comment(s): HX OF ANEMIA, STATES HAS HAD UNSUCCSESSFUL COLONOSCOPIES IN PAST R/T "TWISTED BOWEL" PAD with lower extremity discomfort bilaterally. lung nodule , chemotherapy for lungs ca History of Any Multi-Drug Resistant Organisms: None Reported Past Surgical History: Adenoidectomy, Breast Surgery, Tonsillectomy Additional Past Surgical History / Comment(s): 06/03/15 Arch study, PTBA & Stenting Right Ext Iliac artery. EARL OOPHERECTOMY. LASIK EYE SURGERY [facility]. Benign Breast bx bilat. Rt Carotid Angiogram, & Endarterectomy. Rt Carotid Artery Stent 07/14/15. Stent to LT Leg 07/30/15. ABD AORTOGRAM, ANGIOGRAM 11/04/16. RT LEG STENT 11/10/16 Past Anesthesia/Blood Transfusion Reactions: No Reported Reaction Past Psychological History: No Psychological Hx Reported Additional Psychological History / Comment(s): Pt resides with her spouse. She has a nebulizer and oxygen which she uses prn. She uses no assistive device. She drives. Smoking Status: Current every day smoker Past Alcohol Use History: Occasional Additional Past Alcohol Use History / Comment(s): Pt started smoking approximately 1968 and states she smokes about 10 cigarettes a day. Past Drug Use History: None Reported - Past Family History Father Family Medical History: Myocardial Infarction ([place]) Additional Family Medical History / Comment(s): Father of a PA at age 61 yrs. Brother(s) Family Medical History: Myocardial Infarction ([place]) Additional Family Medical History / Comment(s): Brother of a PA at the age of 29 yrs. Mother Family Medical History: No Reported History Additional Family Medical History / Comment(s): Mother had kidney failure and was on dialysis. She at age 73 yrs. Medications and Allergies Home Medications Medication Instructions Recorded Confirmed Type Ipratropium/Albuterol Sulfate 1 puff INHALATION RT-QID PRN 06/01/15 12/07/19 History [Combivent Respimat Inhaler] Simvastatin [Zocor] 20 mg PO HS 06/01/15 12/07/19 History Aspirin [Adult Low Dose Aspirin EC] 81 mg PO DAILY 10/28/16 12/07/19 History hydrALAZINE HCL [Apresoline] 100 mg PO TID 01/04/19 12/07/19 History Fluticasone Propion/Salmeterol 1 puff INHALATION RT-BID 06/03/19 12/07/19 History [Wixela 250-50 Inhub] Vit A/Vit C/Vit E/Zinc/Copper 1 cap PO DAILY 06/03/19 12/07/19 History [ICAPS SOFTGEL] cloNIDine HCL [Catapres] 0.1 mg PO TID 06/03/19 12/07/19 History ALPRAZolam [Xanax] 0.25 mg PO DAILY PRN 12/07/19 12/07/19 History Folic Acid 1 mg PO DAILY 12/07/19 12/07/19 History Furosemide [Lasix] 20 mg PO DAILY PRN 12/07/19 12/07/19 History HYDROcodone/APAP 5-325MG [[place] 0.5 tab PO DAILY PRN 12/07/19 12/07/19 History 5-325] Ipratropium-Albuterol Nebulize 3 ml INHALATION RT-DAILY PRN 12/07/19 12/07/19 History [Duoneb 0.5 mg-3 mg/3 ml Soln] OLANZapine [ZyPREXA] 2.5 mg PO DAILY 12/07/19 12/07/19 History Ondansetron Odt [Zofran Odt] 4 mg PO Q6H PRN 12/07/19 12/07/19 History Vitamin B Complex 1 cap PO DAILY 12/07/19 12/07/19 History traMADol HCL 50 mg PO Q6H PRN 12/07/19 12/07/19 History Allergies Allergy/AdvReac Type Severity Reaction Status Date / Time amlodipine [From Norvasc] Allergy Rash/Hives Verified 12/07/19 17:15 estrogens, conjugated Allergy Rash/Hives Verified 12/07/19 17:15 [From Premarin] lisinopril Allergy Swelling Verified 12/07/19 17:15 metoprolol Allergy Rash/Hives Verified 12/07/19 17:15 nystatin Allergy Rash/Hives Verified 12/07/19 17:15 Physical Exam Vitals: Vital Signs Temp Pulse Pulse Resp BP BP Pulse Ox 12/07/19 20:49 98.1 F 103 H 16 187/91 96 12/07/19 18:42 95 20 12/07/19 18:32 93 20 12/07/19 16:06 94 17 159/77 98 12/07/19 15:37 91 18 12/07/19 15:26 90 18 12/07/19 14:30 98.4 F 105 H 18 191/88 89 L Intake and Output 12/07/19 12/07/19 12/07/19 06:59 14:59 22:59 Intake Total 222 Balance 222 Intake: Oral 222 Other: Weight 37.195 kg 37.195 kg General: non toxic, no distress, appears at stated age, frail female Derm: no unusual rashes/lesions no unusual ecchymoses, warm, dry Head: atraumatic, normocephalic, symmetric Eyes: EOMI, no lid lag, anicteric sclera, pupils equal round reactive to light ENT: Nose and ears atraumatic, no thrush, no pharyngeal erythema Neck: No thyromegaly, no cervical lymphadenopathy, trachea midline, supple Mouth: no lip lesion, mucus membranes moist Cardiovascular: S1S2 reg, no murmur, positive posterior tibial pulse bilateral, no edema, capillary refill less than 2 seconds Lungs: Bilateral expiratory wheezing with left basilar rhonchi appreciated, mild bibasilar rales, no accessory muscle use Abdominal: soft, nontender to palpation, no guarding, no appreciable organomegaly, normal bowel sounds Ext: no gross muscle atrophy, muscle strength 4 out of 5 in all 4 extremities grossly, no contractures, Neuro: CN II-XI grossly intact, light touch intact all 4 extremities, finger to nose within normal limits, Psych: Alert, oriented, appropriate affect Results CBC & Chem 7: 12/07/19 15:16 12/07/19 15:16 Labs: Abnormal Lab Results - Last 24 Hours (Table) 12/07/19 12/07/19 Range/Units 15:16 15:16 WBC 3.6 L (3.8-10.6) k/uL RBC 3.22 L (3.80-5.40) m/uL Hgb 9.5 L (11.4-16.0) gm/dL Hct 29.9 L (34.0-46.0) % Lymphocytes # 0.9 L (1.0-4.8) k/uL Sodium 133 L (137-145) mmol/L BUN 25 H (7-17) mg/dL Glucose 101 H (74-99) mg/dL AST 46 H (14-36) U/L Total Protein 6.2 L (6.3-8.2) g/dL Thrombosis Risk Factor Assmnt - Choose All That Apply Any of the Below Risk Factors Present?: Yes Each Factor Represents 1 point: Medical pt on bed rest Other Risk Factors: Yes Each Risk Factor Represents 2 Points: Age 61-74 years Thrombosis Risk Factor Assessment Total Risk Factor Score: 3 Thrombosis Risk Factor Assessment Level: Moderate Risk Assessment and Plan Plan: Shortness of breath, likely multifactorial with COPD exacerbation and community acquired pneumonia -Obtain Procalcitonin levels -Continue with azithromycin and ceftriaxone -Start prednisone 40 mg twice a day -DuoNeb's [id number] and when necessary -Pulmonary consult -Follow up blood and sputum cultures -Supplemental oxygen Elevated Pro-BNP -Check echocardiogram Bicytopenia -Likely secondary to ongoing chemotherapy -Monitor CBC for now DVT prophylaxis -Lovenox Discussed with: Patient Anticipated discharge date: 2-[address]: Home A total of 40 minutes was spent on the care of this complex patient more than 50% of the time was spent in counseling and care coordination.
[2019-12-07] MEDS: traMADol 50 MG TAB PO PRN (22:18)
[2019-12-08] MEDS: ALBUTEROL NEBULIZED 2.5 MG/3 ML INHALATION SCH (07:31)
[2019-12-08] MEDS ORDERED: FLUTICASONE PROPION INHALATION SCH (08:00)
[2019-12-08] MEDS ORDERED: SALMETEROL INHALATION SCH (08:00)
[2019-12-08] MEDS ORDERED: ALBUTEROL NEBULIZED 2.5 MG/3 ML INHALATION PRN (08:03)
--- NOTE | 2019-12-08 08:54 | XR ---
EXAMINATION TYPE: XR chest 2V DATE OF EXAM: 12/08/2019 COMPARISON: 12/07/2019 INDICATION: Pneumonia TECHNIQUE: Frontal and lateral views of the chest are obtained. FINDINGS: The heart size is normal. The pulmonary vasculature is somewhat prominent. There is a small to moderate left pleural effusion which is increasing. IMPRESSION: 1. Small to moderate developing left pleural effusion
[2019-12-08] MEDS ORDERED: predniSONE 20 MG TAB PO SCH (09:00)
[2019-12-08] MEDS: ENOXAPARIN 40 MG/0.4 ML SYRINGE SQ SCH (09:56)
[2019-12-08] MEDS: ASPIRIN 81 MG PO SCH (09:56)
[2019-12-08] MEDS: FOLIC ACID 1 MG TAB PO SCH (09:56)
[2019-12-08] MEDS: hydrALAZINE HCL 50 MG TAB PO SCH ×3 (09:56→20:12)
[2019-12-08] MEDS: SODIUM CHLORIDE 0.9% 1,000 ML IV SCH (09:56)
[2019-12-08] MEDS: cloNIDine HCL 0.1 MG TAB PO SCH ×3 (09:56→20:12)
[2019-12-08] MEDS: OLANZapine 2.5 MG TAB PO SCH (10:09)
--- NOTE | 2019-12-08 10:51 | P.PN ---
Subjective Progress Note Date: 12/08/19 Principal diagnosis: Left lung pneumonia Patient is still having a lot of cough today. Shortness of breath is better compared to yesterday but not back to normal baseline. She is still on oxygen. Objective - Vital Signs Vital signs: Vital Signs Temp 98.1 F 12/08/19 07:00 Pulse 95 12/08/19 07:44 Resp 19 12/08/19 07:00 BP 189/98 12/08/19 07:00 Pulse Ox 95 12/08/19 07:34 Intake & Output 12/07/19 12/08/19 12/08/19 18:59 06:59 18:59 Intake Total 1022 320 Balance 1022 320 Weight 37.195 kg Intake: Intake, IV Titration 800 Amount Sodium Chloride 0.9% 1, 800 000 ml @ 100 mls/hr IV . Q10H [facility] Rx#:[id number] Oral 222 320 Other: Voiding Method Bedside Commode # Voids 1 - Exam General: The patient is awake and alert, in no distress Eye: there is normal conjunctiva bilaterally. Neck: The neck is supple, there is no JVD. Cardiovascular: Normal S1-S2, no S3-S4, no murmurs. Respiratory: Lungs are diminished with scattered wheezing all over the chest Gastrointestinal: Abdomen is soft, nontender Musculoskeletal: There is no pedal edema. Neurological:. Speech is normal. Skin: Skin is warm and dry - Labs CBC & Chem 7: 12/07/19 15:16 12/07/19 15:16 Labs: Abnormal Lab Results - Last 24 Hours (Table) 12/07/19 12/07/19 Range/Units 15:16 15:16 WBC 3.6 L (3.8-10.6) k/uL RBC 3.22 L (3.80-5.40) m/uL Hgb 9.5 L (11.4-16.0) gm/dL Hct 29.9 L (34.0-46.0) % Lymphocytes # 0.9 L (1.0-4.8) k/uL Sodium 133 L (137-145) mmol/L BUN 25 H (7-17) mg/dL Glucose 101 H (74-99) mg/dL AST 46 H (14-36) U/L Total Protein 6.2 L (6.3-8.2) g/dL Assessment and Plan Assessment: This is a 69-year-old female with complex past medical history noted below significant for underlying lung cancer who presented to the hospital with worsening shortness of breath and cough. Patient was evaluated in the ER and admitted to the hospital for further management of her medical problems noted below. 1. Acute COPD exacerbation, received 125 mg IV Solu-Medrol in the ER. Currently on prednisone 40 mg twice daily. Continue duo nebs scheduled and albuterol nebulizer as needed. Start inhaled steroids twice daily with budesonide. 2. Left lung pneumonia, started on IV ceftriaxone and azithromycin. Sputum culture ordered and pending. Pro-calcitonin pending. 3. Recently diagnosed lung cancer on chemotherapy and immunotherapy. Follow up as directed with Dr. Benavidez 4. Tobacco abuse: Counseled extensively to quit. Patient declined nicotine patch at this time 5. Essential hypertension: Blood pressure not well controlled. Continue home regimen with hydralazine and clonidine. I would continue to monitor closely and adjust as needed. 6. Acute on chronic hypoxic respiratory failure, requiring oxygen via nasal cannula. I would clarify with patient if she still has oxygen at home 7. Elevated BNP, no clinical evidence of CHF. Echocardiogram ordered by tello jose. 8. DVT prophylaxis with subcu Lovenox
[2019-12-08] MEDS: IPRATROPIUM-ALBUTEROL 3 ML NEB INHALATION SCH ×4 (11:23→23:46)
[2019-12-08] MEDS ORDERED: FUROSEMIDE 10 MG/ML 4 ML VIAL IV STA (13:49)
--- NOTE | 2019-12-08 13:50 | P.CNPUL ---
History of Present Illness Consult date: 12/08/19 Requesting physician: Inna Corral Reason for consult: dyspnea, abnormal CXR/CT Chief complaint: Shortness of breath History of present illness: This a very pleasant 69-year-old female patient with known history of peripheral vascular occlusive disease, hypertension, hyperlipidemia, chronic tobacco dependence, severe chronic obstructive pulmonary disease with chronic hypoxemic respiratory failure. Her FEV1 value is 45% of predicted. The patient also is known to have advanced adenocarcinoma stage IV. This was diagnosed 08/23/2019. Status post thoracotomy however lobectomy could not be done as there was pleural involvement. She follows with Dr. Mike in our office. She has undergone 2 rounds of chemotherapy and is following with Dr. Benavidez. She presented to the emergency room yesterday with increasing shortness of breath dry nonproductive cough and significant dyspnea on minimal exertion. Chest x-ray revealed small to moderate left-sided pleural effusion. White count 3.6. Hemoglobin 9.5. INR 0.9. Sodium 133. Potassium 4.6. Creatinine 0.96. ProBNP 5610. She is seen today in consultation on the regular medical floor. She is currently sitting up in bed. Awake and alert in no acute distress. She is maintaining O2 saturations in the mid 90s on 2 L/m per nasal cannula. She's been initiated on DuoNeb inhalations, Pulmicort and Perforomist inhalations, oral prednisone. Antibiotics in the form of ceftriaxone and azithromycin. Review of Systems REVIEW OF SYSTEMS: CONSTITUTIONAL: Denies any recent significant weight loss or weight gain. EYES: Denies change in vision. EARS, NOSE, MOUTH, THROAT: Denies headaches, denies sore throat. CARDIOVASCULAR: Denies chest pain, palpitations or syncopal episodes. RESPIRATORY: Positive for shortness of breath, cough, congestion no hemoptysis. GASTROINTESTINAL: Denies change in appetite, denies abdominal pain GENITOURINARY: Denies hematuria, denies infections. MUSKULOSKELETAL: Denies pain, denies swelling. INTEGUMENTARY: Denies rash, denies eczema. NEUROLOGICAL: Denies recent memory loss, no recent seizure activity. PSYCHIATRIC: Denies anxiety, denies depression. HEMATOLOGIC/LYMPHATIC: Denies anemia, denies enlarged lymph nodes. Past Medical History Past Medical History: Asthma, Cancer, COPD, Hyperlipidemia, Hypertension, Osteoarthritis (OA), Pneumonia, Vascular Disorder Additional Past Medical History / Comment(s): HX OF ANEMIA, STATES HAS HAD UNSUCCSESSFUL COLONOSCOPIES IN PAST R/T "TWISTED BOWEL" PAD with lower extremity discomfort bilaterally. lung nodule , chemotherapy for lungs ca History of Any Multi-Drug Resistant Organisms: None Reported Past Surgical History: Adenoidectomy, Breast Surgery, Tonsillectomy Additional Past Surgical History / Comment(s): 06/03/15 Arch study, PTBA & Stenting Right Ext Iliac artery. EARL OOPHERECTOMY. LASIK EYE SURGERY [place]. Benign Breast bx bilat. Rt Carotid Angiogram, & Endarterectomy. Rt Carotid Artery Stent 07/14/15. Stent to LT Leg 07/30/15. ABD AORTOGRAM, ANGIOGRAM 11/04/16. RT LEG STENT 11/10/16 Past Anesthesia/Blood Transfusion Reactions: No Reported Reaction Past Psychological History: No Psychological Hx Reported Additional Psychological History / Comment(s): Pt resides with her spouse. She has a nebulizer and oxygen which she uses prn. She uses no assistive device. She drives. Smoking Status: Current every day smoker Past Alcohol Use History: Occasional Additional Past Alcohol Use History / Comment(s): Pt started smoking approximately 1968 and states she smokes about 10 cigarettes a day. Past Drug Use History: None Reported - Past Family History Father Family Medical History: Myocardial Infarction ([place]) Additional Family Medical History / Comment(s): Father of a [place] at age 61 yrs. Brother(s) Family Medical History: Myocardial Infarction ([place]) Additional Family Medical History / Comment(s): Brother of a [place] at the age of 29 yrs. Mother Family Medical History: No Reported History Additional Family Medical History / Comment(s): Mother had kidney failure and was on dialysis. She at age 73 yrs. Medications and Allergies Home Medications Medication Instructions Recorded Confirmed Type Ipratropium/Albuterol Sulfate 1 puff INHALATION RT-QID PRN 06/01/15 12/07/19 History [Combivent Respimat Inhaler] Simvastatin [Zocor] 20 mg PO HS 06/01/15 12/07/19 History Aspirin [Adult Low Dose Aspirin EC] 81 mg PO DAILY 10/28/16 12/07/19 History hydrALAZINE HCL [Apresoline] 100 mg PO TID 01/04/19 12/07/19 History Fluticasone Propion/Salmeterol 1 puff INHALATION RT-BID 06/03/19 12/07/19 History [[place] 250-50 Inhub] Vit A/Vit C/Vit E/Zinc/Copper 1 cap PO DAILY 06/03/19 12/07/19 History [ICAPS SOFTGEL] cloNIDine HCL [Catapres] 0.1 mg PO TID 06/03/19 12/07/19 History ALPRAZolam [Xanax] 0.25 mg PO DAILY PRN 12/07/19 12/07/19 History Folic Acid 1 mg PO DAILY 12/07/19 12/07/19 History Furosemide [Lasix] 20 mg PO DAILY PRN 12/07/19 12/07/19 History HYDROcodone/APAP 5-325MG [[place] 0.5 tab PO DAILY PRN 12/07/19 12/07/19 History 5-325] Ipratropium-Albuterol Nebulize 3 ml INHALATION RT-DAILY PRN 12/07/19 12/07/19 History [Duoneb 0.5 mg-3 mg/3 ml Soln] OLANZapine [ZyPREXA] 2.5 mg PO DAILY 12/07/19 12/07/19 History Ondansetron Odt [Zofran Odt] 4 mg PO Q6H PRN 12/07/19 12/07/19 History Vitamin B Complex 1 cap PO DAILY 12/07/19 12/07/19 History traMADol HCL 50 mg PO Q6H PRN 12/07/19 12/07/19 History Allergies Allergy/AdvReac Type Severity Reaction Status Date / Time amlodipine [From Norvasc] Allergy Rash/Hives Verified 12/07/19 17:15 estrogens, conjugated Allergy Rash/Hives Verified 12/07/19 17:15 [From Premarin] lisinopril Allergy Swelling Verified 12/07/19 17:15 metoprolol Allergy Rash/Hives Verified 12/07/19 17:15 nystatin Allergy Rash/Hives Verified 12/07/19 17:15 Physical Exam Vitals: Vital Signs Temp Pulse Pulse Resp BP BP Pulse Ox 12/08/19 11:35 97 12/08/19 11:25 101 H 12/08/19 07:44 95 12/08/19 07:34 98 95 12/08/19 07:00 98.1 F 110 H 19 189/98 94 L 12/08/19 00:54 98.0 F 91 15 156/75 97 12/08/19 00:00 16 12/07/19 20:49 98.1 F 103 H 16 187/91 96 12/07/19 20:00 103 H 16 12/07/19 18:42 95 20 12/07/19 18:32 93 20 12/07/19 16:06 94 17 159/77 98 12/07/19 15:37 91 18 12/07/19 15:26 90 18 12/07/19 14:30 98.4 F 105 H 18 191/88 89 L Intake and Output 12/07/19 12/08/19 12/08/19 22:59 06:59 14:59 Intake Total 222 800 320 Balance 222 800 320 Intake: Intake, IV Titration 800 Amount Sodium Chloride 0.9% 1, 800 000 ml @ 100 mls/hr IV . Q10H [facility] Rx#:[id number] Oral 222 320 Other: Voiding Method Bedside Commode Bedside Commode # Voids 1 Weight 37.195 kg GENERAL EXAM: Alert, pleasant, frail 69-year-old female patient, on 2 L nasal cannula comfortable in no apparent distress. HEAD: Normocephalic. EYES: Normal reaction of pupils, equal size. NOSE: Clear with pink turbinates. THROAT: No erythema or exudates. NECK: No masses, no JVD. CHEST: No chest wall deformity. LUNGS: Equal air entry with crackles in the left base, diminished. CVS: S1 and S2 normal with no audible murmur, regular rhythm. ABDOMEN: No hepatosplenomegaly, normal bowel sounds, no guarding or rigidity. SPINE: No scoliosis or deformity SKIN: No rashes CENTRAL NERVOUS SYSTEM: No focal deficits, tone is normal in all 4 extremities. EXTREMITIES: There is no peripheral edema. No clubbing, no cyanosis. Peripheral pulses are intact. Results - Laboratory Findings CBC and BMP: 12/07/19 15:16 12/07/19 15:16 PT/INR, D-dimer PT 9.3 sec (9.0-12.0) 12/07/19 15:16 INR 0.9 (<1.2) 12/07/19 15:16 Abnormal lab findings: Abnormal Labs 12/07/19 12/07/19 15:16 15:16 WBC 3.6 L RBC 3.22 L Hgb 9.5 L Hct 29.9 L Lymphocytes # 0.9 L Sodium 133 L BUN 25 H Glucose 101 H AST 46 H Total Protein 6.2 L - Diagnostic Findings Chest x-ray: image reviewed Assessment and Plan Assessment: 1 Acute on chronic hypoxemic respiratory failure secondary to an acute left lower lobe pleural effusion 2 Adenocarcinoma of the lung, stage IV, diagnosed August 2019, currently receiving chemotherapy. Had undergone thoracotomy however lobectomy not performed due to pleural involvement. PET scan had revealed hypermetabolic uptake associated with the right adrenal gland. 3 Advanced oxygen-dependent chronic obstructive pulmonary disease with an FEV1 value of 45% of predicted 4 Chronic tobacco dependence 5 Peripheral vascular disease with previous stent placements 6 Hypertension 7 Hyperlipidemia 8 Osteoarthritis Plan: The patient was seen and evaluated by Dr. Mike Chest x-ray and labs reviewed Plan is for ultrasound of the left chest for possible thoracentesis Continue antibiotics and bronchodilators Give Lasix 40 mg IVP 1 today Echocardiogram pending We will continue to follow and make further recommendations based on her clinical status I, the cosigning physician, performed a history & physical examination of the patient. Lungs sounds with crackles in the left base, diminished. Maintaining good O2 saturations in the 90s on 2 L/m per nasal cannula. I discussed the assessment and plan of care with my nurse practitioner, Chelsi Gates. I attest to the above note as dictated by her. Time with Patient: Greater than 30
[2019-12-08] MEDS: guaiFENesin 600 MG TABLET.ER PO SCH ×2 (14:05→20:12)
--- NOTE | 2019-12-08 14:09 | US ---
EXAMINATION TYPE: US chest DATE OF EXAM: 12/08/2019 COMPARISON: NONE CLINICAL HISTORY: Markings for thoracentesis by pulmonary staff. TECHNIQUE: Targeted ultrasound of the posterior lower bilateral hemithoraces EXAM MEASUREMENTS: Left Pleural Effusion pocket size: 7.6 cm Left skin surface to fluid distance: 1.9 cm Left side marked for possible thoracentesis outside the dept. Pulmonologists are able to review the images in the patient?s EMR. IMPRESSIONS: 1. Left pleural effusion
[2019-12-08 14:15] VITALS: BMI 16.5
[2019-12-08] MEDS: AZITHROMYCIN 500 MG TAB PO SCH (17:18)
[2019-12-08] MEDS: BUDESONIDE 0.5 MG/2 ML NEBU INHALATION SCH (19:37)
[2019-12-08] MEDS: FORMOTEROL FUMARATE 20 MCG/2 ML NEBU INHALATION SCH (19:37)
[2019-12-08] MEDS: ATORVASTATIN 10 MG TAB PO SCH (20:12)
[2019-12-08] MEDS: traMADol 50 MG TAB PO PRN (20:12)
[2019-12-08 20:28] LABS: Glucose,Whole Blood 173 mg/dL (75-99)
[2019-12-09] MEDS: IPRATROPIUM-ALBUTEROL 3 ML NEB INHALATION SCH ×6 (04:15→23:07)
[2019-12-09 06:40] LABS: Basophils % (A) 0 %; Eosinophils % (A) 1 %; HGB 8.2 gm/dL (11.4-16.0); Lymphocytes # (A) 0.5 k/uL (1.0-4.8); Lymphocytes % (A) 7 %; MCH 30.9 pg (25.0-35.0); MCHC 32.9 g/dL (31.0-37.0); MCV 94.1 fL (80.0-100.0); Monocytes # (A) 0.6 k/uL (0-1.0); Monocytes % (A) 9 %; Neutrophils # (A) 5.6 k/uL (1.3-7.7); Neutrophils % (A) 81 %; Platelet Count 186 k/uL (150-450); RBC 2.65 m/uL (3.80-5.40); RDW 15.5 % (11.5-15.5); WBC 6.9 k/uL (3.8-10.6)
[2019-12-09 07:11] LABS: Glucose,Whole Blood 166 mg/dL (75-99)
[2019-12-09] MEDS: BUDESONIDE 0.5 MG/2 ML NEBU INHALATION SCH ×2 (08:09→19:22)
[2019-12-09] MEDS: FORMOTEROL FUMARATE 20 MCG/2 ML NEBU INHALATION SCH ×2 (08:09→19:22)
[2019-12-09 09:16] LABS: African American GFR (CKD) 65.6 (60.0-200.0); Anion Gap 6.9 mmol/L (4.00-12.00); Calcium 8.4 mg/dL (8.7-10.3); Carbon Dioxide 28.1 mmol/L (21.6-31.8); Non-African American GFR(CKD) 56.6 (60.0-200.0); Potassium 4.2 mmol/L (3.5-5.5)
[2019-12-09] MEDS: ENOXAPARIN 40 MG/0.4 ML SYRINGE SQ SCH (09:38)
[2019-12-09] MEDS: hydrALAZINE HCL 50 MG TAB PO SCH ×3 (09:38→20:23)
[2019-12-09] MEDS: guaiFENesin 600 MG TABLET.ER PO SCH ×2 (09:38→20:22)
[2019-12-09] MEDS: cloNIDine HCL 0.1 MG TAB PO SCH ×3 (09:38→20:23)
[2019-12-09] MEDS: ASPIRIN 81 MG PO SCH (09:38)
[2019-12-09] MEDS: predniSONE 20 MG TAB PO SCH (09:38)
[2019-12-09] MEDS: FOLIC ACID 1 MG TAB PO SCH (09:39)
[2019-12-09] MEDS: OLANZapine 2.5 MG TAB PO SCH (09:39)
--- NOTE | 2019-12-09 10:48 | P.PN ---
Subjective Progress Note Date: 12/09/19 Principal diagnosis: Left lung pneumonia Patient is having a lot of wheezing today. Shortness of breath is slightly better compared to yesterday. Objective - Vital Signs Vital signs: Vital Signs Temp 98.1 F 12/09/19 07:00 Pulse 104 H 12/09/19 08:31 Resp 17 12/09/19 07:00 BP 113/56 12/09/19 07:00 Pulse Ox 98 12/09/19 07:00 Intake & Output 12/08/19 12/09/19 12/09/19 18:59 06:59 18:59 Intake Total 320 Balance 320 Weight 37.195 kg Intake: Oral 320 Other: Voiding Method Bedside Commode Bedside Commode Toilet Bedside Commode # Voids 2 1 - Exam General: The patient is awake and alert, in no distress Eye: there is normal conjunctiva bilaterally. Neck: The neck is supple, there is no JVD. Cardiovascular: Normal S1-S2, no S3-S4, no murmurs. Respiratory: Lungs are diminished with scattered wheezing all over the chest Gastrointestinal: Abdomen is soft, nontender Musculoskeletal: There is no pedal edema. Neurological:. Speech is normal. Skin: Skin is warm and dry - Labs CBC & Chem 7: 12/09/19 06:12 12/09/19 06:12 Labs: Abnormal Lab Results - Last 24 Hours (Table) 12/08/19 12/09/19 12/09/19 Range/Units 20:26 06:12 06:12 RBC 2.65 L (3.80-5.40) m/uL Hgb 8.2 L (11.4-16.0) gm/dL Hct 25.0 L (34.0-46.0) % Lymphocytes # 0.5 L (1.0-4.8) k/uL BUN 36.0 H (9.0-27.0) mg/dL Est GFR (CKD-EPI)NonAf 56.6 L (60.0-200.0) BUN/Creatinine Ratio 36.00 H (12.00-20.00) Ratio Glucose 115 H (70-110) mg/dL POC Glucose (mg/dL) 173 H (75-99) mg/dL Calcium 8.4 L (8.7-10.3) mg/dL 12/09/19 Range/Units 07:09 RBC (3.80-5.40) m/uL Hgb (11.4-16.0) gm/dL Hct (34.0-46.0) % Lymphocytes # (1.0-4.8) k/uL BUN (9.0-27.0) mg/dL Est GFR (CKD-EPI)NonAf (60.0-200.0) BUN/Creatinine Ratio (12.00-20.00) Ratio Glucose (70-110) mg/dL POC Glucose (mg/dL) 166 H (75-99) mg/dL Calcium (8.7-10.3) mg/dL Microbiology - Last 24 Hours (Table) 12/07/19 18:25 Blood Culture - Preliminary Blood No Growth after 24 hours Assessment and Plan Assessment: This is a 69-year-old female with complex past medical history noted below significant for underlying lung cancer who presented to the hospital with worsening shortness of breath and cough. Patient was evaluated in the ER and admitted to the hospital for further management of her medical problems noted below. 1. Acute COPD exacerbation, received 125 mg IV Solu-Medrol in the ER. Currently on prednisone 40 mg daily. Continue duo nebs scheduled and albuterol nebulizer as needed. Start inhaled steroids twice daily with budesonide. 2. Left lung pneumonia, started on IV ceftriaxone and azithromycin. Sputum culture ordered and pending. Blood culture negative to date. Left pleural effusion and marked by radiology for possible thoracentesis awaiting pulmonology recommendation 3. Recently diagnosed lung cancer on chemotherapy and immunotherapy. Follow up as directed with Dr. Benavidez 4. Tobacco abuse: Counseled extensively to quit. Patient declined nicotine patch at this time 5. Essential hypertension: Blood pressure better well controlled. Continue home regimen with hydralazine and clonidine. I would continue to monitor closely and adjust as needed. 6. Acute on chronic hypoxic respiratory failure, requiring oxygen via nasal c annula. I would clarify with patient if she still has oxygen at home 7. Elevated BNP, no clinical evidence of CHF. Echocardiogram ordered by nitrogen. 8. DVT prophylaxis with subcu Lovenox Continue current regimen otherwise. Anticipate discharge home in the next couple of days.
--- NOTE | 2019-12-09 11:01 | ECHOF ---
Referral Reason:SOB MEASUREMENTS -------- HEIGHT: 149.9 cm WEIGHT: 37.2 kg BP: 122/60 RVIDd: 2.4 cm (< 3.3) IVSd: 1.1 cm (0.6 - 1.1) LVIDd: 3.6 cm (3.9 - 5.3) LVPWd: 1.1 cm (0.6 - 1.1) IVSs: 1.5 cm LVIDs: 2.7 cm LVPWs: 1.5 cm LA Diam: 3.3 cm (2.7 - 3.8) LAESV Index (A-L): 24.78 ml/m Ao Diam: 3.0 cm (2.0 - 3.7) AV Cusp: 1.4 cm (1.5 - 2.6) MV EXCURSION: 15.488 mm (> 18.000) MV EF SLOPE: 71 mm/s (70 - 150) EPSS: 0.4 cm MV E Antwan: 1.23 m/s MV DecT: 136 ms MV A Antwan: 1.49 m/s MV E/A Ratio: 0.83 RAP: 5.00 mmHg RVSP: 35.44 mmHg FINDINGS -------- Resting tachycardia (HR>100bpm). This was a technically good study. The left ventricular size is normal. There is borderline concentric left ventricular hypertrophy. Overall left ventricular systolic function is normal with, an EF between 60 - 65 %. The right ventricle is normal in size. Normal LA size by volume 22+/-6 ml/m2. The right atrium is normal in size. Interatrial and interventricular septum intact. There is mild aortic valve sclerosis. The mitral valve leaflets are mildly thickened. Mild tricuspid regurgitation present. There is mild pulmonary hypertension. The right ventricular systolic pressure, as measured by Doppler, is 35.44mmHg. There is no pulmonic regurgitation present. The aortic root size is normal. Normal inferior vena cava with normal inspiratory collapse consistent with estimated right atrial pre ssure of 5 mmHg. There is no pericardial effusion. CONCLUSIONS -------- 1. Resting tachycardia (HR>100bpm). 2. The left ventricular size is normal. 3. There is borderline concentric left ventricular hypertrophy. 4. Overall left ventricular systolic function is normal with, an EF between 60 - 65 %. 5. The mitral valve leaflets are mildly thickened. 6. Mild tricuspid regurgitation present. 7. There is mild pulmonary hypertension. 8. The right ventricular systolic pressure, as measured by Doppler, is 35.44mmHg. 9. There is no pericardial effusion. DAIRY MACHINE OPERATOR FARMWORKER: Radha Chery RDCS
[2019-12-09 11:17] LABS: Glucose,Whole Blood 132 mg/dL (75-99)
[2019-12-09 16:25] LABS: Glucose,Whole Blood 166 mg/dL (75-99)
--- NOTE | 2019-12-09 16:28 | P.PN ---
Subjective Progress Note Date: 12/09/19 Principal diagnosis: Dyspnea, abnormal chest x-ray This a very pleasant 69-year-old female patient with known history of peripheral vascular occlusive disease, hypertension, hyperlipidemia, chronic tobacco dependence, severe chronic obstructive pulmonary disease with chronic hypoxemic respiratory failure. Her FEV1 value is 45% of predicted. The patient also is known to have advanced adenocarcinoma stage IV. This was diagnosed 08/23/2019. Status post thoracotomy however lobectomy could not be done as there was pleural involvement. She follows with Dr. Mike in our office. She has undergone 2 rounds of chemotherapy and is following with Dr. Benavidez. She presented to the emergency room yesterday with increasing shortness of breath dry nonproductive cough and significant dyspnea on minimal exertion. Chest x-ray revealed small to moderate left-sided pleural effusion. White count 3.6. Hemoglobin 9.5. INR 0.9. Sodium 133. Potassium 4.6. Creatinine 0.96. ProBNP 5610. She is seen today in consultation on the regular medical floor. She is currently sitting up in bed. Awake and alert in no acute distress. She is maintaining O2 saturations in the mid 90s on 2 L/m per nasal cannula. She's been initiated on DuoNeb inhalations, Pulmicort and Perforomist inhalations, oral prednisone. Antibiotics in the form of ceftriaxone and azithromycin. On 12/09/2019 patient seen in follow-up general medical surgical floor. She still bronchospastic, but breathing easier overall, she is currently on 2 L of oxygen, with pulse ox of 90%, hemodynamically stable, no fever or chills, blood culture showed no growth, ration continues on azithromycin and Rocephin for em piric Timentin coverage, nebulized bronchodilators, she is on oral steroids. Denies any chest pain, denies any hemoptysis. Echocardiogram revealed EF of 60- 65%, mild tricuspid regurg, mild pulmonary hypertension, with right-sided pressures of 35.4 mmHg. Today's labs have been reviewed, showing white blood cell, 6.9, hemoglobin of 8.2, electrolytes were within normal limits, BUN of 36 and creatinine 1.0 Objective - Vital Signs Vital signs: Vital Signs Temp 97.8 F 12/09/19 14:44 Pulse 66 12/09/19 15:47 Resp 17 12/09/19 14:44 BP 117/56 12/09/19 15:47 Pulse Ox 97 12/09/19 14:44 Intake & Output 12/08/19 12/09/19 12/09/19 18:59 06:59 18:59 Intake Total 320 Balance 320 Weight 37.195 kg Intake: Oral 320 Other: Voiding Method Bedside Commode Bedside Commode Toilet Bedside Commode # Voids 2 1 3 - Exam GENERAL EXAM: Alert, very pleasant, 69-year-old white female, 2 L of oxygen a pulse ox 98% comfortable in no apparent distress. HEAD: Normocephalic/atraumatic. EYES: Normal reaction of pupils, equal size. Conjunctiva pink, sclera white. NOSE: Clear with pink turbinates. THROAT: No erythema or exudates. NECK: No masses, no JVD, no thyroid enlargement, no adenopathy. CHEST: No chest wall deformity. Symmetrical expansion. LUNGS: Equal air entry with diffuse wheezes CVS: Regular rate and rhythm, normal S1 and S2, no gallops, no murmurs, no rubs ABDOMEN: Soft, nontender. No hepatosplenomegaly, normal bowel sounds, no guarding or rigidity. EXTREMITIES: No clubbing, no edema, no cyanosis, 2+ pulses and upper and lower extremities. MUSCULOSKELETAL: Muscle strength and tone normal. SPINE: No scoliosis or deformity SKIN: No rashes CENTRAL NERVOUS SYSTEM: Alert and oriented -3. No focal deficits, tone is normal in all 4 extremities. PSYCHIATRIC: Alert and oriented -3. Appropriate affect. Intact judgment and insight. - Labs CBC & Chem 7: 12/09/19 06:12 12/09/19 06:12 Labs: Abnormal Lab Results - Last 24 Hours (Table) 12/08/19 12/09/19 12/09/19 Range/Units 20:26 06:12 06:12 RBC 2.65 L (3.80-5.40) m/uL Hgb 8.2 L (11.4-16.0) gm/dL Hct 25.0 L (34.0-46.0) % Lymphocytes # 0.5 L (1.0-4.8) k/uL BUN 36.0 H (9.0-27.0) mg/dL Est GFR (CKD-EPI)NonAf 56.6 L (60.0-200.0) BUN/Creatinine Ratio 36.00 H (12.00-20.00) Ratio Glucose 115 H (70-110) mg/dL POC Glucose (mg/dL) 173 H (75-99) mg/dL Calcium 8.4 L (8.7-10.3) mg/dL 12/09/19 12/09/19 Range/Units 07:09 11:15 RBC (3.80-5.40) m/uL Hgb (11.4-16.0) gm/dL Hct (34.0-46.0) % Lymphocytes # (1.0-4.8) k/uL BUN (9.0-27.0) mg/dL Est GFR (CKD-EPI)NonAf (60.0-200.0) BUN/Creatinine Ratio (12.00-20.00) Ratio Glucose (70-110) mg/dL POC Glucose (mg/dL) 166 H 132 H (75-99) mg/dL Calcium (8.7-10.3) mg/dL Microbiology - Last 24 Hours (Table) 12/07/19 18:25 Blood Culture - Preliminary Blood No Growth after 24 hours Assessment and Plan Plan: Assessment: 1 Acute on chronic hypoxemic respiratory failure secondary to an acute left lower lobe pleural effusion 2 Adenocarcinoma of the lung, stage IV, diagnosed August 2019, currently receiving chemotherapy. Had undergone thoracotomy however lobectomy not performed due to pleural involvement. PET scan had revealed hypermetabolic uptake associated with the right adrenal gland. 3 Advanced oxygen-dependent chronic obstructive pulmonary disease with an FEV1 value of 45% of predicted 4 Chronic tobacco dependence 5 Peripheral vascular disease with previous stent placements 6 Hypertension 7 Hyperlipidemia 8 Osteoarthritis Plan: Continue current medical treatment, continue current antibiotics, bronchodilators, oral steroids. Yesterday's chest ultrasound was reviewed showing left pleural effusion pocket of 7.6 cm, aspirin will placed on hold, we'll schedule a left-sided thoracentesis tomorrow at the bedside by Dr. Arce. I performed a history & physical examination of the patient and discussed their management with my nurse practitioner, Jane Campo. I reviewed the nurse practitioner's note and agree with the documented findings and plan of care. Lung sounds are positive for diffuse wheezes The findings and the impression was discussed with the patient. I attest to the documentation by the nurse practitioner. Time with Patient: Less than 30
[2019-12-09] MEDS: FAMOTIDINE 20 MG TAB PO SCH (17:19)
[2019-12-09] MEDS: AZITHROMYCIN 500 MG TAB PO SCH (17:19)
[2019-12-09] MEDS: ATORVASTATIN 10 MG TAB PO SCH (20:22)
[2019-12-09] MEDS: traMADol 50 MG TAB PO PRN (20:23)
[2019-12-09 20:54] LABS: Glucose,Whole Blood 163 mg/dL (75-99)
[2019-12-10] MEDS: IPRATROPIUM-ALBUTEROL 3 ML NEB INHALATION SCH ×4 (03:32→15:11)
[2019-12-10 06:49] LABS: Glucose,Whole Blood 112 mg/dL (75-99)
[2019-12-10 07:24] VITALS: RESP 18
[2019-12-10 07:33] LABS: Basophils % (A) 0 %; Eosinophils # (A) 0.1 k/uL (0-0.7); Eosinophils % (A) 1 %; HCT 25.3 % (34.0-46.0); Lymphocytes # (A) 0.6 k/uL (1.0-4.8); Lymphocytes % (A) 9 %; MCH 30.3 pg (25.0-35.0); MCHC 31.7 g/dL (31.0-37.0); MCV 95.8 fL (80.0-100.0); Macrocytosis Slight; Mean Platelet Volume 7.1; Monocytes # (A) 0.9 k/uL (0-1.0); Monocytes % (A) 13 %; Neutrophils # (A) 4.9 k/uL (1.3-7.7); Neutrophils % (A) 73 %; Platelet Count 146 k/uL (150-450); RBC 2.64 m/uL (3.80-5.40); WBC 6.7 k/uL (3.8-10.6)
[2019-12-10] MEDS: FORMOTEROL FUMARATE 20 MCG/2 ML NEBU INHALATION SCH (08:17)
[2019-12-10] MEDS: BUDESONIDE 0.5 MG/2 ML NEBU INHALATION SCH (08:17)
[2019-12-10] MEDS: predniSONE 20 MG TAB PO SCH (09:18)
[2019-12-10] MEDS: FAMOTIDINE 20 MG TAB PO SCH (09:18)
[2019-12-10] MEDS: FOLIC ACID 1 MG TAB PO SCH (09:18)
[2019-12-10] MEDS: hydrALAZINE HCL 50 MG TAB PO SCH (09:18)
[2019-12-10] MEDS: cloNIDine HCL 0.1 MG TAB PO SCH (09:18)
[2019-12-10] MEDS: guaiFENesin 600 MG TABLET.ER PO SCH (09:18)
[2019-12-10] MEDS: ENOXAPARIN 40 MG/0.4 ML SYRINGE SQ SCH (09:19)
[2019-12-10] MEDS: OLANZapine 2.5 MG TAB PO SCH (09:22)
[2019-12-10 11:34] LABS: Glucose,Whole Blood 119 mg/dL (75-99)
[2019-12-10 11:36] LABS: African American GFR (CKD) 65.6 (60.0-200.0); Anion Gap 7.9 mmol/L (4.00-12.00); Calcium 8.2 mg/dL (8.7-10.3); Carbon Dioxide 27.1 mmol/L (21.6-31.8); Non-African American GFR(CKD) 56.6 (60.0-200.0); Potassium 4.7 mmol/L (3.5-5.5)
--- NOTE | 2019-12-10 12:07 | XR ---
EXAMINATION TYPE: XR chest 1V portable DATE OF EXAM: 12/10/2019 COMPARISON: Prior chest x-ray 12/08/2019 HISTORY: Status post thoracentesis TECHNIQUE: Single frontal view of the chest is obtained. FINDINGS: There is improved aeration at the left lung base. No pneumothorax or other significant int erval change. Left lung mass is present. IMPRESSION: No evident complication status post thoracentesis.
--- NOTE | 2019-12-10 14:42 | OP ---
OPERATIVE REPORT PULMONARY/CRITICAL CARE PROCEDURE NOTE PROCEDURE: Left thoracentesis. Indication Left pleural effusion. A time-out was completed verifying correct patient, procedure, site, positioning , and implant (s) or special equipment if applicable. Ultrasound guidance was used and appropriate fluid pocket was identified and marked. Patient was positioned, prepped and draped in usual sterile fashion. Lidocaine was used to anesthetize the area. A Thoracentesis catheter was introduced into the pleural space and fluid was removed. Blood loss was none. A chest x-ray was ordered to evaluate for pneumothorax. Total Fluid Removed 310 cc Color of Fluid yellow The fluid will be sent for analysis. Patient tolerated the procedure well and there were no complications. A chest x-ray was ordered to rule out pneumothorax. Again, the patient tolerated the procedure well without any complications whatsoever. The procedure was performed by Dr. Arce and David Campo. [id number] / IJN: [id number] /
--- NOTE | 2019-12-10 14:43 | P.DS ---
Providers Date of admission: 12/07/19 17:21 Expected date of discharge: 12/10/19 Attending physician: Inna Corral MD Consults: 12/07/19 17:18 Consult Physician Routine Consulting Provider: Velvet Mike Consult Reason/Comments: known Do you want consulting provider notified?: Yes Primary care physician: [facility] Course: Discharge Diagnosis: 1. Acute COPD exacerbation 2. Left lung pneumonia 3. Recently diagnosed lung cancer on chemotherapy and immunotherapy 4. Tobacco abuse 5. Essential hypertension: 6. Acute on chronic hypoxic respiratory failure, 7. Elevated BNP, no clinical evidence of CHF. Hospital Course: This is a 69-year-old female with significant past medical history of underlying lung cancer who presented to the hospital with worsening shortness of breath and cough. Patient was evaluated in the ER and admitted for COPD exacerbation and left lung pneumonia as well as left lung pleural effusion. Patient was given IV steroids in the ER. She was then transitioned to oral steroids. Patient was started on IV ceftriaxone and azithromycin for her pneumonia. The following day patient had a thoracentesis of her left pleural effusion. Patient was seen by pulmonology who deemed her stable for discharge after the thoracentesis. Patient instructed to follow up with her oncologist as well as her student counsellor. Patient will be discharged on Augmentin to complete a 7 day course of antibiotics. Patient will be also be discharged on prednisone to complete a 5 day course. Patient will require oxygen on discharge. She was 88% on room air. Patient needs oxygen for COPD as well as lung cancer. dba manager will arrange for home oxygen. At the time of discharge patient was looking forward to going home. She reported that her breathing had improved since admission. General examination - Alert and Oriented 3 in NAD, patient appears chronically debilitated, cachectic appearing Heart - + S1S2 no murmurs Lungs -mild diffuse wheezing throughout Abdomen soft NT ND +ve BS Extremities - No edema RESEARCH SUBJECT - Moving all 4 extremities spontaneously Psych - Calm and cooperative A total of 37 minutes of time were spent preparing this complex discharge summary . Patient Condition at Discharge: Fair Plan - Discharge Summary Discharge Rx Participant: Yes New Discharge Prescriptions: New Amoxic-Pot Clav 875-125Mg [Augmentin 875-125] 1 tab PO Q12HR 4 Days #8 tab predniSONE [Deltasone] 40 mg PO DAILY #3 tab Continue Ipratropium/Albuterol Sulfate [Combivent Respimat Inhaler] 1 puff INHALATION RT-QID PRN PRN Reason: Shortness Of Breath Simvastatin [Zocor] 20 mg PO HS Aspirin [Adult Low Dose Aspirin EC] 81 mg PO DAILY hydrALAZINE HCL [Apresoline] 100 mg PO TID Fluticasone Propion/Salmeterol [[place] 250-50 Inhub] 1 puff INHALATION RT-BID cloNIDine HCL [Catapres] 0.1 mg PO TID Vit A/Vit C/Vit E/Zinc/Copper [ICAPS SOFTGEL] 1 cap PO DAILY Vitamin B Complex 1 cap PO DAILY HYDROcodone/APAP 5-325MG [[place] 5-325] 0.5 tab PO DAILY PRN PRN Reason: Pain traMADol HCL 50 mg PO Q6H PRN PRN Reason: Pain Ondansetron Odt [Zofran ODT] 4 mg PO Q6H PRN PRN Reason: Nausea OLANZapine [ZyPREXA] 2.5 mg PO DAILY Folic Acid 1 mg PO DAILY ALPRAZolam [Xanax] 0.25 mg PO DAILY PRN PRN Reason: Anxiety Furosemide [Lasix] 20 mg PO DAILY PRN PRN Reason: Edema Ipratropium-Albuterol Nebulize [Duoneb 0.5 mg-3 mg/3 ml Soln] 3 ml INHALATION RT-DAILY PRN PRN Reason: Shortness Of Breath Discharge Medication List Ipratropium/Albuterol Sulfate [Combivent Respimat Inhaler] 1 puff INHALATION RT- QID PRN 06/01/15 [History] Simvastatin [Zocor] 20 mg PO HS 06/01/15 [History] Aspirin [Adult Low Dose Aspirin EC] 81 mg PO DAILY 10/28/16 [History] hydrALAZINE HCL [Apresoline] 100 mg PO TID 01/04/19 [History] Fluticasone Propion/Salmeterol [[place] 250-50 Inhub] 1 puff INHALATION RT-BID 06/03/19 [History] Vit A/Vit C/Vit E/Zinc/Copper [ICAPS SOFTGEL] 1 cap PO DAILY 06/03/19 [History] cloNIDine HCL [Catapres] 0.1 mg PO TID 06/03/19 [History] ALPRAZolam [Xanax] 0.25 mg PO DAILY PRN 12/07/19 [History] Folic Acid 1 mg PO DAILY 12/07/19 [History] Furosemide [Lasix] 20 mg PO DAILY PRN 12/07/19 [History] HYDROcodone/APAP 5-325MG [[place] 5-325] 0.5 tab PO DAILY PRN 12/07/19 [History] Ipratropium-Albuterol Nebulize [Duoneb 0.5 mg-3 mg/3 ml Soln] 3 ml INHALATION RT-DAILY PRN 12/07/19 [History] OLANZapine [ZyPREXA] 2.5 mg PO DAILY 12/07/19 [History] Ondansetron Odt [Zofran ODT] 4 mg PO Q6H PRN 12/07/19 [History] Vitamin B Complex 1 cap PO DAILY 12/07/19 [History] traMADol HCL 50 mg PO Q6H PRN 12/07/19 [History] Amoxic-Pot Clav 875-125Mg [Augmentin 875-125] 1 tab PO Q12HR 4 Days #8 tab 12/10/19 [Rx] predniSONE [Deltasone] 40 mg PO DAILY #3 tab 12/10/19 [Rx] Follow up Appointment(s)/Referral(s): None,Stated [REFERRING] - 1-2 days Discharge Disposition: HOME SELF-CARE
[2019-12-10 14:53] LABS: Appearance,BF Clear; Color,BF Yellow; Nucleated Cells, Body Fluid 111 /uL; RBC, Body Fluid 146 /uL
--- NOTE | 2019-12-10 14:54 | P.PN ---
Subjective Progress Note Date: 12/10/19 Principal diagnosis: Dyspnea, abnormal chest x-ray This a very pleasant 69-year-old female patient with known history of peripheral vascular occlusive disease, hypertension, hyperlipidemia, chronic tobacco dependence, severe chronic obstructive pulmonary disease with chronic hypoxemic respiratory failure. Her FEV1 value is 45% of predicted. The patient also is known to have advanced adenocarcinoma stage IV. This was diagnosed 08/23/2019. Status post thoracotomy however lobectomy could not be done as there was pleural involvement. She follows with Dr. Mike in our office. She has undergone 2 rounds of chemotherapy and is following with Dr. Benavidez. She presented to the emergency room yesterday with increasing shortness of breath dry nonproductive cough and significant dyspnea on minimal exertion. Chest x-ray revealed small to moderate left-sided pleural effusion. White count 3.6. Hemoglobin 9.5. INR 0.9. Sodium 133. Potassium 4.6. Creatinine 0.96. ProBNP 5610. She is seen today in consultation on the regular medical floor. She is currently sitting up in bed. Awake and alert in no acute distress. She is maintaining O2 saturations in the mid 90s on 2 L/m per nasal cannula. She's been initiated on DuoNeb inhalations, Pulmicort and Perforomist inhalations, oral prednisone. Antibiotics in the form of ceftriaxone and azithromycin. On 12/09/2019 patient seen in follow-up general medical surgical floor. She still bronchospastic, but breathing easier overall, she is currently on 2 L of oxygen, with pulse ox of 90%, hemodynamically stable, no fever or chills, blood culture showed no growth, ration continues on azithromycin and Rocephin for em piric Timentin coverage, nebulized bronchodilators, she is on oral steroids. Denies any chest pain, denies any hemoptysis. Echocardiogram revealed EF of 60- 65%, mild tricuspid regurg, mild pulmonary hypertension, with right-sided pressures of 35.4 mmHg. Today's labs have been reviewed, showing white blood cell, 6.9, hemoglobin of 8.2, electrolytes were within normal limits, BUN of 36 and creatinine 1.0 On 12/10/2019 patient seen in follow-up on the general medical surgical floor. She is doing well, breathing comfortably, does get exertional dyspnea, appears weak, but no acute distress, no significant cough or congestion, lung sounds reveal diminished breath sounds at the bases, patient presented liters of oxygen with a pulse ox 91%, room air pulse ox was 80%, patient does qualify for home oxygen, she's been afebrile, she's had no acute events overnight, no altered mentation. Yesterday we place patient's aspirin on hold, for left-sided thoracentesis today, she did sign consent for left-sided thoracentesis, and a 310 mL of clear light opal-colored fluid was sent for analysis, cytology and fluid cultures. Tolerated procedure very well, postoperative chest x-ray showed no evident complications status post thoracentesis. Today's labs have been reviewed, showing white blood cell count of 6.7, hemoglobin of 8.0, electrolyte are within normal limits, BUN of 34 creatinine is 1. She has been treated with the empiric antibiotics, will prednisone, nebulized bronchodilators, she is improved, from pulmonary perspective can be considered for discharge home today Objective - Vital Signs Vital signs: Vital Signs Temp 98.0 F 12/10/19 07:00 Pulse 100 12/10/19 11:54 Resp 18 12/10/19 07:00 BP 145/71 12/10/19 07:00 Pulse Ox 88 L 12/10/19 13:29 Intake & Output 12/09/19 12/10/19 12/10/19 18:59 06:59 18:59 Intake Total 200 Balance 200 Intake: Oral 200 Other: Voiding Method Toilet Toilet Toilet Bedside Commode Bedside Commode Bedside Commode # Voids 3 2 - Exam GENERAL EXAM: Alert, very pleasant, 69-year-old white female, 2 L of oxygen a pulse ox 91% comfortable in no apparent distress. HEAD: Normocephalic/atraumatic. EYES: Normal reaction of pupils, equal size. Conjunctiva pink, sclera white. NOSE: Clear with pink turbinates. THROAT: No erythema or exudates. NECK: No masses, no JVD, no thyroid enlargement, no adenopathy. CHEST: No chest wall deformity. Symmetrical expansion. LUNGS: Equal air entry with diminished breath sounds, minimal wheezing CVS: Regular rate and rhythm, normal S1 and S2, no gallops, no murmurs, no rubs ABDOMEN: Soft, nontender. No hepatosplenomegaly, normal bowel sounds, no g uarding or rigidity. EXTREMITIES: No clubbing, no edema, no cyanosis, 2+ pulses and upper and lower extremities. MUSCULOSKELETAL: Muscle strength and tone normal. SPINE: No scoliosis or deformity SKIN: No rashes CENTRAL NERVOUS SYSTEM: Alert and oriented -3. No focal deficits, tone is normal in all 4 extremities. PSYCHIATRIC: Alert and oriented -3. Appropriate affect. Intact judgment and insight. - Labs CBC & Chem 7: 12/10/19 06:49 12/10/19 06:49 Labs: Abnormal Lab Results - Last 24 Hours (Table) 12/09/19 12/09/19 12/10/19 Range/Units 16:23 20:49 06:47 RBC (3.80-5.40) m/uL Hgb (11.4-16.0) gm/dL Hct (34.0-46.0) % RDW (11.5-15.5) % Plt Count (150-450) k/uL Lymphocytes # (1.0-4.8) k/uL BUN (9.0-27.0) mg/dL Est GFR (CKD-EPI)NonAf (60.0-200.0) BUN/Creatinine Ratio (12.00-20.00) Ratio POC Glucose (mg/dL) 166 H 163 H 112 H (75-99) mg/dL Calcium (8.7-10.3) mg/dL 12/10/19 12/10/19 12/10/19 Range/Units 06:49 06:49 11:32 RBC 2.64 L (3.80-5.40) m/uL Hgb 8.0 L (11.4-16.0) gm/dL Hct 25.3 L (34.0-46.0) % RDW 16.0 H (11.5-15.5) % Plt Count 146 L (150-450) k/uL Lymphocytes # 0.6 L (1.0-4.8) k/uL BUN 34.0 H (9.0-27.0) mg/dL Est GFR (CKD-EPI)NonAf 56.6 L (60.0-200.0) BUN/Creatinine Ratio 34.00 H (12.00-20.00) Ratio POC Glucose (mg/dL) 119 H (75-99) mg/dL Calcium 8.2 L (8.7-10.3) mg/dL Microbiology - Last 24 Hours (Table) 12/07/19 18:25 Blood Culture - Preliminary Blood No Growth after 48 hours Assessment and Plan Plan: Assessment: 1 Acute on chronic hypoxemic respiratory failure secondary to an acute left lower lobe pleural effusion, status post left-sided thoracentesis today on 12/10/2019 removal of 310 mL of clear light opal-colored fluid which was sent for analysis, cytology and cultures 2 Adenocarcinoma of the lung, stage IV, diagnosed August 2019, currently receiving chemotherapy. Had undergone thoracotomy however lobectomy not performed due to pleural involvement. PET scan had revealed hypermetabolic uptake associated with the right adrenal gland. 3 Advanced oxygen-dependent chronic obstructive pulmonary disease with an FEV1 value of 45% of predicted 4 Chronic tobacco dependence 5 Peripheral vascular disease with previous stent placements 6 Hypertension 7 Hyperlipidemia 8 Osteoarthritis Plan: Patient is doing well, she tolerated left-sided thoracentesis very well, no evidence of any complications from the chest x-ray following the procedure, the pleural fluid will be sent for analysis, cytology and cultures. Overall prashant sigala has significantly improved since admission, no acute events overnight, she can be considered for discharge home today with outpatient follow-up with Dr. Bartlett in the office in 7-10 days I performed a history & physical examination of the patient and discussed their management with my nurse practitioner, Jane Campo. I reviewed the nurse practitioner's note and agree with the documented findings and plan of care. Lung sounds are positive for diffuse wheezes The findings and the impression was discussed with the patient. I attest to the documentation by the nurse practitioner. Time with Patient: Less than 30
[2019-12-10 14:56] VITALS: BP 124/72; TEMP 98.6
[2019-12-10 15:14] VITALS: PULSE 100
[2019-12-10 15:24] LABS: Mononuclear WBC,Body Fluid 69 %; Polynuclear WBC,Body Fluid 31 %; Total Cells Counted,Body Fluid 100
[2019-12-11 05:09] LABS: Glucose, BF Source Pleural Fluid; Glucose, Body Fluid 98 mg/dL; LDH, Body Fluid Source Pleural Fluid
== END 2019-12-10 17:01 | disposition home or self-care (01) | DRG 193 ==
LOC: EC 14:27 → 4SSUR 17:21
PROVIDERS: ADMIT Family Medicine; ATTEND Family Medicine
PROC: 0W9B3ZZ Drainage of Left Pleural Cavity, Percutaneous Approach (ICD-10-PCS; principal; 2019-12-10)
DX: J18.9 Pneumonia, unspecified organism (principal); J96.21 Acute and chronic respiratory failure with hypoxia; J44.1 Chronic obstructive pulmonary disease with (acute) exacerbation; C34.90 Malignant neoplasm of unspecified part of unspecified bronchus or lung; J90 Pleural effusion, not elsewhere classified; R64 Cachexia; Z68.1 Body mass index [BMI] 19.9 or less, adult; J44.0 Chronic obstructive pulmonary disease with (acute) lower respiratory infection; I27.20 Pulmonary hypertension, unspecified; I10 Essential (primary) hypertension; E78.5 Hyperlipidemia, unspecified; T45.1X5A Adverse effect of antineoplastic and immunosuppressive drugs, initial encounter; D64.81 Anemia due to antineoplastic chemotherapy; D69.59 Other secondary thrombocytopenia; F17.210 Nicotine dependence, cigarettes, uncomplicated; I07.1 Rheumatic tricuspid insufficiency; I49.3 Ventricular premature depolarization; F41.9 Anxiety disorder, unspecified; I73.9 Peripheral vascular disease, unspecified; M19.90 Unspecified osteoarthritis, unspecified site; K21.9 Gastro-esophageal reflux disease without esophagitis; Z79.899 Other long term (current) drug therapy; Z79.82 Long term (current) use of aspirin; Z88.8 Allergy status to other drugs, medicaments and biological substances; Z87.01 Personal history of pneumonia (recurrent); Z90.89 Acquired absence of other organs; Z98.890 Other specified postprocedural states; Z95.820 Peripheral vascular angioplasty status with implants and grafts; Z82.49 Family history of ischemic heart disease and other diseases of the circulatory system; Z84.1 Family history of disorders of kidney and ureter; Z99.81 Dependence on supplemental oxygen
CPT/HCPCS: 36415; 71045; 71046; 76604; 80048; 80053; 82533; 82945; 83540; 83550; 83605; 83615; 83735; 83880; 84157; 84439; 84443; 84484; 85025; 85610; 85730; 87040; 87070; 87102; 87116; 87205; 87206; 87252; 87496; 87498; 87502; 87529; 87634; 87798; 88108; 88305; 88341; 88342; 89050; 93005; 93306; 94640; 94760; 96361; 96365; 96375; 99291

== ENCOUNTER 2020-01-18 13:38 | Inpatient (IN) | payer MEDICARE, OTHER ==
[2020-01-18] MEDS ORDERED: SODIUM CHLORIDE 0.9% 1,000 ML IV STA (13:58)
[2020-01-18] MEDS ORDERED: IPRATROPIUM-ALBUTEROL 3 ML NEB INHALATION STA (13:59)
--- NOTE | 2020-01-18 14:04 | ED ---
SOB HPI - General Chief Complaint: Shortness of Breath Stated Complaint: GERARDO Time Seen by Provider: 01/18/20 13:51 Source: patient, RN/MD, RN notes reviewed, old records reviewed Mode of arrival: wheelchair Limitations: no limitations - History of Present Illness Initial Comments: This is a 69-year-old female with a history of lung cancer and COPD and who presents with 2 days of fever and shortness of breath nausea weakness. Her last chemotherapy was about a week ago. She presents with the above complaints also a cough. Additionally yesterday she did receive 2 units of blood in the transfusion prior to that she did get some IV fluids for dehydration. Also is had some nausea also decreased oral intake and appetite. She does complain some right-sided pain he gets worse with movement and deep breathing. No other complaints modifying factors additionally she was also noted have elevated blood pressure recently. MD Complaint: shortness of breath - Related Data Home Medications Medication Instructions Recorded Confirmed Ipratropium/Albuterol Sulfate 1 puff INHALATION RT-QID PRN 06/01/15 01/17/20 [Combivent Respimat Inhaler] Simvastatin [Zocor] 20 mg PO HS 06/01/15 01/17/20 Aspirin [Adult Low Dose Aspirin EC] 81 mg PO DAILY 10/28/16 01/17/20 hydrALAZINE HCL [Apresoline] 100 mg PO TID 01/04/19 01/17/20 Fluticasone Propion/Salmeterol 1 puff INHALATION RT-BID 06/03/19 01/17/20 [Wixela 250-50 Inhub] Vit A/Vit C/Vit E/Zinc/Copper 1 cap PO DAILY 06/03/19 01/17/20 [ICAPS SOFTGEL] cloNIDine HCL [Catapres] 0.1 mg PO TID 06/03/19 01/17/20 ALPRAZolam [Xanax] 0.25 mg PO DAILY PRN 12/07/19 01/17/20 Folic Acid 1 mg PO DAILY 12/07/19 01/17/20 HYDROcodone/APAP 5-325MG [[place] 0.5 tab PO DAILY PRN 12/07/19 01/17/20 5-325] Ipratropium-Albuterol Nebulize 3 ml INHALATION RT-DAILY PRN 12/07/19 01/17/20 [Duoneb 0.5 mg-3 mg/3 ml Soln] OLANZapine [ZyPREXA] 2.5 mg PO DAILY 12/07/19 01/17/20 Ondansetron Odt [Zofran ODT] 4 mg PO Q6H PRN 12/07/19 01/17/20 Vitamin B Complex 1 cap PO DAILY 12/07/19 01/17/20 traMADol HCL 50 mg PO Q6H PRN 12/07/19 01/17/20 predniSONE [Deltasone] 5 mg PO DAILY 01/17/20 01/17/20 Allergies Allergy/AdvReac Type Severity Reaction Status Date / Time amlodipine [From Norvasc] Allergy Rash/Hives Verified 01/18/20 15:49 estrogens, conjugated Allergy Rash/Hives Verified 01/18/20 15:49 [From Premarin] lisinopril Allergy Swelling Verified 01/18/20 15:49 metoprolol Allergy Rash/Hives Verified 01/18/20 15:49 nystatin Allergy Rash/Hives Verified 01/18/20 15:49 Review of Systems ROS Statement: Those systems with pertinent positive or pertinent negative responses have been documented in the HPI. ROS Other: All systems not noted in ROS Statement are negative. Past Medical History Past Medical History: Asthma, Cancer, COPD, Hyperlipidemia, Hypertension, Osteoarthritis (OA), Pneumonia, Vascular Disorder Additional Past Medical History / Comment(s): HX OF ANEMIA, STATES HAS HAD UNSUCCSESSFUL COLONOSCOPIES IN PAST R/T "TWISTED BOWEL" PAD with lower extremity discomfort bilaterally. lung nodule , chemotherapy for lungs ca History of Any Multi-Drug Resistant Organisms: None Reported Past Surgical History: Adenoidectomy, Breast Surgery, Tonsillectomy Additional Past Surgical History / Comment(s): 06/03/15 Arch study, PTBA & Stenting Right Ext Iliac artery. ABDOULAYE OOPHERECTOMY. LASIK EYE SURGERY Abdoulaye. Benign Breast bx bilat. Rt Carotid Angiogram, & Endarterectomy. Rt Carotid Artery Stent 07/14/15. Stent to LT Leg 07/30/15. ABD AORTOGRAM, ANGIOGRAM 11/04/16. RT LEG STENT 11/10/16 Past Anesthesia/Blood Transfusion Reactions: No Reported Reaction Past Psychological History: No Psychological Hx Reported Smoking Status: Former smoker Past Alcohol Use History: Occasional Past Drug Use History: None Reported - Past Family History Father Family Medical History: Myocardial Infarction (NV) Additional Family Medical History / Comment(s): Father of a NV at age 61 yrs. Brother(s) Family Medical History: Myocardial Infarction (NV) Additional Family Medical History / Comment(s): Brother of a NV at the age of 29 yrs. Mother Family Medical History: No Reported History Additional Family Medical History / Comment(s): Mother had kidney failure and was on dialysis. She at age 73 yrs. General Exam - General Exam Comments Initial Comments: This a well-developed asthenic appearing female who is awake alert oriented 3 Limitations: no limitations General appearance: alert, anxious, in distress Head exam: Present: atraumatic, normocephalic, normal inspection Eye exam: Present: normal appearance, PERRL, EOMI. Absent: scleral icterus, conjunctival injection, periorbital swelling ENT exam: Present: mucous membranes dry Neck exam: Present: normal inspection, full ROM, other. Absent: tenderness, meningismus, lymphadenopathy Respiratory exam: Present: wheezes, accessory muscle use, decreased breath sounds. Absent: respiratory distress, rales, rhonchi, stridor Cardiovascular Exam: Present: normal rhythm, tachycardia, normal heart sounds. Absent: systolic murmur, diastolic murmur, rubs, gallop, clicks GI/Abdominal exam: Present: soft, normal bowel sounds. Absent: distended, tenderness, guarding, rebound, rigid Extremities exam: Present: normal inspection, full ROM, normal capillary refill. Absent: tenderness, pedal edema, joint swelling, calf tenderness Back exam: Present: normal inspection Neurological exam: Present: alert, oriented X3, CN II-XII intact Psychiatric exam: Present: normal affect, anxious Skin exam: Present: warm, dry, intact, normal color. Absent: rash Course Vital Signs 01/18/20 01/18/20 01/18/20 13:45 14:13 14:22 Temperature 100.0 F H Pulse Rate 119 H 116 H 116 H Respiratory 24 Rate Blood Pressure 166/88 O2 Sat by Pulse 92 L Oximetry 01/18/20 15:00 Temperature Pulse Rate 98 Respiratory 28 H Rate Blood Pressure 197/100 O2 Sat by Pulse 99 Oximetry Medical Decision Making - Medical Decision Making I did discuss the findings with the patient as well as Dr. Schroeder patient will be admitted with consultation by pulmonary medicine as well as oncology. Fever of unknown origin and COPD exacerbation - Lab Data Result diagrams: 01/18/20 14:13 01/18/20 14:13 Lab Results 01/18/20 01/18/20 01/18/20 Range/Units 14:13 14:13 14:13 WBC 3.2 L (3.8-10.6) k/uL RBC 3.90 (3.80-5.40) m/uL Hgb 12.4 D (11.4-16.0) gm/dL Hct 39.0 (34.0-46.0) % MCV 99.8 (80.0-100.0) fL MCH 31.7 (25.0-35.0) pg MCHC 31.7 (31.0-37.0) g/dL RDW 18.1 H (11.5-15.5) % Plt Count 74 L (150-450) k/uL Neutrophils % (Manual) 54 % Band Neuts % (Manual) 3 % Lymphocytes % (Manual) 27 % Monocytes % (Manual) 15 % Eosinophils % (Manual) 1 % Neutrophils # (Manual) 1.80 (1.3-7.7) k/uL Lymphocytes # (Manual) 0.86 L (1.0-4.8) k/uL Monocytes # (Manual) 0.48 (0-1.0) k/uL Eosinophils # (Manual) 0.03 (0-0.7) k/uL Nucleated RBCs 0 (0-0) /100 WBC Manual Slide Review Performed Anisocytosis Slight Macrocytosis Moderate PT 9.3 (9.0-12.0) sec INR 0.9 (<1.2) APTT 23.7 (22.0-30.0) sec D-Dimer 3.47 H (<0.60) mg/L FEU Sodium 132 L (137-145) mmol/L Potassium 4.4 (3.5-5.1) mmol/L Chloride 91 L (98-107) mmol/L Carbon Dioxide 38 H (22-30) mmol/L Anion Gap 3 mmol/L BUN 23 H (7-17) mg/dL Creatinine 0.78 (0.52-1.04) mg/dL Est GFR (CKD-EPI)AfAm 89 (>60 ml/min/1.73 sqM) Est GFR (CKD-EPI)NonAf 77 (>60 ml/min/1.73 sqM) Glucose 125 H (74-99) mg/dL Plasma Lactic Acid Zac (0.7-2.0) mmol/L Calcium 9.0 (8.4-10.2) mg/dL Magnesium 1.6 (1.6-2.3) mg/dL Total Bilirubin 0.8 (0.2-1.3) mg/dL AST 36 (14-36) U/L ALT 17 (4-34) U/L Alkaline Phosphatase 95 (38-126) U/L Creatine Kinase 28 L (30-135) U/L Troponin I (0.000-0.034) ng/mL NT-Pro-B Natriuret Pep pg/mL Total Protein 6.3 (6.3-8.2) g/dL Albumin 3.5 (3.5-5.0) g/dL Cortisol 10 ug/dL Coronavirus (PCR) (Not Detectd) Influenza Type A RNA (Not Detectd) Influenza Type B (PCR) (Not Detectd) 01/18/20 01/18/20 01/18/20 Range/Units 14:13 14:13 14:13 WBC (3.8-10.6) k/uL RBC (3.80-5.40) m/uL Hgb (11.4-16.0) gm/dL Hct (34.0-46.0) % MCV (80.0-100.0) fL MCH (25.0-35.0) pg MCHC (31.0-37.0) g/dL RDW (11.5-15.5) % Plt Count (150-450) k/uL Neutrophils % (Manual) % Band Neuts % (Manual) % Lymphocytes % (Manual) % Monocytes % (Manual) % Eosinophils % (Manual) % Neutrophils # (Manual) (1.3-7.7) k/uL Lymphocytes # (Manual) (1.0-4.8) k/uL Monocytes # (Manual) (0-1.0) k/uL Eosinophils # (Manual) (0-0.7) k/uL Nucleated RBCs (0-0) /100 WBC Manual Slide Review Anisocytosis Macrocytosis PT (9.0-12.0) sec INR (<1.2) APTT (22.0-30.0) sec D-Dimer (<0.60) mg/L FEU Sodium (137-145) mmol/L Potassium (3.5-5.1) mmol/L Chloride (98-107) mmol/L Carbon Dioxide (22-30) mmol/L Anion Gap mmol/L BUN (7-17) mg/dL Creatinine (0.52-1.04) mg/dL Est GFR (CKD-EPI)AfAm (>60 ml/min/1.73 sqM) Est GFR (CKD-EPI)NonAf (>60 ml/min/1.73 sqM) Glucose (74-99) mg/dL Plasma Lactic Acid Zac 0.9 (0.7-2.0) mmol/L Calcium (8.4-10.2) mg/dL Magnesium (1.6-2.3) mg/dL Total Bilirubin (0.2-1.3) mg/dL AST (14-36) U/L ALT (4-34) U/L Alkaline Phosphatase (38-126) U/L Creatine Kinase (30-135) U/L Troponin I 0.067 H* (0.000-0.034) ng/mL NT-Pro-B Natriuret Pep 89176 pg/mL Total Protein (6.3-8.2) g/dL Albumin (3.5-5.0) g/dL Cortisol ug/dL Coronavirus (PCR) (Not Detectd) Influenza Type A RNA (Not Detectd) Influenza Type B (PCR) (Not Detectd) 01/18/20 01/18/20 Range/Units 14:48 14:48 WBC (3.8-10.6) k/uL RBC (3.80-5.40) m/uL Hgb (11.4-16.0) gm/dL Hct (34.0-46.0) % MCV (80.0-100.0) fL MCH (25.0-35.0) pg MCHC (31.0-37.0) g/dL RDW (11.5-15.5) % Plt Count (150-450) k/uL Neutrophils % (Manual) % Band Neuts % (Manual) % Lymphocytes % (Manual) % Monocytes % (Manual) % Eosinophils % (Manual) % Neutrophils # (Manual) (1.3-7.7) k/uL Lymphocytes # (Manual) (1.0-4.8) k/uL Monocytes # (Manual) (0-1.0) k/uL Eosinophils # (Manual) (0-0.7) k/uL Nucleated RBCs (0-0) /100 WBC Manual Slide Review Anisocytosis Macrocytosis PT (9.0-12.0) sec INR (<1.2) APTT (22.0-30.0) sec D-Dimer (<0.60) mg/L FEU Sodium (137-145) mmol/L Potassium (3.5-5.1) mmol/L Chloride (98-107) mmol/L Carbon Dioxide (22-30) mmol/L Anion Gap mmol/L BUN (7-17) mg/dL Creatinine (0.52-1.04) mg/dL Est GFR (CKD-EPI)AfAm (>60 ml/min/1.73 sqM) Est GFR (CKD-EPI)NonAf (>60 ml/min/1.73 sqM) Glucose (74-99) mg/dL Plasma Lactic Acid Zac (0.7-2.0) mmol/L Calcium (8.4-10.2) mg/dL Magnesium (1.6-2.3) mg/dL Total Bilirubin (0.2-1.3) mg/dL AST (14-36) U/L ALT (4-34) U/L Alkaline Phosphatase (38-126) U/L Creatine Kinase (30-135) U/L Troponin I (0.000-0.034) ng/mL NT-Pro-B Natriuret Pep pg/mL Total Protein (6.3-8.2) g/dL Albumin (3.5-5.0) g/dL Cortisol ug/dL Coronavirus (PCR) Not Detected (Not Detectd) Influenza Type A RNA Not Detected (Not Detectd) Influenza Type B (PCR) Not Detected (Not Detectd) - EKG Data -: EKG Interpreted by Me EKG shows normal: sinus rhythm EKG Comments: Sinus tachycardia rate 117. Interval 136 QRS duration 84 QT since QTC 324/451 evidence of LVH some artifact present - Radiology Data Radiology results: report reviewed (I did review the imaging and report no evidence of PE. Laboratory changes as noted previously. Please see the complete report), image reviewed Critical Care Time Critical Care Time: Yes Total Critical Care Time: 35 Critical Care Time: 35 minutes of critical care time which includes initial presentation with history physical labs x-rays multiple reevaluation of the patient response to therapy discuss with the main physician admission orders documentation above also included reviewing old charting Disposition Clinical Impression: Neutropenia associated with infection, Febrile illness, acute, COPD exacerbation, Dehydration Disposition: ADMITTED IP TO THIS HOSP Condition: Fair Referrals: Darline Chaudhari MD [Primary Care Provider] - 1-2 days
[2020-01-18 14:30] LABS: Anisocytosis Slight; MCH 31.7 pg (25.0-35.0); MCHC 31.7 g/dL (31.0-37.0); MCV 99.8 fL (80.0-100.0); Macrocytosis Moderate; Mean Platelet Volume 7.2; RDW 18.1 % (11.5-15.5); WBC 3.2 k/uL (3.8-10.6)
[2020-01-18 14:32] LABS: HGB 12.4 gm/dL (11.4-16.0)
[2020-01-18 14:37] LABS: INR 0.9 (<1.2); Partial Thromboplastin Time 23.7 sec (22.0-30.0); Prothrombin Time 9.3 sec (9.0-12.0)
[2020-01-18 14:38] LABS: Albumin 3.5 g/dL (3.5-5.0); Magnesium 1.6 mg/dL (1.6-2.3); Potassium 4.4 mmol/L (3.5-5.1); Total Bilirubin 0.8 mg/dL (0.2-1.3); Total Protein 6.3 g/dL (6.3-8.2)
[2020-01-18 14:45] LABS: D-Dimer 3.47 mg/L FEU (<0.60)
[2020-01-18 14:53] LABS: Band Neutrophils % 3 %; Eosinophils # (M) 0.03 k/uL (0-0.7); Lymphocytes # (M) 0.86 k/uL (1.0-4.8); Monocytes # (M) 0.48 k/uL (0-1.0); Neutrophils % (M) 54 %; Nucleated Red Blood Cells 0 /100 WBC (0-0); Total Cells Counted 100
--- NOTE | 2020-01-18 15:10 | XR ---
EXAMINATION TYPE: XR chest 2V DATE OF EXAM: 01/18/2020 COMPARISON: 12/19/2019 HISTORY: Pleural effusion TECHNIQUE: 2 views FINDINGS: There is coarsening of interstitial markings. There is flattening of the diaphragm. Thoraci c aorta is atheromatous. Heart is slightly enlarged. Bony thorax is intact. IMPRESSION: Emphysema and pulmonary fibrosis. There is improvement in left pleural effusion compared to old exam. No obvious heart failure.
[2020-01-18 15:40] LABS: Platelet Count 74 k/uL (150-450)
[2020-01-18] MEDS ORDERED: methylPREDNISolone SOD SUCCI 125 MG/2 ML VIAL IV STA (15:42)
[2020-01-18] MEDS ORDERED: CEFEPIME 2 GM in SODIUM CHLORIDE 0.9% 100 ML IVPB STA (15:42)
[2020-01-18] MEDS ORDERED: IPRATROPIUM-ALBUTEROL 3 ML NEB INHALATION PRN (15:42)
[2020-01-18] MEDS ORDERED: HYDROcodone/APAP 5-325MG 1 EACH TAB PO PRN (15:47)
[2020-01-18] MEDS ORDERED: ONDANSETRON ODT 4 MG TAB PO PRN (15:47)
--- NOTE | 2020-01-18 15:53 | CT ---
EXAMINATION TYPE: CT angio chest DATE OF EXAM: 01/18/2020 COMPARISON: 06/02/2019 HISTORY: pe CT DLP: 144.5 mGycm Automated exposure control for dose reduction was used. CONTRAST: Performed with IV Contrast, patient injected with 100 mL of Isovue 370. There are 3-D post processed images. There is a reticular nodular pulmonary infiltrate in both lungs. There is no suspicious pulmonary mas s. Heart size is fairly normal. There is no pericardial effusion. There is no pleural effusion. There is normal contrast opacification of the pulmonary arteries. There are no filling defects. Thora cic aorta is intact. There is no aneurysm or dissection. The bony thorax is intact. There is small ri ght kidney. IMPRESSION: No evidence of pulmonary embolism. There is a diffuse reticular nodular pulmonary infiltrate similar to old exam. This is consistent with inflammatory disease. There is some clearing of airspace infiltr ate left lung base compared to old exam. There is probably some pulmonary fibrosis. Large central pulmonary arteries consistent with some degree of pulmonary hypertension unchanged. Sma ll right kidney unchanged.
[2020-01-18] MEDS ORDERED: SODIUM CHLORIDE 0.9% 500 ML 500 ML IV STA (15:56)
[2020-01-18] MEDS ORDERED: cloNIDine HCL/PF 100 MCG in SODIUM CHLORIDE 0.9% 100 ML IVPB ONE (15:56)
[2020-01-18] MEDS ORDERED: CEFEPIME 2 GM in SODIUM CHLORIDE 0.9% 100 ML IVPB SCH (16:00)
[2020-01-18] MEDS: cloNIDine HCL 0.1 MG TAB PO SCH ×2 (16:33→20:56)
[2020-01-18 16:42] LABS: Appearance,Urine Clear (Clear); Bilirubin,Urine Negative (Negative); Blood,Urine Trace (Negative); Color,Urine Light Yellow; Glucose,Urine (UA) Negative (Negative); Ketones,Urine Negative (Negative); Leukocyte Esterase,Urine Negative (Negative); Nitrite,Urine Negative (Negative); PH, Urine 7.5 (5.0-8.0); Protein,Urine 3+ (Negative); RBC,Urine 3 /hpf (0-5); Specific Gravity,Urine 1.023 (1.001-1.035); Squamous Epithelial Cell,Urine <1 /hpf (0-4); Urobilinogen,Urine <2.0 mg/dL (<2.0); WBC,Urine 2 /hpf (0-5)
[2020-01-18] MEDS: hydrALAZINE HCL 50 MG TAB PO SCH ×2 (16:50→20:56)
[2020-01-18] MEDS: methylPREDNISolone SOD SUCCI 125 MG/2 ML VIAL IV SCH ×2 (17:59→23:29)
--- NOTE | 2020-01-18 20:41 | US ---
EXAMINATION TYPE: US venous doppler duplex LE BI DATE OF EXAM: 01/18/2020 8:18 PM COMPARISON: NONE CLINICAL HISTORY: r/o DVT. difficulty breathing SIDE PERFORMED: Bilateral TECHNIQUE: The lower extremity deep venous system is examined utilizing real time linear array sonog flower with graded compression, doppler sonography and color-flow sonography. VESSELS IMAGED: External Iliac Vein (EIV) Common Femoral Vein Deep Femoral Vein Greater Saphenous Vein * Femoral Vein Popliteal Vein Small Saphenous Vein * Proximal Calf Veins (* superficial vessels) Right Leg: Negative for DVT Left Leg: Negative for DVT IMPRESSION: No sign of deep vein thrombosis in both legs.
[2020-01-18] MEDS: traMADol 50 MG TAB PO PRN (20:55)
[2020-01-18] MEDS: ATORVASTATIN 10 MG TAB PO SCH (20:55)
--- NOTE | 2020-01-18 21:59 | P.HPIM ---
History of Present Illness H&P Date: 01/18/20 The patient was seen and evaluated on the medical floor at 7:30 PM on 01/17 Patient is a 69-year-old female with a PMH of lung cancer diagnosed in 07/2019 currently undergoing chemotherapy with last session on 01/10/20, chronic hypoxic respiratory failure on 2 L nasal cannula oxygen, COPD, hyperlipidemia, and GERD who presented to the emergency room with complaints of shortness of breath, cough, and fever. Patient reports that since her last chemotherapy session, she has had a cough productive of yellow-green phlegm, somewhat worsened from her chronic cough. Also reports intermittent fevers during that time. Denied chest discomfort, headaches, leg pain, visual disturbances. A chest CT in the emergency room revealed unchanged diffuse reticular nodular pulmonary infiltrates consistent with inflammatory disease along with pulmonary hypertension. EKG revealed sinus tachycardia at 117 bpm with LVH. Lower extremity duplex was negative for DVT. Laboratory evaluation revealed a WBC count of 3.2, platelets 74, sodium 132, chloride 91, CO2 38, BUN 23, creatinine 0.78, glucose 125, CK 28, troponin 0.067, proBNP 11,100, and coronavirus and influenza virus testing negative. Review of Systems Pertinent positives and negatives as discussed in HPI, a complete review of systems was performed and all other systems are negative. Past Medical History Past Medical History: Asthma, Cancer, COPD, Hyperlipidemia, Hypertension, Osteoarthritis (OA), Pneumonia, Vascular Disorder Additional Past Medical History / Comment(s): HX OF ANEMIA, STATES HAS HAD UNSUCCSESSFUL COLONOSCOPIES IN PAST R/T "TWISTED BOWEL" PAD with lower extremity discomfort bilaterally. lung nodule , chemotherapy for lungs ca. 2 Units PRBC 01/17/20 for anemia-patient reported Hgb 7 "something" History of Any Multi-Drug Resistant Organisms: None Reported Past Surgical History: Adenoidectomy, Breast Surgery, Tonsillectomy Additional Past Surgical History / Comment(s): 06/03/15 Arch study, PTBA & Stenting Right Ext Iliac artery. [facility] OOPHERECTOMY. LASIK EYE SURGERY [place]. Benign Breast bx bilat. Rt Carotid Angiogram, & Endarterectomy. Rt Carotid Artery Stent 07/14/15. Stent to LT Leg 07/30/15. ABD AORTOGRAM, ANGIOGRAM 11/04/16. RT LEG STENT 11/10/16 Past Anesthesia/Blood Transfusion Reactions: No Reported Reaction Past Psychological History: No Psychological Hx Reported Additional Psychological History / Comment(s): Pt resides with her spouse. She has a nebulizer and oxygen at 2L [place] which she uses prn. She uses no assistive device. She drives. Smoking Status: Former smoker Past Alcohol Use History: Occasional Additional Past Alcohol Use History / Comment(s): Pt started smoking appro ximately [id number] and quit 6 months ago. Smoked a ppd. Past Drug Use History: Marijuana Additional Drug Use History / Comment(s): marijuana edibles-1/2 gummy bear 1-2 times per week - Past Family History Father Family Medical History: Myocardial Infarction ([place]) Additional Family Medical History / Comment(s): Father of a [place] at age 61 yrs. Brother(s) Family Medical History: Myocardial Infarction ([place]) Additional Family Medical History / Comment(s): Brother of a [place] at the age of 29 yrs. Mother Family Medical History: No Reported History Additional Family Medical History / Comment(s): Mother had kidney failure and was on dialysis. She at age 73 yrs. Medications and Allergies Home Medications Medication Instructions Recorded Confirmed Type Ipratropium/Albuterol Sulfate 1 puff INHALATION RT-QID PRN 06/01/15 01/18/20 History [Combivent Respimat Inhaler] Simvastatin [Zocor] 20 mg PO HS 06/01/15 01/18/20 History Aspirin [Adult Low Dose Aspirin EC] 81 mg PO DAILY 10/28/16 01/18/20 History hydrALAZINE HCL [Apresoline] 100 mg PO BID 01/04/19 01/18/20 History Fluticasone Propion/Salmeterol 1 puff INHALATION RT-BID 06/03/19 01/18/20 History [Wixela 250-50 Inhub] Vit A/Vit C/Vit E/Zinc/Copper 1 cap PO DAILY 06/03/19 01/18/20 History [ICAPS SOFTGEL] cloNIDine HCL [Catapres] 0.1 mg PO BID 06/03/19 01/18/20 History ALPRAZolam [Xanax] 0.25 mg PO DAILY PRN 12/07/19 01/18/20 History Folic Acid 1 mg PO DAILY 12/07/19 01/18/20 History HYDROcodone/APAP 5-325MG [[place] 1 tab PO DAILY PRN 12/07/19 01/18/20 History 5-325] Ipratropium-Albuterol Nebulize 3 ml INHALATION RT-DAILY PRN 12/07/19 01/18/20 History [Duoneb 0.5 mg-3 mg/3 ml Soln] OLANZapine [ZyPREXA] 2.5 mg PO DAILY PRN 12/07/19 01/18/20 History Ondansetron Odt [Zofran ODT] 4 mg PO Q6H PRN 12/07/19 01/18/20 History Vitamin B Complex 1 cap PO DAILY 12/07/19 01/18/20 History traMADol HCL 50 mg PO Q6H PRN 12/07/19 01/18/20 History predniSONE [Deltasone] 5 mg PO DAILY 01/17/20 01/18/20 History dronabinoL [Dronabinol] 5 mg PO DAILY PRN 01/18/20 01/18/20 History Allergies Allergy/AdvReac Type Severity Reaction Status Date / Time amlodipine [From Norvasc] Allergy Rash/Hives Verified 01/18/20 15:59 estrogens, conjugated Allergy Rash/Hives Verified 01/18/20 15:59 [From Premarin] lisinopril Allergy Swelling Verified 01/18/20 15:59 metoprolol Allergy Rash/Hives Verified 01/18/20 15:59 nystatin Allergy Rash/Hives Verified 01/18/20 15:59 Physical Exam Vitals: Vital Signs Temp Pulse Pulse Resp BP BP Pulse Ox 01/18/20 20:05 110 H 01/18/20 19:56 111 H 01/18/20 17:34 98.2 F 112 H 22 159/79 94 L 01/18/20 17:30 98.2 F 112 H 22 159/79 94 L 01/18/20 17:00 99 F 110 H 28 H 198/102 99 01/18/20 16:05 99 F 01/18/20 16:00 114 H 20 200/102 97 01/18/20 15:00 98 28 H 197/100 99 01/18/20 14:22 116 H 01/18/20 14:13 116 H 01/18/20 13:45 100.0 F H 119 H 24 166/88 92 L Intake and Output 01/18/20 01/18/20 01/18/20 06:59 14:59 22:59 Intake Total 180 Balance 180 Intake: Oral 180 Other: Voiding Method Bedside Commode Weight 36.741 kg 36.741 kg General: Chronically ill-appearing frail elderly female, appears at stated age Derm: no unusual rashes/lesions no unusual ecchymoses, warm, dry Head: atraumatic, normocephalic, symmetric Eyes: EOMI, no lid lag, anicteric sclera, pupils equal round reactive to light ENT: Nose and ears atraumatic, no thrush, no pharyngeal erythema Neck: No thyromegaly, no cervical lymphadenopathy, trachea midline, supple Mouth: no lip lesion, mucus membranes dry Cardiovascular: S1S2 reg, no murmur, positive posterior tibial pulse bilateral, no edema, capillary refill less than 2 seconds Lungs: Bilateral wheezing appreciated with some scattered rhonchi, no rales, some accessory muscle use Abdominal: soft, nontender to palpation, no guarding, no appreciable organomega ly, normal bowel sounds Ext: no gross muscle atrophy, muscle strength 3+ out of 5 in all 4 extremities grossly, no contractures, Neuro: CN II-XI grossly intact, light touch intact all 4 extremities, finger to nose within normal limits, Psych: Alert, oriented, appropriate affect Results CBC & Chem 7: 01/18/20 14:13 01/18/20 14:13 Labs: Abnormal Lab Results - Last 24 Hours (Table) 01/18/20 01/18/20 01/18/20 Range/Units 14:13 14:13 14:13 WBC 3.2 L (3.8-10.6) k/uL RDW 18.1 H (11.5-15.5) % Plt Count 74 L (150-450) k/uL Lymphocytes # (Manual) 0.86 L (1.0-4.8) k/uL D-Dimer 3.47 H (<0.60) mg/L FEU Sodium 132 L (137-145) mmol/L Chloride 91 L (98-107) mmol/L Carbon Dioxide 38 H (22-30) mmol/L BUN 23 H (7-17) mg/dL Glucose 125 H (74-99) mg/dL Creatine Kinase 28 L (30-135) U/L Troponin I (0.000-0.034) ng/mL Urine Protein (Negative) Urine Blood (Negative) 01/18/20 01/18/20 Range/Units 14:13 16:20 WBC (3.8-10.6) k/uL RDW (11.5-15.5) % Plt Count (150-450) k/uL Lymphocytes # (Manual) (1.0-4.8) k/uL D-Dimer (<0.60) mg/L FEU Sodium (137-145) mmol/L Chloride (98-107) mmol/L Carbon Dioxide (22-30) mmol/L BUN (7-17) mg/dL Glucose (74-99) mg/dL Creatine Kinase (30-135) U/L Troponin I 0.067 H* (0.000-0.034) ng/mL Urine Protein 3+ H (Negative) Urine Blood Trace H (Negative) Thrombosis Risk Factor Assmnt - Choose All That Apply Any of the Below Risk Factors Present?: Yes Each Factor Represents 1 point: Abnormal pulmonary function (COPD), History of:, Serious lung disease incl. pneumonia (< 1month), Swollen legs (current) Other Risk Factors: Yes Each Risk Factor Represents 2 Points: Age 61-74 years Thrombosis Risk Factor Assessment Total Risk Factor Score: 6 Thrombosis Risk Factor Assessment Level: High Risk Assessment and Plan Plan: Shortness of breath, likely multifactorial with acute COPD exacerbation and pneumonia -Continue with DuoNeb's on the clock and when necessary -Solu-Medrol 60 mg every 6 hourly -Continue with cefepime every 8 hourly -Pulmonary consult -Obtain ABG -Coronavirus testing negative -Supplemental insulin coverage Lung cancer, currently undergoing chemotherapy -Oncology consulted for follow-up Metabolic alkalosis -Likely compensatory with chronic COPD -Obtain ABG -Monitor BMP Bicytopenia -Likely due to ongoing chemotherapy -Monitor for now Troponin elevation -Likely secondary to demand ischemia from acute COPD exacerbation -Trend for now -Cardiac monitoring Chronic conditions: Hypertension, hyperlipidemia, coronary artery disease, systolic CHF -Continue with home medications DVT prophylaxis -Lovenox subq The patient is admitted with an anticipated greater than 2 midnight stay for evaluation of copd exacerbation CODE STATUS: Full Code (Patient notes that she has discussed her wishes with her family in that at this time she would like to be full code) Discussed with: Patient Anticipated discharge date: - days Anticipated discharge place: Home A total of 40 minutes was spent on the care of this complex patient more than 50% of the time was spent in counseling and care coordination.
[2020-01-18 23:21] LABS: ABG Base Excess 11.9 mmol/L; ABG HCO3 37 mmol/L (21-25); ABG Oxygen Saturation 98.8 % (94-97); ABG PCO2 63 mmHg (35-45); ABG PH 7.38 (7.35-7.45); ABG PO2 108 mmHg (83-108); ABG TCO2 39 mmol/L (19-24); Allen Test Performed? Yes
[2020-01-18] MEDS: CEFEPIME 2 GM in SODIUM CHLORIDE 0.9% 100 ML IVPB SCH (23:21)
[2020-01-19] MEDS: methylPREDNISolone SOD SUCCI 125 MG/2 ML VIAL IV SCH ×4 (05:02→23:22)
[2020-01-19 06:21] LABS: Glucose,Whole Blood 162 mg/dL (75-99)
[2020-01-19] MEDS: INSULIN ASPART (NovoLOG) 100 UNIT/ML VIAL SQ SCH ×4 (06:39→21:02)
[2020-01-19] MEDS: ENOXAPARIN 40 MG/0.4 ML SYRINGE SQ SCH (09:03)
[2020-01-19] MEDS: cloNIDine HCL 0.1 MG TAB PO SCH ×3 (09:03→21:01)
[2020-01-19] MEDS: CEFEPIME 2 GM in SODIUM CHLORIDE 0.9% 100 ML IVPB SCH ×2 (09:03→16:27)
[2020-01-19] MEDS: VIT A,C & E-LUTEIN-MINERALS 1 EACH TAB PO SCH (09:04)
[2020-01-19] MEDS: NON FORMULARY DRUG (Vitamin B Complex [Vitamin B Complex] 1 EACH Capsule) PO SCH (09:04)
[2020-01-19] MEDS: ASPIRIN 81 MG PO SCH (09:04)
[2020-01-19] MEDS: hydrALAZINE HCL 50 MG TAB PO SCH ×3 (09:04→21:01)
[2020-01-19] MEDS: FOLIC ACID 1 MG TAB PO SCH (09:04)
[2020-01-19] MEDS: OLANZapine 2.5 MG TAB PO SCH (09:05)
[2020-01-19 09:14] LABS: Anisocytosis Slight; HCT 36.6 % (34.0-46.0); HGB 11.3 gm/dL (11.4-16.0); Hypochromasia Slight; MCH 31.3 pg (25.0-35.0); MCHC 30.9 g/dL (31.0-37.0); MCV 101.3 fL (80.0-100.0); Macrocytosis Moderate; Mean Platelet Volume 8.2; RBC 3.61 m/uL (3.80-5.40); RDW 17.6 % (11.5-15.5)
[2020-01-19 09:17] LABS: Platelet Count 44 k/uL (150-450)
[2020-01-19] MEDS: traMADol 50 MG TAB PO PRN ×2 (09:18→21:01)
[2020-01-19] MEDS: IPRATROPIUM-ALBUTEROL 3 ML NEB INHALATION SCH ×4 (09:31→20:05)
[2020-01-19 09:34] LABS: Calcium 8.5 mg/dL (8.4-10.2); Potassium 4.5 mmol/L (3.5-5.1)
--- NOTE | 2020-01-19 09:42 | P.CONS ---
History of Present Illness - Reason for Consult Consult date: 01/19/20 Treatment for Lung Cancer Requesting physician: Roland Lawrence - Chief Complaint Weakness - History of Present Illness Joana is a pleasant female well known to the practice, primary oncologist Dr. Benavidez for treatment of her [id number] Lung Cancer - Adenocarcinoma. Original diagnosis was found in August 2019 on CXR/CT revealed small area of consolidation in ZENIA (1.9cm). Outpatient PET Scan revealed mild uptake (SUV 3) in ZENIA small lesion , as well as, R adrenal gland without coressponding abnormality on CT Scan. She had diagnostic bronchoscopy by Dr Mike on 08/23/19 revealing mucin- producing Adenocarcinoma. 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 PFT : FEV1 48% of predicted. PD-L1 0%. 12/19/19: C/O fatigue & SOB, was hospitalized with SOB & Exacerbation of COPD, had L thoracentesis (Malignant effusion). She is reporting anorexia, not taking Marinol. 12/30/19: Almost completed with the steroid taper from Pulm, discussed immune therapy and pred. otherwise feeling better. 01/16/20: Not doing well, C/O severe weakness & fatigue, as well as, increased SOB. She completed 4 cycles of carboplatinum+Alimta+Keytruda. Keytruda was discontinued at this time as well. 01/18/20: Presented to emergency after receiving PRBC transfusions the day prior with weakness, fatigue, and overall increased SOB. She also complained of worsening left sided pain. CTA performed, no signs of PE> Nausea improved since hospitalaization. Pulm is following and steroids started. Oral thrush noted per nursing Patient was seen through telemedicine visit due to covid increase, with permission and assistance of nurse for assessment Review of Systems All systems: negative Constitutional: Reports as per HPI Past Medical History Past Medical History: Asthma, Cancer, COPD, Hyperlipidemia, Hypertension, Osteoarthritis (OA), Pneumonia, Vascular Disorder Additional Past Medical History / Comment(s): HX OF ANEMIA, STATES HAS HAD UNSUCCSESSFUL COLONOSCOPIES IN PAST R/T "TWISTED BOWEL" PAD with lower extremity discomfort bilaterally. lung nodule , chemotherapy for lungs ca. 2 Units PRBC 01/17/20 for anemia-patient reported Hgb 7 "something" History of Any Multi-Drug Resistant Organisms: None Reported Past Surgical History: Adenoidectomy, Breast Surgery, Tonsillectomy Additional Past Surgical History / Comment(s): 06/03/15 Arch study, PTBA & Stenting Right Ext Iliac artery. [place] OOPHERECTOMY. LASIK EYE SURGERY [place]. Benign Breast bx bilat. Rt Carotid Angiogram, & Endarterectomy. Rt Carotid Artery Stent 07/14/15. Stent to LT Leg 07/30/15. ABD AORTOGRAM, ANGIOGRAM 11/04/16. RT LEG STENT 11/10/16 Past Anesthesia/Blood Transfusion Reactions: No Reported Reaction Past Psychological History: No Psychological Hx Reported Additional Psychological History / Comment(s): Pt resides with her spouse. She has a nebulizer and oxygen at 2L [place] which she uses prn. She uses no assistive device. She drives. Smoking Status: Former smoker Past Alcohol Use History: Occasional Additional Past Alcohol Use History / Comment(s): Pt started smoking approximately [id number] and quit 6 months ago. Smoked a ppd. Past Drug Use History: Marijuana Additional Drug Use History / Comment(s): marijuana edibles-1/2 gummy bear 1-2 times per week - Past Family History Father Family Medical History: Myocardial Infarction ([place]) Additional Family Medical History / Comment(s): Father of a [place] at age 61 yrs. Brother(s) Family Medical History: Myocardial Infarction ([place]) Additional Family Medical History / Comment(s): Brother of a [place] at the age of 29 yrs. Mother Family Medical History: No Reported History Additional Family Medical History / Comment(s): Mother had kidney failure and was on dialysis. She at age 73 yrs. Medications and Allergies Home Medications Medication Instructions Recorded Confirmed Type Ipratropium/Albuterol Sulfate 1 puff INHALATION RT-QID PRN 06/01/15 01/18/20 History [Combivent Respimat Inhaler] Simvastatin [Zocor] 20 mg PO HS 06/01/15 01/18/20 History Aspirin [Adult Low Dose Aspirin EC] 81 mg PO DAILY 10/28/16 01/18/20 History hydrALAZINE HCL [Apresoline] 100 mg PO BID 01/04/19 01/18/20 History Fluticasone Propion/Salmeterol 1 puff INHALATION RT-BID 06/03/19 01/18/20 History [[place]ela 250-50 Inhub] Vit A/Vit C/Vit E/Zinc/Copper 1 cap PO DAILY 06/03/19 01/18/20 History [ICAPS SOFTGEL] cloNIDine HCL [Catapres] 0.1 mg PO BID 06/03/19 01/18/20 History ALPRAZolam [Xanax] 0.25 mg PO DAILY PRN 12/07/19 01/18/20 History Folic Acid 1 mg PO DAILY 12/07/19 01/18/20 History HYDROcodone/APAP 5-325MG [[place] 1 tab PO DAILY PRN 12/07/19 01/18/20 History 5-325] Ipratropium-Albuterol Nebulize 3 ml INHALATION RT-DAILY PRN 12/07/19 01/18/20 History [Duoneb 0.5 mg-3 mg/3 ml Soln] OLANZapine [ZyPREXA] 2.5 mg PO DAILY PRN 12/07/19 01/18/20 History Ondansetron Odt [Zofran ODT] 4 mg PO Q6H PRN 12/07/19 01/18/20 History Vitamin B Complex 1 cap PO DAILY 12/07/19 01/18/20 History traMADol HCL 50 mg PO Q6H PRN 12/07/19 01/18/20 History predniSONE [Deltasone] 5 mg PO DAILY 01/17/20 01/18/20 History dronabinoL [Dronabinol] 5 mg PO DAILY PRN 01/18/20 01/18/20 History Allergies Allergy/AdvReac Type Severity Reaction Status Date / Time amlodipine [From Norvasc] Allergy Rash/Hives Verified 01/18/20 15:59 estrogens, conjugated Allergy Rash/Hives Verified 01/18/20 15:59 [From Premarin] lisinopril Allergy Swelling Verified 01/18/20 15:59 metoprolol Allergy Rash/Hives Verified 01/18/20 15:59 nystatin Allergy Rash/Hives Verified 01/18/20 15:59 Physical Exam Vitals: Vital Signs Temp Pulse Pulse Resp BP BP Pulse Ox 01/19/20 08:00 98.7 F 94 18 151/71 95 01/19/20 04:00 89 20 140/67 93 L 01/19/20 00:00 98 22 140/75 94 L 01/18/20 20:05 110 H 01/18/20 20:00 98.9 F 107 H 22 175/88 94 L 01/18/20 19:56 111 H 01/18/20 17:34 98.2 F 112 H 22 159/79 94 L 01/18/20 17:30 98.2 F 112 H 22 159/79 94 L 01/18/20 17:00 99 F 110 H 28 H 198/102 99 01/18/20 16:05 99 F 01/18/20 16:00 114 H 20 200/102 97 01/18/20 15:00 98 28 H 197/100 99 01/18/20 14:22 116 H 01/18/20 14:13 116 H 01/18/20 13:45 100.0 F H 119 H 24 166/88 92 L Intake and Output 01/18/20 01/19/20 01/19/20 22:59 06:59 14:59 Intake Total 180 80 Output Total 300 Balance 180 -220 Intake: Oral 180 80 Output: Urine 300 Other: Voiding Method Bedside Commode Bedside Commode Bedside Commode # Voids 1 1 1 Weight 36.741 kg 29.5 kg Televisit due to current COVID Rise - Constitutional General appearance: cooperative, no acute distress - EENT Eyes: EOMI ENT: NA/AT, thrush - Respiratory Respiratory: bilateral: diminished (mild increased effort with conversation) - Cardiovascular Heart rate: 110 - Musculoskeletal Musculoskeletal: generalized weakness - Psychiatric Psychiatric: A&O x's 3, appropriate affect, intact judgment & insight Results CBC & Chem 7: 01/19/20 08:45 01/19/20 08:45 Labs: Abnormal Lab Results - Last 24 Hours (Table) 01/18/20 01/18/20 01/18/20 Range/Units 14:13 14:13 14:13 WBC 3.2 L (3.8-10.6) k/uL RBC (3.80-5.40) m/uL Hgb (11.4-16.0) gm/dL MCV (80.0-100.0) fL MCHC (31.0-37.0) g/dL RDW 18.1 H (11.5-15.5) % Plt Count 74 L (150-450) k/uL Lymphocytes # (Manual) 0.86 L (1.0-4.8) k/uL D-Dimer 3.47 H (<0.60) mg/L FEU ABG pCO2 (35-45) mmHg ABG HCO3 (21-25) mmol/L ABG Total CO2 (19-24) mmol/L ABG O2 Saturation (94-97) % Sodium 132 L (137-145) mmol/L Chloride 91 L (98-107) mmol/L Carbon Dioxide 38 H (22-30) mmol/L BUN 23 H (7-17) mg/dL Glucose 125 H (74-99) mg/dL POC Glucose (mg/dL) (75-99) mg/dL Creatine Kinase 28 L (30-135) U/L Troponin I (0.000-0.034) ng/mL Urine Protein (Negative) Urine Blood (Negative) 01/18/20 01/18/20 01/18/20 Range/Units 14:13 16:20 23:19 WBC (3.8-10.6) k/uL RBC (3.80-5.40) m/uL Hgb (11.4-16.0) gm/dL MCV (80.0-100.0) fL MCHC (31.0-37.0) g/dL RDW (11.5-15.5) % Plt Count (150-450) k/uL Lymphocytes # (Manual) (1.0-4.8) k/uL D-Dimer (<0.60) mg/L FEU ABG pCO2 63 H (35-45) mmHg ABG HCO3 37 H (21-25) mmol/L ABG Total CO2 39 H (19-24) mmol/L ABG O2 Saturation 98.8 H (94-97) % Sodium (137-145) mmol/L Chloride (98-107) mmol/L Carbon Dioxide (22-30) mmol/L BUN (7-17) mg/dL Glucose (74-99) mg/dL POC Glucose (mg/dL) (75-99) mg/dL Creatine Kinase (30-135) U/L Troponin I 0.067 H* (0.000-0.034) ng/mL Urine Protein 3+ H (Negative) Urine Blood Trace H (Negative) 01/19/20 01/19/20 01/19/20 Range/Units 04:43 06:17 08:45 WBC 3.0 L (3.8-10.6) k/uL RBC 3.61 L (3.80-5.40) m/uL Hgb 11.3 L (11.4-16.0) gm/dL MCV 101.3 H (80.0-100.0) fL MCHC 30.9 L (31.0-37.0) g/dL RDW 17.6 H (11.5-15.5) % Plt Count 44 L (150-450) k/uL Lymphocytes # (Manual) (1.0-4.8) k/uL D-Dimer (<0.60) mg/L FEU ABG pCO2 (35-45) mmHg ABG HCO3 (21-25) mmol/L ABG Total CO2 (19-24) mmol/L ABG O2 Saturation (94-97) % Sodium (137-145) mmol/L Chloride (98-107) mmol/L Carbon Dioxide (22-30) mmol/L BUN (7-17) mg/dL Glucose (74-99) mg/dL POC Glucose (mg/dL) 162 H (75-99) mg/dL Creatine Kinase (30-135) U/L Troponin I 0.058 H* (0.000-0.034) ng/mL Urine Protein (Negative) Urine Blood (Negative) CT scan - chest: report reviewed Assessment and Plan (1) Adenocarcinoma, lung Current Visit: Yes Status: Acute Code(s): C34.90 - MALIGNANT NEOPLASM OF UNSP PART OF UNSP BRONCHUS OR LUNG SNOMED Code(s): 657352734 (2) Acute respiratory distress syndrome in adult Current Visit: No Status: Acute Code(s): J80 - ACUTE RESPIRATORY DISTRESS SYNDROME SNOMED Code(s): 23675469 (3) COPD with exacerbation Current Visit: No Status: Acute Code(s): J44.1 - CHRONIC OBSTRUCTIVE PULMONARY DISEASE W (ACUTE) EXACERBATION SNOMED Code(s): 129749872 Plan: COntinue supportive care with Steroids, PPI, Antibiotics, Antie,etics, and antifungal Continue to monitor CBC daily
[2020-01-19] MEDS ORDERED: CLOTRIMAZOLE TROCHE 10 MG TROCHE MUCOUS MEM SCH (11:00)
--- NOTE | 2020-01-19 11:21 | P.PN ---
Subjective Progress Note Date: 01/19/20 Principal diagnosis: Shortness of breath Patient seen and examined at bedside. Patient is awake and alert. Patient states that her breathing has greatly improved since hospital stay. Objective - Vital Signs Vital signs: Vital Signs Temp 98.7 F 01/19/20 08:00 Pulse 108 H 01/19/20 09:41 Resp 18 01/19/20 08:00 BP 151/71 01/19/20 08:00 Pulse Ox 95 01/19/20 08:00 Intake & Output 01/18/20 01/19/20 01/19/20 18:59 06:59 18:59 Intake Total 180 80 Output Total 300 Balance 180 -220 Weight 36.741 kg 29.5 kg Intake: Oral 180 80 Output: Urine 300 Other: Voiding Method Bedside Commode Bedside Commode Bedside Commode # Voids 1 1 - Exam General: [non toxic], [no distress], [appears at stated age] Derm: [warm], [dry] Head: [atraumatic], [normocephalic], [symmetric] Eyes: [EOMI], [no lid lag], [anicteric sclera] Mouth: [no lip lesion], [mucus membranes moist] Cardiovascular: [S1S2 reg], [no murmur], [positive posterior tibial pulse bilateral], Lungs: [crackles bilateral] [no accessory muscle use] Abdominal: [soft], [ nontender to palpation], [no guarding], [no appreciable organomegaly] Ext: [no gross muscle atrophy], [no edema], [no contractures] Neuro: [ CN II-XI grossly intact], [no focal neuro deficits] Psych: [Alert], [oriented], [appropriate affect] - Constitutional Constitutional Comment(s): A 12 point review of systems was assessed patient was only positive for those discussed in HPI - Labs CBC & Chem 7: 01/19/20 08:45 01/19/20 08:45 Labs: Abnormal Lab Results - Last 24 Hours (Table) 01/18/20 01/18/20 01/18/20 Range/Units 14:13 14:13 14:13 WBC 3.2 L (3.8-10.6) k/uL RBC (3.80-5.40) m/uL Hgb (11.4-16.0) gm/dL MCV (80.0-100.0) fL MCHC (31.0-37.0) g/dL RDW 18.1 H (11.5-15.5) % Plt Count 74 L (150-450) k/uL Lymphocytes # (Manual) 0.86 L (1.0-4.8) k/uL D-Dimer 3.47 H (<0.60) mg/L FEU ABG pCO2 (35-45) mmHg ABG HCO3 (21-25) mmol/L ABG Total CO2 (19-24) mmol/L ABG O2 Saturation (94-97) % Sodium 132 L (137-145) mmol/L Chloride 91 L (98-107) mmol/L Carbon Dioxide 38 H (22-30) mmol/L BUN 23 H (7-17) mg/dL Glucose 125 H (74-99) mg/dL POC Glucose (mg/dL) (75-99) mg/dL Creatine Kinase 28 L (30-135) U/L Troponin I (0.000-0.034) ng/mL Urine Protein (Negative) Urine Blood (Negative) 01/18/20 01/18/20 01/18/20 Range/Units 14:13 16:20 23:19 WBC (3.8-10.6) k/uL RBC (3.80-5.40) m/uL Hgb (11.4-16.0) gm/dL MCV (80.0-100.0) fL MCHC (31.0-37.0) g/dL RDW (11.5-15.5) % Plt Count (150-450) k/uL Lymphocytes # (Manual) (1.0-4.8) k/uL D-Dimer (<0.60) mg/L FEU ABG pCO2 63 H (35-45) mmHg ABG HCO3 37 H (21-25) mmol/L ABG Total CO2 39 H (19-24) mmol/L ABG O2 Saturation 98.8 H (94-97) % Sodium (137-145) mmol/L Chloride (98-107) mmol/L Carbon Dioxide (22-30) mmol/L BUN (7-17) mg/dL Glucose (74-99) mg/dL POC Glucose (mg/dL) (75-99) mg/dL Creatine Kinase (30-135) U/L Troponin I 0.067 H* (0.000-0.034) ng/mL Urine Protein 3+ H (Negative) Urine Blood Trace H (Negative) 01/19/20 01/19/20 01/19/20 Range/Units 04:43 06:17 08:45 WBC 3.0 L (3.8-10.6) k/uL RBC 3.61 L (3.80-5.40) m/uL Hgb 11.3 L (11.4-16.0) gm/dL MCV 101.3 H (80.0-100.0) fL MCHC 30.9 L (31.0-37.0) g/dL RDW 17.6 H (11.5-15.5) % Plt Count 44 L (150-450) k/uL Lymphocytes # (Manual) (1.0-4.8) k/uL D-Dimer (<0.60) mg/L FEU ABG pCO2 (35-45) mmHg ABG HCO3 (21-25) mmol/L ABG Total CO2 (19-24) mmol/L ABG O2 Saturation (94-97) % Sodium (137-145) mmol/L Chloride (98-107) mmol/L Carbon Dioxide (22-30) mmol/L BUN (7-17) mg/dL Glucose (74-99) mg/dL POC Glucose (mg/dL) 162 H (75-99) mg/dL Creatine Kinase (30-135) U/L Troponin I 0.058 H* (0.000-0.034) ng/mL Urine Protein (Negative) Urine Blood (Negative) 01/19/20 01/19/20 Range/Units 08:45 08:45 WBC (3.8-10.6) k/uL RBC (3.80-5.40) m/uL Hgb (11.4-16.0) gm/dL MCV (80.0-100.0) fL MCHC (31.0-37.0) g/dL RDW (11.5-15.5) % Plt Count (150-450) k/uL Lymphocytes # (Manual) (1.0-4.8) k/uL D-Dimer (<0.60) mg/L FEU ABG pCO2 (35-45) mmHg ABG HCO3 (21-25) mmol/L ABG Total CO2 (19-24) mmol/L ABG O2 Saturation (94-97) % Sodium 132 L (137-145) mmol/L Chloride 93 L (98-107) mmol/L Carbon Dioxide 36 H (22-30) mmol/L BUN 26 H (7-17) mg/dL Glucose 162 H (74-99) mg/dL POC Glucose (mg/dL) (75-99) mg/dL Creatine Kinase (30-135) U/L Troponin I 0.049 H* (0.000-0.034) ng/mL Urine Protein (Negative) Urine Blood (Negative) Assessment and Plan Plan: 1. Acute on chronic hypoxic respiratory failure secondary to LLL pneumonia with underlying Lung CA and COPD -Continue with DuoNeb's on the clock and when necessary -Solu-Medrol 60 mg every 6 hourly -Continue with cefepime every 8 hourly -Pulmonary recs appreciated -Coronavirus testing negative -Supplemental Oxygen -Oncology recs appreciated 2. Bicytopenia -Likely due to ongoing chemotherapy -Monitor for now 3. Troponin elevation -Likely secondary to demand ischemia from acute COPD exacerbation -Trend for now -Cardiac monitoring 4. Chronic conditions: Hypertension, hyperlipidemia, coronary artery disease, systolic CHF -Continue with home medications 5. GI/ DVT prophylaxis 6. AM labs
[2020-01-19 11:47] VITALS: BMI 15.9
[2020-01-19 13:32] LABS: Glucose,Whole Blood 199 mg/dL (75-99)
--- NOTE | 2020-01-19 15:58 | P.CNPUL ---
History of Present Illness Consult date: 01/19/20 Requesting physician: Rodri Gamboa Reason for consult: dyspnea, cough Chief complaint: Shortness of breath, cough, and fever History of present illness: This is a 69-year-old female with known history of non-small cell lung cancer, adenocarcinoma, her initial diagnosis was made in August of 2019, presented to my office with small nodule in the left upper lobe, 1.9 cm, and the patient underwent CT-guided needle biopsy which came back positive for adenocarcinoma. Her PET scan was suspicious, hence the patient was referred to Dr. Kathrine Christina/oncology. 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 Hence surgery was not completed. And the patient was advised to undergo chemotherapy and immunotherapy. Patient's FEV1 baseline is above 48% patient completed 4 cycles of carboplatinum plus Alimta plus keytruda. Back on 12/19/19, patient had left sided thoracentesis for malignant pleural effusion. Yesterday the patient presented to the ER with mostly symptoms of cough, shortness of breath, weakness, fatigue, and some vague left-sided chest discomfort. CT angiogram showed no evidence of pulmonary embolism. It did show diffuse reticular nodular infiltrates similar to previous CT, and there was some clearing of the airspace infiltrate in the left lung base compared to previous exam. There was also some nonspecific pulmonary fibrotic changes. Patient was treated with bronchodilators antibiotics and steroids, her coronary risk PCR is negative. Considering her pulmonary symptoms and her presentation, I was asked to see her on consultation again the patient is demonstrating improvement over the last 24 hours since admission. Review of Systems CONSTITUTIONAL: Generalized weakness, patient received 2 units of packed RBCs the day prior to admission for anemia.. EYES: Denies change in vision. EARS, NOSE, MOUTH, THROAT: Denies headaches, denies sore throat. CARDIOVASCULAR: Denies chest pain, palpitations or syncopal episodes. RESPIRATORY: Positive for shortness of breath, cough, congestion no hemoptysis. GASTROINTESTINAL: Denies change in appetite, denies abdominal pain GENITOURINARY: Denies hematuria, denies infections. MUSKULOSKELETAL: Denies pain, denies swelling. INTEGUMENTARY: Denies rash, denies eczema. NEUROLOGICAL: Denies recent memory loss, no recent seizure activity. PSYCHIATRIC: Denies anxiety, denies depression. HEMATOLOGIC/LYMPHATIC: History of anemia, recently transfused with 2 units of packed RBCs. Past Medical History Past Medical History: Asthma, Cancer, COPD, Hyperlipidemia, Hypertension, Osteoarthritis (OA), Pneumonia, Vascular Disorder Additional Past Medical History / Comment(s): HX OF ANEMIA, STATES HAS HAD UNSUCCSESSFUL COLONOSCOPIES IN PAST R/T "TWISTED BOWEL" PAD with lower extremity discomfort bilaterally. lung nodule , chemotherapy for lungs ca. 2 Units PRBC 01/17/20 for anemia-patient reported Hgb 7 "something" History of Any Multi-Drug Resistant Organisms: None Reported Past Surgical History: Adenoidectomy, Breast Surgery, Tonsillectomy Additional Past Surgical History / Comment(s): 06/03/15 Arch study, PTBA & Stenting Right Ext Iliac artery. ABDOULAYE OOPHERECTOMY. LASIK EYE SURGERY Abdoulaye. Benign Breast bx bilat. Rt Carotid Angiogram, & Endarterectomy. Rt Carotid Artery Stent 07/14/15. Stent to LT Leg 07/30/15. ABD AORTOGRAM, ANGIOGRAM 11/04/16. RT LEG STENT 11/10/16 Past Anesthesia/Blood Transfusion Reactions: No Reported Reaction Past Psychological History: No Psychological Hx Reported Additional Psychological History / Comment(s): Pt resides with her spouse. She has a nebulizer and oxygen at 2L NC which she uses prn. She uses no assistive device. She drives. Smoking Status: Former smoker Past Alcohol Use History: Occasional Additional Past Alcohol Use History / Comment(s): Pt started smoking approximately [id number] and quit 6 months ago. Smoked a ppd. Past Drug Use History: Marijuana Additional Drug Use History / Comment(s): marijuana edibles-1/2 gummy bear 1-2 times per week - Past Family History Father Family Medical History: Myocardial Infarction (NC) Additional Family Medical History / Comment(s): Father of a NC at age 61 yrs. Brother(s) Family Medical History: Myocardial Infarction (NC) Additional Family Medical History / Comment(s): Brother of a NC at the age of 29 yrs. Mother Family Medical History: No Reported History Additional Family Medical History / Comment(s): Mother had kidney failure and was on dialysis. She at age 73 yrs. Medications and Allergies Home Medications Medication Instructions Recorded Confirmed Type Ipratropium/Albuterol Sulfate 1 puff INHALATION RT-QID PRN 06/01/15 01/18/20 History [Combivent Respimat Inhaler] Simvastatin [Zocor] 20 mg PO HS 06/01/15 01/18/20 History Aspirin [Adult Low Dose Aspirin EC] 81 mg PO DAILY 10/28/16 01/18/20 History hydrALAZINE HCL [Apresoline] 100 mg PO BID 01/04/19 01/18/20 History Fluticasone Propion/Salmeterol 1 puff INHALATION RT-BID 06/03/19 01/18/20 History [Wixela 250-50 Inhub] Vit A/Vit C/Vit E/Zinc/Copper 1 cap PO DAILY 06/03/19 01/18/20 History [ICAPS SOFTGEL] cloNIDine HCL [Catapres] 0.1 mg PO BID 06/03/19 01/18/20 History ALPRAZolam [Xanax] 0.25 mg PO DAILY PRN 12/07/19 01/18/20 History Folic Acid 1 mg PO DAILY 12/07/19 01/18/20 History HYDROcodone/APAP 5-325MG [Calmar 1 tab PO DAILY PRN 12/07/19 01/18/20 History 5-325] Ipratropium-Albuterol Nebulize 3 ml INHALATION RT-DAILY PRN 12/07/19 01/18/20 History [Duoneb 0.5 mg-3 mg/3 ml Soln] OLANZapine [ZyPREXA] 2.5 mg PO DAILY PRN 12/07/19 01/18/20 History Ondansetron Odt [Zofran ODT] 4 mg PO Q6H PRN 12/07/19 01/18/20 History Vitamin B Complex 1 cap PO DAILY 12/07/19 01/18/20 History traMADol HCL 50 mg PO Q6H PRN 12/07/19 01/18/20 History predniSONE [Deltasone] 5 mg PO DAILY 01/17/20 01/18/20 History dronabinoL [Dronabinol] 5 mg PO DAILY PRN 01/18/20 01/18/20 History Allergies Allergy/AdvReac Type Severity Reaction Status Date / Time amlodipine [From [facility]] Allergy Rash/Hives Verified 01/18/20 15:59 estrogens, conjugated Allergy Rash/Hives Verified 01/18/20 15:59 [From Premarin] lisinopril Allergy Swelling Verified 01/18/20 15:59 metoprolol Allergy Rash/Hives Verified 01/18/20 15:59 nystatin Allergy Rash/Hives Verified 01/18/20 15:59 Physical Exam Vitals: Vital Signs Temp Pulse Pulse Resp BP BP Pulse Ox 01/19/20 11:13 98.8 F 103 H 18 148/73 96 01/19/20 09:41 108 H 01/19/20 09:32 100 01/19/20 08:00 98.7 F 94 18 151/71 95 01/19/20 04:00 89 20 140/67 93 L 01/19/20 00:00 98 22 140/75 94 L 01/18/20 20:05 110 H 01/18/20 20:00 98.9 F 107 H 22 175/88 94 L 01/18/20 19:56 111 H 01/18/20 17:34 98.2 F 112 H 22 159/79 94 L 01/18/20 17:30 98.2 F 112 H 22 159/79 94 L 01/18/20 17:00 99 F 110 H 28 H 198/102 99 01/18/20 16:05 99 F 01/18/20 16:00 114 H 20 200/102 97 Intake and Output 01/19/20 01/19/20 01/19/20 06:59 14:59 22:59 Intake Total 240 Output Total 300 Balance -60 Intake: IV 100 Cefepime 2 gm In Sodium 100 Chloride 0.9% 100 ml @ 200 mls/hr IVPB Q8HR [facility] Rx#:[id number] Oral 140 Output: Urine 300 Other: Voiding Method Bedside Commode Bedside Commode # Voids 1 1 Weight 29.5 kg 35.7 kg GENERAL EXAM: Alert, pleasant, frail 69-year-old female patient, on 2 L nasal cannula comfortable in no apparent distress. HEAD: Normocephalic. EYES: Normal reaction of pupils, equal size. NOSE: Clear with pink turbinates. THROAT: No erythema or exudates. NECK: No masses, no JVD. CHEST: No chest wall deformity. LUNGS: Equal air entry, bibasilar crackles, wheezes on forced expiratory maneuver noted. CVS: S1 and S2 normal with no audible murmur, regular rhythm. ABDOMEN: No hepatosplenomegaly, normal bowel sounds, no guarding or rigidity. SPINE: No scoliosis or deformity SKIN: No rashes CENTRAL NERVOUS SYSTEM: No focal deficits, tone is normal in all 4 extremities. EXTREMITIES: There is no peripheral edema. No clubbing, no cyanosis. Peripheral pulses are intact. Results - Laboratory Findings CBC and BMP: 01/19/20 08:45 01/19/20 08:45 ABG ABG pH 7.38 (7.35-7.45) 01/18/20 23:19 ABG pCO2 63 mmHg (35-45) H 01/18/20 23:19 ABG pO2 108 mmHg (83-108) 01/18/20 23:19 ABG O2 Saturation 98.8 % (94-97) H 01/18/20 23:19 PT/INR, D-dimer PT 9.3 sec (9.0-12.0) 01/18/20 14:13 INR 0.9 (<1.2) 01/18/20 14:13 D-Dimer 3.47 mg/L FEU (<0.60) H 01/18/20 14:13 Abnormal lab findings: Abnormal Labs 01/18/20 01/18/20 01/18/20 14:13 14:13 14:13 WBC 3.2 L RBC Hgb MCV MCHC RDW 18.1 H Plt Count 74 L Lymphocytes # (Manual) 0.86 L D-Dimer 3.47 H ABG pCO2 ABG HCO3 ABG Total CO2 ABG O2 Saturation Sodium 132 L Chloride 91 L Carbon Dioxide 38 H BUN 23 H Glucose 125 H POC Glucose (mg/dL) Creatine Kinase 28 L Troponin I Urine Protein Urine Blood 01/18/20 01/18/20 01/18/20 14:13 16:20 23:19 WBC RBC Hgb MCV MCHC RDW Plt Count Lymphocytes # (Manual) D-Dimer ABG pCO2 63 H ABG HCO3 37 H ABG Total CO2 39 H ABG O2 Saturation 98.8 H Sodium Chloride Carbon Dioxide BUN Glucose POC Glucose (mg/dL) Creatine Kinase Troponin I 0.067 H* Urine Protein 3+ H Urine Blood Trace H 01/19/20 01/19/20 01/19/20 04:43 06:17 08:45 WBC 3.0 L RBC 3.61 L Hgb 11.3 L MCV 101.3 H MCHC 30.9 L RDW 17.6 H Plt Count 44 L Lymphocytes # (Manual) D-Dimer ABG pCO2 ABG HCO3 ABG Total CO2 ABG O2 Saturation Sodium Chloride Carbon Dioxide BUN Glucose POC Glucose (mg/dL) 162 H Creatine Kinase Troponin I 0.058 H* Urine Protein Urine Blood 01/19/20 01/19/20 01/19/20 08:45 08:45 13:31 WBC RBC Hgb MCV MCHC RDW Plt Count Lymphocytes # (Manual) D-Dimer ABG pCO2 ABG HCO3 ABG Total CO2 ABG O2 Saturation Sodium 132 L Chloride 93 L Carbon Dioxide 36 H BUN 26 H Glucose 162 H POC Glucose (mg/dL) 199 H Creatine Kinase Troponin I 0.049 H* Urine Protein Urine Blood - Diagnostic Findings Chest x-ray: image reviewed (Consistent with pulmonary fibrosis and small left pleural effusion.) CT scan - chest: image reviewed (No evidence of pulmonary embolism, fibrotic changes noted bilaterally) Assessment and Plan Assessment: Impression: Acute on chronic hypoxic respiratory failure, multifactorial. Acute exacerbation of COPD. Known history of severe COPD, FEV1 is in the range of 45-48%. History of bronchogenic carcinoma. Stage IV diagnosed in August of 2019 Nonspecific pulmonary fibrosis, underlying pneumonia is not entirely ruled out, although it is felt to be less likely. Bicytopenia secondary to chemotherapy History of adenocarcinoma, advanced age, receiving chemotherapy and immunotherapy. Chronic anemia, likely secondary to her underlying malignancy and chemotherapy. Patient was transfused prior to this admission. History of coronary artery disease. History of left malignant pleural effusion requiring thoracentesis. Recommendation: Continue antibiotics empirically. Patient is presently on cefepime Continue bronchodilators. Continue GI and DVT prophylaxis. Continue methylprednisolone. Clinically the patient is feeling better today compared to how she felt on admission, hence we'll continue present treatment plan, We'll continue to follow Long-term prognosis is relatively poor and guarded considering her severe COPD and her underlying stage IV adenocarcinoma. Time with Patient: Greater than 30
[2020-01-19] MEDS: CLOTRIMAZOLE TROCHE 10 MG TROCHE MUCOUS MEM PRN ×2 (16:31→21:02)
[2020-01-19 16:52] LABS: Glucose,Whole Blood 120 mg/dL (75-99)
[2020-01-19 20:44] LABS: Glucose,Whole Blood 202 mg/dL (75-99)
[2020-01-19] MEDS: ATORVASTATIN 10 MG TAB PO SCH (21:01)
[2020-01-20] MEDS: CEFEPIME 2 GM in SODIUM CHLORIDE 0.9% 100 ML IVPB SCH ×2 (04:08→16:40)
[2020-01-20 06:41] LABS: Glucose,Whole Blood 144 mg/dL (75-99)
[2020-01-20] MEDS: PANTOPRAZOLE 40 MG TABLET PO SCH (06:50)
[2020-01-20] MEDS: methylPREDNISolone SOD SUCCI 125 MG/2 ML VIAL IV SCH ×4 (06:50→23:28)
[2020-01-20] MEDS: INSULIN ASPART (NovoLOG) 100 UNIT/ML VIAL SQ SCH ×4 (06:50→21:24)
[2020-01-20] MEDS: IPRATROPIUM-ALBUTEROL 3 ML NEB INHALATION SCH ×4 (08:20→20:32)
[2020-01-20] MEDS: cloNIDine HCL 0.1 MG TAB PO SCH ×3 (09:02→21:23)
[2020-01-20] MEDS: hydrALAZINE HCL 50 MG TAB PO SCH ×3 (09:02→21:24)
[2020-01-20] MEDS: FOLIC ACID 1 MG TAB PO SCH (09:02)
[2020-01-20] MEDS: ENOXAPARIN 40 MG/0.4 ML SYRINGE SQ SCH (09:02)
[2020-01-20] MEDS: ASPIRIN 81 MG PO SCH (09:02)
[2020-01-20] MEDS: NON FORMULARY DRUG (Vitamin B Complex [Vitamin B Complex] 1 EACH Capsule) PO SCH (09:04)
[2020-01-20] MEDS: OLANZapine 2.5 MG TAB PO SCH (09:04)
[2020-01-20] MEDS: VIT A,C & E-LUTEIN-MINERALS 1 EACH TAB PO SCH (09:04)
[2020-01-20 09:37] LABS: Anisocytosis Slight; Basophils % (A) 0 %; Eosinophils % (A) 0 %; HCT 33.4 % (34.0-46.0); HGB 10.9 gm/dL (11.4-16.0); Hypochromasia Slight; Lymphocytes # (A) 0.3 k/uL (1.0-4.8); Lymphocytes % (A) 6 %; MCH 32.5 pg (25.0-35.0); MCHC 32.5 g/dL (31.0-37.0); Macrocytosis Slight; Mean Platelet Volume 7.9; Monocytes # (A) 0.5 k/uL (0-1.0); Monocytes % (A) 9 %; Neutrophils # (A) 4.2 k/uL (1.3-7.7); Neutrophils % (A) 80 %; RBC 3.34 m/uL (3.80-5.40); RDW 17.3 % (11.5-15.5); WBC 5.3 k/uL (3.8-10.6)
[2020-01-20 09:48] LABS: Platelet Count 37 k/uL (150-450)
[2020-01-20 10:05] LABS: Albumin 3.2 g/dL (3.5-5.0); Calcium 8.7 mg/dL (8.4-10.2); Potassium 4.6 mmol/L (3.5-5.1); Total Bilirubin 0.5 mg/dL (0.2-1.3)
[2020-01-20] MEDS: ALPRAZolam 0.25 MG TAB PO PRN ×2 (10:20→21:23)
--- NOTE | 2020-01-20 11:35 | P.PN ---
Subjective Progress Note Date: 01/20/20 Principal diagnosis: Lung Cancer cytopenias and Fever Afebrile this am, feeling Objective - Vital Signs Vital signs: Vital Signs Temp 98.8 F 01/20/20 09:00 Pulse 107 H 01/20/20 09:00 Resp 20 01/20/20 09:00 BP 152/73 01/20/20 09:00 Pulse Ox 92 L 01/20/20 09:00 Intake & Output 01/19/20 01/20/20 01/20/20 18:59 06:59 18:59 Intake Total 358 Output Total 300 Balance 58 Weight 35.7 kg 29 kg Intake: IV 100 Cefepime 2 gm In Sodium 100 Chloride 0.9% 100 ml @ 200 mls/hr IVPB Q8HR [facility] Rx#:[id number] Oral 258 Output: Urine 300 Other: Voiding Method Bedside Commode Bedside Commode # Voids 3 1 # Bowel Movements 1 - Exam Spoke to patient via telephone for telemedicine visit. She is agreeable to this today and overall feeling better - Labs CBC & Chem 7: 01/20/20 09:11 01/20/20 09:11 Labs: Abnormal Lab Results - Last 24 Hours (Table) 01/19/20 01/19/20 01/19/20 Range/Units 08:45 13:31 16:50 POC Glucose (mg/dL) 199 H 120 H (75-99) mg/dL Troponin I 0.049 H* (0.000-0.034) ng/mL 01/19/20 01/20/20 Range/Units 20:42 06:39 POC Glucose (mg/dL) 202 H 144 H (75-99) mg/dL Troponin I (0.000-0.034) ng/mL Microbiology - Last 24 Hours (Table) 01/18/20 14:13 Blood Culture - Preliminary Blood No Growth after 24 hours Assessment and Plan (1) Adenocarcinoma, lung Current Visit: Yes Status: Acute Code(s): C34.90 - MALIGNANT NEOPLASM OF UNSP PART OF UNSP BRONCHUS OR LUNG SNOMED Code(s): 946581393 (2) Acute respiratory distress syndrome in adult Current Visit: No Status: Acute Code(s): J80 - ACUTE RESPIRATORY DISTRESS SYNDROME SNOMED Code(s): 64000487 (3) COPD with exacerbation Current Visit: No Status: Acute Code(s): J44.1 - CHRONIC OBSTRUCTIVE PULMONARY DISEASE W (ACUTE) EXACERBATION SNOMED Code(s): 781870187 Plan: COntinue supportive care with Steroids, PPI, Antibiotics, Antiemetics, and anti fungal Continue to monitor CBC daily Hemoglobin 10.1 today PLatelets 37K - Hold aspirin, NSAIDS, and any other anticoagulants with platelets less than 50K
[2020-01-20 11:40] LABS: Glucose,Whole Blood 155 mg/dL (75-99)
--- NOTE | 2020-01-20 13:03 | CDI ---
Documentation Clarification Form Date: 01/20/2020 12:52:51 PM From: Jaimie JamaЕЛЕНА zapata, CCDS Admit Date: 01/18/2020 03:42:00 PM Patient Name: Joana Engel Visit Number: [id number] Discharge Date: ATTENTION: The Clinical Documentation Specialists (CDI) and [facility] Coding Staff appreciate your assistance in clarifying documentation. Please respond to the clarification below the line at the bottom and electronically sign. The CDI & [facility] Coding staff will review the response and follow-up if needed. Please note: Queries are made part of the Legal Health Record. If you have any questions, please contact the author of this message via ITS. Dr. Kalie Hernandez: CHF is documented in the 01/17 History & Physical and the 01/18 Attending Progress Note as Systolic CHF without further acuity. History/Risk Factors: Lung Cancer in chemotherapy, COPD, Hypertension, Pulmonary Hypertension, Hyperlipidemia, CAD and Former smoker. Clinical Indicators: Presented to the ED on 01/17 with SOB, Nausea, Weakness, decreased oral intake & appetite. Admitted with Acute Exacerbation of COPD and Dehydration. VS: T 100.0^, P 119^, R 24 (sob, labored), BP 166/88^, PO 92 2Lnc BMI: 12.9* LAB: D Dimer 3.47^, Troponin 0.067^^, BNP 11,100 Echocardiogram Results (most recent 12/09/2019): Left ventricular size is normal, borderline concentric left ventricular hypertrophy, Left ventricular systolic function normal w/EF 60-65%, Mild TR, Mild pulmonary hypertension. Chest X Ray 01/17: Emphysema & pulmonary fibrosis, improved pleural effusion, no obvious heart failure. CT Chest 01/17: Some degree of pulmonary hypertension EKG 01/17: R 117 sinus tachycardia. Home meds: Prednisone, INH Albuterol, Combivent, Duoneb, Wixela. Home O2 2Lnc. Treatment 01/17: IV fluid 1,000 mls @ 130 mls/hr, INH Albuterol/Ipratropium Duoneb, IV Cefepime, IV Solumedrol, IV fluid 500 mls @ 999 mls/hr. O2 2-4Lnc In your professional opinion, can you please clarify the acuity and type of CHF if known? Systolic Heart Failure: o Acute o Chronic o Acute on Chronic Unable to Determine Other, please specify (Last Revision: June 2017) Chronic diastolic heart failure compensated MTDD
--- NOTE | 2020-01-20 13:14 | CDI ---
Documentation Clarification Form Date: 01/20/2020 01:05:18 PM From: Jaimie Jama CCS, CCDS Admit Date: 01/18/2020 03:42:00 PM Patient Name: Joana Engel Visit Number: [id number] Discharge Date: ATTENTION: The Clinical Documentation Specialists (CDI) and [facility] Coding Staff appreciate your assistance in clarifying documentation. Please respond to the clarification below the line at the bottom and electronically sign. The CDI & [facility] Coding staff will review the response and follow-up if needed. Please note: Queries are made part of the Legal Health Record. If you have any questions, please contact the author of this message via ITS. Dr. Kalie Hernandez: Per the 01/17 History & Physical: "Chronically ill-appearing frail elderly female." Per the 01/18 Oncology Consult: "She is reporting anorexia." History/Risk Factors: Lung Cancer in chemotherapy, COPD, Systolic CHF, Hypertension, Hyperlipidemia, CAD & former smoker. Clinical Indicators: Presented to the ED with SOB, Fever, Nausea & Weakness, had chemotherapy about a week ago. Also received IV fluids & 2 units PRBCs for Dehydration. Has decreased oral intake & appetite. Labs 01/17: Total Protein 6.3, Albumin 3.5 Current BMI: 12.9* Nursing Nutritional Assessment 01/17: Eating 50% meals. Height: 4ft 11 in, BMI: 15.9 (Bed scale 12.9), Underweight, [place] Weight 44.225 kg, @ 81% of ideal body weight. Treatment: IV fluids, INH Albuterol, IV Cefepime, IV Solumedrol, O2 2-4Lnc In your professional opinion, can you please clarify if these findings signify one of the following conditions? Mild Protein-Calorie Malnutrition Moderate Protein-Calorie Malnutrition Severe Protein-Calorie Malnutrition Other condition, please specify Unable to determine (Last Revision: September 2018) Query response documented in 01/[address] Delphine Wiseman: Moderate Malnutrition. MTDD
--- NOTE | 2020-01-20 13:22 | CDI ---
Clarification: Cytopenias due to chemotherapy Documentation Clarification Form Date: 01/20/2020 01:15:38 PM From: Jaimie IzquierdoJamaЕЛЕНА zapata, CCDS Admit Date: 01/18/2020 03:42:00 PM Patient Name: Joana Engel Visit Number: [id number] Discharge Date: ATTENTION: The Clinical Documentation Specialists (CDI) and [facility] Coding Staff appreciate your assistance in clarifying documentation. Please respond to the clarification below the line at the bottom and electronically sign. The CDI & [facility] Coding staff will review the response and follow-up if needed. Please note: Queries are made part of the Legal Health Record. If you have any questions, please contact the author of this message via ITS. Dr. Dereck Oro: The patient was admitting with a diagnosis of: Acute Exacerbation of COPD, Pneumonia & Dehydration with known Lung Adenocarcinoma, recently underwent chemotherapy. Patient received 2 units of PRBCs the day prior to admission for anemia. Bicytopenia is documented in the 01/17 History & Physical, the 01/18 Oncology Progress note and also the 01/18 Pulmonary Consult. History/Risk factors: Lung Cancer, Systolic CHF, Hypertension, Pulmonary Hypertension, CAD, COPD, Former smoker. Clinical indicators: Presented to the ED with SOB, diagnosed with Acute Exacerbation of COPD. Labs 01/17: WBC 3.2*, RBC 3.90, Hgb 12.4, Hct 39.0, Pl Ct 74* Labs 01/18: WBC 3.0*, RBC 3.61*, Hgb 11.3*, Hct 36.6, Pl Ct 44* Treatment: Transfused 2 units PRBCs day prior to admission, IV fluid 1,000 mls @ 130 mls/hr q7, INH Albuterol/Ipratropium, IV Cefepime, IV Solumedrol, O2 2- 4Lnc. In your professional opinion, can you please clarify if these findings signify one of the following conditions? Pancytopenia due to chemotherapy Pancytopenia drug induced, specify drug Pancytopenia due to other, please specify Other condition, please specify ____ Unable to determine (Last Revision: December 2016) MTDD
[2020-01-20 16:51] LABS: Glucose,Whole Blood 204 mg/dL (75-99)
--- NOTE | 2020-01-20 17:04 | P.PN ---
Subjective Progress Note Date: 01/20/20 Objective - Vital Signs Vital signs: Vital Signs Temp 98 F 01/20/20 15:58 Pulse 112 H 01/20/20 16:05 Resp 20 01/20/20 15:58 BP 127/72 01/20/20 15:58 Pulse Ox 95 01/20/20 15:58 Intake & Output 01/19/20 01/20/20 01/20/20 18:59 06:59 18:59 Intake Total 358 860 Output Total 300 400 Balance 58 460 Weight 35.7 kg 29 kg Intake: IV 100 Cefepime 2 gm In Sodium 100 Chloride 0.9% 100 ml @ 200 mls/hr IVPB Q8HR [facility] Rx#:[id number] Intake, IV Titration 100 Amount Cefepime 2 gm In Sodium 100 Chloride 0.9% 100 ml @ 25 mls/hr IVPB Q12H [facility] Rx# :[id number] Oral 258 760 Output: Urine 300 400 Other: Voiding Method Bedside Commode Bedside Commode # Voids 3 1 # Bowel Movements 1 - Constitutional General appearance: Present: thin - Respiratory Respiratory: bilateral: diminished - Cardiovascular Rhythm: regular - Gastrointestinal General gastrointestinal: Present: normal bowel sounds - Integumentary Integumentary: Present: normal - Psychiatric Psychiatric: Present: appropriate affect - Labs CBC & Chem 7: 01/20/20 09:11 01/20/20 09:11 Labs: Abnormal Lab Results - Last 24 Hours (Table) 01/19/20 01/20/20 01/20/20 Range/Units 20:42 06:39 09:11 RBC 3.34 L (3.80-5.40) m/uL Hgb 10.9 L (11.4-16.0) gm/dL Hct 33.4 L (34.0-46.0) % RDW 17.3 H (11.5-15.5) % Plt Count 37 L (150-450) k/uL Lymphocytes # 0.3 L (1.0-4.8) k/uL Sodium (137-145) mmol/L BUN (7-17) mg/dL POC Glucose (mg/dL) 202 H 144 H (75-99) mg/dL Total Protein (6.3-8.2) g/dL Albumin (3.5-5.0) g/dL 01/20/20 01/20/20 01/20/20 Range/Units 09:11 11:39 16:47 RBC (3.80-5.40) m/uL Hgb (11.4-16.0) gm/dL Hct (34.0-46.0) % RDW (11.5-15.5) % Plt Count (150-450) k/uL Lymphocytes # (1.0-4.8) k/uL Sodium 132 L (137-145) mmol/L BUN 38 H (7-17) mg/dL POC Glucose (mg/dL) 155 H 204 H (75-99) mg/dL Total Protein 6.0 L (6.3-8.2) g/dL Albumin 3.2 L (3.5-5.0) g/dL Microbiology - Last 24 Hours (Table) 01/18/20 14:13 Blood Culture - Preliminary Blood No Growth after 48 hours Assessment and Plan Assessment: The patient stills feels short of breath but feels that she is mildly improved continue nebs, steroids appreciate pulmonary consult (1) COPD exacerbation Narrative/Plan: Continue nebs, steroids, IV antibiotics patient still seems short of breath appreciated pulmonary consult Current Visit: Yes Status: Acute Code(s): J44.1 - CHRONIC OBSTRUCTIVE PULMONARY DISEASE W (ACUTE) EXACERBATION SNOMED Code(s): 858568769 (2) Adenocarcinoma, lung Narrative/Plan: Continue current care Current Visit: Yes Status: Acute Code(s): C34.90 - MALIGNANT NEOPLASM OF UNSP PART OF UNSP BRONCHUS OR LUNG SNOMED Code(s): 314077839 (3) Malnutrition of moderate degree Narrative/Plan: Wearout ensure Current Visit: Yes Status: Acute Code(s): E44.0 - MODERATE PROTEIN-CALORIE M ALNUTRITION SNOMED Code(s): 662340159 (4) Acute respiratory distress syndrome in adult Narrative/Plan: Patient states he usually uses 2 L of oxygen but her dyspnea was worsening at home continue oxygen supplementation and titrate as needed Current Visit: No Status: Acute Code(s): J80 - ACUTE RESPIRATORY DISTRESS SYNDROME SNOMED Code(s): 00422362
--- NOTE | 2020-01-20 17:08 | P.PN ---
Progress Note - Text Progress Note Date: 01/20/20 ACP/goals of care Present: Dr. Wiseman and patient Diagnosis at the discussion: COPD exacerbation, cancer of the lung Goals of care were discussed with the patient. The patient states she wants to be a full code at this time. She states that she has a power of assistant county attorney. The patient states that she will discuss her goals of care further with her family. At this time she would like to continue aggressive care because she wants to be a life to see her great-grand baby is going to be born in May 2020. The patient states she had experience of having to terminate life-support and one of her daughters had a long history of cerebral palsy and aspiration pneumonia. The patient states he understands that her case is different because of her underlying lung cancer. At this time patient wants to be full code including intubation if needed Time spent 17 minutes
[2020-01-20 20:40] LABS: Glucose,Whole Blood 99 mg/dL (75-99)
[2020-01-20] MEDS: ATORVASTATIN 10 MG TAB PO SCH (21:23)
--- NOTE | 2020-01-20 23:22 | PN ---
PROGRESS NOTE PULMONARY/CRITICAL CARE PROGRESS NOTE: DATE OF SERVICE: January 20, 2020 This is a 69-year-old female admitted on January 17. She came in with acute on chronic hypoxemic respiratory failure, COPD exacerbation, and history of bronchogenic carcinoma, stage IV. It was diagnosed in August of this year. In addition, she has some underlying pulmonary fibrosis, chronic anemia, CAD, and malignant left-sided pleural effusion requiring thoracentesis. Currently, she seems to be doing relatively well. She had oxygen therapy. She is a bit less short of breath. She denies any pain. No fever. No chills. PHYSICAL EXAMINATION: VITAL SIGNS: Current vital signs include a temperature 98, heart rate 112, respiratory rate 20, blood pressure 127/72, mean 90 and 4 L saturation 95%. HEENT: Examination is grossly unremarkable. Nasal O2 in place. NECK: Supple. Full range of motion. CARDIOVASCULAR: Examination reveals tachycardia. Heart rate 110. S1, S2 normal. LUNGS: Reveal diffuse coarse rhonchi bilaterally. There are some expiratory wheezes and crackles. ABDOMEN: Soft. Bowel sounds are heard. EXTREMITIES: Are intact. No cyanosis, clubbing, or edema. SKIN: Without rash. NEUROLOGIC: Examination is nonfocal. LABS: White count 5.3, hemoglobin 10.9, hematocrit 33.4, platelet count 37,000. Sodium 132, potassium 4.6, chloride 98, CO2 of 29, anion gap is 5. BUN and creatinine were 38 and 0.92. Albumin 3.2. Microbiology is currently negative. Chest x-ray and CT scan from the is reviewed. MEDICATIONS: Medications are reviewed. ASSESSMENT: 1. Acute on chronic hypoxemic respiratory failure, multifactorial. 2. Chronic obstructive pulmonary disease exacerbation in a patient with severe/ stage III chronic obstructive pulmonary disease and an FEV1 between 45% and 48%. 3. History of stage IV bronchogenic carcinoma, adenocarcinoma type, status post attempted thoracotomy which was not completed because of pleural metastasis. 4. Nonspecific pulmonary fibrosis. 5. Bicytopenia secondary to chemotherapy. 6. Chronic anemia, likely secondary to chemotherapy and underlying malignancy. 7. History of coronary artery disease. 8. History of left-sided pleural effusion, malignant, status post thoracentesis. PLAN: Currently, the patient is on oxygen therapy, and antibiotics. Antibiotics include Maxipime. In addition, she is on bronchodilators and corticosteroids. We will continue to follow. Her overall prognosis is poor given her stage IV lung cancer. Additional recommendations and suggestions forthcoming. We will continue to follow. No additional recommendations are made. She is currently not a candidate for any treatment at this time. MMODL / IJN: [id number] /
[2020-01-21] MEDS: CEFEPIME 2 GM in SODIUM CHLORIDE 0.9% 100 ML IVPB SCH (04:27)
[2020-01-21 06:12] LABS: Glucose,Whole Blood 170 mg/dL (75-99)
[2020-01-21] MEDS: PANTOPRAZOLE 40 MG TABLET PO SCH (06:39)
[2020-01-21] MEDS: methylPREDNISolone SOD SUCCI 125 MG/2 ML VIAL IV SCH (06:39)
[2020-01-21] MEDS: INSULIN ASPART (NovoLOG) 100 UNIT/ML VIAL SQ SCH (06:40)
[2020-01-21] MEDS: IPRATROPIUM-ALBUTEROL 3 ML NEB INHALATION SCH ×2 (08:20→12:15)
[2020-01-21] MEDS ORDERED: ENOXAPARIN 30 MG/0.3 ML SYRINGE SQ SCH (09:00)
[2020-01-21 09:34] LABS: Calcium 8.6 mg/dL (8.4-10.2); Potassium 4.7 mmol/L (3.5-5.1)
[2020-01-21 09:59] LABS: Anisocytosis Slight; HCT 29.9 % (34.0-46.0); HGB 9.6 gm/dL (11.4-16.0); MCH 32.2 pg (25.0-35.0); MCHC 32.2 g/dL (31.0-37.0); MCV 100.1 fL (80.0-100.0); Macrocytosis Slight; Mean Platelet Volume 8.6; RBC 2.99 m/uL (3.80-5.40); RDW 17.3 % (11.5-15.5); WBC 4.8 k/uL (3.8-10.6)
[2020-01-21 10:03] LABS: Platelet Count 24 k/uL (150-450)
[2020-01-21] MEDS: ASPIRIN 81 MG PO SCH (10:05)
[2020-01-21] MEDS: VIT A,C & E-LUTEIN-MINERALS 1 EACH TAB PO SCH (10:05)
[2020-01-21] MEDS: cloNIDine HCL 0.1 MG TAB PO SCH (10:05)
[2020-01-21] MEDS: hydrALAZINE HCL 50 MG TAB PO SCH (10:05)
[2020-01-21] MEDS: FOLIC ACID 1 MG TAB PO SCH (10:05)
[2020-01-21] MEDS: OLANZapine 2.5 MG TAB PO SCH (10:10)
[2020-01-21 10:14] VITALS: BP 145/75; RESP 18; TEMP 99.4
[2020-01-21 10:32] LABS: Band Neutrophils % 1 %; Basophils # (M) 0.05 k/uL (0-0.2); Lymphocytes # (M) 0.19 k/uL (1.0-4.8); Neutrophils % (M) 71 %; Nucleated Red Blood Cells 0 /100 WBC (0-0); Total Cells Counted 100
[2020-01-21] MEDS: NON FORMULARY DRUG (Vitamin B Complex [Vitamin B Complex] 1 EACH Capsule) PO SCH (11:16)
[2020-01-21 11:48] LABS: Glucose,Whole Blood 144 mg/dL (75-99)
[2020-01-21 13:28] VITALS: PULSE 112
--- NOTE | 2020-01-21 16:31 | PN ---
PROGRESS NOTE PULMONARY/CRITICAL CARE PROGRESS NOTE DATE: January 21, 2020 This is a 69-year-old female admitted back on January 17. She came in with acute on chronic hypoxemic respiratory failure, COPD exacerbation, and history of stage IV bronchogenic carcinoma. It was diagnosed in August of this year. She also has a history of underlying pulmonary fibrosis, anemia, and CAD, as well as malignant and left-sided pleural effusion requiring thoracentesis. Currently, she is doing much better. Her O2 requirement has been weaned down to 2 L/minute. She is feeling much less short of breath. She denies any fever, chills. She is not coughing up any phlegm or blood. She denies any chest pain or chest discomfort. PHYSICAL EXAMINATION: VITAL SIGNS: Current vital signs are reviewed. Temperature is 97.6 heart rate 100, respiratory rate 18, blood pressure 117/70, and 2 L saturation 95%. Appears in no acute distress. HEENT: Examination is grossly unremarkable. Nasal O2 noted. NECK: Supple, full range of motion. No adenopathy. Neck veins are flat. CARDIOVASCULAR: Examination reveals regular rhythm rate. Heart rate 88 beats per minute. S1, S2 normal. Heart sounds are distant. LUNGS: A few scattered coarse rhonchi. Breath sounds equal bilaterally. No wheezes or crackles. Breath sounds are diminished throughout. ABDOMEN: Soft, bowel sounds are heard. No masses. EXTREMITIES are intact. No cyanosis, clubbing, or edema. SKIN: Without rash. NEUROLOGIC: Examination is brief but nonfocal. LABS: Reviewed. MEDICATIONS: Medications are reviewed. ASSESSMENT: 1. Acute on chronic hypoxemic respiratory failure, multifactorial. 2. COPD exacerbation in a patient with severe/stage 3 chronic obstructive pulmonary disease, and an FEV1 that is about 45% of predicted. 3. History of stage IV bronchogenic carcinoma, adenocarcinoma type, status post attempted thoracotomy which was not completed because of pleural metastasis. 4. Nonspecific pulmonary fibrosis. 5. Bicytopenia secondary to chemotherapy. 6. Chronic anemia, likely secondary to chemotherapy and underlying malignancy. 7. History of CAD. 8. History of left-sided pleural effusion, malignant, status post thoracentesis. PLAN: Currently, the patient is doing much better. She has been weaned on 2 L. Currently still on antibiotics, bronchodilators, and corticosteroids. Overall prognosis is poor. She has stage IV lung cancer. We will continue to follow. She will follow. She will follow up in our office. No additional recommendations are made. MMODL / IJN: [id number] /
--- NOTE | 2020-01-21 19:18 | P.DS ---
Providers Date of admission: 01/18/20 15:42 Attending physician: Sarah Roque Consults: 01/18/20 15:42 Consult Physician Routine Consulting Provider: Glenn Benavidez Consult Reason/Comments: Lung cancer, neutropenia Do you want consulting provider notified?: Yes 01/18/20 15:59 Consult Physician Routine Consulting Provider: Velvet Mike Consult Reason/Comments: COPD exacerbation, history of lung cancer Do you want consulting provider notified?: Yes Primary care physician: Darline Chaudhari - Aft[place] Diagnosis(es) (1) COPD exacerbation Daily nebs, steroids, IV antibiotics Status: Acute (2) Adenocarcinoma, lung Follow-up as outpatient Status: Acute (3) Malnutrition of moderate degree Protein supplements were given Status: Acute (4) Acute respiratory distress syndrome in adult Patient appears to be at her baseline Status: Acute Hospital Course: The patient is a 69-year-old female with history of COPD, lung cancer. The patient lung cancer was diagnosed in July 2019 and currently is undergoing chemotherapy last session on 01/09. Patient has chronic hypoxic respiratory failure and 2 L of oxygen COPD, hyperlipidemia and GERD. In the emergency room patient was reporting cough productive of yellow-green sputum she is a CT in the emergency room revealed unchanged diffuse reticular nodular pulmonary infiltrates consistent with inflammatory disease or pulmonary hypertension. EKG shows sinus tachycardia at 1 17 bpm with LVH. The patient will extremity duplex was negative for DVT was negative. On her influenza test was negative. The patient was treated for COPD exacerbations with cefepime nebs steroids. The patient was requiring more oxygen supplementation initially but today was seen by me she was at her baseline oxygen since she did not have a fever or leukocytosis and a computed tomography scan chest was read as unchanged reticular pattern patient was not discharged with antibiotics. The patient overall prognosis remained poor she was seen by pulmonary during her hospitalization. The patient states she wants to continue care aggressively because she wants to see her granddaughter have her baby which is expected in May 2020. The patient plans to have further goals of care conversation with her family she will be going home with additional palliative care and home care. Time spent 32 minutes Patient Condition at Discharge: Fair Plan - Discharge Summary Discharge Rx Participant: Yes New Discharge Prescriptions: No Action Ipratropium/Albuterol Sulfate [Combivent Respimat Inhaler] 1 puff INHALATION RT-QID PRN PRN Reason: Shortness Of Breath Simvastatin [Zocor] 20 mg PO HS Aspirin [Adult Low Dose Aspirin EC] 81 mg PO DAILY hydrALAZINE HCL [Apresoline] 100 mg PO BID Fluticasone Propion/Salmeterol [Wixela 250-50 Inhub] 1 puff INHALATION RT-BID cloNIDine HCL [Catapres] 0.1 mg PO BID Vit A/Vit C/Vit E/Zinc/Copper [ICAPS SOFTGEL] 1 cap PO DAILY Vitamin B Complex 1 cap PO DAILY HYDROcodone/APAP 5-325MG [[place] 5-325] 1 tab PO DAILY PRN PRN Reason: Pain traMADol HCL 50 mg PO Q6H PRN PRN Reason: Pain Ondansetron Odt [Zofran ODT] 4 mg PO Q6H PRN PRN Reason: Nausea OLANZapine [ZyPREXA] 2.5 mg PO DAILY PRN PRN Reason: after chemo for nausea Folic Acid 1 mg PO DAILY ALPRAZolam [Xanax] 0.25 mg PO DAILY PRN PRN Reason: Anxiety Ipratropium-Albuterol Nebulize [Duoneb 0.5 mg-3 mg/3 ml Soln] 3 ml INHALATION RT-DAILY PRN PRN Reason: Shortness Of Breath predniSONE [Deltasone] 5 mg PO DAILY dronabinoL [Dronabinol] 5 mg PO DAILY PRN PRN Reason: to increase appetite Discharge Medication List Ipratropium/Albuterol Sulfate [Combivent Respimat Inhaler] 1 puff INHALATION RT- QID PRN 06/01/15 [History] Simvastatin [Zocor] 20 mg PO HS 06/01/15 [History] Aspirin [Adult Low Dose Aspirin EC] 81 mg PO DAILY 10/28/16 [History] hydrALAZINE HCL [Apresoline] 100 mg PO BID 01/04/19 [History] Fluticasone Propion/Salmeterol [Wixela 250-50 Inhub] 1 puff INHALATION RT-BID 06/03/19 [History] Vit A/Vit C/Vit E/Zinc/Copper [ICAPS SOFTGEL] 1 cap PO DAILY 06/03/19 [History] cloNIDine HCL [Catapres] 0.1 mg PO BID 06/03/19 [History] ALPRAZolam [Xanax] 0.25 mg PO DAILY PRN 12/07/19 [History] Folic Acid 1 mg PO DAILY 12/07/19 [History] HYDROcodone/APAP 5-325MG [[place] 5-325] 1 tab PO DAILY PRN 12/07/19 [History] Ipratropium-Albuterol Nebulize [Duoneb 0.5 mg-3 mg/3 ml Soln] 3 ml INHALATION RT-DAILY PRN 12/07/19 [History] OLANZapine [ZyPREXA] 2.5 mg PO DAILY PRN 12/07/19 [History] Ondansetron Odt [Zofran ODT] 4 mg PO Q6H PRN 12/07/19 [History] Vitamin B Complex 1 cap PO DAILY 12/07/19 [History] traMADol HCL 50 mg PO Q6H PRN 12/07/19 [History] predniSONE [Deltasone] 5 mg PO DAILY 01/17/20 [History] dronabinoL [Dronabinol] 5 mg PO DAILY PRN 01/18/20 [History] Follow up Appointment(s)/Referral(s): Darline Chaudhari MD [Primary Care Provider] - 01/29/20 10:45 am ( ) [facility], [NON-STAFF] - Patient Instructions/Handouts: COPD (Chronic Obstructive Pulmonary Disease) (DC) Discharge Disposition: HOME SELF-CARE
--- NOTE | 2020-01-27 09:09 | CDI ---
pancytopenia due to chemotherapy Documentation Clarification Form Date: 01/20/2020 01:15:00 PM From: Jaimie JamaЕЛЕНА, CCDS Admit Date: 01/18/2020 03:42:00 PM Patient Name: Joana Engel Visit Number: [id number] Discharge Date: 01/21/2020 01:30:00 PM ATTENTION: The Clinical Documentation Specialists (CDI) and [facility] Coding Staff appreciate your assistance in clarifying documentation. Please respond to the clarification below the line at the bottom and electronically sign. The CDI & [facility] Coding staff will review the response and follow-up if needed. Please note: Queries are made part of the Legal Health Record. If you have any questions, please contact the author of this message via ITS. Dr. Dereck Oro: The patient was admitting with a diagnosis of: Acute Exacerbation of COPD, Pneumonia & Dehydration with known Lung Adenocarcinoma, recently underwent chemotherapy. Patient received 2 units of PRBCs the day prior to admission for anemia. Bicytopenia is documented in the 01/17 History & Physical, the 01/18 Oncology Progress note and also the 01/18 Pulmonary Consult. History/Risk factors: Lung Cancer, Systolic CHF, Hypertension, Pulmonary Hypertension, CAD, COPD, Former smoker. Clinical indicators: Presented to the ED with SOB, diagnosed with Acute Exacerbation of COPD. Labs 01/17: WBC 3.2*, RBC 3.90, Hgb 12.4, Hct 39.0, Pl Ct 74* Labs 01/18: WBC 3.0*, RBC 3.61*, Hgb 11.3*, Hct 36.6, Pl Ct 44* Treatment: Transfused 2 units PRBCs day prior to admission, IV fluid 1,000 mls @ 130 mls/hr q7, INH Albuterol/Ipratropium, IV Cefepime, IV Solumedrol, O2 2- 4Lnc. In your professional opinion, can you please clarify if these findings signify one of the following conditions? Pancytopenia due to chemotherapy Pancytopenia drug induced, specify drug Pancytopenia due to other, please specify Other condition, please specify ____ Unable to determine (Last Revision: December 2016) MTDD
== END 2020-01-21 13:30 | disposition home or self-care (01) | DRG 190 ==
LOC: EC 13:38 → 3SCARD 15:42
PROVIDERS: ADMIT Internal Medicine; ATTEND Internal Medicine
DX: J44.1 Chronic obstructive pulmonary disease with (acute) exacerbation (principal); J80 Acute respiratory distress syndrome; I50.20 Unspecified systolic (congestive) heart failure; J91.0 Malignant pleural effusion; E87.3 Alkalosis; I24.8 Other forms of acute ischemic heart disease; E44.0 Moderate protein-calorie malnutrition; Z68.1 Body mass index [BMI] 19.9 or less, adult; B37.0 Candidal stomatitis; C34.12 Malignant neoplasm of upper lobe, left bronchus or lung; C78.2 Secondary malignant neoplasm of pleura; I25.10 Atherosclerotic heart disease of native coronary artery without angina pectoris; I27.20 Pulmonary hypertension, unspecified; J84.10 Pulmonary fibrosis, unspecified; K21.9 Gastro-esophageal reflux disease without esophagitis; T45.1X5A Adverse effect of antineoplastic and immunosuppressive drugs, initial encounter; Z51.5 Encounter for palliative care; Z20.828 Contact with and (suspected) exposure to other viral communicable diseases; Z90.89 Acquired absence of other organs; Z95.828 Presence of other vascular implants and grafts; M19.90 Unspecified osteoarthritis, unspecified site; I11.0 Hypertensive heart disease with heart failure; J45.909 Unspecified asthma, uncomplicated; Z82.49 Family history of ischemic heart disease and other diseases of the circulatory system; Z84.1 Family history of disorders of kidney and ureter; Z79.82 Long term (current) use of aspirin; E78.5 Hyperlipidemia, unspecified; Z87.891 Personal history of nicotine dependence; D63.0 Anemia in neoplastic disease; D64.81 Anemia due to antineoplastic chemotherapy; D70.9 Neutropenia, unspecified; E86.0 Dehydration; Z79.899 Other long term (current) drug therapy; I73.9 Peripheral vascular disease, unspecified; Z99.81 Dependence on supplemental oxygen; Z90.722 Acquired absence of ovaries, bilateral; Z87.01 Personal history of pneumonia (recurrent); Z88.8 Allergy status to other drugs, medicaments and biological substances; R63.0 Anorexia
CPT/HCPCS: 36415; 36430; 36600; 71046; 71275; 80048; 80053; 81001; 82533; 82550; 82805; 83605; 83735; 83880; 84443; 84484; 85025; 85027; 85379; 85610; 85730; 86850; 86900; 86901; 86920; 87040; 87502; 87635; 93005; 93970; 94640; 94760; 96361; 96365; 96375; 99291